=== PATIENT | female | born 1990 | race Caucasian/White ===

== ENCOUNTER → 2016-11-22 | Outpatient (CLI) | payer BC, OTHER ==
[~2016-11-22] MED LIST: ACET325T96 PO; AMPH10CA3 PO; AMPH10TA2 PO; ARTISOL12 OP; CEFD125S PO; CETI10TA10 PO; CETI10TA84 PO; CHOL100010 PO; CHOL1TAB42 PO; CLB/200 PO; CLON0.5T3 PO; CRFL PO; DOXE10CA PO; ESOM40GR PO; FAMO40TA6 PO; FLUT0.15 NAE; GASTROZYME PO; IBUP-1428 PO; LIDO1SOL9 PO; MISCCAP80 PO; NAPR-1168 PO; PREG1CAP70 PO; PREG200C PO; RIBO1TAB PO; RIBO50CA PO; SPIR25TA PO; SYMIN/8045 INH; SYMIN8045 INH; VNTHFA/IN INH; [UNRECOGNIZED DRUG - CODE] PO; celebrex PO
[2016-11-22 17:26] LABS: COMPLETE YES; EOS % 2.1 %; HEMATOCRIT 41.5 % (37-47); LYMPH % 29.6 %; LYMPH ABS # 1.69 K/uL (1.2-3.4); MEAN CELL VOLUME 84.9 fL (80-100); MEAN CORPUSCULAR HEMOGLOBIN 29.9 pg (25-34); MEAN CORPUSCULAR HGB CONC 35.2 g/dl (32-36); MONO % 7.2 %; NEUT % 61.1 %; PLATELET COUNT 286 K/uL (130-400); RED BLOOD COUNT 4.89 M/uL (4.2-5.4)
[2016-11-22 17:55] LABS: ALB/GLOB RATIO 1.4 (0.9-2); ALKALINE PHOSPHATASE 49 U/L (45-117); ALT/SGPT 24 U/L (12-78); BLOOD UREA NITROGEN 18 mg/dl (7-18); BUN/CREATININE RATIO 30.1 (10-20); CALCIUM 8.5 mg/dl (8.5-10.1); CARBON DIOXIDE 24 mmol/L (21-32); CHLORIDE 105 mmol/L (98-107); CREATININE 0.61 mg/dl (0.60-1.20); GLUCOSE 84 mg/dl (70-99); POTASSIUM 3.9 mmol/L (3.5-5.1); SODIUM 139 mmol/L (136-145)
[2016-11-22 18:15] LABS: AST/SGOT 13 U/L (15-37); FERRITIN 13.6 ng/ml (8.0-388.0); TOTAL IRON BINDING CAPACITY 411 mcg/dl (250-450)
[2016-11-27 21:33] LABS: 18KDIGG BAND NONREACTIVE (NONREACTIVE); 23KDIGG BAND NONREACTIVE (NONREACTIVE); 23KDIGM BAND REACTIVE (NONREACTIVE); 28KDIGG BAND NONREACTIVE (NONREACTIVE); 30KDIGG BAND NONREACTIVE (NONREACTIVE); 39KDIGG BAND NONREACTIVE (NONREACTIVE); 39KDIGM BAND NONREACTIVE (NONREACTIVE); 41KDIGG BAND REACTIVE (NONREACTIVE); 41KDIGM BAND REACTIVE (NONREACTIVE); 45KDIGG BAND NONREACTIVE (NONREACTIVE); 58KDIGG BAND NONREACTIVE (NONREACTIVE); 66KDIGG BAND NONREACTIVE (NONREACTIVE); 93KDIGG BAND NONREACTIVE (NONREACTIVE)
[2016-11-30 12:20] LABS: REFERENCE QUEST TEST REPORT
[2016-12-06 09:48] LABS: GLIADIN DEAMIDATED IgA AB 4 UNITS (<20); GLIADIN DEAMIDATED IgG AB 3 UNITS (<20); LEAD BLOOD 1 MCG/DL (0-9)
== END | disposition home or self-care (01) ==
LOC: C.LAB 16:14
PROVIDERS: ATTEND Family Medicine
DX: R53.83 Other fatigue (principal); M25.50 Pain in unspecified joint

== ENCOUNTER → 2016-11-29 | Outpatient (CLI) | payer BC, OTHER ==
--- NOTE | 2016-11-29 17:26 | DIAGNOSTIC IMAGING REPORT ---
THYROID ULTRASOUND HISTORY: Nodule LOCALIZED SWELLING, MASS AND LUMP NECK COMPARISON: 06/07/2016 FINDINGS: Several cervical nodes bilaterally. On the right these measure up to 1.8 x 1.2 cm. On the left these measure 1.6 x 0.9 cm at maximum. This is in general is slightly diminished compared to the prior study. IMPRESSION: Bilateral soft tissue cervical nodes in general similar to and/or slightly diminished as compared to the prior study. Electronically signed by: Catalino Holder M.D. 11/29/2016 5:25 PM Dictated Date/Time: 11/29/2016 5:22 PM
== END | disposition home or self-care (01) ==
LOC: C.ULTR 16:41
PROVIDERS: ATTEND Nurse Practitioner
DX: R22.1 Localized swelling, mass and lump, neck (principal)

== ENCOUNTER 2016-12-02 14:56 | Emergency (ER) | payer BC, OTHER ==
[~2016-12-02] VITALS: Ht 157.5 cm; Wt 91.5 kg
[~2016-12-02 14:56] MED LIST changes: -ACET325T96 PO; -AMPH10CA3 PO; -AMPH10TA2 PO; -ARTISOL12 OP; -CEFD125S PO; -CETI10TA10 PO; -CETI10TA84 PO; -CHOL100010 PO; -CHOL1TAB42 PO; -CLB/200 PO; -CLON0.5T3 PO; -CRFL PO; -DOXE10CA PO; -ESOM40GR PO; -FAMO40TA6 PO; -FLUT0.15 NAE; -GASTROZYME PO; -LIDO1SOL9 PO; -MISCCAP80 PO; -NAPR-1168 PO; -PREG200C PO; -RIBO1TAB PO; -RIBO50CA PO; -SPIR25TA PO; -SYMIN8045 INH; -VNTHFA/IN INH; -[UNRECOGNIZED DRUG - CODE] PO; -celebrex PO
[2016-12-02 15:01] VITALS: BP 142/84; PULSE 89; TEMP 36.8; Ht 157.5 cm; Wt 91.5 kg
[2016-12-02 15:03] VITALS: O2SAT 98
[2016-12-02] MEDS ORDERED: NAPR-1168 PO (21:00)
[2016-12-02] MEDS ORDERED: CLON0.5T3 PO (21:02)
[2016-12-09] MEDS ORDERED: CEFD125S PO (14:02)
[2017-03-28] MEDS ORDERED: ACET325T96 PO (12:38)
[2017-06-06] MEDS ORDERED: SPIR25TA PO (10:54)
[2017-06-06] MEDS ORDERED: celebrex PO (10:54)
[2017-07-15] MEDS ORDERED: CLB/200 PO (11:32)
[2017-07-15] MEDS ORDERED: RIBO1TAB PO (11:32)
[2017-07-15] MEDS ORDERED: AMPH10CA3 PO (11:32)
[2017-07-15] MEDS ORDERED: MISCCAP80 PO (11:32)
[2017-07-15] MEDS ORDERED: GASTROZYME PO (11:32)
[2017-07-15] MEDS ORDERED: CETI10TA84 PO (11:32)
[2017-07-15] MEDS ORDERED: LIDO1SOL9 PO (11:32)
[2017-07-15] MEDS ORDERED: CHOL1TAB42 PO (11:32)
== END 2016-12-02 16:10 | disposition left against medical advice (07) ==
LOC: C.EDB 14:57
DX: R06.02 Shortness of breath (principal)

== ENCOUNTER 2016-12-02 19:05 | Emergency (ER) | payer BC, OTHER ==
[~2016-12-02] VITALS: Ht 158.8 cm; Wt 91.1 kg
[2016-12-02 19:26] VITALS: TEMP 36.5; Ht 158.8 cm; Wt 91.1 kg
--- NOTE | 2016-12-02 20:38 | DIAGNOSTIC IMAGING REPORT ---
CHEST ONE VIEW PORTABLE CLINICAL HISTORY: Atypical chest pain COMPARISON STUDY: 04/13/2015 FINDINGS: The heart is normal in size. There is slight interstitial thickening finding which may be related to technical factors. There is no lobar consolidation. There is no overt failure. There are no pleural effusions.[ IMPRESSION: Equivocal mild interstitial thickening versus technical factors. No evidence of focal pulmonary consolidation. No evidence of failure. Electronically signed by: Nelson Valdivia M.D. 12/02/2016 8:36 PM Dictated Date/Time: 12/02/2016 8:35 PM
[2016-12-02 21:00] VITALS: O2SAT 97
[2016-12-02] MEDS ORDERED: NAPR-1168 PO (21:00)
[2016-12-02] MEDS ORDERED: CLON0.5T3 PO (21:02)
[2016-12-02 22:04] LABS: PREG INTERNAL NEGATIVE QC NEG CLEAR BACKGROUND; PREG INTERNAL POSITIVE QC POS CONTROL LINE
[2016-12-02 23:32] LABS: COMPLETE YES; EOS % 0.2 %; HEMATOCRIT 40.6 % (37-47); IG% 0.1 %; LYMPH % 10.1 %; LYMPH ABS # 0.91 K/uL (1.2-3.4); MEAN CELL VOLUME 85.1 fL (80-100); MEAN CORPUSCULAR HGB CONC 35.2 g/dl (32-36); MEAN PLATELET VOLUME 9.6 fL (7.4-10.4); MONO % 1.4 %; NEUT % 88.2 %; PLATELET COUNT 271 K/uL (130-400); RED BLOOD COUNT 4.77 M/uL (4.2-5.4); WHITE BLOOD COUNT 9.03 K/uL (4.8-10.8)
[2016-12-02 23:54] LABS: BUN/CREATININE RATIO 19.6 (10-20); CALCIUM 8.7 mg/dl (8.5-10.1); CREATININE 0.72 mg/dl (0.60-1.20); POTASSIUM 4.1 mmol/L (3.5-5.1)
[2016-12-03] MEDS ORDERED: OPTIRAY 320 IV PRN (00:15)
[2016-12-03 01:48] VITALS: BP 121/72; PULSE 84; O2SAT 100
--- NOTE | 2016-12-03 03:20 | EMERGENCY ROOM VISIT NOTE ---
History Report prepared by Steffany: Lita Kang Under the Supervision of: Dr. David Carmona M.D. First contact with patient: 20:26 Chief Complaint: CHEST PAIN Stated Complaint: CHEST PAIN, THROAT SORE, INFECTION History of Present Illness The patient is a 26 year old female who presents to the Emergency Room with complaints of intermittent chest pain beginning 8 days ago. The patient complains of her throat closing when she lays down or eats. Earlier this week she notes that she went to a walk in clinic and got an ultrasound that showed swollen lymph nodes. She reports that she came in earlier today but the wait was long so she went to see her PCP. While she was there she reports that he had her take deep breaths which worsened her throat swelling and neck pain. She describes neck tenderness and pressure, chest soreness, muscle soreness, tongue swelling, and difficulty breathing. The patient states that her PCP heard wheezing and recommended antibiotics that she has not picked up yet. She notes that when she got home she started to panic because she had another 1 hour episode where felt like she couldn't breath and she was feeling pain in her chest up through her neck. The patient reports that she got blood work last week that showed lyme disease. She reports that her chest pain is feeling better than it did before. The patient notes that eating and deep breathing worsen her symptoms so she has not eaten much today. Pt denies LOC, headache, fevers, chills, diaphoresis, visual changes, nausea, vomiting, abdominal pain, back pain, melena, hematochezia, urinary symptoms, numbness, weakness, lymphadenopathy, rash, or other complaints. Source of History: patient Onset: 8 days ago Position: chest Timing: intermittent Modifying Factors (Worsening): eating, breathing Review of Systems See HPI for pertinent positives and negatives. A total of ten systems were reviewed and were otherwise negative. 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 (6) Herniated nucleus pulposus, L4-5 (7) Hypertension Nos (8) Irritable Bowel Syndrome (9) Jalmwin-Yvkabcoqy-Tkgjo syndrome (10) Obsessive-Compulsive Dis (11) Otitis Media Nos (12) Pyelonephritis Nos Family History Blood clots Social History Smoking Status: Never Smoker Alcohol Use: occasionally Drug Use: none Housing Status: lives with roommate Occupation Status: employed Current/Historical Medications Scheduled Naproxen Ds (Naprosyn Ds), 550 MG PO BID Pregabalin (Lyrica), 150 MG PO QID Scheduled PRN Budesonide/Formoterol Fumarate (Symbicort 80/4.5 Inhaler), 2 PUFFS INH DAILY PRN for Asthma Symptoms Clonazepam (Klonopin), 0.25 MG PO BID PRN for Anxiety Allergies Coded Allergies: Fluoxetine (Verified Allergy, Mild, HIVES, 09/06/15) Fluvoxamine (Verified Allergy, Mild, HIVES, 09/06/15) Dust (Verified Allergy, Unknown, asthma sx, 09/06/15) Loratadine (Verified Allergy, Unknown, anxiety, 09/06/15) Metoclopramide (Verified Allergy, Unknown, anxiety, 09/06/15) POLLEN (Verified Allergy, Unknown, asthma sx, 09/06/15) Hydrocodone (Verified Adverse Reaction, Intermediate, NAUSEA/VOMITING, 09/10) Sertraline (Verified Adverse Reaction, Mild, COLD SORES, 09/06/15) Uncoded Allergies: JESSICA,COBALT,CHROME,SILVER (Allergy, Unknown, HIVES, 07/29/14) ct dye (Adverse Reaction, Mild, anxiety,panic attack,arm numbness, 09/29/15) Physical Exam Vital Signs Date Time Temp Pulse Resp B/P Pulse Ox O2 Delivery O2 Flow Rate FiO2 12/03/16 01:48 84 18 121/72 100 Room Air 12/03/16 00:02 68 16 131/84 98 Room Air 12/02/16 21:23 77 18 125/72 97 Room Air 12/02/16 21:00 97 Room Air 12/02/16 20:50 81 12/02/16 19:26 36.5 86 20 133/87 97 Room Air Physical Exam GENERAL: Awake, alert, anxious appearing. HENT: Normocephalic, atraumatic. Oropharynx unremarkable. Some mild tender left adenopathy. EYES: Normal conjunctiva. Sclera non-icteric. NECK: Supple. No nuchal rigidity. FROM. No JVD. RESPIRATORY: Clear to auscultation. CARDIAC: Regular rate, normal rhythm. Extremities warm and well perfused. Pulses equal. ABDOMEN: Soft, non-distended. No tenderness to palpation. No rebound or guarding. No masses. RECTAL: Deferred. MUSCULOSKELETAL: Chest examination reveals exquisite bilateral upper chest wall tenderness. The back is symmetrical on inspection without obvious abnormality. There is no CVA tenderness to palpation. No joint edema. LOWER EXTREMITIES: Calves are equal size bilaterally and non-tender. No edema. No discoloration. NEURO: Normal sensorium. No sensory or motor deficits noted. SKIN: No rash or jaundice noted. Medical Decision & Procedures ER Provider Diagnostic Interpretation: X-ray: Per my interpretation, radiologist review. CHEST ONE VIEW PORTABLE FINDINGS: The heart is normal in size. There is slight interstitial thickening finding which may be related to technical factors. There is no lobar consolidation. There is no overt failure. There are no pleural effusions.[ IMPRESSION: Equivocal mild interstitial thickening versus technical factors. No evidence of focal pulmonary consolidation. No evidence of failure. Electronically signed by: Nelson Valdivia M.D. 12/02/2016 8:36 PM Dictated Date/Time: 12/02/2016 8:[address] NECK: No evidence of fluid collection, although evaluation is limited without intravenous contrast. Prominent adenoids. Unremarkable epiglottis. Small right mastoid fluid. Small cervical lymph nodes. Heterogeneous thyroid gland. Patchy nonspecific groundglass lung densities. Probably residual thymic tissue in the anterior mediastinum. Radiologist: Bessy Watson M.D. Laboratory Results 12/02/16 23:20 Red Blood Count 4.77, Mean Corpuscular Volume 85.1, Mean Corpuscular Hemoglobin 30.0, Mean Corpuscular Hemoglobin Concent 35.2, Mean Platelet Volume 9.6, Neutrophils (%) (Auto) 88.2, Lymphocytes (%) (Auto) 10.1, Monocytes (%) (Auto) 1.4, Eosinophils (%) (Auto) 0.2, Basophils (%) (Auto) 0.0, Neutrophils # (Auto) 7.96, Lymphocytes # (Auto) 0.91, Monocytes # (Auto) 0.13, Eosinophils # (Auto) 0.02, Basophils # (Auto) 0.00 12/02/16 23:20 Test 12/02/16 20:58 12/02/16 21:00 12/02/16 23:20 Bedside D-Dimer 265 ng/mlFEU (0-450) Bedside Troponin I 0.000 ng/ml (0-0.045) Erythrocyte Sedimentation Rate 10 mm/hr (0-21) C-Reactive Protein 0.49 mg/dl (0-0.29) Human Chorionic Gonadotropin, Qual NEG (NEG) Monoscreen NEG (NEG) White Blood Count 9.03 K/uL (4.8-10.8) Red Blood Count 4.77 M/uL (4.2-5.4) Hemoglobin 14.3 g/dL (12.0-16.0) Hematocrit 40.6 % (37-47) Mean Corpuscular Volume 85.1 fL (80-100) Mean Corpuscular Hemoglobin 30.0 pg (25-34) Mean Corpuscular Hemoglobin Concent 35.2 g/dl (32-36) Platelet Count 271 K/uL (130-400) Mean Platelet Volume 9.6 fL (7.4-10.4) Neutrophils (%) (Auto) 88.2 % Lymphocytes (%) (Auto) 10.1 % Monocytes (%) (Auto) 1.4 % Eosinophils (%) (Auto) 0.2 % Basophils (%) (Auto) 0.0 % Neutrophils # (Auto) 7.96 K/uL (1.4-6.5) Lymphocytes # (Auto) 0.91 K/uL (1.2-3.4) Monocytes # (Auto) 0.13 K/uL (0.11-0.59) Eosinophils # (Auto) 0.02 K/uL (0-0.5) Basophils # (Auto) 0.00 K/uL (0-0.2) RDW Standard Deviation 40.8 fL (36.4-46.3) RDW Coefficient of Variation 13.1 % (11.5-14.5) Immature Granulocyte % (Auto) 0.1 % Immature Granulocyte # (Auto) 0.01 K/uL (0.00-0.02) Anion Gap 11.0 mmol/L (3-11) Est Creatinine Clear Calc Drug Dose 123.4 ml/min Estimated GFR () 132.1 Estimated GFR (Non- 114.0 BUN/Creatinine Ratio 19.6 (10-20) Calcium Level 8.7 mg/dl (8.5-10.1) Total Bilirubin 0.5 mg/dl (0.2-1) Direct Bilirubin 0.1 mg/dl (0-0.2) Aspartate Amino Transf (AST/SGOT) 15 U/L (15-37) Alanine Aminotransferase (ALT/SGPT) 29 U/L (12-78) Alkaline Phosphatase 54 U/L (45-117) Total Protein 7.2 gm/dl (6.4-8.2) Albumin 3.9 gm/dl (3.4-5.0) Lipase 130 U/L (73-393) Laboratory results reviewed by me ECG Indication: chest pain Rate (beats per minute): 89 Rhythm: normal sinus Findings: no acute ischemic change, no ectopy, other (no pericarditis) ED Course 2025: The patient was evaluated in room A4. A complete history and physical exam was performed. 2244: I reevaluated the patient. She is doing well. 0005: I reevaluated the patient. 0133: I reevaluated and updated the patient. 0143: I reevaluated the patient. Discussed results and discharge instructions: She verbalized understanding and agreement. The patient is ready for discharge. Medical Decision Triage Nursing notes reviewed. The patient's presentation and history were concerning for chest pain and neck pain. Etiologies such as costochondritis, pericarditis, pharyngitis, epiglottitis, retropharyngeal abscess, cardiac ischemia, aortic dissection, pulmonary embolism , pneumonia, pneumothorax, musculoskeletal, infections, gastrointestinal, anxiety as well as others were entertained. The patient was evaluated. She was doing well. She declined analgesia. She had an unremarkable ECG. Chest x-ray was negative. Her CBC was normal. [place] testing was normal. Cardiac markers and d-dimer negative. The patient underwent CT imaging which did not reveal any significant structural abnormalities. Epiglottis was normal. No fluid collections. There was some minimal adenopathy. The patient has a tender chest wall on physical examination. She has intermittent complaints of neck pain and feeling like she is being choked. I suspect that she does have a costochondritis. She has a prescription initiated for Lyme treatment. The patient then questioned if this could be related to anxiety. I suspect that she could have also had a brief panic attack due to her symptoms. I discussed conservative management with the patient and her significant other. She is doing very well at this time without significant treatment. I gave my usual and customary discussion regarding this issue. By the evaluation outlined above other emergent etiologies such as those listed in the differential, as well as others, were deemed relatively unlikely. The patient and significant other were informed about the findings as listed above. All questions were answered and they were pleased with the treatment. Return instructions were outlined and the patient was discharged in stable condition. The patient was referred to her PCP for follow-up MARIBELL for a recheck of the current condition. The chart was completed utilizing [employer] Speech voice recognition software. Grammatical errors, random word insertions, pronoun errors, and incomplete sentences are an occasional consequence of this system due to software limitations, ambient noise, and hardware issues. Any formal questions or concerns about the content, text, or information contained within the body of this dictation should be directly addressed to the physician for clarification. Impression Primary Impression: Mid sternal chest pain Additional Impression: Neck pain Scribe Attestation The scribe's documentation has been prepared under my direction and personally reviewed by me in its entirety. I confirm that the note above accurately reflects all work, treatment, procedures, and medical decision making performed by me. Departure Information Dispostion Home / Self-Care Referrals Amanuel Bang M.D. (PCP) Forms HOME CARE DOCUMENTATION FORM, IMPORTANT VISIT INFORMATION Patient Instructions My [facility] Additional Instructions Fill the prescriptions and take the medicine as prescribed. Warm compresses for 20 minutes at a time four times daily for 2-3 days. Ibuprofen(Motrin, Advil) may be used for fever or pain. Use 600mg every six hours as needed. Take with food. Avoid using more than 2400mg in a 24 hour period. Do not use 2400mg per day for more than three consecutive days without physician direction. Prolonged inappropriate use can lead to stomach upset or ulcers. (AND/OR) Acetaminophen(Tylenol) may be used for fever or pain. Use 1000mg every six hours as needed. Avoid using more than 4000mg in a 24 hour period. Rest and drink plenty of fluids as tolerated. Continue current medications. Avoid strenuous activities and anything that worsens your pain. Resume normal activities once your symptoms resolve. Return to the ER immediately for worsening or persistent chest pain, abdominal pain, vomiting, fevers, chest pains, difficulty breathing, worsening of your condition, or as needed. Follow up with your primary physician tomorrow for a recheck of your current condition. Problem Qualifiers
--- NOTE | 2016-12-03 07:56 | DIAGNOSTIC IMAGING REPORT ---
CT SCAN OF THE NECK WITHOUT IV CONTRAST CLINICAL HISTORY: Sore throat. COMPARISON STUDY: Radiographs of the cervical spine dated 04/13/2015. TECHNIQUE: CT scan of the soft tissues of the neck was performed from the skull base to the upper chest. Images are reviewed in the axial, sagittal, and coronal planes. IV contrast was not administered as per the referring clinician due to a reported history of contrast allergy. Note that the examination is significantly suboptimal without IV contrast. CT DOSE: 718.55 mGy.cm FINDINGS: Pharynx: The unenhanced pharyngeal soft tissues are grossly normal in appearance. The pharyngeal airway is widely patent. There is no evidence of mass lesion. The vocal cords are symmetric. The parapharyngeal fat is well maintained. The prevertebral/retropharyngeal soft tissues are within normal limits. The epiglottis is normal. Mild prominence of the adenoids may be normal for age. There is no evidence of fluid collection on this unenhanced examination. Lymphadenopathy: No cervical lymphadenopathy is seen Thyroid: Slightly atrophic and heterogeneous. Salivary glands: The parotid and submandibular glands are within normal limits. Brain parenchyma: The visualized brain parenchyma at the skull base is normal in appearance. Skeletal structures: Imaged portions of the calvarium at the skull base are within normal limits. The cervical spine appears intact. Orbits: The bony orbits are intact. Orbital contents are normal as visualized. Sinuses and mastoids: The paranasal sinuses are clear. There is a small right mastoid effusion. The left mastoid air cells are well pneumatized. A nasal piercing is noted. Lung apices: Visualized apical lung parenchyma is clear. Minimal residual thymic tissue is present in the anterior mediastinum. The aortic arch demonstrates bovine variant anatomy. IMPRESSION: 1. No acute abnormality is identified on this unenhanced examination. 2. Small right mastoid effusion. Electronically signed by: Louis Downs M.D. 12/03/2016 7:54 AM Dictated Date/Time: 12/03/2016 7:49 AM
[2016-12-09] MEDS ORDERED: CEFD125S PO (14:02)
[2017-03-28] MEDS ORDERED: ACET325T96 PO (12:38)
[2017-06-06] MEDS ORDERED: SPIR25TA PO (10:54)
[2017-06-06] MEDS ORDERED: celebrex PO (10:54)
[2017-07-15] MEDS ORDERED: GASTROZYME PO (11:32)
[2017-07-15] MEDS ORDERED: CHOL1TAB42 PO (11:32)
[2017-07-15] MEDS ORDERED: RIBO1TAB PO (11:32)
[2017-07-15] MEDS ORDERED: MISCCAP80 PO (11:32)
[2017-07-15] MEDS ORDERED: LIDO1SOL9 PO (11:32)
[2017-07-15] MEDS ORDERED: CETI10TA84 PO (11:32)
[2017-07-15] MEDS ORDERED: CLB/200 PO (11:32)
[2017-07-15] MEDS ORDERED: AMPH10CA3 PO (11:32)
== END 2016-12-03 01:56 | disposition home or self-care (01) ==
LOC: C.EDB 19:19 → C.EDA 12-03 01:56
DX: R07.2 Precordial pain (principal); M54.2 Cervicalgia; J45.909 Unspecified asthma, uncomplicated; I10 Essential (primary) hypertension; F41.9 Anxiety disorder, unspecified; Z79.899 Other long term (current) drug therapy; Z82.49 Family history of ischemic heart disease and other diseases of the circulatory system

== ENCOUNTER → 2016-12-04 | Outpatient (CLI) | payer BC, OTHER ==
[~2016-12-04] MED LIST changes: +ACET325T96 PO; +AMPH10CA3 PO; +AMPH10TA2 PO; +ARTISOL12 OP; +CEFD125S PO; +CETI10TA10 PO; +CETI10TA84 PO; +CHOL100010 PO; +CHOL1TAB42 PO; +CLB/200 PO; +CLON0.5T3 PO; +CRFL PO; +DOXE10CA PO; +ESOM40GR PO; +FAMO40TA6 PO; +FLUT0.15 NAE; +GASTROZYME PO; +LIDO1SOL9 PO; +MISCCAP80 PO; +NAPR-1168 PO; +PREG200C PO; +RIBO1TAB PO; +RIBO50CA PO; +SPIR25TA PO; +SYMIN8045 INH; +VNTHFA/IN INH; +[UNRECOGNIZED DRUG - CODE] PO; +celebrex PO
--- NOTE | 2016-12-04 13:13 | DIAGNOSTIC IMAGING REPORT ---
(BARIUM SWALLOW) ESOPHAGUS CLINICAL HISTORY: DYSPHAGIA COMPARISON STUDY: None FLUOROSCOPY TIME: 1.7 minutes. FINDINGS: Normal swallowing function. Esophagus is normal in course and caliber. Gastroesophageal junction is unremarkable. The patient declined ingestion of the barium tablet IMPRESSION: Normal study Electronically signed by: Catalino Holder M.D. 12/04/2016 1:12 PM Dictated Date/Time: 12/04/2016 1:09 PM
== END | disposition home or self-care (01) ==
LOC: C.RAD 12:01
PROVIDERS: ATTEND Family Medicine
DX: R13.10 Dysphagia, unspecified (principal)

== ENCOUNTER → 2016-12-10 | Day surgery (SDC) | payer BC, OTHER ==
[2016-12-09 14:04] VITALS: BMI 35.0
[~2016-12-10] VITALS: Ht 160 cm; Wt 90.9 kg
[~2016-12-10] MED LIST changes: -IBUP-1428 PO; +LIDOCAINE HCL 2% 2 ML VIAL (20MG/ML) ONE; +MIDAZOLAM HCL 1 MG/ML 2ML VIAL ONE; +PROPOFOL IV EMULSION 10 MG/ML 20 ML VIAL IV ONE; +SODIUM CHLORIDE 0.9% 500ML 500 ML IV ONE
[2016-12-10 08:57] VITALS: Ht 160 cm; Wt 90.9 kg
[2016-12-10 09:16] VITALS: TEMP 36.6
--- NOTE | 2016-12-10 09:33 | Endo History and Physical ---
History & Physical Date of Service: Dec 10, 2016. Chief Complaint: DYSPHAGIA Referring Physician: DR. KAIT DUKES History of Present Illness Dysphagia, progressive since 09/2016 Past Surgical History Hx Cardiac Surgery: No Hx Internal Defibrillator: No Hx Pacemaker: No Hx Abdominal Surgery: Yes (CERVICAL BIOPSY) Hx of Implantable Prosthesis: No Hx Post-Op Nausea and Vomiting: Yes Hx Cancer Surgery: No Hx Thoracic Surgery: No Hx Orthopedic: Yes (LEFT KNEE SX X 3) Hx Urinary Tract Surgery: No Family History Polyp, IBD Social History Smoking Status: Never Smoker Hx Substance Use: No Hx Alcohol Use: No Allergies Coded Allergies: Fluoxetine (Verified Allergy, Mild, HIVES, 12/09/16) Fluvoxamine (Verified Allergy, Mild, HIVES, 12/09/16) Bupropion (Verified Allergy, Unknown, HIVES, 12/09/16) Dust (Verified Allergy, Unknown, asthma sx, 12/09/16) Iodinated Diagnostic Agents (Verified Allergy, Unknown, ARM NUMBNESS, 12/09) Loratadine (Verified Allergy, Unknown, anxiety, 12/09/16) Metoclopramide (Verified Allergy, Unknown, anxiety, 12/09/16) POLLEN (Verified Allergy, Unknown, asthma sx, 12/09/16) Hydrocodone (Verified Adverse Reaction, Intermediate, NAUSEA/VOMITING, 09/10) Sertraline (Verified Adverse Reaction, Mild, COLD SORES, 12/09/16) Uncoded Allergies: JESSICA,COBALT,CHROME,SILVER (Allergy, Unknown, HIVES, 07/29/14) Current Medications Reported Home Medications Medications Dose Route/Sig Max Daily Dose Days Date Category Omnicef (Cefdinir) 125 Mg/5 Ml Ashlie 1 Tsp PO BID 10 12/09/16 Reported Klonopin (Clonazepam) 0.5 Mg Tab 0.25 Mg PO BID PRN 12/02/16 Reported Naprosyn Ds (Naproxen) 550 Mg Tab 550 Mg PO BID 12/02/16 Reported Lyrica (Pregabalin) 150 Mg Cap 150 Mg PO QID 04/13/15 Reported Symbicort 80/4.5 Inhaler (Budesonide/Formoterol Fumarate) Aero 2 Puffs INH DAILY PRN 07/29/14 Reported Vital Signs Weight (Kilograms): 90.91 Height (Feet): 5 Height (Inches): 3 Date Time Temp Pulse Resp B/P Pulse Ox O2 Delivery O2 Flow Rate FiO2 12/10/16 09:16 36.6 85 18 114/75 100 Room Air Physical Exam General Appearance: WD/WN, no apparent distress, + pertinent finding (anxious) Respiratory/Chest: Auscultation: breath sounds normal, no wheezing Cardiovascular: Heart Auscultation: RRR, no murmurs Abdomen: Inspection & Palpation: soft, no tenderness, guarding & rebound Assessment and Plan EGD today.
--- NOTE | 2016-12-10 10:05 | GI REPORT ---
Procedure Date: 12/10/2016 9:10 AM Procedure: Upper GI endoscopy Indications: Dysphagia Medicines: Monitored Anesthesia Care Complications: No immediate complications. Estimated blood loss: None. Estimated Blood Loss: Estimated blood loss: none. Procedure: Pre-Anesthesia Assessment: - Prior to the procedure, a History and Physical was performed, and patient medications, allergies and sensitivities were reviewed. The patient's tolerance of previous anesthesia was reviewed. - ASA Grade Assessment: II - A patient with mild systemic disease. After obtaining informed consent, the endoscope was passed under direct vision. Throughout the procedure, the patient's blood pressure, pulse, and oxygen saturations were monitored continuously. The On-site loaner was introduced through the mouth, and advanced to the third part of duodenum. The upper GI endoscopy was accomplished with ease. The patient tolerated the procedure well. Findings: The upper third of the esophagus, middle third of the esophagus and lower third of the esophagus were normal. Biopsies were taken with a cold forceps for histology. The Z-line was regular and was found 35 cm from the incisors. Biopsies were taken with a cold forceps for histology. A small hiatus hernia was present. Diffuse mildly erythematous mucosa without bleeding was found in the gastric antrum. Biopsies were taken with a cold forceps for Helicobacter pylori testing. The examined duodenum was normal. Impression: - Normal upper third of esophagus, middle third of esophagus and lower third of esophagus. Biopsied. - Z-line regular, 35 cm from the incisors. Biopsied. - Small hiatus hernia. - Erythematous mucosa in the antrum. Biopsied. - Normal examined duodenum. Recommendation: - Await pathology results. - Discharge patient to home (with escort). John Polanco M.D. John Polanco MD 12/10/2016 10:04:48 AM This report has been signed electronically. Note Initiated On: 12/10/2016 9:10 AM I attest to the content of the Intraoperative Record and orders documented therein, exceptions below
--- NOTE | 2016-12-10 10:06 | Discharge Instructions ---
Endoscopy Patient Instructions Date / Procedure(s) Performed Dec 10, 2016. EGD Allergy Information Coded Allergies: Fluoxetine (Verified Allergy, Mild, HIVES, 12/09/16) Fluvoxamine (Verified Allergy, Mild, HIVES, 12/09/16) Bupropion (Verified Allergy, Unknown, HIVES, 12/09/16) Dust (Verified Allergy, Unknown, asthma sx, 12/09/16) Iodinated Diagnostic Agents (Verified Allergy, Unknown, ARM NUMBNESS, 12/09) Loratadine (Verified Allergy, Unknown, anxiety, 12/09/16) Metoclopramide (Verified Allergy, Unknown, anxiety, 12/09/16) POLLEN (Verified Allergy, Unknown, asthma sx, 12/09/16) Hydrocodone (Verified Adverse Reaction, Intermediate, NAUSEA/VOMITING, 09/10) Sertraline (Verified Adverse Reaction, Mild, COLD SORES, 12/09/16) Uncoded Allergies: JESSICA,COBALT,CHROME,SILVER (Allergy, Unknown, HIVES, 07/29/14) Discharge Date / Findings Dec 10, 2016. Small hiatal hernia. No stricture appreciated. Biopsies obtained, pending. Medication Instructions Stopped Medication(s): TOLD TO STOP ANTIBIOTIC Restart Stopped Medication(s): Restart medications today Provider Instructions Activity Restrictions - No exercising or heavy lifting for 24 hours. - Do not drink alcohol the day of the procedure. - Do not drive a car or operate machinery until the day after the procedure. - Do not make any important decisions or sign important papers in 24 hours after the procedure. Following Day: - Return to full activity which may include returning to work/school. Diet Start your diet with liquids and light foods (jello, soup, juice, toast). Then eat your usual diet if not nauseated. Treatment For Common After Affects For mild abdominal pain, bloating, or excessive gas: - Rest - Eat lightly - Lie on right side Follow-Up Information Follow-up with DR. KAIT DUKES as scheduled Anesthesia Information What You Should Know You have had a procedure that required some medicine to reduce anxiety and discomfort. This treatment is called moderate sedation. After receiving the treatment, you may be sleepy, but you will be able to breathe on your own. The effects of the treatment may last for several hours. Follow these instructions along with Activity/Diet recommendations noted above: * Do NOT do anything where dizziness or clumsiness would be dangerous. * Rest quietly at home today, then you can be up and about tomorrow. * Have a responsible person stay with you the rest of today. * You may have had an I.V. today. If so, you may take the dressing off later today. Recommendations Call your doctor if: * Trouble breathing * Continuous vomiting for more than 24 hours * Temperature above 101 degrees * Severe abdominal pain or bloating * Pain not relieved by pain medicine ordered * There is increased drainage or redness from any incision * A large amount of rectal bleeding greater than 2-3 tablespoons. (If you had a polyp/s removed or have hemorrhoids, a small amount of blood - from the rectum is to be expected.) * You have any unanswered questions or concerns. IN THE EVENT OF A SERIOUS EMERGENCY, GO TO THE NEAREST EMERGENCY ROOM Your discharge instructions were prepared by provider John Polanco. Patient Instructions Signature Page Deepthi Mon Patient (or Guardian) Signature/Date: I have read and understand the instructions given to me by my caregivers. Caregiver/RN/Doctor Signature/Date: The above-named patient and/or guardian has received patient instructions on this date. + Original Patient Signature Page (only) stays with chart. Please make copy for patient.
--- NOTE | 2016-12-10 10:25 | Anesthesiology Progress Note ---
Anesthesia Post Op Note Date & Time Dec 10, 2016 at 10:26 Vital Signs Pain Intensity: 0 Vital Signs Past 12 Hours Date Time Temp Pulse Resp B/P Pulse Ox O2 Delivery O2 Flow Rate FiO2 12/10/16 10:20 81 18 117/57 94 Room Air 12/10/16 10:05 88 18 112/57 94 Room Air 12/10/16 09:16 36.6 85 18 114/75 100 Room Air Notes Mental Status: alert / awake / arousable, participated in evaluation Pt Amnestic to Procedure: Yes Nausea / Vomiting: adequately controlled Pain: adequately controlled Airway Patency, RR, SpO2: stable & adequate BP & HR: stable & adequate Hydration State: stable & adequate Anesthetic Complications: no major complications apparent
[2016-12-10 10:33] VITALS: BP 106/58; PULSE 68; O2SAT 98
== END | disposition home or self-care (01) ==
LOC: C.GI 08:39
PROVIDERS: ATTEND Internal Medicine Gastroenterology
DX: K29.50 Unspecified chronic gastritis without bleeding (principal); K44.9 Diaphragmatic hernia without obstruction or gangrene; Z83.71 Family history of colonic polyps; Z83.79 Family history of other diseases of the digestive system

== ENCOUNTER → 2016-12-27 | Outpatient (CLI) | payer BC, OTHER ==
[~2016-12-27] MED LIST changes: -LIDOCAINE HCL 2% 2 ML VIAL (20MG/ML) ONE; -MIDAZOLAM HCL 1 MG/ML 2ML VIAL ONE; -PROPOFOL IV EMULSION 10 MG/ML 20 ML VIAL IV ONE; -SODIUM CHLORIDE 0.9% 500ML 500 ML IV ONE
--- NOTE | 2016-12-27 15:16 | DIAGNOSTIC IMAGING REPORT ---
ABDOMEN COMPLETE (US) CLINICAL HISTORY: Abdominal pain COMPARISON STUDY: 03/13/2012 FINDINGS: The pancreas appears sonographically normal. The liver and gallbladder appears sonographically normal. There is no ductal dilatation. The common bile duct measures 4 mm. The spleen measures 11.8 cm in length. No splenic masses are visualized. The right kidney measures 11.9 cm in length. The left kidney measures 11.8 cm in length. No renal masses are visualized. There is no hydronephrosis. There is no evidence of abdominal aortic aneurysm. The IVC appear patent. IMPRESSION: Normal study Electronically signed by: Nelson Valdivia M.D. 12/27/2016 3:15 PM Dictated Date/Time: 12/27/2016 3:14 PM
== END | disposition home or self-care (01) ==
LOC: C.ULTR 14:07
PROVIDERS: ATTEND Family Medicine
DX: R10.9 Unspecified abdominal pain (principal)

== ENCOUNTER → 2016-12-27 | Outpatient (CLI) | payer BC, OTHER ==
[2017-01-01 04:50] LABS: ANTI-CENTROMERE AB <1.0 NEG AI (<1.0 NEG); ANTI-SS-A <1.0 NEG AI (<1.0 NEG); ANTI-SS-B <1.0 NEG AI (<1.0 NEG); BRUCELLA AB IGG 0.08; DNA ds CRITHIDIA NEGATIVE (NEGATIVE); HLA-B27** TC 528X NEGATIVE (NEGATIVE); MICROSOMAL AB <1 IU/ML (<9); R. TYPHI IgG AB Not Detected (Not Detected); R. TYPHI IgM AB Not Detected (Not Detected); RMSF IgM AB Not Detected (Not Detected); Sm Antibody <1.0 NEG AI (<1.0 NEG)
== END | disposition home or self-care (01) ==
LOC: C.LAB1850 11:53
PROVIDERS: ATTEND Internal Medicine Infectious Disease
DX: M13.0 Polyarthritis, unspecified (principal)

== ENCOUNTER → 2017-01-22 | Outpatient (CLI) | payer BC, OTHER ==
[2017-01-28 12:23] LABS: HERPES SIMPLEX CULT SOURCE GENITAL-VULVA; HERPES SIMPLEX VIRUS CULT NOT ISOLATED (NOT ISOLATED)
== END | disposition home or self-care (01) ==
LOC: C.LABSPEC 16:07
PROVIDERS: ATTEND Physician Assistant
DX: N90.89 Other specified noninflammatory disorders of vulva and perineum (principal)

== ENCOUNTER → 2017-01-29 | Outpatient (CLI) | payer BC, OTHER ==
--- NOTE | 2017-01-30 06:24 | PAP/PSG TECHNICIAN REPORT ---
[facility] Carbon Capture Power Plant Operator Polysomnogram Report Study name: None Report date: 01/30/2017 Study date: 01/29/2017 Referring Physician: DR.STEVEN ERNST M.D. Name: ELLIOTTHALI Interpreting Physician: Bill Campbell D.O. Date of : 1990 [employer] Capture Power Plant Operator: Starla Pino [facility]. Sex: Female Age: 26 StudyType: PSG Weight: 178 lbs Height: 26 years, Height 5' 3.5" Neck Circum:14inches BMI: 31.03 Medications: Lyrica 150mg, Nexium 40mg, Carafate 10ml, Famotidine, Albuterol, Symbicort, Clonazepam 0.5mg, Zyrtec, Flonase, Diflucan Patient History Study started on room air with no ETCO2 monitoring in room #8. 26 yr old female here tonight for a diagnostic psg. She had a failed HST. She snores and gasps at night. 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 She did have some ENT surgery. She was recently diagnosed with Laryngopharyngeal reflux. Her ESS=11/24. Neck circ=14inches. Patient took clonazepam right before getting into bed. Parameters Monitored NPSG: E1-M2, E2-M1, Fp1-M2, Fp2-M1, F3-M2, F4-M2, F4-M1, C3-M2, C4-M2, C4-M1, O1-M2, O2-M2, O2-M1, T3-M2, T4-M1, P3-M2, P4-M1, CHIN1, CHIN2, HR, EKG, Legs, PFLOW, SNOR, FLOW, CFLOW, Tidal Volume, THOR, ABDO, SpO2, PLTH, CPRESS, ETCO2 Wave, ETCO2, pH Sleep Architecture Sleep Stages Time at Lights Off 10:23:58 PM STAGES Time (min.) TST (%) Time at Lights On 5:21:58 AM Wake 62.5 -- Total Recording Time (TRT) 418.00 min. N1 5.0 1 Total Sleep Period (TSP) 359.0 min. N2 229.5 65 Total Sleep Time (TST) 355.5min. N3 88.0 25 Awake Time 62.5 min. REM 33.0 9 Wake after Sleep Onset 5.5 min. Sleep Efficiency (SE) 85 % Sleep Onset Latency (ARLETTE) 57.0 min. Number of Stage 1 Shifts None Awakenings 5 Stage Changes 23 Number of REM periods 4 REM 33.0 9 REM Latency 206.5 min. NREM 322.5 91 Body Position Analysis Supine Right Left Side Prone Vertical Total Sleep Time (min.) 418.0 0.0 0.0 0.00 0.0 0.0 Total Sleep Time (%) 100% 0% 0% 0 0% N/A% Total Sleep Time REM (min.) 33.0 0.0 0.0 None 0.0 0.0 Total Sleep Time NREM (min.) 322.5 0.0 0.0 None 0.0 0.0 Intermittent Wake (min.) 62.5 0.0 0.0 None 0.0 0.0 Total Sleep Period (%) 100% None None None None None Arousals Myoclonus (PLM) * Events Count Index Events Count Index Spontaneous 8 1 Events Awake (PLMW) 15 14.4 Respiratory 1 0.2 Events Asleep w/ Arousal (PLMA) 2 0.3 PLM 2 0 Events Asleep w/o Arousal (PLMS) 9 1.5 Snoring 1 0 Total Asleep 11 1.9 Total 12 2 Total 26 4 Respiratory Analysis * CA OA MA CH H RERA Total Count 0 1 0 0 14 0 15 Index 0.0 0.2 0.0 0 2.4 0 2.5 Mean Duration 0.0 12.6 0.0 0.00 14.9 0.0 14.7 Longest Duration 0.0 12.6 0.0 0.00 0.0 0.0 23.3 Respiratory Event Summary Total Supine ~Supine Right Left Prone REM NREM Apneas Count 1 1 N/A N/A N/A N/A 0 1 Index 0.2 0 N/A N/A N/A N/A 0 0 Hypopneas (4% Desat) Count 14 14 N/A N/A N/A N/A 6 8 Index 2.4 2.4 N/A N/A N/A N/A 10.9 1.5 Apneas & All Hypopneas Count 15 15 N/A N/A N/A N/A 6 9 Index 2.5 3 N/A N/A N/A N/A 10.9 1.7 Respiratory Events (Ware Finisher+All Hyp+RERA) Count 15 15 N/A N/A N/A N/A 6 9 Index 2.5 3 N/A N/A N/A N/A 10.9 1.7 Respiratory Related Arousal Count 1 15 N/A N/A N/A N/A 0 1 Index 0.2 0 N/A N/A N/A N/A 0 0 Snoring Analysis Supine Right Left Prone REM NREM Total Snore duration 1.5 min Snores count 34 N/A N/A N/A 5 29 34 Snore mean duration 2.7 Sec Snores index 6 N/A N/A N/A 9.1 5.4 5.7 TST with snoring (%) 0.4% Desaturation Event Summary: Minimum %SpO2 Event Count Mean/Min/Max Duration(sec.) Desaturation Index % Time In Bed > 90 25 17.7 / 5.5 / 58.8 3.7 99.0 86 - 90 4 6.4 / 5.5 / 7.3 57.3 1.0 81 - 85 0 N/A 0.0 0.0 76 - 80 0 N/A 0.0 0.0 71 - 75 0 N/A 0.0 0.0 66 - 70 0 N/A 0.0 0.0 61 - 65 0 N/A 0.0 0.0 56 - 60 0 N/A 0.0 0.0 51 - 55 0 N/A 0.0 0.0 < 50 0 N/A 0.0 0.0 Total REM NREM Awake <50% 0.0 min. 0.0 min. 0.0 min. 0.0 min. 51 - 60% 0.0 min. 0.0 min. 0.0 min. 0.0 min. 61 - 70% 0.0 min. 0.0 min. 0.0 min. 0.0 min. 71 - 80% 0.0 min. 0.0 min. 0.0 min. 0.0 min. 81 - 90% 4.2 min. 2.0 min. 2.0 min. 0.2 min. 91 - 100% 408.7 min. 31.0 min. 320.3 min. 57.4 min. Average 93 93 93 94 Minimum SpO2 85 88 88 85 Desaturation Event Index 3.6 12.7 2.2 5.8 # Desat. Events below 89% 4 1 2 1 Time(%) with Saturation below 89% 0.1 0.0 0.0 0.0 Time(min.) with Saturation below 89% 0.3 0.1 0.1 0.1 Time (mins) REM (mins) NREM (mins) % of TST SpO2 Below 90% 15 5 N10 0.2 SpO2 Below 88% 0 0 0 0 Heart Rate Analysis Min (bpm) Max (bpm) Average (bpm) Awake 54 91 65 NREM 50 92 58 REM 53 76 63 Overall 50 92 59 Supplemental O2 Values Minimum O2 level: None Value Start Time End Time [employer] Operator Comments slept in the supine position. No cardiac arrhythmia or PLM's noted. No bruxism noted. Snoring was noted and scored as a 0 on a scale of 1 through 5. (0=no snoring, 5=snoring loud enough to be heard through a closed door or down the hansen way) She did not use the restroom during the night. She stated that she slept well, actually better than usual. She told me in the morning that she took 1.5mg of clonazepam to make sure that she would sleep. I was unaware of the dose that she took. She assured me that her doctor said it was fine to take that much medication. The final report will be interpreted and signed by a sleep physician. The completed physician report will then be placed in the patient medical record. Therapy (cm H2O) 0 TIB (min.) 418.0 TST (min.) 355.5 Sleep Onset (min.) 57.0 REM Onset From Sleep (min.) 206.5 Sleep Efficiency % 85 Wakefulness (%) 15 Wakefulness (min.) 62.5 NREM 1 (%) 1 NREM 1 (min.) 5.0 NREM 2 (%) 65 NREM 2 (min.) 229.5 NREM 3 (%) 25 NREM 3 (min.) 88.0 REM (%) 9 REM (min.) 33.0 # Arousals 12 Arousal Index 2 # Snore 34 Snore Index 5.7 AHI 2.5 AHI Supine 3 AHI Non-Supine N/A NREM AHI 1.7 REM AHI 10.9 RDI 2.5 # Obstructive Apnea 1 # Central Apnea 0 # Mixed Apnea 0 # Hypopneas 14 RERAs 0 Total Respiratory Events 15 Time Below SpO2 89% (min.) 0.2 Mean NREM SpO2 (%) 93 Mean REM SpO2 (%) 93 Mean Sleep SpO2 (%) 93 Min NREM SpO2 (%) 88 Min REM SpO2 (%) 88 Position Supine (min.) 418.0 Position Non-supine (min.) 0.0 LM Index Sleep 1.9 LM Index NREM 1.9 LM Index REM 1.8 Mean Heart Rate (bpm) 59 Min Heart Rate (bpm) 50
--- NOTE | 2017-02-06 01:17 | POLYSOMNOGRAPH REPORT ---
The patient is referred by Dr. Amanuel Bang. CLINICAL DATA: The patient is a 26-year-old female. She has a BMI of 31.03. Her complaints are those of snoring, observed apneas, nocturnal gasping, and she had a failed home sleep study. There was a prior history of sleep apnea and she reportedly had ENT surgery. This was a diagnostic in-lab sleep study. SLEEP ARCHITECTURE: The total sleep period was 359.0 minutes. Total sleep time was 355.5 minutes. The sleep efficiency was mildly decreased to 85%. The sleep onset latency was prolonged to 57 minutes. The REM latency was prolonged to 206.5 minutes. Wake after sleep onset was only 5.5 minutes. Sleep consisted of stage N1 1%, stage N2 65%, stage N3 25%, and stage REM 9%. AROUSAL DATA: The patient had a total of only 12 arousals including 8 spontaneous arousals, 1 respiratory arousal, 2 PLM arousals, and 1 snoring arousal. The arousal index was 2. PERIODIC LIMB MOVEMENT DATA: The patient had a total of 11 periodic limb movements of sleep for an index of only 1.9. There were 2 limb movements associated with arousals for a PLM arousal index of only 0.3. RESPIRATORY DATA: The patient had a total of 15 respiratory events including 1 obstructive apnea and 14 hypopneas. The 4% rule was utilized for scoring hypopneas. The apnea-hypopnea index was normal at 2.5 events per hour. This would suggest no significant sleep apnea. The apnea was 12.6 seconds in length. OXIMETRY DATA: The average saturation was 93%. The minimum saturation was 85%. There was just a transient desaturation. The total time with saturations less than 89% was 0.3 minutes. EKG DATA: The cardiac rhythm was normal sinus. The cardiac rates ranged from 50-92 beats per minute. The average was 59 beats per minute. CONTROL PANEL OPERATOR CRUDE UNIT COMMENTS AND TREATMENT SUMMARY: The patient slept in the supine position. No cardiac arrhythmia or PLMs were noted. No bruxism noted. Snoring was noted and scored as a 0 on a scale of 1 through 5. She did not use the restroom during the night. She stated she slept well. The patient told the staking technician she took 1.5 mg of clonazepam to make sure that she would sleep. IMPRESSION: A normal overnight sleep study. COMMENTS: The patient did take clonazepam before sleep as noted. She had a normal sleep architecture with a minimally abnormal sleep efficiency. She had difficulty initiating sleep with a sleep latency of 57 minutes. After that, she slept extremely well and her sleep was well consolidated. She had no significant sleep apnea. She had no significant limb movement activity. RECOMMENDATIONS: Followup is deferred to Dr. Amanuel Bang, who referred the patient.
== END | disposition home or self-care (01) ==
LOC: C.NEUR 20:00
PROVIDERS: ATTEND Family Medicine
DX: R06.83 Snoring (principal)

== ENCOUNTER → 2017-01-30 | Outpatient (CLI) | payer BC, OTHER ==
--- NOTE | 2017-02-14 08:20 | CODING QUERY NO DIAGNOSIS ---
TREATMENT RENDERED WITHOUT A DIAGNOSIS Dr. Bang, To promote full compliance with coding requirements relating to patient care, physician participation is requested in all cases of dbas uncertainty. Please assist us with providing a diagnosis/symptom for the test(s) below: A diagnosis/symptom was not documented on your Order. A valid diagnosis/symptom is required to bill all insurances. Please remember that we are unable to code a diagnosis of rule out, probable, possible, questionable, or suspected. Tests that require a diagnosis: * OTHER MNT INITIAL EA 15 MIN (3X) DIAGNOSIS: DATE OF SERVICE: 01/30/17 Provider Signature: Date: Thank you [facility] Information Management Once completed, please kindly fax back to [phone] For questions please call [phone]
== END | disposition home or self-care (01) ==
LOC: C.FOODA 14:05
PROVIDERS: ATTEND Family Medicine
DX: K21.9 Gastro-esophageal reflux disease without esophagitis (principal)

== ENCOUNTER → 2017-02-06 | Outpatient (CLI) | payer BC, OTHER ==
--- NOTE | 2017-02-06 12:23 | DIAGNOSTIC IMAGING REPORT ---
VIDEO SWALLOW HISTORY: Dysphagia. Globus sensation. TECHNIQUE: Video fluoroscopic evaluation of swallowing was performed in the AP and lateral projections by the speech pathology staff. The patient is fed nectar-thick and thin liquid barium, a barium coated wafer, and barium pudding. FLUOROSCOPY TIME: 1.5 minutes. A cine loop submitted. COMPARISON STUDY: CT neck 12/03/2016. FINDINGS: There is normal hyoid excursion and epiglottic deflection. No significant penetration or aspiration identified. Swallowing function is within normal limits. IMPRESSION: 1. No aspiration identified. 2. Please see the speech pathologist report for detailed findings and recommendations. Electronically signed by: Ok Kelly M.D. 02/06/2017 12:21 PM Dictated Date/Time: 02/06/2017 12:19 PM
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
== END | disposition home or self-care (01) ==
LOC: C.RAD 11:25
PROVIDERS: ATTEND Physician Assistant
DX: R13.10 Dysphagia, unspecified (principal)

== ENCOUNTER 2017-02-11 12:14 | Emergency (ER) | payer BC, OTHER ==
[~2017-02-11] VITALS: Ht 160 cm; Wt 76.0 kg
[~2017-02-11 12:14] MED LIST changes: -ACET325T96 PO; -AMPH10CA3 PO; -AMPH10TA2 PO; -ARTISOL12 OP; -CETI10TA10 PO; -CETI10TA84 PO; -CHOL100010 PO; -CHOL1TAB42 PO; -CLB/200 PO; -CRFL PO; -DOXE10CA PO; -ESOM40GR PO; -FAMO40TA6 PO; -FLUT0.15 NAE; -GASTROZYME PO; -LIDO1SOL9 PO; -MISCCAP80 PO; -PREG200C PO; -RIBO1TAB PO; -RIBO50CA PO; -SPIR25TA PO; -SYMIN8045 INH; -VNTHFA/IN INH; -[UNRECOGNIZED DRUG - CODE] PO; -celebrex PO
[2017-02-11 12:25] VITALS: TEMP 36.8; Ht 160 cm; Wt 76.0 kg
[2017-02-11] MEDS ORDERED: ESOM40GR PO (12:45)
[2017-02-11] MEDS ORDERED: PREG200C PO (12:45)
[2017-02-11] MEDS ORDERED: FAMO40TA6 PO (12:57)
[2017-02-11] MEDS ORDERED: FLUT0.15 NAE (12:57)
[2017-02-11] MEDS ORDERED: [UNRECOGNIZED DRUG - CODE] PO (12:57)
[2017-02-11] MEDS ORDERED: AMPH10TA2 PO (12:57)
[2017-02-11] MEDS ORDERED: CETI10TA10 PO (12:57)
[2017-02-11] MEDS ORDERED: PREGABALIN 100 MG CAP PO STA ×2 (12:59→15:38)
[2017-02-11] MEDS ORDERED: SODIUM CHLORIDE 0.9% 1000ML 500 ML IV STA (12:59)
--- NOTE | 2017-02-11 13:15 | EMERGENCY ROOM VISIT NOTE ---
History Report prepared by Steffany: Sridevi Calderón Under the Supervision of: Dr. Louis Butler M.D. First contact with patient: 12:42 Chief Complaint: FEVER Stated Complaint: FEVER, EXTREME NERVE/MUSCLE PAIN, LIGHT SENSITIVE History of Present Illness The patient is a 26 year old female who presents to the Emergency Room with complaints of persistent, worsening photophobia over the past few weeks. She currently rates her discomfort as a 5/10 in severity. The patient states that over the past few weeks she has noticed increased light sensitivity and increased headaches. She states that her vision has been blurry and notes that fluorescent lighting is worse. The patient states that she has a history of fibromyalgia and states that on Friday she changed her dosage from 150 mg of Lyrica 2 times per day to 200 mg of Lyrica 3 times per day. She states that over the past few weeks she has had feeling increasingly off balance and has had difficulty sleeping due to her increased pain. The patient states that over the weekend she noticed increased low lumbar back pain, muscle spasming, hip pain, and bilateral leg pain. She states that over the weekend she felt feverish and notes that today she was found to have a low-grade fever at her PCP 's office. The patient states that she has an anxiety disorder and has clonazepam on hand. She states that Friday she had an anxiety attack and noticed pressured speech. The patient states that the clonazepam helped to calm her down on Friday. She states that her pain continued to worsen throughout the weekend and states that she vomited Friday evening. The patient states that she vomited 3 times on Friday and a few times on Friday. She states that when she went to see her PCP today and after he examined her he became concerned for a possible central nervous system infection. The patient states that her eyes were dilated and was off balance while walking. She states that in October she had a diagnosis of Lyme by her PCP. The patient states that she saw Dr. Arroyo with infectious disease and was told that she didn' t have Lyme Disease--she still took 1 month of Omnicef. The patient does note that she additionally was recently diagnosed with laryngopharyngeal reflux and has lost 40 pounds since November. She additionally notes that in 2013 she went to [facility] and became sick and was hospitalized. The patient states that she was diagnosed with an eye infection, UTI, kidney infection, and an upper respiratory infection. She states that her fibromyalgia symptoms started around that time. Today, the patient denies any cough, sore throat, urinary symptoms, or rash. Source of History: patient Onset: over the past few weeks Position: other (global) Symptom Intensity: 5/10 Quality: other (photophobia) Timing: other (persistent) Associated Symptoms: + fevers, + vomiting Note: Associated Symptoms: off balance with walking, increased fibromyalgia pain, difficulty sleeping, increasingly off balance, muscle spasming, hip pain, bilateral leg pain Review of Systems See HPI for pertinent positives & negatives. A total of 10 systems reviewed and were otherwise negative. 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 (6) Herniated nucleus pulposus, L4-5 (7) Hypertension Nos (8) Irritable Bowel Syndrome (9) Xcsybpm-Eksaqqwil-Frqar syndrome (10) Obsessive-Compulsive Dis (11) Otitis Media Nos (12) Pyelonephritis Nos Family History Blood clots Diabetes mellitus FH: heart disease Hypertension Kidney disease Kidney stones Social History Smoking Status: Never Smoker Alcohol Use: occasionally Drug Use: none Housing Status: lives with roommate Occupation Status: employed Current/Historical Medications Scheduled Amphetamine-Dextroamphetamine 10MG (Adderall 10MG), 10 MG PO BID Cetirizine Hcl (Zyrtec), 10 MG PO DAILY Esomeprazole Magnesium (Nexium), 40 MG PO BID Famotidine (Pepcid), 40 MG PO DAILY Fluticasone Propionate (Nasal) (Flonase Allergy Relief), 2 SPRAY RADHA DAILY Milnacipran Hcl (Savella Titration Pack), 1 DOSE PO UD Pregabalin (Lyrica), 200 MG PO TID Scheduled PRN Clonazepam (Klonopin), 0.5 MG PO BID PRN for Anxiety Allergies Coded Allergies: Adhesives (Unverified Allergy, Severe, hives, 02/11/17) Fluoxetine (Verified Allergy, Mild, HIVES, 02/11/17) Fluvoxamine (Verified Allergy, Mild, HIVES, 02/11/17) Bupropion (Verified Allergy, Unknown, HIVES, 02/11/17) Dust (Verified Allergy, Unknown, asthma sx, 02/11/17) Iodinated Diagnostic Agents (Verified Allergy, Unknown, ARM NUMBNESS, 02/11) Loratadine (Verified Allergy, Unknown, anxiety, 02/11/17) Metoclopramide (Verified Allergy, Unknown, anxiety, 02/11/17) POLLEN (Verified Allergy, Unknown, asthma sx, 02/11/17) Hydrocodone (Verified Adverse Reaction, Intermediate, NAUSEA/VOMITING, ) Sertraline (Verified Adverse Reaction, Mild, COLD SORES, 02/11/17) Uncoded Allergies: JESSICA,COBALT,CHROME,SILVER (Allergy, Unknown, HIVES, 07/29/14) Physical Exam Vital Signs Date Time Temp Pulse Resp B/P Pulse Ox O2 Delivery O2 Flow Rate FiO2 02/11/17 17:50 94 14 115/70 97 Room Air 02/11/17 17:46 86 02/11/17 16:00 92 16 145/76 95 Room Air 02/11/17 15:11 104 116/78 98 Room Air 02/11/17 13:53 85 02/11/17 13:32 97 Room Air 02/11/17 13:24 98 18 124/69 97 Room Air 120/76 126/78 02/11/17 12:25 36.8 97 16 121/81 99 Physical Exam GENERAL: Patient is in no acute distress. HEENT: No acute trauma, normocephalic atraumatic, mucous membranes moist, no nasal congestion, no scleral icterus, pupils are equal round and reactive to light, TMs clear bilaterally. NECK: No stridor, no adenopathy, no meningismus, trachea is midline. Flexes chin to chest without pain or difficulty. LUNGS: Clear to auscultation bilaterally, no wheeze, no rhonchi, breath sounds equal. HEART: Without murmurs gallops or rubs, regular rate and rhythm. ABDOMEN: Soft, nontender, bowel sounds positive, no hernias, no peritonitis. EXTREMITIES: No cyanosis or edema, full range of motion of all the joints without pain or difficulty, no signs for acute trauma. NEUROLOGIC: Oriented x 3, no acute motor or sensory deficits, no focal weakness. No pronator drift or cerebellar dysfunction. SKIN: No rash, no jaundice, no diaphoresis. Medical Decision & Procedures ER Provider Diagnostic Interpretation: Orthostatic vital signs are negative. Laboratory Results 02/11/17 13:45 Red Blood Count 5.25, Mean Corpuscular Volume 85.5, Mean Corpuscular Hemoglobin 29.3, Mean Corpuscular Hemoglobin Concent 34.3, Mean Platelet Volume 11.3, Neutrophils (%) (Auto) 81.8, Lymphocytes (%) (Auto) 12.3, Monocytes (%) (Auto) 5.4, Eosinophils (%) (Auto) 0.3, Basophils (%) (Auto) 0.0, Neutrophils # (Auto) 5.13, Lymphocytes # (Auto) 0.77, Monocytes # (Auto) 0.34, Eosinophils # (Auto) 0.02, Basophils # (Auto) 0.00 02/11/17 13:45 Test 02/11/17 13:45 02/11/17 15:56 White Blood Count 6.27 K/uL (4.8-10.8) Red Blood Count 5.25 M/uL (4.2-5.4) Hemoglobin 15.4 g/dL (12.0-16.0) Hematocrit 44.9 % (37-47) Mean Corpuscular Volume 85.5 fL (80-100) Mean Corpuscular Hemoglobin 29.3 pg (25-34) Mean Corpuscular Hemoglobin Concent 34.3 g/dl (32-36) Platelet Count 209 K/uL (130-400) Mean Platelet Volume 11.3 fL (7.4-10.4) Neutrophils (%) (Auto) 81.8 % Lymphocytes (%) (Auto) 12.3 % Monocytes (%) (Auto) 5.4 % Eosinophils (%) (Auto) 0.3 % Basophils (%) (Auto) 0.0 % Neutrophils # (Auto) 5.13 K/uL (1.4-6.5) Lymphocytes # (Auto) 0.77 K/uL (1.2-3.4) Monocytes # (Auto) 0.34 K/uL (0.11-0.59) Eosinophils # (Auto) 0.02 K/uL (0-0.5) Basophils # (Auto) 0.00 K/uL (0-0.2) RDW Standard Deviation 40.6 fL (36.4-46.3) RDW Coefficient of Variation 13.0 % (11.5-14.5) Immature Granulocyte % (Auto) 0.2 % Immature Granulocyte # (Auto) 0.01 K/uL (0.00-0.02) Anion Gap 11.0 mmol/L (3-11) Est Creatinine Clear Calc Drug Dose 118.5 ml/min Estimated GFR () 137.3 Estimated GFR (Non- 118.5 BUN/Creatinine Ratio 17.7 (10-20) Calcium Level 8.9 mg/dl (8.5-10.1) Magnesium Level 2.2 mg/dl (1.8-2.4) Total Bilirubin 0.9 mg/dl (0.2-1) Aspartate Amino Transf (AST/SGOT) 43 U/L (15-37) Alanine Aminotransferase (ALT/SGPT) 109 U/L (12-78) Alkaline Phosphatase 58 U/L (45-117) Total Creatine Kinase 28 U/L (26-192) Total Protein 8.1 gm/dl (6.4-8.2) Albumin 4.4 gm/dl (3.4-5.0) Globulin 3.7 gm/dl (2.5-4.0) Albumin/Globulin Ratio 1.2 (0.9-2) Thyroid Stimulating Hormone (TSH) 1.360 uIu/ml (0.300-4.500) Human Chorionic Gonadotropin, Qual NEG (NEG) Urine Color YELLOW Urine Appearance CLOUDY (CLEAR) Urine pH 5.5 (4.5-7.5) Urine Specific Diamond 1.023 (1.000-1.030) Urine Protein NEG (NEG) Urine Glucose (UA) NEG (NEG) Urine Ketones 4+ (NEG) Urine Occult Blood 3+ (NEG) Urine Nitrite NEG (NEG) Urine Bilirubin NEG (NEG) Urine Urobilinogen NEG (NEG) Urine Leukocyte Esterase TRACE (NEG) Urine WBC (Auto) 5-10 /hpf (0-5) Urine RBC (Auto) >30 /hpf (0-4) Urine Hyaline Casts (Auto) 1-5 /lpf (0-5) Urine Epithelial Cells (Auto) >30 /lpf (0-5) Urine Bacteria (Auto) 1+ (NEG) Laboratory results reviewed by me. Medications Administered Medications (Trade) Dose Ordered Sig/Jules Route Start Time Stop Time Status Last Admin Dose Admin Sodium Chloride (Nss 1000ml) 500 ml @ 999 mls/hr Q31M STAT IV 02/11/17 12:59 02/11/17 13:29 DC 02/11/17 13:48 999 MLS/HR Pregabalin (Lyrica Cap) 200 mg NOW STAT PO 02/11/17 12:59 02/11/17 13:06 DC 02/11/17 13:33 200 MG Pregabalin (Lyrica Cap) 200 mg NOW STAT PO 02/11/17 15:38 02/11/17 15:40 DC 02/11/17 15:48 200 MG Lorazepam 1 mg 1 mg NOW STAT IV 02/11/17 16:30 02/11/17 16:31 DC 02/11/17 16:36 1 MG Sodium Chloride (Nss 500ml) 500 ml @ 999 mls/hr Q31M STAT IV 02/11/17 16:53 02/11/17 17:23 DC 02/11/17 17:13 999 MLS/HR Lorazepam (Ativan Inj) 1 mg NOW STAT IV 02/11/17 16:56 02/11/17 16:57 DC 02/11/17 17:13 1 MG Ketorolac Tromethamine (Toradol Inj) 30 mg NOW STAT IV 02/11/17 17:59 02/11/17 18:00 DC 02/11/17 18:04 30 MG ED Course 1243: The patient was evaluated in room A11B. A complete history and physical exam was performed. 1259: ordered Lyrica Cap 200 mg PO, Sodium Chloride 500 ml @ 999 mls/hr IV. 1532: I reevaluated the patient. I discussed risks and benefits of doing a spinal tap. She is going to think about the possibility. 1538: Ordered Lyrica Cap 200 mg PO. 1622: I reevaluated the patient and she is going to try some Ativan to see if it will calm her enough for a spinal tap. 1630: Ordered Ativan Inj 1 mg IV. 1653: I reevaluated the patient and she is requesting more Ativan. She is still deciding of whether or not to have the spinal tap. Ordered Sodium Chloride 500 ml @ 999 mls/hr IV. 1656: Ordered Ativan 1 mg IV. 1705: I discussed the patients case with Dr. Downs, Radiology. He states that they will do the procedure if needed. 1759: I reevaluated the patient and she decided against the lumbar puncture. I discussed all the exam findings with her and I discussed the treatment plan. She verbalized complete understanding and agreement. She requested a dose of Toradol before discharge. She is ready to go home. Ordered Toradol Inj 30 mg IV. Medical Decision The patient is a 26 year old female who presents to the ED with complaints of photophobia. Differential diagnoses considered include meningitis, viral illness, UTI, fibromyalgia flair, pharyngitis, electrolyte imbalance, pneumonia , otitis media. There is no leukocytosis or concerning anemia. No significant electrolyte abnormality, kidney failure, hepatitis. The patient appears to be in a euthyroid state. testing is negative. Urinalysis shows contamination , no infection, some dehydration was suggested. Orthostatic vital signs are negative. On exam, there was no meningismus. She was not febrile or toxic in appearance. No acute focal neurologic deficits. No pharyngitis or otitis media. I talked to the patient about having a lumbar puncture. She was very worried about how much pain she would have from the procedure as she has chronic back pain already. She did not want the procedure. She was upset and talked to her father for some time. She was given IV saline, IV Ativan. The Ativan was for relaxation. She received IV Toradol for pain and was given 2 doses of oral Lyrica--she was due for these doses. The patient was here for several hours, she has ultimately decided that she is not going to have the lumbar puncture. I did talk with her and her father at length. I explained to them that the only way to truly rule out a ANATOMIC PATHOLOGY ASSISTANT infection was to get a sample of spinal fluid. They have decided against the procedure. I do believe the chances of a ANATOMIC PATHOLOGY ASSISTANT infection are low. She tells me she was never truly diagnosed with Lyme disease as per infectious disease, but still took a month of Omnicef. She is not febrile. She has no meningismus. Her complaints mostly seem to be related to her body pain and aching-she complains of severe fibromyalgia pain. The patient was encouraged to return to this ER if she felt that she would want to have the lumbar puncture performed. She has agreed to do so. I did give her information to follow with neurology. She was offered the lumbar puncture under fluoroscopy, she still did not want to have the procedure. In short, the patient's workup is benign, nothing emergent or worrisome found. She is being discharged with further outpatient follow-up. Consults Time Called: 1702 Consulting Physician: Dr. Downs, Radiology Returned Call: [phone] I discussed the patients case with Dr. Downs, Radiology. He states that they will do the procedure if needed. Impression Primary Impression: Body aches Additional Impressions: Fibromyalgia Photophobia Scribe Attestation The scribe's documentation has been prepared under my direction and personally reviewed by me in its entirety. I confirm that the note above accurately reflects all work, treatment, procedures, and medical decision making performed by me. Departure Information Dispostion Home / Self-Care Referrals Amanuel Bang M.D. (PCP) David Mendes M.D. (MEDICINE) Forms HOME CARE DOCUMENTATION FORM, IMPORTANT VISIT INFORMATION Patient Instructions My [facility] Additional Instructions rest meds as before talk with patrica gillette for recheck call and set up neurology appt---you should tell them you were in the ER and had testing (Dr. Mendes's office) return if worsening for the spinal tap as we discussed--you have decided against that test today lab testing was all ok today Problem Qualifiers
[2017-02-11 13:32] VITALS: O2SAT 97
[2017-02-11 14:11] LABS: COMPLETE YES; EOS % 0.3 %; HEMATOCRIT 44.9 % (37-47); IG% 0.2 %; LYMPH % 12.3 %; LYMPH ABS # 0.77 K/uL (1.2-3.4); MEAN CELL VOLUME 85.5 fL (80-100); MEAN CORPUSCULAR HEMOGLOBIN 29.3 pg (25-34); MEAN CORPUSCULAR HGB CONC 34.3 g/dl (32-36); MEAN PLATELET VOLUME 11.3 fL (7.4-10.4); MONO % 5.4 %; NEUT % 81.8 %; PLATELET COUNT 209 K/uL (130-400); RED BLOOD COUNT 5.25 M/uL (4.2-5.4); WHITE BLOOD COUNT 6.27 K/uL (4.8-10.8)
[2017-02-11 14:37] LABS: PREG INTERNAL NEGATIVE QC NEG CLEAR BACKGROUND; PREG INTERNAL POSITIVE QC POS CONTROL LINE
[2017-02-11 14:54] LABS: ALB/GLOB RATIO 1.2 (0.9-2); BUN/CREATININE RATIO 17.7 (10-20); CALCIUM 8.9 mg/dl (8.5-10.1); CREATININE 0.69 mg/dl (0.60-1.20); MAGNESIUM 2.2 mg/dl (1.8-2.4); POTASSIUM 3.7 mmol/L (3.5-5.1); THYROID STIMULATING HORMONE 1.36 uIu/ml (0.300-4.500)
[2017-02-11] MEDS ORDERED: LORAZEPAM 2 MG/ML 1 ML VIAL IV STA ×2 (16:30→16:56)
[2017-02-11 16:39] LABS: URINE APPEARANCE CLOUDY (CLEAR); URINE BILIRUBIN NEG (NEG); URINE COLOR YELLOW; URINE EPITHELIAL CELL AUTO >30 /lpf (0-5); URINE NITRITE NEG (NEG); URINE PH 5.5 (4.5-7.5); URINE SPECIFIC GRAVITY 1.023 (1.000-1.030); UROBILINOGEN NEG (NEG); ZZUR CULT IF INDIC CLEAN CATCH YES
[2017-02-11 16:48] LABS: MANUAL MICROSCOPIC REQUIRED? NO; REVIEW REQ? NO
[2017-02-11] MEDS ORDERED: SODIUM CHLORIDE 0.9% 500ML 500 ML IV STA (16:53)
[2017-02-11 17:50] VITALS: BP 115/70; PULSE 94; O2SAT 97
[2017-02-11] MEDS ORDERED: KETOROLAC TROMETHAMINE 30 MG/ML VIAL IV STA (17:59)
[2017-03-28] MEDS ORDERED: ACET325T96 PO (12:38)
[2017-06-06] MEDS ORDERED: celebrex PO (10:54)
[2017-06-06] MEDS ORDERED: SPIR25TA PO (10:54)
[2017-07-15] MEDS ORDERED: CHOL1TAB42 PO (11:32)
[2017-07-15] MEDS ORDERED: GASTROZYME PO (11:32)
[2017-07-15] MEDS ORDERED: LIDO1SOL9 PO (11:32)
[2017-07-15] MEDS ORDERED: CETI10TA84 PO (11:32)
[2017-07-15] MEDS ORDERED: RIBO1TAB PO (11:32)
[2017-07-15] MEDS ORDERED: MISCCAP80 PO (11:32)
[2017-07-15] MEDS ORDERED: AMPH10CA3 PO (11:32)
[2017-07-15] MEDS ORDERED: CLB/200 PO (11:32)
== END 2017-02-11 18:17 | disposition home or self-care (01) ==
LOC: C.EDB 12:15 → C.EDA 18:17
DX: H53.149 Visual discomfort, unspecified (principal); M79.7 Fibromyalgia; F41.9 Anxiety disorder, unspecified; K21.9 Gastro-esophageal reflux disease without esophagitis; J45.909 Unspecified asthma, uncomplicated; G51.0 Bell's palsy; I10 Essential (primary) hypertension; K58.9 Irritable bowel syndrome, unspecified; F42.9 Obsessive-compulsive disorder, unspecified; Z83.3 Family history of diabetes mellitus; Z82.49 Family history of ischemic heart disease and other diseases of the circulatory system; Z79.899 Other long term (current) drug therapy; G89.29 Other chronic pain; M54.5 Low back pain

== ENCOUNTER → 2017-02-26 | Outpatient (CLI) | payer BC, OTHER ==
[~2017-02-26] MED LIST changes: +ACET325T96 PO; +AMPH10CA3 PO; +AMPH10TA2 PO; +ARTISOL12 OP; -CEFD125S PO; +CETI10TA10 PO; +CETI10TA84 PO; +CHOL100010 PO; +CHOL1TAB42 PO; +CLB/200 PO; +CRFL PO; +DOXE10CA PO; +ESOM40GR PO; +FAMO40TA6 PO; +FLUT0.15 NAE; +GASTROZYME PO; +LIDO1SOL9 PO; +MISCCAP80 PO; -NAPR-1168 PO; -PREG1CAP70 PO; +PREG200C PO; +RIBO1TAB PO; +RIBO50CA PO; +SPIR25TA PO; -SYMIN/8045 INH; +SYMIN8045 INH; +VNTHFA/IN INH; +[UNRECOGNIZED DRUG - CODE] PO; +celebrex PO
--- NOTE | 2017-02-26 16:06 | DIAGNOSTIC IMAGING REPORT ---
CT SCAN OF THE PARANASAL SINUSES CLINICAL HISTORY: Headache. Chronic sinusitis. COMPARISON STUDY: CT scan of the neck dated 12/03/2016. TECHNIQUE: High-resolution CT scan of the paranasal sinuses is performed. Images are reviewed in the axial, sagittal, and coronal planes. IV contrast was not administered for this examination. The examination is performed using the fusion protocol. CT DOSE: 727.98 mGycm FINDINGS: Maxillary antra: Trace dependent mucosal thickening is noted bilaterally. Anterior ethmoid sinuses: Clear. Posterior ethmoid sinuses: Clear. Sphenoid sinuses: Clear. Frontal sinuses: Clear. Ostiomeatal complexes: Patent bilaterally. Frontoethmoidal and sphenoethmoidal recesses: Patent bilaterally. Carotid arteries: The carotid arteries are covered and without septal attachments. Ethmoid roofs: The ethmoid roofs are symmetric. Nasal turbinates: Normal in appearance. Nasal septum: There is minimal leftward deviation of the bony nasal septum. Optic nerves: Covered. Orbits: The bony orbits are intact. Orbital contents are normal in appearance. Calvarium: The imaged calvarium is normal in appearance Mastoid air cells: There is a moderate right mastoid effusion. The left mastoid air cells are well pneumatized. Brain parenchyma: Partially visualized brain parenchyma is within normal limits. IMPRESSION: 1. No significant paranasal sinus disease. See above. 2. Right mastoid effusion. Electronically signed by: Louis Downs M.D. 02/26/2017 4:05 PM Dictated Date/Time: 02/26/2017 4:02 PM
== END | disposition home or self-care (01) ==
LOC: C.CTS 15:37
DX: J32.9 Chronic sinusitis, unspecified (principal); R51 Headache; H74.91 Unspecified disorder of right middle ear and mastoid

== ENCOUNTER → 2017-02-28 | Outpatient (CLI) | payer BC, OTHER ==
[2017-02-28 12:14] LABS: COMPLETE YES; EOS % 0.7 %; LYMPH ABS # 0.97 K/uL (1.2-3.4); MEAN CELL VOLUME 86.7 fL (80-100); MEAN CORPUSCULAR HEMOGLOBIN 29.3 pg (25-34); MEAN CORPUSCULAR HGB CONC 33.8 g/dl (32-36); MEAN PLATELET VOLUME 11.3 fL (7.4-10.4); MONO % 5.7 %; NEUT % 70.6 %; PLATELET COUNT 193 K/uL (130-400); RED BLOOD COUNT 5.19 M/uL (4.2-5.4); WHITE BLOOD COUNT 4.21 K/uL (4.8-10.8)
[2017-02-28 12:54] LABS: CALCIUM 9.4 mg/dl (8.5-10.1)
[2017-02-28 12:59] LABS: ALT/SGPT 48 U/L (12-78); BLOOD UREA NITROGEN 12 mg/dl (7-18); BUN/CREATININE RATIO 16.9 (10-20); CARBON DIOXIDE 28 mmol/L (21-32); CHLORIDE 106 mmol/L (98-107); GLUCOSE 71 mg/dl (70-99); MAGNESIUM 2.1 mg/dl (1.8-2.4); POTASSIUM 3.5 mmol/L (3.5-5.1); SODIUM 141 mmol/L (136-145)
[2017-02-28 13:02] LABS: ALB/GLOB RATIO 1.6 (0.9-2); ALKALINE PHOSPHATASE 53 U/L (45-117); AST/SGOT 24 U/L (15-37)
--- NOTE | 2017-03-04 14:36 | CODING QUERY MEDICAL NECESSITY ---
SUPPORTING DIAGNOSIS NEEDED Dr. Bang, A supporting diagnosis is required for the test/procedure performed on this patient in order for us to be reimbursed by the patient's insurance. Please provide a supporting diagnosis for the following test/procedure listed below next to the test name along with your signature. *If there is no additional diagnosis for this patient that would support the following test/procedure please document that below next to the test/procedure. Test(s)/Procedure(s) that require a supporting diagnosis: * ([id number]) VITAMIN D ASSAY DIAGNOSIS: * ([id number]) B12 VITAMIN LEVEL DIAGNOSIS: DATE OF SERVICE: 02/28/17 Provider Signature: Date: Thank you [facility] Information Management Once completed, please kindly fax back to [phone] For questions please call [phone]
== END | disposition home or self-care (01) ==
LOC: C.LAB 11:13
PROVIDERS: ATTEND Family Medicine
DX: G43.909 Migraine, unspecified, not intractable, without status migrainosus (principal); E55.9 Vitamin D deficiency, unspecified; D51.9 Vitamin B12 deficiency anemia, unspecified

== ENCOUNTER → 2017-04-21 | Outpatient (CLI) | payer BC, OTHER ==
[2017-04-21 15:24] LABS: THYROID STIMULATING HORMONE 1.15 uIu/ml (0.300-4.500)
[2017-04-21 15:25] LABS: TESTOSTERONE,TOTAL 26.1 ng/dl
[2017-04-21 15:26] LABS: PROLACTIN 12.34 ng/mL
[2017-04-26 02:20] LABS: PREGNENELONE **TC 31493X 5 ng/dL (22-237); SEX HORMONE BINDING GLOB 54 NMOL/L (17-124); VITAMIN A** TC 921X 37 mcg/dL (38-98)
== END | disposition home or self-care (01) ==
LOC: C.LAB 12:38
PROVIDERS: ATTEND Family Medicine
DX: E28.9 Ovarian dysfunction, unspecified (principal)

== ENCOUNTER 2017-04-28 13:54 | Emergency (ER) | payer BC, OTHER ==
[~2017-04-28] VITALS: Ht 160 cm; Wt 70.4 kg
[~2017-04-28 13:54] MED LIST changes: -AMPH10CA3 PO; -ARTISOL12 OP; +CALAMINE/PRAMOXINE LOTION 177 APPLN/177 ML BTL EXT SCH; -CETI10TA84 PO; -CHOL100010 PO; -CHOL1TAB42 PO; -CLB/200 PO; -CRFL PO; -DOXE10CA PO; -GASTROZYME PO; -LIDO1SOL9 PO; -MISCCAP80 PO; -RIBO1TAB PO; -RIBO50CA PO; -SPIR25TA PO; -SYMIN8045 INH; -VNTHFA/IN INH; -celebrex PO
[2017-04-28 14:13] VITALS: TEMP 36.7; Ht 160 cm; Wt 70.4 kg
[2017-04-28] MEDS ORDERED: ARTISOL12 OP (15:03)
[2017-04-28] MEDS ORDERED: CHOL100010 PO (15:03)
--- NOTE | 2017-04-28 15:22 | EMERGENCY ROOM VISIT NOTE ---
ED Visit Note First contact with patient: 15:00 Attempted to evaluate this patient, she refused my care. She "isn't sure" if I am the doctor that she "had a bad experience with," but she has requested a different physician.
[2017-04-28 16:22] LABS: COMPLETE YES; EOS % 0.3 %; LYMPH % 20.9 %; LYMPH ABS # 1.22 K/uL (1.2-3.4); MEAN CELL VOLUME 86.1 fL (80-100); MEAN CORPUSCULAR HEMOGLOBIN 31.4 pg (25-34); MEAN CORPUSCULAR HGB CONC 36.4 g/dl (32-36); MEAN PLATELET VOLUME 9.9 fL (7.4-10.4); MONO % 6.2 %; NEUT % 72.6 %; PLATELET COUNT 242 K/uL (130-400); RED BLOOD COUNT 4.88 M/uL (4.2-5.4); WHITE BLOOD COUNT 5.83 K/uL (4.8-10.8)
[2017-04-28 16:41] LABS: BUN/CREATININE RATIO 17.8 (10-20); CALCIUM 9.3 mg/dl (8.5-10.1); CREATININE 0.76 mg/dl (0.60-1.20)
[2017-04-28 16:45] LABS: ACETAMINOPHEN < 2 ug/ml (10-30)
[2017-04-28 16:52] LABS: THYROID STIMULATING HORMONE 1.43 uIu/ml (0.300-4.500)
[2017-04-28 17:16] LABS: PREG INTERNAL NEGATIVE QC NEG CLEAR BACKGROUND; PREG INTERNAL POSITIVE QC POS CONTROL LINE
[2017-04-28 17:17] LABS: URINE APPEARANCE CLEAR (CLEAR); URINE COLOR DK YELLOW; URINE EPITHELIAL CELL AUTO >30 /lpf (0-5); URINE NITRITE NEG (NEG); URINE SPECIFIC GRAVITY 1.029 (1.000-1.030); UROBILINOGEN NEG (NEG); ZZUR CULT IF INDIC CLEAN CATCH YES
[2017-04-28 17:24] LABS: MANUAL MICROSCOPIC REQUIRED? NO; REVIEW REQ? YES
[2017-04-28 17:25] LABS: URINE BILIRUBIN NEG (NEG)
[2017-04-28 17:54] LABS: BENZODIAZEPINE, URINE NEG (NEG); COCAINE,URINE NEG (NEG); PHENCYCLIDINE, URINE NEG (NEG)
[2017-04-28] MEDS ORDERED: PREGABALIN 100 MG CAP PO STA ×2 (18:28→23:19)
[2017-04-28] MEDS ORDERED: NURSING VERBAL MED ORDER ONE (18:45)
[2017-04-28] MEDS ORDERED: CALAMINE/PRAMOXINE LOTION 177 APPLN/177 ML BTL EXT ONE (18:45)
--- NOTE | 2017-04-28 19:45 | EMERGENCY ROOM VISIT NOTE ---
History Report prepared by Steffany: Juan Luis Cox Under the Supervision of: Dr. Markell Beckwith M.D. First contact with patient: 15:34 Chief Complaint: MENTAL HEALTH EVALUATION Stated Complaint: SUICIDAL IDEATION History of Present Illness The patient is a 27 year old female who presents to the Emergency Room due to suicidal thoughts that started yesterday. She is here with her psychologist. The patient states that she has been dealing with many physical health issues for months, and has been mainly supported by her boyfriend. However, her boyfriend broke up with her yesterday, and since then, she thinks that she "has to " because of her lack of support. The patient states that her boyfriend almost did everything for her over the last year or so, as she has been dealing with chronic pain and fatigue issues, including fibromyalgia and possible Lyme disease (although her infectious disease doctor ruled out Lyme). The patient adds that she has other issues, including arthritis, degenerative joint disease , and a hiatal hernia. She says that her boyfriend cooked her meals for her, went grocery shopping for her, and did so many other things that she physically has been unable to do. She also notes that she lost 50 pounds in the past 6 months because of dietary intolerances. The patient adds that her job is ending this month as funding did not go through, and she is very stressed because she needs health insurance. She states that she had a plan to hurt herself, but one of her friends told her that jumping off a travon would be a stupid idea because she probably would not . The patient says that she has new plan currently. She did try to hurt herself in 2014 with pills, including Dilaudid. The patent says that she is here to be admitted somewhere for help as she has no support and may "need to ". She has cut herself in the past, but not recently. She does not drink alcohol or use recreational drugs. Source of History: patient Onset: Yesterday Position: other (global - suicidal thoughts) Quality: other (had plan to jump off travon, but has no plan currently) Timing: constant Associated Symptoms: + weakness (generalized) Note: Associated symptoms: Has lost 50 pounds over past 6 months. Deals with chronic pain issues. Review of Systems See HPI for pertinent positives & negatives. A total of 10 systems reviewed and were otherwise negative. 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 (6) Herniated nucleus pulposus, L4-5 (7) Hypertension Nos (8) Irritable Bowel Syndrome (9) Tarxopt-Cvsnjakbj-Dlykl syndrome (10) Obsessive-Compulsive Dis (11) Otitis Media Nos (12) Pyelonephritis Nos Family History Blood clots Diabetes mellitus FH: heart disease Hypertension Kidney disease Kidney stones Social History Smoking Status: Never Smoker Alcohol Use: occasionally Drug Use: none Housing Status: lives with roommate Occupation Status: employed Current/Historical Medications Scheduled Acetaminophen Tab (Tylenol), 650 MG PO BID Amphetamine-Dextroamphetamine 10MG (Adderall 10MG), 10 MG PO BID Artificial Tear Solution (Artificial Tears), 2 DROPS OP 6XDAILY Cetirizine Hcl (Zyrtec), 10 MG PO DAILY Cholecalciferol (Vitamin D), 1 TAB PO BID Esomeprazole Magnesium (Nexium), 40 MG PO DAILY Famotidine (Pepcid), 40 MG PO DAILY Fluticasone Propionate (Nasal) (Flonase Allergy Relief), 2 SPRAY RADHA DAILY Milnacipran Hcl (Savella Titration Pack), 1 DOSE PO UD Pregabalin (Lyrica), 200 MG PO TID Scheduled PRN Clonazepam (Klonopin), 0.5 MG PO BID PRN for Anxiety Allergies Coded Allergies: Adhesives (Unverified Allergy, Severe, hives, 04/10/17) Fluoxetine (Verified Allergy, Mild, HIVES, 04/10/17) Fluvoxamine (Verified Allergy, Mild, HIVES, 04/10/17) Bupropion (Verified Allergy, Unknown, HIVES, 04/10/17) Dust (Verified Allergy, Unknown, asthma sx, 04/10/17) Iodinated Diagnostic Agents (Verified Allergy, Unknown, ARM NUMBNESS, 04/10) Loratadine (Verified Allergy, Unknown, anxiety, 04/10/17) Metoclopramide (Verified Allergy, Unknown, anxiety, 04/10/17) POLLEN (Verified Allergy, Unknown, asthma sx, 04/10/17) Hydrocodone (Verified Adverse Reaction, Intermediate, NAUSEA/VOMITING, ) Alcohol (Verified Adverse Reaction, Mild, GI symptoms, reflux, 04/28/17) "this includes, vanilla because it often has alcohol preservative." Caffeine (Verified Adverse Reaction, Mild, GI symptoms, 04/28/17) "I can't have it.. It lowers the strength of my lower esophageal spinchter." Chocolate (Verified Adverse Reaction, Mild, GI symptoms, 04/28/17) "it has caffeine in it and it messes with my esophageal sphincter." Dairy (Verified Adverse Reaction, Mild, GI symptoms., 04/28/17) "it increases my mucus production and it like makes me cough..." Garlic (Verified Adverse Reaction, Mild, gi symptoms/reflux, 04/28/17) Monosodium Glutamate (Verified Adverse Reaction, Mild, GI symtpoms, 04/28/17 ) "it triggers my migraines." Sertraline (Verified Adverse Reaction, Mild, COLD SORES, 04/10/17) Yeast (Verified Adverse Reaction, Mild, GI symptoms, 04/28/17) "it triggers my migraines." "I can have potatoe bread though." Uncoded Allergies: JESSICA,COBALT,CHROME,SILVER (Allergy, Unknown, HIVES, 07/29/14) cats (Allergy, Unknown, HIVES, 03/28/17) ASCORBIC ACID (Adverse Reaction, Mild, GI symptoms, reflux, 04/28/17) "all preservatives that are acidic or contain ascorbic acid" CICTRIC FRUIT (Adverse Reaction, Mild, reflux, 04/28/17) all berries except blueberries and peaches FATTY FOODS (Adverse Reaction, Mild, GI symptoms, 04/28/17) "it just takes a long time for my stomach to digest.. so it increases my stomach acid.. I need everything steamed, baked or sauted lightly." "eveyrthing must be low fat." MINT (Adverse Reaction, Mild, Reflux, 04/28/17) ONIONS (Adverse Reaction, Mild, reflux, 04/28/17) PEANUTS (Adverse Reaction, Mild, GI symptoms, 04/28/17) "It just doesn't sit well with my stomach... unless they are dehydrated." PEPPER (Adverse Reaction, Mild, GI symptoms/reflux, 04/28/17) TOMATOES (Adverse Reaction, Mild, GI symptoms. reflux, 04/28/17) Physical Exam Vital Signs Date Time Temp Pulse Resp B/P (MAP) Pulse Ox O2 Delivery O2 Flow Rate FiO2 04/28/17 19:18 102 18 126/82 100 Room Air 04/28/17 16:25 90 20 138/107 95 Room Air 04/28/17 14:13 36.7 20 127/86 Room Air Physical Exam Constitutional: Vital signs reviewed. Eyes: Pupils are equal round reactive to light. Conjunctiva are noninjected. ENT: Pharynx is clear without erythema or exudate. Mucous membranes are moist. Neck supple without meningeal signs. Respiratory: Clear to auscultation bilaterally. Breath sounds are equal bilaterally. Cardiovascular: Regular rate and rhythm. No rubs or gallops. GI: Soft, nondistended and nontender. Bowel sounds are present. Musculoskeletal: No peripheral edema. Integumentary: Sunburned. Neurological: The patient is awake and alert. No focal deficits. Psychiatric: Anxious and tearful. Medical Decision & Procedures Laboratory Results 04/28/17 16:10 Red Blood Count 4.88, Mean Corpuscular Volume 86.1, Mean Corpuscular Hemoglobin 31.4, Mean Corpuscular Hemoglobin Concent 36.4, Mean Platelet Volume 9.9, Neutrophils (%) (Auto) 72.6, Lymphocytes (%) (Auto) 20.9, Monocytes (%) (Auto) 6.2, Eosinophils (%) (Auto) 0.3, Basophils (%) (Auto) 0.0, Neutrophils # (Auto) 4.23, Lymphocytes # (Auto) 1.22, Monocytes # (Auto) 0.36, Eosinophils # (Auto) 0.02, Basophils # (Auto) 0.00 04/28/17 16:10 Test 04/28/17 16:10 04/28/17 16:30 White Blood Count 5.83 K/uL (4.8-10.8) Red Blood Count 4.88 M/uL (4.2-5.4) Hemoglobin 15.3 g/dL (12.0-16.0) Hematocrit 42.0 % (37-47) Mean Corpuscular Volume 86.1 fL (80-100) Mean Corpuscular Hemoglobin 31.4 pg (25-34) Mean Corpuscular Hemoglobin Concent 36.4 g/dl (32-36) Platelet Count 242 K/uL (130-400) Mean Platelet Volume 9.9 fL (7.4-10.4) Neutrophils (%) (Auto) 72.6 % Lymphocytes (%) (Auto) 20.9 % Monocytes (%) (Auto) 6.2 % Eosinophils (%) (Auto) 0.3 % Basophils (%) (Auto) 0.0 % Neutrophils # (Auto) 4.23 K/uL (1.4-6.5) Lymphocytes # (Auto) 1.22 K/uL (1.2-3.4) Monocytes # (Auto) 0.36 K/uL (0.11-0.59) Eosinophils # (Auto) 0.02 K/uL (0-0.5) Basophils # (Auto) 0.00 K/uL (0-0.2) RDW Standard Deviation 44.2 fL (36.4-46.3) RDW Coefficient of Variation 14.1 % (11.5-14.5) Immature Granulocyte % (Auto) 0.0 % Immature Granulocyte # (Auto) 0.00 K/uL (0.00-0.02) Anion Gap 10.0 mmol/L (3-11) Est Creatinine Clear Calc Drug Dose 102.7 ml/min Estimated GFR () 122.9 Estimated GFR (Non- 106.0 BUN/Creatinine Ratio 17.8 (10-20) Calcium Level 9.3 mg/dl (8.5-10.1) Total Bilirubin 1.0 mg/dl (0.2-1) Direct Bilirubin 0.2 mg/dl (0-0.2) Aspartate Amino Transf (AST/SGOT) 15 U/L (15-37) Alanine Aminotransferase (ALT/SGPT) 30 U/L (12-78) Alkaline Phosphatase 63 U/L (45-117) Total Protein 7.5 gm/dl (6.4-8.2) Albumin 4.0 gm/dl (3.4-5.0) Thyroid Stimulating Hormone (TSH) 1.430 uIu/ml (0.300-4.500) Salicylates Level < 1.7 mg/dl (2.8-20) Acetaminophen Level < 2 ug/ml (10-30) Ethyl Alcohol mg/dL < 3.0 mg/dl (0-3) Urine Color DK YELLOW Urine Appearance CLEAR (CLEAR) Urine pH 6.0 (4.5-7.5) Urine Specific [place] 1.029 (1.000-1.030) Urine Protein TRACE (NEG) Urine Glucose (UA) NEG (NEG) Urine Ketones 3+ (NEG) Urine Occult Blood NEG (NEG) Urine Nitrite NEG (NEG) Urine Bilirubin NEG (NEG) Urine Urobilinogen NEG (NEG) Urine Leukocyte Esterase TRACE (NEG) Urine WBC (Auto) 1-5 /hpf (0-5) Urine RBC (Auto) 0-4 /hpf (0-4) Urine Hyaline Casts (Auto) 1-5 /lpf (0-5) Urine Epithelial Cells (Auto) >30 /lpf (0-5) Urine Bacteria (Auto) 1+ (NEG) Urine Yeast (Auto) (NONE PRSENT) Urine Test NEG (NEG) Urine Opiates Screen NEG (NEG) Urine Methadone, Qualitative NEG (NEG) Urine Barbiturates NEG (NEG) Urine Phencyclidine (PCP) Level NEG (NEG) Ur Amphetamine/Methamphetamine NEG (NEG) MDMA (Ecstasy) Screen NEG (NEG) Urine Benzodiazepines Screen NEG (NEG) Urine Cocaine Metabolite NEG (NEG) Urine Marijuana (THC) NEG (NEG) Laboratory results as reviewed by me. Medications Administered Medications (Trade) Dose Ordered Sig/Jules Route Start Time Stop Time Status Last Admin Dose Admin Pregabalin (Lyrica Cap) 200 mg NOW STAT PO 04/28/17 18:28 04/28/17 18:30 DC 04/28/17 18:43 200 MG Miscellaneous Information (Nursing Verbal Med Order) 1 ea ONE ONCE N/A 04/28/17 18:45 04/28/17 18:46 DC 04/28/17 18:45 1 EA ED Course 1535: The patient was evaluated in room A7. A complete history and physical exam was performed. 1827: Ordered Lyrica Cap 200 mg PO. 1844: Ordered Caladryl Lotion 1 appln EXT. 1924: I was notified that the patient can no longer go to [address] [place] [address] because they had a belligerent patient upstairs and no longer have a bed available. Bed search will get started. 1999: The nurse informed me that the patient has become increasingly upset and requested some medication. We will give her Ativan. 2000: Ordered Ativan Tab 1 mg SL. 2029: The patient was signed out to [place]. Carmona [place] [facility] [place] at end of shift. Medical Decision This is a 27-year-old female presents for mental health evaluation. I did perform a limited focused review of portions of the patient's old chart on the electronic medical record. The patient has had no recent pertinent visits to this hospital. Blood Pressure Screening: Patient was found to have a slightly elevated blood pressure due to circumstances. I do not believe that the patient requires hypertension monitoring. Medication Reconciliation: I attest that I have personally reviewed the patient' s current medication list. I did evaluate the patient as noted above. The patient is presenting with depression and suicidal ideation after her boyfriend broke up with her. She does have a plan. She does want to be hospitalized for inpatient psychiatric care. I did review the patient's blood work as noted in the electronic medical record. The patient is medically cleared. The mental health registered nurse hh case manager initiated bed search. The patient became increasingly emotional and was given Ativan sublingually. She was also given her dose of Lyrica. She was also given Caladryl lotion for her sunburn. The patient was signed out to Dr. Carmona pending inpatient psychiatric placement. Impression Primary Impression: Mood disorder Additional Impression: Suicidal ideation Scribe Attestation The scribe's documentation has been prepared under my direct and personally reviewed by me in its entirety. I confirm that the note above accurately reflects all work, treatment, procedures, and medical decision making performed by me. Departure Information Dispostion Still a Patient (signed out to Dr. Carmona at end of shift) Referrals No Doctor, Assigned (PCP) Patient Instructions My [facility] Problem Qualifiers
[2017-04-28] MEDS ORDERED: LORAZEPAM 1 MG TAB SL STA (20:01)
[2017-04-28] MEDS ORDERED: CLONAZEPAM 0.5 MG TAB PO STA (20:40)
[2017-04-28] MEDS ORDERED: DOXE10CA PO (22:33)
[2017-04-28] MEDS ORDERED: ARTIFICIAL TEARS OP SOLN OP STA ×2 (23:19)
[2017-04-28] MEDS ORDERED: DOXEPIN HCL 10 MG CAP PO STA (23:19)
[2017-04-28] MEDS ORDERED: AMPHETAMINE ASP/SULF/DEXTRAMPH 20 MG TAB PO STA (23:19)
[2017-04-28 23:55] VITALS: BP 163/103; PULSE 82; O2SAT 98
--- NOTE | 2017-04-29 00:23 | EMERGENCY ROOM VISIT NOTE ---
ED Visit Note First contact with patient: 20:39 The patient was taken in signout from Dr. Beckwith is at the change of shift. Please see that note for details. The patient was pending psychiatric bed placement. The patient was evaluated. She did request her evening medications as well as something to help her calm down. She was ordered a dose of lorazepam but this was changed to Klonopin as she is used to this medication. She was given 1 mg. On reassessment she was feeling better. She was accepted at [facility]. The patient was transferred there via secure transport.
[2017-05-04 19:38] LABS: SYNTHETIC CANNABINOIDS QL URIN NEGATIVE (Negative)
[2017-06-06] MEDS ORDERED: SPIR25TA PO (10:54)
[2017-06-06] MEDS ORDERED: celebrex PO (10:54)
[2017-07-15] MEDS ORDERED: MISCCAP80 PO (11:32)
[2017-07-15] MEDS ORDERED: RIBO1TAB PO (11:32)
[2017-07-15] MEDS ORDERED: CETI10TA84 PO (11:32)
[2017-07-15] MEDS ORDERED: GASTROZYME PO (11:32)
[2017-07-15] MEDS ORDERED: AMPH10CA3 PO (11:32)
[2017-07-15] MEDS ORDERED: CLB/200 PO (11:32)
[2017-07-15] MEDS ORDERED: CHOL1TAB42 PO (11:32)
[2017-07-15] MEDS ORDERED: LIDO1SOL9 PO (11:32)
== END 2017-04-28 23:55 ==
LOC: C.EDB 13:56 → C.EDA 23:55
DX: F39 Unspecified mood [affective] disorder (principal); R45.851 Suicidal ideations; L55.9 Sunburn, unspecified; J45.909 Unspecified asthma, uncomplicated; F41.1 Generalized anxiety disorder; I10 Essential (primary) hypertension; Z91.5 Personal history of self-harm; Z82.49 Family history of ischemic heart disease and other diseases of the circulatory system; Z83.3 Family history of diabetes mellitus; Z84.1 Family history of disorders of kidney and ureter; Z79.899 Other long term (current) drug therapy

== ENCOUNTER → 2017-05-09 | Outpatient (CLI) | payer BC, OTHER ==
[~2017-05-09] MED LIST changes: +AMPH10CA3 PO; +ARTISOL12 OP; -CALAMINE/PRAMOXINE LOTION 177 APPLN/177 ML BTL EXT SCH; +CETI10TA84 PO; +CHOL100010 PO; +CHOL1TAB42 PO; +CLB/200 PO; +CRFL PO; +DOXE10CA PO; +GASTROZYME PO; +LIDO1SOL9 PO; +MISCCAP80 PO; +RIBO1TAB PO; +RIBO50CA PO; +SPIR25TA PO; +SYMIN8045 INH; +VNTHFA/IN INH; +celebrex PO
--- NOTE | 2017-05-09 18:03 | DIAGNOSTIC IMAGING REPORT ---
ABDOMEN LIMITED (US) HISTORY: Pain L LOWER QUAD PAIN. COMPARISON: None. FINDINGS: Normal ultrasound left lower quadrant. No evidence for collection or abnormality by ultrasound criteria IMPRESSION: Negative study The above report was generated using voice recognition software. It may contain grammatical, syntax or spelling errors. Electronically signed by: Catalino Holder M.D. 05/09/2017 6:02 PM Dictated Date/Time: 05/09/2017 6:00 PM
--- NOTE | 2017-05-09 18:05 | DIAGNOSTIC IMAGING REPORT ---
PELVIC COMPLETE NON OB CLINICAL HISTORY: L LOWER QUAD PAIN PAIN COMPARISON STUDY: None FINDINGS: The uterus measured 6.8 cm. The endometrial stripe measured 3 mm. The right ovary measured 2.4 cm. Several small follicular cysts The left ovary measured 3.5 cm. Several small follicular cysts There is no ultrasonographic evidence of ovarian torsion. It should be noted that ovarian torsion can be present with normal Doppler ultrasonographic findings. There was no evidence of pathologic free pelvic fluid. Slight bladder wall thickening IMPRESSION: Slight bladder wall thickening. Otherwise negative pelvic ultrasound The above report was generated using voice recognition software. It may contain grammatical, syntax or spelling errors. Electronically signed by: Catalino Holder M.D. 05/09/2017 6:04 PM Dictated Date/Time: 05/09/2017 6:02 PM
== END | disposition home or self-care (01) ==
LOC: C.ULTR 17:17
PROVIDERS: ATTEND Nurse Practitioner Family
DX: R10.32 Left lower quadrant pain (principal)

== ENCOUNTER → 2017-05-20 | Outpatient (CLI) | payer BC, OTHER ==
--- NOTE | 2017-05-20 11:40 | DIAGNOSTIC IMAGING REPORT ---
ABDOMEN COMPLETE (US) HISTORY: Pain. Nausea. RUQ PAIN. COMPARISON: None. FINDINGS: Pancreas: The pancreas demonstrates a normal echotexture. Liver: Fatty infiltration Gallbladder: Small amount of gravel and/or debris within the gallbladder lumen CBD: 5 mm Kidneys: No hydronephrosis. Spleen: Slightly prominent at 13 cm Aorta: Normal in caliber. IVC: Patent. IMPRESSION: 1. Fatty infiltration of liver. 2. Small amount of debris and/or gravel within the gallbladder lumen. 3. Normal caliber bile ducts. 4. Mild splenic enlargement The above report was generated using voice recognition software. It may contain grammatical, syntax or spelling errors. Electronically signed by: Catalino Holder M.D. 05/20/2017 11:39 AM Dictated Date/Time: 05/20/2017 11:34 AM
== END | disposition home or self-care (01) ==
LOC: C.ULTR 10:38
PROVIDERS: ATTEND Family Medicine
DX: R10.11 Right upper quadrant pain (principal)

== ENCOUNTER 2017-05-24 21:28 | Emergency (ER) | payer BC, OTHER ==
[~2017-05-24] VITALS: Ht 160 cm; Wt 72.6 kg
[~2017-05-24 21:28] MED LIST changes: -AMPH10CA3 PO; -CETI10TA84 PO; -CHOL1TAB42 PO; -CLB/200 PO; -CRFL PO; -GASTROZYME PO; -LIDO1SOL9 PO; -MISCCAP80 PO; -RIBO1TAB PO; -RIBO50CA PO; -SPIR25TA PO; -SYMIN8045 INH; -VNTHFA/IN INH; -celebrex PO
[2017-05-24 21:36] VITALS: TEMP 37.1; Ht 160 cm; Wt 72.6 kg
[2017-05-24] MEDS ORDERED: GI COCKTAIL PO STA (21:48)
[2017-05-24] MEDS ORDERED: ONDANSETRON 4MG OD TAB PO STA (21:48)
[2017-05-24] MEDS ORDERED: CRFL PO (22:01)
[2017-05-24] MEDS ORDERED: SYMIN8045 INH (22:01)
[2017-05-24] MEDS ORDERED: VNTHFA/IN INH (22:01)
[2017-05-24] MEDS ORDERED: RIBO50CA PO (22:01)
[2017-05-24] MEDS: ALUMINUM/MAGNESIUM SUSP 30 ML UDC ONE ×2 (22:11→22:14)
[2017-05-24] MEDS ORDERED: LIDOCAINE HCL 2% VISC SOLN 20 ML UDC ONE (22:11)
[2017-05-24] MEDS ORDERED: ALUMINUM/MAGNESIUM SUSP 30 ML UDC ONE (22:36)
--- NOTE | 2017-05-24 22:38 | EMERGENCY ROOM VISIT NOTE ---
History Report prepared by Steffany: Riccardo Carranza Under the Supervision of: Dr. Alfie Dominguez D.O. First contact with patient: 21:40 Chief Complaint: ABDOMINAL PAIN Stated Complaint: SEVERE STOMACH PAIN;ESOPAGEAL SPASMS History of Present Illness The patient is a 27 year old female who presents to the Emergency Room with complaints of persistent abdominal pain beginning a few hours ago. The patient also complains of vomiting and increased passing gas. She describes her pain as "spasms". She has a history of gastritis and laryngopharyngeal reflux as well as multiple other GI problems. The patient states that her symptoms began after eating sushi. She states that she has a history of similar abdominal pain after eating and states that she cannot eat many different types of foods. She states that she typically can eat sushi at this particular restaurant without difficulty. Source of History: patient Onset: A few hours ago Position: abdomen Quality: other ("spasms") Modifying Factors (Worsening): eating (sushi) Associated Symptoms: + vomiting Review of Systems See HPI for pertinent positives and negatives. A total of ten systems were reviewed and were otherwise negative. 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 (6) Herniated nucleus pulposus, L4-5 (7) Hypertension Nos (8) Irritable Bowel Syndrome (9) Psgsqmd-Poaocxzrq-Dvxet syndrome (10) Obsessive-Compulsive Dis (11) Otitis Media Nos (12) Pyelonephritis Nos Family History Blood clots Diabetes mellitus FH: heart disease Hypertension Kidney disease Kidney stones Social History Smoking Status: Never Smoker Alcohol Use: occasionally Drug Use: none Housing Status: lives with roommate Occupation Status: employed Current/Historical Medications Scheduled Acetaminophen Tab (Tylenol), 650 MG PO BID Esomeprazole Magnesium (Nexium), 40 MG PO DAILY Famotidine (Pepcid), 40 MG PO DAILY Fluticasone Propionate (Nasal) (Flonase Allergy Relief), 2 SPRAY RADHA DAILY Pregabalin (Lyrica), 200 MG PO TID Riboflavin (Riboflavin), 1 CAP PO BID Sucralfate (Carafate), 10 ML PO HS Scheduled PRN Albuterol Hfa (Ventolin Hfa), 2-4 PUFFS INH Q6H PRN for SOB/Wheezing Amphetamine-Dextroamphetamine 10MG (Adderall 10MG), 10 MG PO BID PRN for UNDECIDED Budesonide/Formoterol Fumarate (Symbicort 80-4.5 Mcg/Act), 1 PUFF INH BID PRN for SOB/Wheezing Clonazepam (Klonopin), 0.5 MG PO BID PRN for Anxiety Doxepin (Sinequan), 10 MG PO HS PRN for Insomnia Allergies Coded Allergies: Adhesives (Unverified Allergy, Severe, hives, 04/10/17) Fluoxetine (Verified Allergy, Mild, HIVES, 04/10/17) Fluvoxamine (Verified Allergy, Mild, HIVES, 04/10/17) Bupropion (Verified Allergy, Unknown, HIVES, 04/10/17) Dust (Verified Allergy, Unknown, asthma sx, 04/10/17) Iodinated Diagnostic Agents (Verified Allergy, Unknown, ARM NUMBNESS, 04/10) Loratadine (Verified Allergy, Unknown, anxiety, 04/10/17) Metoclopramide (Verified Allergy, Unknown, anxiety, 04/10/17) POLLEN (Verified Allergy, Unknown, asthma sx, 04/10/17) Hydrocodone (Verified Adverse Reaction, Intermediate, NAUSEA/VOMITING, ) Alcohol (Verified Adverse Reaction, Mild, GI symptoms, reflux, 04/28/17) "this includes, vanilla because it often has alcohol preservative." Caffeine (Verified Adverse Reaction, Mild, GI symptoms, 04/28/17) "I can't have it.. It lowers the strength of my lower esophageal spinchter." Chocolate (Verified Adverse Reaction, Mild, GI symptoms, 04/28/17) "it has caffeine in it and it messes with my esophageal sphincter." Dairy (Verified Adverse Reaction, Mild, GI symptoms., 04/28/17) "it increases my mucus production and it like makes me cough..." Garlic (Verified Adverse Reaction, Mild, gi symptoms/reflux, 04/28/17) Monosodium Glutamate (Verified Adverse Reaction, Mild, GI symtpoms, 04/28/17 ) "it triggers my migraines." Sertraline (Verified Adverse Reaction, Mild, COLD SORES, 04/10/17) Yeast (Verified Adverse Reaction, Mild, GI symptoms, 04/28/17) "it triggers my migraines." "I can have potatoe bread though." Uncoded Allergies: JESSICA,COBALT,CHROME,SILVER (Allergy, Unknown, HIVES, 07/29/14) cats (Allergy, Unknown, HIVES, 03/28/17) ASCORBIC ACID (Adverse Reaction, Mild, GI symptoms, reflux, 04/28/17) "all preservatives that are acidic or contain ascorbic acid" CICTRIC FRUIT (Adverse Reaction, Mild, reflux, 04/28/17) all berries except blueberries and peaches FATTY FOODS (Adverse Reaction, Mild, GI symptoms, 04/28/17) "it just takes a long time for my stomach to digest.. so it increases my stomach acid.. I need everything steamed, baked or sauted lightly." "eveyrthing must be low fat." MINT (Adverse Reaction, Mild, Reflux, 04/28/17) ONIONS (Adverse Reaction, Mild, reflux, 04/28/17) PEANUTS (Adverse Reaction, Mild, GI symptoms, 04/28/17) "It just doesn't sit well with my stomach... unless they are dehydrated." PEPPER (Adverse Reaction, Mild, GI symptoms/reflux, 04/28/17) TOMATOES (Adverse Reaction, Mild, GI symptoms. reflux, 04/28/17) Physical Exam Vital Signs Date Time Temp Pulse Resp B/P (MAP) Pulse Ox O2 Delivery O2 Flow Rate FiO2 05/24/17 21:36 37.1 84 18 123/81 98 Room Air Physical Exam GENERAL: Awake, alert, well-appearing, in no distress HENT: Normocephalic, atraumatic. Oropharynx unremarkable. EYES: Normal conjunctiva. Sclera non-icteric. NECK: Supple. No nuchal rigidity. FROM. No JVD. RESPIRATORY: Clear to auscultation. CARDIAC: Regular rate, normal rhythm. Extremities warm and well perfused. Pulses equal. ABDOMEN: Soft, non-distended. Mild tenderness in the epigastric area. No rebound or guarding. No masses. RECTAL: Deferred. MUSCULOSKELETAL: Chest examination reveals no tenderness. The back is symmetrical on inspection without obvious abnormality. There is no CVA tenderness to palpation. No joint edema. LOWER EXTREMITIES: Calves are equal size bilaterally and non-tender. No edema. No discoloration. NEURO: Normal sensorium. No sensory or motor deficits noted. SKIN: No rash or jaundice noted. PSYCH: Extremely anxious. Does not make eye contact. Medical Decision & Procedures Medications Administered Medications (Trade) Dose Ordered Sig/Jules Route Start Time Stop Time Status Last Admin Dose Admin Ondansetron HCl (Zofran Odt) 4 mg NOW STAT PO 05/24/17 21:48 05/24/17 21:51 DC 05/24/17 22:14 4 MG Lidocaine HCl (Viscous Lidocaine 2% Soln) 20 ml STK-MED ONCE .ROUTE 05/24/17 22:11 05/24/17 22:12 DC 05/24/17 22:14 20 ML Al Hydroxide/Mg Hydroxide (Maalox Susp) 30 ml STK-MED ONCE .ROUTE 05/24/17 22:36 05/24/17 22:37 DC 05/24/17 22:36 30 ML ED Course 2140: The patient was evaluated in room C8. A complete history and physical exam was performed. 2147: Ordered Zofran Odt 4 mg PO, GI Cocktail 24 mL PO. 2224: I reevaluated the patient. Discussed results and discharge instructions: she verbalized understanding and agreement. The patient is ready for discharge. Medical Decision Differential diagnoses include but are not limited to; gastritis, esophageal spasm, and anxiety. Patient resting in no distress has a history of GI issues has taken over minutes prior to arrival also has a history of anxiety and psychiatric problems. Impression Primary Impression: Gastritis Additional Impression: Anxiety Scribe Attestation The scribe's documentation has been prepared under my direction and personally reviewed by me in its entirety. I confirm that the note above accurately reflects all work, treatment, procedures, and medical decision making performed by me. Departure Information Dispostion Home / Self-Care Referrals Amanuel Bang M.D. (PCP) Patient Instructions ED Gastritis, My [facility] Problem Qualifiers
[2017-05-24 23:28] VITALS: BP 125/74; PULSE 75; O2SAT 97
[2017-06-06] MEDS ORDERED: celebrex PO (10:54)
[2017-06-06] MEDS ORDERED: SPIR25TA PO (10:54)
[2017-07-15] MEDS ORDERED: AMPH10CA3 PO (11:32)
[2017-07-15] MEDS ORDERED: CLB/200 PO (11:32)
[2017-07-15] MEDS ORDERED: LIDO1SOL9 PO (11:32)
[2017-07-15] MEDS ORDERED: RIBO1TAB PO (11:32)
[2017-07-15] MEDS ORDERED: MISCCAP80 PO (11:32)
[2017-07-15] MEDS ORDERED: CETI10TA84 PO (11:32)
[2017-07-15] MEDS ORDERED: GASTROZYME PO (11:32)
[2017-07-15] MEDS ORDERED: CHOL1TAB42 PO (11:32)
== END 2017-05-24 23:45 | disposition home or self-care (01) ==
LOC: C.EDB 21:29 → C.EDC 23:45
DX: K29.70 Gastritis, unspecified, without bleeding (principal); F41.9 Anxiety disorder, unspecified; I10 Essential (primary) hypertension; J45.909 Unspecified asthma, uncomplicated; K58.9 Irritable bowel syndrome, unspecified; Z87.440 Personal history of urinary (tract) infections; Z79.899 Other long term (current) drug therapy; Z88.5 Allergy status to narcotic agent; Z88.8 Allergy status to other drugs, medicaments and biological substances; Z91.041 Radiographic dye allergy status; Z91.09 Other allergy status, other than to drugs and biological substances; Z83.3 Family history of diabetes mellitus; Z82.49 Family history of ischemic heart disease and other diseases of the circulatory system; Z84.1 Family history of disorders of kidney and ureter; Z86.2 Personal history of diseases of the blood and blood-forming organs and certain disorders involving the immune mechanism

== ENCOUNTER → 2017-07-08 | Outpatient (CLI) | payer BC, OTHER ==
[~2017-07-08] MED LIST changes: +AMPH10CA3 PO; -ARTISOL12 OP; -CETI10TA10 PO; +CETI10TA84 PO; -CHOL100010 PO; +CHOL1TAB42 PO; +CLB/200 PO; +CRFL PO; +GASTROZYME PO; +LIDO1SOL9 PO; +MISCCAP80 PO; +RIBO1TAB PO; +RIBO50CA PO; +SPIR25TA PO; +SYMIN8045 INH; +VNTHFA/IN INH; -[UNRECOGNIZED DRUG - CODE] PO; +celebrex PO
--- NOTE | 2017-07-09 09:06 | PULMONARY FUNCTION TEST ---
CLINICAL DATA: 27-year-old female with a height of 63 inches and a weight of 165 pounds, currently on Symbicort inhaler referred by Dr. Amanuel Bang for evaluation of shortness of breath and asthma. Spirometry pre- and post-bronchodilator, lung volumes, and DLCO were performed. FINDINGS: Pre-bronchodilator spirometry is normal. FVC was 105% of predicted. FEV1 was 105% of predicted. [id number] was 110% of predicted. There was minimal change after inhaled bronchodilator. FVC improved 3% to 108% of predicted. FEV1 improved 6% to 111% of predicted. [id number] improved 5% to 116% of predicted. Lung volumes showed a significant reduction in residual volume of unclear etiology, question technical in nature. DLCO was normal at 90% of predicted. IMPRESSION: Normal baseline spirometry with no significant improvement after inhaled bronchodilator. Normal DLCO. MTDD
== END | disposition home or self-care (01) ==
LOC: C.RC 13:13
PROVIDERS: ATTEND Family Medicine
DX: R06.00 Dyspnea, unspecified (principal)

== ENCOUNTER → 2017-07-23 | Day surgery (SDC) | payer BC, OTHER ==
[2017-07-15 11:37] VITALS: Ht 160 cm; Wt 75.9 kg
[~2017-07-23] VITALS: Ht 160 cm; Wt 75.9 kg
[~2017-07-23] MED LIST changes: -ACET325T96 PO; -AMPH10TA2 PO; +LIDOCAINE HCL 2% 2 ML VIAL (20MG/ML) ONE; +MIDAZOLAM HCL 1 MG/ML 2ML VIAL ONE; +PROPOFOL IV EMULSION 10 MG/ML 20 ML VIAL IV ONE; -RIBO50CA PO; +SODIUM CHLORIDE 0.9% 500ML 500 ML IV ONE; -celebrex PO
--- NOTE | 2017-07-23 13:37 | Endo History and Physical ---
History & Physical Date of Service: Jul 23, 2017. Chief Complaint: Rectal bleeding, esophgeal dilitation Referring Physician: Beti History of Present Illness rectal bleeding, globus Past Surgical History Hx Cardiac Surgery: No Hx Internal Defibrillator: No Hx Pacemaker: No Hx Abdominal Surgery: No Hx of Implantable Prosthesis: No Hx Post-Op Nausea and Vomiting: Yes Hx Cancer Surgery: No Hx Thoracic Surgery: No Hx Orthopedic: Yes (LT KNEE SURGERY X3) Hx Urinary Tract Surgery: No Family History Polyp, IBD Social History Smoking Status: Never Smoker Hx Substance Use: No Hx Alcohol Use: No Allergies Coded Allergies: Adhesives (Unverified Allergy, Severe, hives, 07/18/17) Cat Dander (Verified Allergy, Intermediate, Hives, 07/18/17) Fluoxetine (Verified Allergy, Mild, HIVES, 07/18/17) Fluvoxamine (Verified Allergy, Mild, HIVES, 07/23/17) Bupropion (Verified Allergy, Unknown, HIVES, 07/23/17) Dust (Verified Allergy, Unknown, asthma sx, 07/18/17) Iodinated Diagnostic Agents (Verified Allergy, Unknown, ARM NUMBNESS, 07/23) Loratadine (Verified Allergy, Unknown, anxiety, 07/23/17) Metoclopramide (Verified Allergy, Unknown, anxiety, 07/23/17) POLLEN (Verified Allergy, Unknown, asthma sx, 07/18/17) Hydrocodone (Verified Adverse Reaction, Intermediate, NAUSEA/VOMITING, ) Alcohol (Verified Adverse Reaction, Mild, GI symptoms, reflux, 07/18/17) "this includes, vanilla because it often has alcohol preservative." Ascorbic Acid & Derivatives (Verified Adverse Reaction, Mild, GI symptoms & reflux, 07/23/17) Caffeine (Verified Adverse Reaction, Mild, GI symptoms, 07/18/17) "I can't have it.. It lowers the strength of my lower esophageal spinchter." Chocolate (Verified Adverse Reaction, Mild, GI symptoms, 07/18/17) "it has caffeine in it and it messes with my esophageal sphincter." Dairy (Verified Adverse Reaction, Mild, GI symptoms., 07/18/17) "it increases my mucus production and it like makes me cough..." Garlic (Verified Adverse Reaction, Mild, gi symptoms/reflux, 07/18/17) Monosodium Glutamate (Verified Adverse Reaction, Mild, GI symtpoms, ) "it triggers my migraines." Onion (Verified Adverse Reaction, Mild, reflux, 07/18/17) Sertraline (Verified Adverse Reaction, Mild, COLD SORES, 07/23/17) Yeast (Verified Adverse Reaction, Mild, GI symptoms, 07/18/17) "it triggers my migraines." "I can have potatoe bread though." Uncoded Allergies: JESSICA,COBALT,CHROME,SILVER (Allergy, Unknown, HIVES, 07/29/14) CICTRIC FRUIT (Adverse Reaction, Mild, reflux, 04/28/17) all berries except blueberries and peaches FATTY FOODS (Adverse Reaction, Mild, GI symptoms, 04/28/17) "it just takes a long time for my stomach to digest.. so it increases my stomach acid.. I need everything steamed, baked or sauted lightly." "eveyrthing must be low fat." MINT (Adverse Reaction, Mild, Reflux, 04/28/17) PEANUTS (Adverse Reaction, Mild, GI symptoms, 04/28/17) "It just doesn't sit well with my stomach... unless they are dehydrated." PEPPER (Adverse Reaction, Mild, GI symptoms/reflux, 04/28/17) TOMATOES (Adverse Reaction, Mild, GI symptoms. reflux, 04/28/17) Current Medications Reported Home Medications Medications Dose Route/Sig Max Daily Dose Days Date Category Dose Instructions Lidocaine HCl Viscous (Lidocaine HCl (Mouth-Throat)) 2 % Lisseth 1 Dose PO UD PRN 07/15/17 Reported Adderall Xr 10MG (Amphetamine-Dextroamphetamine 10MG) 1 Cap Cap 10 Mg PO BID PRN 07/15/17 Reported Probiotic (Probiotic Product) 1 Cap Cap 1 Cap PO HS 07/15/17 Reported [Gastrozyme] 1 Tab PO BID 07/15/17 Reported Vitamin D (Cholecalciferol) 5,000 Unit Tab 1 Tab PO QAM 07/15/17 Reported B-2 (Riboflavin) 100 Mg Tab 2 Tabs PO BID 07/15/17 Reported Zyrtec (Cetirizine HCl) 10 Mg Tab 10 Mg PO HS 07/15/17 Reported CeleBREX (Celecoxib) 200 Mg Cap 200 Mg PO QAM 07/15/17 Reported Aldactone (Spironolactone) 25 Mg Tab 25 Mg PO QAM 06/06/17 Reported Ventolin Hfa (Albuterol) 200 Puffs/43313 Mcg Aers 2-4 Puffs INH Q6H PRN 05/24/17 Reported Symbicort 80-4.5 Mcg/Act (Budesonide/Formoterol Fumarate) 60 Puffs/Inhaler Aero 1 Puff INH DAILY 05/24/17 Reported Carafate (Sucralfate) 1 Gm/10 Ml Ashlie 10 Ml PO HS PRN 05/24/17 Reported Sinequan (Doxepin HCl) 10 Mg Cap 10 Mg PO HS 04/28/17 Reported Pepcid (Famotidine) 40 Mg Tab 40 Mg PO HS 02/11/17 Reported Flonase Allergy Relief (Fluticasone Propionate (Nasal)) 50 Mcg/Act Spr 2 Douglas RADHA HS 02/11/17 Reported Nexium (Esomeprazole Magnesium) 40 Mg Gra 40 Mg PO 2-3XWK 02/11/17 Reported OPEN CAPSULE, PATIENT SAYS SHE TAKES POWDER Lyrica (Pregabalin) 200 Mg Cap 200 Mg PO TID 02/11/17 Reported Klonopin (Clonazepam) 0.5 Mg Tab 0.5-1 Mg PO BID PRN 12/02/16 Reported Vital Signs Weight (Kilograms): 75.91 Height (Feet): 5 Height (Inches): 3 Physical Exam General Appearance: WD/WN Respiratory/Chest: Auscultation: breath sounds normal Cardiovascular: Heart Auscultation: RRR Abdomen: Inspection & Palpation: soft Assessment and Plan EGD/ cscopy
[2017-07-23 13:39] VITALS: TEMP 36.3
--- NOTE | 2017-07-23 14:49 | GI REPORT ---
Procedure Date: 07/23/2017 2:04 PM Procedure: Upper GI endoscopy Indications: Globus sensation Medicines: See the Anesthesia note for documentation of the administered medications Complications: No immediate complications. Estimated Blood Loss: Estimated blood loss: none. Procedure: Pre-Anesthesia Assessment: - ASA Grade Assessment: II - A patient with mild systemic disease. After obtaining informed consent, the endoscope was passed under direct vision. Throughout the procedure, the patient's blood pressure, pulse, and oxygen saturations were monitored continuously. The scope was introduced through the mouth, and advanced to the second part of duodenum. The upper GI endoscopy was accomplished without difficulty. The patient tolerated the procedure well. Findings: The Z-line was found 35 cm from the incisors. A small hiatus hernia was present. The exam of the esophagus was otherwise normal. The entire examined stomach was normal. Biopsies were taken with a cold forceps for histology. The examined duodenum was normal. Biopsies were taken with a cold forceps for histology. A guidewire was placed and the scope was withdrawn. Dilation was performed at the cricopharyngeus with a Savary dilator with no resistance at 18 mm. Impression: - Z-line, 35 cm from the incisors. - Small hiatus hernia. - Normal stomach. Biopsied. - Normal examined duodenum. Biopsied. - Dilation attempted at the cricopharyngeus. Successful. Recommendation: - Discharge patient to home. F/u with referring. Edgar Rivera MD 07/23/2017 2:49:11 PM This report has been signed electronically. Note Initiated On: 07/23/2017 2:04 PM I attest to the content of the Intraoperative Record and orders documented therein, exceptions below
--- NOTE | 2017-07-23 14:52 | GI REPORT ---
Procedure Date: 07/23/2017 2:29 PM Procedure: Colonoscopy Indications: Rectal bleeding Medicines: See the Anesthesia note for documentation of the administered medications Complications: No immediate complications. Estimated Blood Loss: Estimated blood loss: none. Procedure: Pre-Anesthesia Assessment: - ASA Grade Assessment: II - A patient with mild systemic disease. After I obtained informed consent, the scope was passed under direct vision. Throughout the procedure, the patient's blood pressure, pulse, and oxygen saturations were monitored continuously. The scope was introduced through the anus and advanced to the terminal ileum. The colonoscopy was performed without difficulty. The patient tolerated the procedure well. The quality of the bowel preparation was good. Findings: The perianal and digital rectal examinations were normal. Small hemorrhoids seen on withdrawal of scope through anal canal. Colon is otherwise normal. Random biopsies done throughout the colon. The ileum was deepy intubated and was normal. Recommendation: - Discharge patient to home. Edgar Rivera MD 07/23/2017 2:52:06 PM This report has been signed electronically. Note Initiated On: 07/23/2017 2:29 PM I attest to the content of the Intraoperative Record and orders documented therein, exceptions below
[2017-07-23 15:27] VITALS: BP 94/73; PULSE 62; O2SAT 100
--- NOTE | 2017-07-23 15:35 | Discharge Instructions ---
Endoscopy Patient Instructions Date / Procedure(s) Performed Jul 23, 2017. Colonoscopy, EGD Allergy Information Coded Allergies: Adhesives (Unverified Allergy, Severe, hives, 07/18/17) Cat Dander (Verified Allergy, Intermediate, Hives, 07/18/17) Fluoxetine (Verified Allergy, Mild, HIVES, 07/18/17) Fluvoxamine (Verified Allergy, Mild, HIVES, 07/23/17) Bupropion (Verified Allergy, Unknown, HIVES, 07/23/17) Dust (Verified Allergy, Unknown, asthma sx, 07/18/17) Iodinated Diagnostic Agents (Verified Allergy, Unknown, ARM NUMBNESS, 07/23) Loratadine (Verified Allergy, Unknown, anxiety, 07/23/17) Metoclopramide (Verified Allergy, Unknown, anxiety, 07/23/17) POLLEN (Verified Allergy, Unknown, asthma sx, 07/18/17) Hydrocodone (Verified Adverse Reaction, Intermediate, NAUSEA/VOMITING, ) Alcohol (Verified Adverse Reaction, Mild, GI symptoms, reflux, 07/18/17) "this includes, vanilla because it often has alcohol preservative." Ascorbic Acid & Derivatives (Verified Adverse Reaction, Mild, GI symptoms & reflux, 07/23/17) Caffeine (Verified Adverse Reaction, Mild, GI symptoms, 07/18/17) "I can't have it.. It lowers the strength of my lower esophageal spinchter." Chocolate (Verified Adverse Reaction, Mild, GI symptoms, 07/18/17) "it has caffeine in it and it messes with my esophageal sphincter." Dairy (Verified Adverse Reaction, Mild, GI symptoms., 07/18/17) "it increases my mucus production and it like makes me cough..." Garlic (Verified Adverse Reaction, Mild, gi symptoms/reflux, 07/18/17) Monosodium Glutamate (Verified Adverse Reaction, Mild, GI symtpoms, ) "it triggers my migraines." Onion (Verified Adverse Reaction, Mild, reflux, 07/18/17) Sertraline (Verified Adverse Reaction, Mild, COLD SORES, 07/23/17) Yeast (Verified Adverse Reaction, Mild, GI symptoms, 07/18/17) "it triggers my migraines." "I can have potatoe bread though." Uncoded Allergies: JESSICA,COBALT,CHROME,SILVER (Allergy, Unknown, HIVES, 07/29/14) CICTRIC FRUIT (Adverse Reaction, Mild, reflux, 04/28/17) all berries except blueberries and peaches FATTY FOODS (Adverse Reaction, Mild, GI symptoms, 04/28/17) "it just takes a long time for my stomach to digest.. so it increases my stomach acid.. I need everything steamed, baked or sauted lightly." "eveyrthing must be low fat." MINT (Adverse Reaction, Mild, Reflux, 04/28/17) PEANUTS (Adverse Reaction, Mild, GI symptoms, 04/28/17) "It just doesn't sit well with my stomach... unless they are dehydrated." PEPPER (Adverse Reaction, Mild, GI symptoms/reflux, 04/28/17) TOMATOES (Adverse Reaction, Mild, GI symptoms. reflux, 04/28/17) Discharge Date / Findings Jul 23, 2017. Small hiatal hernia. Small hemorrhoids. Esophageal dilation performed. Provider Instructions Activity Restrictions - No exercising or heavy lifting for 24 hours. - Do not drink alcohol the day of the procedure. - Do not drive a car or operate machinery until the day after the procedure. - Do not make any important decisions or sign important papers in 24 hours after the procedure. Following Day: - Return to full activity which may include returning to work/school. Diet Start your diet with liquids and light foods (jello, soup, juice, toast). Then eat your usual diet if not nauseated. Treatment For Common After Affects For mild abdominal pain, bloating, or excessive gas: - Rest - Eat lightly - Lie on right side Follow-Up Information Follow-up with Beti as scheduled Anesthesia Information What You Should Know You have had a procedure that required some medicine to reduce anxiety and discomfort. This treatment is called moderate sedation. After receiving the treatment, you may be sleepy, but you will be able to breathe on your own. The effects of the treatment may last for several hours. Follow these instructions along with Activity/Diet recommendations noted above: * Do NOT do anything where dizziness or clumsiness would be dangerous. * Rest quietly at home today, then you can be up and about tomorrow. * Have a responsible person stay with you the rest of today. * You may have had an I.V. today. If so, you may take the dressing off later today. Recommendations Call your doctor if: * Trouble breathing * Continuous vomiting for more than 24 hours * Temperature above 101 degrees * Severe abdominal pain or bloating * Pain not relieved by pain medicine ordered * There is increased drainage or redness from any incision * A large amount of rectal bleeding greater than 2-3 tablespoons. (If you had a polyp/s removed or have hemorrhoids, a small amount of blood - from the rectum is to be expected.) * You have any unanswered questions or concerns. IN THE EVENT OF A SERIOUS EMERGENCY, GO TO THE NEAREST EMERGENCY ROOM Your discharge instructions were prepared by provider Norma Estes. Patient Instructions Signature Page Deepthi Mon Patient (or Guardian) Signature/Date: I have read and understand the instructions given to me by my caregivers. Caregiver/RN/Doctor Signature/Date: The above-named patient and/or guardian has received patient instructions on this date. + Original Patient Signature Page (only) stays with chart. Please make copy for patient.
--- NOTE | 2017-07-23 16:04 | Anesthesiology Progress Note ---
Anesthesia Post Op Note Date & Time Jul 23, 2017 at 16:03 Vital Signs Pain Intensity: 0 Vital Signs Past 12 Hours Date Time Temp Pulse Resp B/P (MAP) Pulse Ox O2 Delivery O2 Flow Rate FiO2 07/23/17 15:27 62 18 94/73 (80) 100 Room Air 07/23/17 15:20 61 18 100/61 (74) 61 Room Air 07/23/17 15:00 61 18 99/56 (70) 96 Room Air 07/23/17 14:52 74 18 102/65 (77) 99 Room Air 07/23/17 13:39 36.3 74 18 111/64 (80) 95 Room Air Notes Mental Status: alert / awake / arousable, participated in evaluation Pt Amnestic to Procedure: Yes Nausea / Vomiting: adequately controlled Pain: adequately controlled Airway Patency, RR, SpO2: stable & adequate BP & HR: stable & adequate Hydration State: stable & adequate Anesthetic Complications: no major complications apparent
== END | disposition home or self-care (01) ==
LOC: C.GI 12:45
PROVIDERS: ATTEND Internal Medicine Gastroenterology
DX: K62.5 Hemorrhage of anus and rectum (principal); K64.8 Other hemorrhoids; K29.50 Unspecified chronic gastritis without bleeding; K44.9 Diaphragmatic hernia without obstruction or gangrene; Z83.71 Family history of colonic polyps; Z83.79 Family history of other diseases of the digestive system; Z79.899 Other long term (current) drug therapy

== ENCOUNTER → 2017-07-24 | Outpatient (CLI) | payer BC, OTHER ==
[~2017-07-24] MED LIST changes: -LIDOCAINE HCL 2% 2 ML VIAL (20MG/ML) ONE; -MIDAZOLAM HCL 1 MG/ML 2ML VIAL ONE; -PROPOFOL IV EMULSION 10 MG/ML 20 ML VIAL IV ONE; -SODIUM CHLORIDE 0.9% 500ML 500 ML IV ONE
--- NOTE | 2017-07-24 12:14 | DIAGNOSTIC IMAGING REPORT ---
L VENOUS DOPPLER UPR EXT UNIL CLINICAL HISTORY: 27 years-old Female presenting with LEFT ARM, PAIN/LUMP R/O DVT. TECHNIQUE: Real-time grayscale and color and spectral Doppler ultrasound imaging of the veins of the left upper extremity was performed. Compression and augmentation were also utilized. COMPARISON: None. FINDINGS: Left: Internal jugular vein: Patent. Subclavian vein: Patent. Axillary vein: Patent. Basilic vein: Patent. Brachial vein: Patent. Cephalic vein: Patent. Radial vein: Patent. Ulnar vein: Patent. Other: At the site of clinical interest, normal subcutaneous fat is noted. No focal mass or fluid collection. IMPRESSION: No evidence of deep venous thrombosis. Electronically signed by: Pardeep Aquino M.D. 07/24/2017 12:13 PM Dictated Date/Time: 07/24/2017 12:12 PM
== END | disposition home or self-care (01) ==
LOC: C.ULTR 11:13
PROVIDERS: ATTEND Family Medicine
DX: I82.602 Acute embolism and thrombosis of unspecified veins of left upper extremity (principal)

== ENCOUNTER → 2017-08-19 | Outpatient (CLI) | payer BC, OTHER | END | disposition home or self-care (01) | LOC: C.LABSPEC 14:22 | PROVIDERS: ATTEND Family Medicine | DX: N39.0 Urinary tract infection, site not specified (principal) ==

== ENCOUNTER → 2017-11-27 | Outpatient (CLI) | payer OTHER ==
--- NOTE | 2017-11-27 21:18 | DIAGNOSTIC IMAGING REPORT ---
MRI OF THE BRAIN WITHOUT CONTRAST CLINICAL HISTORY: Persistent frontal headaches. COMPARISON STUDY: MRI of the brain January 18, 2016. TECHNIQUE: Utilizing a 1.5 Katie magnet and dedicated coil, multiplanar, multiecho imaging of the brain was performed without IV contrast. FINDINGS: There are no foci of restricted diffusion. No acute intracranial hemorrhage, midline shift or mass effect is present. Brain volume is normal. Ventricular system is normal. Basilar cisterns are patent. There are no extra-axial collections. Flow-voids for the major intracranial vessels are present. No intracranial masses are identified on this unenhanced exam. No foci of signal abnormality are present. A small amount of fluid within the inferior right mastoid air cells is similar to MRI of January 18, 2016. Calvarial signal is maintained. Orbits and sinuses are unremarkable. IMPRESSION: 1. Normal unenhanced MRI of the brain. 2. Small amount of fluid within the right mastoid air cells similar to MRI of January 18, 2016. Electronically signed by: Christ Box M.D. 11/27/2017 9:16 PM Dictated Date/Time: 11/27/2017 9:13 PM
== END | disposition home or self-care (01) ==
LOC: C.MRI 19:52
PROVIDERS: ATTEND Family Medicine
DX: R51 Headache (principal); H74.8X1 Other specified disorders of right middle ear and mastoid

== ENCOUNTER 2017-12-16 02:54 | Emergency (ER) | payer OTHER ==
[~2017-12-16] VITALS: Ht 160 cm; Wt 79.2 kg
[2017-12-16 02:57] VITALS: TEMP 36.7; Ht 160 cm; Wt 79.2 kg
[2017-12-16] MEDS ORDERED: CHOL400C7 PO (03:23)
[2017-12-16] MEDS ORDERED: B-CO1TAB29 PO (03:26)
[2017-12-16] MEDS ORDERED: PRLSR20 PO (03:26)
[2017-12-16] MEDS ORDERED: ONDA4TAB46 PO (03:26)
[2017-12-16] MEDS ORDERED: MAGNTAB17 PO (03:26)
[2017-12-16] MEDS ORDERED: ZNT/150 PO (03:26)
[2017-12-16] MEDS ORDERED: ARTISOL12 OPB (03:27)
[2017-12-16 03:55] LABS: EOS % 1.2 %; EOS ABS # 0.08 K/uL (0-0.5); HEMATOCRIT 43.5 % (37-47); HEMOGLOBIN 15.4 g/dL (12.0-16.0); IG# 0.02 K/uL (0.00-0.02); LYMPH % 24.5 %; LYMPH ABS # 1.68 K/uL (1.2-3.4); MEAN CELL VOLUME 86.1 fL (80-100); MEAN CORPUSCULAR HEMOGLOBIN 30.5 pg (25-34); MEAN CORPUSCULAR HGB CONC 35.4 g/dl (32-36); MEAN PLATELET VOLUME 9.8 fL (7.4-10.4); MONO % 6.7 %; MONO ABS # 0.46 K/uL (0.11-0.59); NEUT % 67.3 %; NEUT ABS # 4.63 K/uL (1.4-6.5); PLATELET COUNT 279 K/uL (130-400); RED CELL DISTRIBUTION WIDTH CV 12.5 % (11.5-14.5); RED CELL DISTRIBUTION WIDTH SD 39.1 fL (36.4-46.3); WHITE BLOOD COUNT 6.87 K/uL (4.8-10.8)
[2017-12-16 04:13] LABS: CALCIUM 8.8 mg/dl (8.5-10.1); CREATININE 0.83 mg/dl (0.60-1.20); POTASSIUM 3.7 mmol/L (3.5-5.1)
[2017-12-16 04:23] LABS: TOTAL PROTEIN 7.6 gm/dl (6.4-8.2)
[2017-12-16] MEDS ORDERED: KETOROLAC TROMETHAMINE 30 MG/ML VIAL IV STA (05:00)
[2017-12-16 05:33] VITALS: BP 117/68; PULSE 72; O2SAT 100
--- NOTE | 2017-12-16 06:45 | DIAGNOSTIC IMAGING REPORT ---
CHEST ONE VIEW PORTABLE CLINICAL HISTORY: Chest pains. COMPARISON STUDY: Chest radiograph December 02, 2016. FINDINGS: Lung volumes are normal. No pneumothorax or pleural effusion is noted. There is no consolidation or evidence of pulmonary edema. Cardiomediastinal silhouette is normal. Pulmonary vascularity is normal. IMPRESSION: No acute cardiopulmonary findings. Electronically signed by: Christ Box M.D. 12/16/2017 6:43 AM Dictated Date/Time: 12/16/2017 6:43 AM
--- NOTE | 2017-12-17 00:52 | EMERGENCY ROOM VISIT NOTE ---
History First contact with patient: 03:00 Chief Complaint: ANXIETY Stated Complaint: CHEST PAIN,DOTS IN EYES,ANXIETY History of Present Illness The patient is a 27 year old female who presents to the Emergency Room with complaints of chest pain and anxiety symptoms that started just prior to arrival. The patient has a long-standing history of anxiety, and states that she started with a panic attack tonight. She then began having chest pain and "just wants her heart checked out". The patient denies suicidal or homicidal ideation. She does have a mild headache from crying, but does not report other symptoms and she rates her discomfort a 04/05 Review of Systems More than 10 systems were reviewed and otherwise negative with the exception of history of present illness. 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 (6) Herniated nucleus pulposus, L4-5 (7) Hypertension Nos (8) Irritable Bowel Syndrome (9) Ewfnxvt-Vylkaewww-Gzykz syndrome (10) Obsessive-Compulsive Dis (11) Otitis Media Nos (12) Pyelonephritis Nos Family History Blood clots Diabetes mellitus FH: heart disease Hypertension Kidney disease Kidney stones Social History Smoking Status: Never Smoker Alcohol Use: occasionally Drug Use: none Housing Status: lives with roommate Occupation Status: employed Current/Historical Medications Scheduled B-Complex Vitamins (Vitamin B-Complex), 1 TAB PO DAILY Cholecalciferol (Vitamin D 400 Iu), 400 INTER.UNIT PO DAILY Clonazepam (Klonopin), 0.5 MG PO HS Doxepin (Sinequan), 10 MG PO HS Magnesium Chloride-Calcium Car (Slow-Mag), 71.5 MG PO DAILY Omeprazole (Prilosec), 20 MG PO BID Pregabalin (Lyrica), 200 MG PO TID Ranitidine Hcl (Zantac), 150 MG PO BID Riboflavin (B-2), 2 TABS PO BID Spironolactone (Aldactone), 25 MG PO QAM Scheduled PRN Albuterol Hfa (Ventolin Hfa), 2-4 PUFFS INH Q6H PRN for SOB/Wheezing Artificial Tear Solution (Artificial Tears), 2 DROPS OPB QID PRN for DRYNESS Ondansetron Hcl (Zofran), 4 MG PO Q6 PRN for Nausea Physical Exam Vital Signs Date Time Temp Pulse Resp B/P (MAP) Pulse Ox O2 Delivery O2 Flow Rate FiO2 12/16/17 05:33 72 20 117/68 100 12/16/17 04:42 72 18 117/68 100 Room Air 12/16/17 02:57 36.7 73 18 136/88 94 Room Air Physical Exam VITALS: Vitals are noted on the nurse's note and reviewed by myself. Vital signs stable. GENERAL: Well-developed, well-nourished, anxious white female who is moderately cooperative. She is evasive about answering questions around her anxiety attack. EARS: External ear normal. External auditory canals clear, tympanic membranes pearly ponce without erythema or effusion bilaterally. EYES: Pupils equal round and reactive to light and accommodation. Conjunctivae without injection, sclerae without icterus. Extraocular movements intact. NOSE: Patent, turbinates without inflammation or discharge. MOUTH: Mucous membranes moist. Tonsils are not enlarged. Pharynx without erythema, blood, or exudate. Uvula midline. Airway patent. NECK: Supple without nuchal rigidity. No lymphadenopathy. No thyromegaly. Cervical spine is nontender. HEART: Regular rate and rhythm without murmurs gallops or rubs. LUNGS: Clear to auscultation bilaterally without wheezes, rales or rhonchi. No retractions or accessory muscle use. ABDOMEN: Positive normal bowel sounds x 4. Soft, nontender, without masses or organomegaly. No guarding or rebound tenderness. MUSCULOSKELETAL: No muscle atrophy, erythema, or edema noted. Full range of motion without joint tenderness in all extremities. NEURO: Patient was alert and oriented to person place and time. CN II through XII grossly intact. Medical Decision & Procedures ER Provider Diagnostic Interpretation: CHEST ONE VIEW PORTABLE CLINICAL HISTORY: Chest pains. COMPARISON STUDY: Chest radiograph December 02, 2016. FINDINGS: Lung volumes are normal. No pneumothorax or pleural effusion is noted. There is no consolidation or evidence of pulmonary edema. Cardiomediastinal silhouette is normal. Pulmonary vascularity is normal. IMPRESSION: No acute cardiopulmonary findings. Laboratory Results 12/16/17 03:41 Red Blood Count 5.05, Mean Corpuscular Volume 86.1, Mean Corpuscular Hemoglobin 30.5, Mean Corpuscular Hemoglobin Concent 35.4, Mean Platelet Volume 9.8, Neutrophils (%) (Auto) 67.3, Lymphocytes (%) (Auto) 24.5, Monocytes (%) (Auto) 6.7, Eosinophils (%) (Auto) 1.2, Basophils (%) (Auto) 0.0, Neutrophils # (Auto) 4.63, Lymphocytes # (Auto) 1.68, Monocytes # (Auto) 0.46, Eosinophils # (Auto) 0.08, Basophils # (Auto) 0.00 12/16/17 03:41 Test 12/16/17 03:41 12/16/17 03:46 12/16/17 04:43 White Blood Count 6.87 K/uL (4.8-10.8) Red Blood Count 5.05 M/uL (4.2-5.4) Hemoglobin 15.4 g/dL (12.0-16.0) Hematocrit 43.5 % (37-47) Mean Corpuscular Volume 86.1 fL (80-100) Mean Corpuscular Hemoglobin 30.5 pg (25-34) Mean Corpuscular Hemoglobin Concent 35.4 g/dl (32-36) Platelet Count 279 K/uL (130-400) Mean Platelet Volume 9.8 fL (7.4-10.4) Neutrophils (%) (Auto) 67.3 % Lymphocytes (%) (Auto) 24.5 % Monocytes (%) (Auto) 6.7 % Eosinophils (%) (Auto) 1.2 % Basophils (%) (Auto) 0.0 % Neutrophils # (Auto) 4.63 K/uL (1.4-6.5) Lymphocytes # (Auto) 1.68 K/uL (1.2-3.4) Monocytes # (Auto) 0.46 K/uL (0.11-0.59) Eosinophils # (Auto) 0.08 K/uL (0-0.5) Basophils # (Auto) 0.00 K/uL (0-0.2) RDW Standard Deviation 39.1 fL (36.4-46.3) RDW Coefficient of Variation 12.5 % (11.5-14.5) Immature Granulocyte % (Auto) 0.3 % Immature Granulocyte # (Auto) 0.02 K/uL (0.00-0.02) Anion Gap 7.0 mmol/L (3-11) Est Creatinine Clear Calc Drug Dose 99.6 ml/min Estimated GFR () 110.4 Estimated GFR (Non- 95.3 BUN/Creatinine Ratio 18.5 (10-20) Calcium Level 8.8 mg/dl (8.5-10.1) Total Bilirubin 0.7 mg/dl (0.2-1) Aspartate Amino Transf (AST/SGOT) 11 U/L (15-37) Alanine Aminotransferase (ALT/SGPT) 19 U/L (12-78) Alkaline Phosphatase 52 U/L (45-117) Total Protein 7.6 gm/dl (6.4-8.2) Albumin 4.0 gm/dl (3.4-5.0) Globulin 3.6 gm/dl (2.5-4.0) Albumin/Globulin Ratio 1.1 (0.9-2) Lipase 149 U/L (73-393) Thyroid Stimulating Hormone (TSH) 3.740 uIu/ml (0.300-4.500) Ethyl Alcohol mg/dL < 3.0 mg/dl (0-3) Bedside D-Dimer 447 ng/mlFEU (0-450) Bedside Troponin I < 0.030 ng/ml (0-0.045) Urine Color DK YELLOW Urine Appearance CLOUDY (CLEAR) Urine pH 5.0 (4.5-7.5) Urine Specific Ranier 1.018 (1.000-1.030) Urine Protein NEG (NEG) Urine Glucose (UA) NEG (NEG) Urine Ketones NEG (NEG) Urine Occult Blood NEG (NEG) Urine Nitrite NEG (NEG) Urine Bilirubin NEG (NEG) Urine Urobilinogen NEG (NEG) Urine Leukocyte Esterase TRACE (NEG) Urine WBC (Auto) 1-5 /hpf (0-5) Urine RBC (Auto) 0-4 /hpf (0-4) Urine Hyaline Casts (Auto) 0 /lpf (0-5) Urine Epithelial Cells (Auto) >30 /lpf (0-5) Urine Bacteria (Auto) NEG (NEG) Urine Pathogenic Casts /lpf (0) Urine Mucus PRESENT (NONE PRSENT) Urine Yeast (Auto) (NONE PRSENT) Urine Test NEG (NEG) Urine Opiates Screen NEG (NEG) Urine Methadone, Qualitative NEG (NEG) Urine Barbiturates NEG (NEG) Urine Phencyclidine (PCP) Level NEG (NEG) Ur Amphetamine/Methamphetamine NEG (NEG) MDMA (Ecstasy) Screen NEG (NEG) Urine Benzodiazepines Screen NEG (NEG) Urine Cocaine Metabolite NEG (NEG) Urine Marijuana (THC) NEG (NEG) Medications Administered Medications (Trade) Dose Ordered Sig/Jules Route Start Time Stop Time Status Last Admin Dose Admin Ketorolac Tromethamine (Toradol Inj) 30 mg NOW STAT IV 12/16/17 05:00 12/16/17 05:01 DC 12/16/17 05:07 30 MG ECG Per My Interpretation Change: Normal sinus rhythm with sinus arrhythmia @68 bpm Low voltage QRS When compared with ECG of 02-DEC-2016 19:22, No significant change was found ED Course Physical exam and history were performed. Nursing notes, EMR, and Medication List were personally reviewed. Patient appears to have chest pain symptoms in the setting of an anxiety attack today. She is tearful and quite anxious on examination. The patient has an extensive history of anxiety and has been seen multiple times at this facility for this complaint. IV access was established and labs were obtained. EKG was as above without ischemia or ectopy. She was given IV Toradol for her headache. Chest x-ray was performed. The patient's blood work is as above and was reviewed. She does not have a significantly elevated white blood cell count or gross anemia, bandemia, or significant electrolyte imbalance. Troponin and d-dimer 1 are both negative. 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 Overall the patient's medical evaluation and is without significant findings. She was felt to be medically cleared. I discussed options of further care with patient, and she does not wish for formal psychiatric evaluation. She was willing to take a list of services, and this was provided by case management. The patient will be discharged home. She is to follow-up with her primary care physician in the next 2 days for recheck. After discharge the patient requested that I return to the room, and began asking for several medications including refills of her controlled substances like Ativan. I explained that I would not be willing to provide this service to her, and it must be provided by her PCP. The patient was otherwise invited back to ER with any new, worsening, or concerning symptoms. The chart was completed utilizing [employer] Voice Recognition Software. Grammatical errors, random word insertions, pronoun errors, and incomplete sentences are an occasional consequence of this system due to software limitations, ambient noise, and hardware issues. Any formal questions or concerns about the content, text, or information contained within the body of this dictation should be directly addressed to the provider for clarification. . Medical Decision Differential diagnosis includes, but is not limited to: Anxiety, panic attack, myocardial infarction, dysrhythmia, pericarditis, pneumothorax, aortic aneurysm/ dissection, DVT/PE, anxiety, GERD, PUD, electrolyte imbalance, thyroid disorder , pneumonia, bronchitis, pancreatitis, and others Impression Primary Impression: Non-cardiac chest pain Additional Impression: Acute anxiety Departure Information Dispostion Home / Self-Care Condition GOOD Forms HOME CARE DOCUMENTATION FORM, IMPORTANT VISIT INFORMATION Patient Instructions My [facility] Additional Instructions You were seen and evaluated today on an emergency basis only. This is not a substitute for, or an effort to provide, complete comprehensive medical care. It is not possible to recognize and treat all injuries or illnesses in a single emergency department visit. For this reason it is recommended that you followup with your primary care physician for ongoing care and evaluation. Please use the resources provided by case management You are welcome to return to the emergency department anytime with new, worsening, or concerning symptoms. Problem Qualifiers
== END 2017-12-16 05:36 | disposition home or self-care (01) ==
LOC: C.EDB 02:55
DX: R07.89 Other chest pain (principal); F41.9 Anxiety disorder, unspecified; J45.909 Unspecified asthma, uncomplicated; G51.0 Bell's palsy; I10 Essential (primary) hypertension; K58.9 Irritable bowel syndrome, unspecified; Z83.3 Family history of diabetes mellitus; Z82.49 Family history of ischemic heart disease and other diseases of the circulatory system

== ENCOUNTER 2017-12-17 22:45 | Emergency (ER) | payer OTHER ==
[~2017-12-17] VITALS: Ht 165.1 cm; Wt 84.4 kg
[~2017-12-17 22:45] MED LIST changes: -AMPH10CA3 PO; +ARTISOL12 OPB; +B-CO1TAB29 PO; -CETI10TA84 PO; -CHOL1TAB42 PO; +CHOL400C7 PO; -CLB/200 PO; -CRFL PO; -ESOM40GR PO; -FAMO40TA6 PO; -FLUT0.15 NAE; -GASTROZYME PO; -LIDO1SOL9 PO; +MAGNTAB17 PO; -MISCCAP80 PO; +ONDA4TAB46 PO; +PRLSR20 PO; -SYMIN8045 INH; +ZNT/150 PO
[2017-12-17 23:06] VITALS: Ht 165.1 cm; Wt 84.4 kg
--- NOTE | 2017-12-17 23:17 | EMERGENCY ROOM VISIT NOTE ---
History Report prepared by Steffany: Milly Hogan Under the Supervision of: Dr. Mike Villafana M.D. First contact with patient: 22:49 Chief Complaint: OVERDOSE (INTENTIONAL) Stated Complaint: MHID, OVERDOSE History of Present Illness The patient is a 27 year old female who presents to the Emergency Room per the ambulance for an intentional overdose that occurred about one hour ago. The patient states she took 15 mg of benzodiazepine. She notes she has been having relationship issues and her therapist recently dropped her. She states she did not take them to try and kill herself. The patient has cuts on her wrist and she notes some are new and some are old. The patient is resisting to answer the physician's questions. The patient denies abdominal pain. This HPI is limited secondary to the patient being obstructive to conversation. Source of History: patient History Limited By: poor cooperation Onset: one hour ago Position: other (global) Associated Symptoms: No abdominal pain Review of Systems ROS is limited secondary to the patient being obstructive to conversation. 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 (6) Herniated nucleus pulposus, L4-5 (7) Hypertension Nos (8) Irritable Bowel Syndrome (9) Fxdzrkz-Zrlamhjvl-Xiaem syndrome (10) Obsessive-Compulsive Dis (11) Otitis Media Nos (12) Pyelonephritis Nos Family History Blood clots Diabetes mellitus FH: heart disease Hypertension Kidney disease Kidney stones Social History Smoking Status: Never Smoker Alcohol Use: occasionally Drug Use: none Housing Status: lives with roommate Occupation Status: employed Current/Historical Medications Scheduled B-Complex Vitamins (Vitamin B-Complex), 1 TAB PO DAILY Cholecalciferol (Vitamin D 400 Iu), 400 INTER.UNIT PO DAILY Clonazepam (Klonopin), 0.5 MG PO HS Doxepin (Sinequan), 10 MG PO HS Magnesium Chloride-Calcium Car (Slow-Mag), 71.5 MG PO DAILY Omeprazole (Prilosec), 20 MG PO BID Pregabalin (Lyrica), 200 MG PO TID Ranitidine Hcl (Zantac), 150 MG PO BID Riboflavin (B-2), 200 MG PO BID Spironolactone (Aldactone), 25 MG PO QAM Scheduled PRN Albuterol Hfa (Ventolin Hfa), 2-4 PUFFS INH Q6H PRN for SOB/Wheezing Artificial Tear Solution (Artificial Tears), 2 DROPS OPB QID PRN for DRYNESS Ondansetron Hcl (Zofran), 4 MG PO Q6 PRN for Nausea Allergies Coded Allergies: Adhesives (Unverified Allergy, Severe, hives, 12/16/17) Cat Dander (Verified Allergy, Intermediate, Hives, 12/16/17) Fluoxetine (Verified Allergy, Mild, HIVES, 12/16/17) Fluvoxamine (Verified Allergy, Mild, HIVES, 12/16/17) Bupropion (Verified Allergy, Unknown, HIVES, 12/16/17) Dust (Verified Allergy, Unknown, asthma sx, 12/16/17) Iodinated Diagnostic Agents (Verified Allergy, Unknown, ARM NUMBNESS, 12/16) Loratadine (Verified Allergy, Unknown, anxiety, 12/16/17) Metoclopramide (Verified Allergy, Unknown, anxiety, 12/16/17) POLLEN (Verified Allergy, Unknown, asthma sx, 12/16/17) Hydrocodone (Verified Adverse Reaction, Intermediate, NAUSEA/VOMITING, ) Alcohol (Verified Adverse Reaction, Mild, GI symptoms, reflux, 12/16/17) "this includes, vanilla because it often has alcohol preservative." Ascorbic Acid & Derivatives (Verified Adverse Reaction, Mild, GI symptoms & reflux, 12/16/17) Caffeine (Verified Adverse Reaction, Mild, GI symptoms, 12/16/17) "I can't have it.. It lowers the strength of my lower esophageal spinchter." Chocolate (Verified Adverse Reaction, Mild, GI symptoms, 12/16/17) "it has caffeine in it and it messes with my esophageal sphincter." Dairy (Verified Adverse Reaction, Mild, GI symptoms., 12/16/17) "it increases my mucus production and it like makes me cough..." Garlic (Verified Adverse Reaction, Mild, gi symptoms/reflux, 12/16/17) Monosodium Glutamate (Verified Adverse Reaction, Mild, GI symtpoms, ) "it triggers my migraines." Onion (Verified Adverse Reaction, Mild, reflux, 12/16/17) Sertraline (Verified Adverse Reaction, Mild, COLD SORES, 12/16/17) Yeast (Verified Adverse Reaction, Mild, GI symptoms, 12/16/17) "it triggers my migraines." "I can have potatoe bread though." Uncoded Allergies: JESSICA,COBALT,CHROME,SILVER (Allergy, Unknown, HIVES, 07/29/14) CICTRIC FRUIT (Adverse Reaction, Mild, reflux, 04/28/17) all berries except blueberries and peaches FATTY FOODS (Adverse Reaction, Mild, GI symptoms, 04/28/17) "it just takes a long time for my stomach to digest.. so it increases my stomach acid.. I need everything steamed, baked or sauted lightly." "eveyrthing must be low fat." MINT (Adverse Reaction, Mild, Reflux, 04/28/17) PEANUTS (Adverse Reaction, Mild, GI symptoms, 04/28/17) "It just doesn't sit well with my stomach... unless they are dehydrated." PEPPER (Adverse Reaction, Mild, GI symptoms/reflux, 04/28/17) TOMATOES (Adverse Reaction, Mild, GI symptoms. reflux, 04/28/17) Physical Exam Vital Signs Date Time Temp Pulse Resp B/P (MAP) Pulse Ox O2 Delivery O2 Flow Rate FiO2 12/18/17 05:33 68 110/57 98 Room Air 12/18/17 02:19 80 131/68 98 Room Air 12/17/17 23:06 36.6 92 20 141/76 99 Room Air Physical Exam GENERAL: Patient is upset appearing, whining during exam. HEENT: No acute trauma, normocephalic atraumatic, mucous membranes moist, no nasal congestion, no scleral icterus. NECK: No stridor, no adenopathy, no meningismus, trachea is midline. LUNGS: No dyspnea. Clear to auscultation and equal bilaterally. No wheeze, no rhonchi. HEART: Regular rate and rhythm. No murmurs, rubs, gallops appreciated. ABDOMEN: Soft, nontender, bowel sounds positive, no masses appreciated, no peritonitis. BACK: No midline tenderness, no CVA tenderness EXTREMITIES: Multiple abrasions in bilateral wrists of varying ages, left wrist with several newer abrasions. NEUROLOGIC: Alert and oriented, no acute motor or sensory deficits, no focal weakness, cranial nerves grossly intact. SKIN: No rash, no jaundice, no diaphoresis. PSYCH: Denies suicidal ideation but admits overdose, admits anxiety, and admits depression. Medical Decision & Procedures Laboratory Results 12/17/17 23:08 Red Blood Count 4.73, Mean Corpuscular Volume 85.4, Mean Corpuscular Hemoglobin 30.2, Mean Corpuscular Hemoglobin Concent 35.4, Mean Platelet Volume 9.6, Neutrophils (%) (Auto) 77.6, Lymphocytes (%) (Auto) 16.8, Monocytes (%) (Auto) 5.1, Eosinophils (%) (Auto) 0.5, Basophils (%) (Auto) 0.0, Neutrophils # (Auto) 4.53, Lymphocytes # (Auto) 0.98, Monocytes # (Auto) 0.30, Eosinophils # (Auto) 0.03, Basophils # (Auto) 0.00 12/17/17 23:08 Test 12/17/17 23:08 White Blood Count 5.84 K/uL (4.8-10.8) Red Blood Count 4.73 M/uL (4.2-5.4) Hemoglobin 14.3 g/dL (12.0-16.0) Hematocrit 40.4 % (37-47) Mean Corpuscular Volume 85.4 fL (80-100) Mean Corpuscular Hemoglobin 30.2 pg (25-34) Mean Corpuscular Hemoglobin Concent 35.4 g/dl (32-36) Platelet Count 274 K/uL (130-400) Mean Platelet Volume 9.6 fL (7.4-10.4) Neutrophils (%) (Auto) 77.6 % Lymphocytes (%) (Auto) 16.8 % Monocytes (%) (Auto) 5.1 % Eosinophils (%) (Auto) 0.5 % Basophils (%) (Auto) 0.0 % Neutrophils # (Auto) 4.53 K/uL (1.4-6.5) Lymphocytes # (Auto) 0.98 K/uL (1.2-3.4) Monocytes # (Auto) 0.30 K/uL (0.11-0.59) Eosinophils # (Auto) 0.03 K/uL (0-0.5) Basophils # (Auto) 0.00 K/uL (0-0.2) RDW Standard Deviation 38.0 fL (36.4-46.3) RDW Coefficient of Variation 12.3 % (11.5-14.5) Immature Granulocyte % (Auto) 0.0 % Immature Granulocyte # (Auto) 0.00 K/uL (0.00-0.02) Anion Gap 5.0 mmol/L (3-11) Est Creatinine Clear Calc Drug Dose 102.4 ml/min Estimated GFR () 104.3 Estimated GFR (Non- 90.0 BUN/Creatinine Ratio 15.3 (10-20) Calcium Level 8.6 mg/dl (8.5-10.1) Total Bilirubin 0.7 mg/dl (0.2-1) Aspartate Amino Transf (AST/SGOT) 12 U/L (15-37) Alanine Aminotransferase (ALT/SGPT) 23 U/L (12-78) Alkaline Phosphatase 54 U/L (45-117) Total Protein 7.4 gm/dl (6.4-8.2) Albumin 3.9 gm/dl (3.4-5.0) Globulin 3.5 gm/dl (2.5-4.0) Albumin/Globulin Ratio 1.1 (0.9-2) Thyroid Stimulating Hormone (TSH) 1.360 uIu/ml (0.300-4.500) Salicylates Level < 1.7 mg/dl (2.8-20) Acetaminophen Level < 2 ug/ml (10-30) Ethyl Alcohol mg/dL < 3.0 mg/dl (0-3) Laboratory results as reviewed by me. Medications Administered Medications (Trade) Dose Ordered Sig/Jules Route Start Time Stop Time Status Last Admin Dose Admin Pregabalin (Lyrica Cap) 200 mg NOW PO 12/18/17 00:00 01/17/18 00:00 12/18/17 00:52 200 MG Lorazepam (Ativan Tab) 2 mg NOW STAT SL 12/18/17 01:41 12/18/17 01:42 DC 12/18/17 02:02 2 MG ED Course 2249: The patient was evaluated in room A3. A complete history and physical exam was performed. 8545: The patient requests 600 mg of Lyrica, she states it is her normal dose. I told her I was willing to give her a normal dose of 200 mg. She is also asking for pain medication and constipation medication. She states that I have not been listening to anything she has been saying. 0045: Patient is requesting liquid Benadryl and I denied. 0109: The patient is requesting an IV and IV fluids because she is refusing to urinate. She asked for me to give her an entire daily dose of Lyrica all at once and I again reiterated to her that I will not give her an overdose of her medication. 0135: I went to talk with patient but she is on the phone with a friend. She is telling her friend that she does not feel safe here and she wants her friend to come and pick her up. 0258: I went to check on the patient and she was walking the halls. She requested that I talk to her friend, Katja. Her friend is a doctor and would like to speak with me. I suggested she gives the friend's phone number. Medical Decision Differential: Mood Disorder, Overdose, Infectious, Electrolyte Abnormality, Cardiac, Hepatic, Endocrine, Toxicologic, Neurologic, amongst other pathologies entertained. Clearly manic 27 yr old female who admits she is depressed and overdosing on her medications. She argues semantics of definition of overdose but admits to taking 30 tablets of Klonopin and actively asking for overdose of her other medications. She is in acute manic episode and a bit on the agitated side. After monitoring for quite some time and no evidence of sedation I have a bit of trouble believing she truly took that many benzos. Given continued agitation went ahead and given 2 mg PO ativan with minor improvement in her symptoms. She denies drug/etoh use and while stimulant abuse could have similar symptoms, I feel that this is likely psychiatric in nature given her history. Friends have filled 302 petition (which patient is unaware of) but patient very much wishing to sign herself in on 201 to get help. She over the next many hours refused on many times to urinate for us further delaying being able to medically clear her. I had long conversation with her friend Katja Lynnata after pt texted her hospital number to talk to me. I made very clear from patient that I was going to discuss her case with Katja and she stated I could talk to her about anything about her case. We discussed patient's concern 302, pts manic behavior , pts inability to grasp the actions she did/claimed were dangerous, pts refusal to give UA amongst other things. Patient eventually willing to lay in bed after pacing for some time through halls. Signed out to Dr Case awaiting mental health evaluation and placement. Head Trauma GCS Score: 15 Medication Reconcilliation Current Medication List: was personally reviewed by me Blood Pressure Screening Patient's blood pressure: Normal blood pressure Impression Primary Impression: Manic episode Additional Impressions: Deliberate medication overdose Depression (emotion) Scribe Attestation The scribe's documentation has been prepared under my direction and personally reviewed by me in its entirety. I confirm that the note above accurately reflects all work, treatment, procedures, and medical decision making performed by me. Departure Information Referrals Amanuel Bang M.D. (PCP) Patient Instructions My [facility] Problem Qualifiers
[2017-12-17 23:39] LABS: EOS % 0.5 %; EOS ABS # 0.03 K/uL (0-0.5); HEMATOCRIT 40.4 % (37-47); HEMOGLOBIN 14.3 g/dL (12.0-16.0); LYMPH % 16.8 %; LYMPH ABS # 0.98 K/uL (1.2-3.4); MEAN CELL VOLUME 85.4 fL (80-100); MEAN CORPUSCULAR HEMOGLOBIN 30.2 pg (25-34); MEAN CORPUSCULAR HGB CONC 35.4 g/dl (32-36); MEAN PLATELET VOLUME 9.6 fL (7.4-10.4); MONO % 5.1 %; NEUT % 77.6 %; NEUT ABS # 4.53 K/uL (1.4-6.5); PLATELET COUNT 274 K/uL (130-400); RED CELL DISTRIBUTION WIDTH CV 12.3 % (11.5-14.5); WHITE BLOOD COUNT 5.84 K/uL (4.8-10.8)
[2017-12-17 23:56] LABS: ALBUMIN 3.9 gm/dl (3.4-5.0); CALCIUM 8.6 mg/dl (8.5-10.1); CREATININE 0.87 mg/dl (0.60-1.20); POTASSIUM 3.7 mmol/L (3.5-5.1)
[2017-12-18] MEDS ORDERED: PREGABALIN 100 MG CAP PO SCH
[2017-12-18 00:07] LABS: TOTAL PROTEIN 7.4 gm/dl (6.4-8.2)
[2017-12-18] MEDS ORDERED: LORAZEPAM 1 MG TAB SL STA (01:41)
[2017-12-18] MEDS ORDERED: ONDANSETRON 4MG OD TAB PO PRN (05:30)
[2017-12-18] MEDS ORDERED: ARTIFICIAL TEARS OP SOLN OP PRN (05:30)
[2017-12-18] MEDS ORDERED: ALBUTEROL HFA 8 GM INHALER INH PRN (05:30)
[2017-12-18] MEDS ORDERED: VITAMIN B COMPLEX TAB PO SCH (09:00)
[2017-12-18] MEDS ORDERED: SPIRONOLACTONE 25 MG TAB PO SCH (09:00)
[2017-12-18] MEDS ORDERED: MAGNESIUM CHLORIDE 64MG DELAYED REL TAB PO SCH (09:00)
--- NOTE | 2017-12-18 14:51 | EMERGENCY ROOM VISIT NOTE ---
ED Visit Note First contact with patient: 14:49 I received this patient a change of shift signout from Dr. Villafana. Please see his note for initial history and physical exam. The patient was medically cleared in the emergency department and was awaiting a mental health evaluation. The patient took a very long time to give us a urinalysis however I do not feel that it is mandatory to have a urinalysis or urine drug screen at this time. The patient has no urinary symptoms. The patient was reevaluated multiple times. On my evaluation she was awake and alert. She admitted to sending text messages that were worrisome to her friends. This is the reason she was sent to the emergency department with a 302 petition. At this time the patient is awake and alert and she is not clinically intoxicated. She is willing to speak with the mental health pillowcase cutter about voluntary admission. She was evaluated by the mental health pillowcase cutter. The patient was agreeable to voluntary admission at this time.
[2017-12-18] MEDS: PREGABALIN 100 MG CAP PO SCH ×2 (15:30→23:13)
[2017-12-18] MEDS: RANITIDINE HCL 150 MG TAB PO SCH ×2 (15:30→21:31)
[2017-12-18] MEDS ORDERED: PREGABALIN 100 MG CAP PO STA (18:46)
[2017-12-18] MEDS ORDERED: KETOROLAC TROMETHAMINE 60 MG/2 ML VIAL IM STA (18:55)
--- NOTE | 2017-12-18 19:11 | EMERGENCY ROOM VISIT NOTE ---
ED Visit Note First contact with patient: 19:25 Patient signed out to me at change shift. History and physical verified by me. Patient is demanding an NSAID patch as well as a extra dose of her Lyrica. I believe this is reasonable however call to the pharmacy reveals that we do not have an NSAID patch. For this reason the patient accepted a shot of Toradol. Pt is here under a 302 but is willing to sign herself in. Pt transferred to [place] without incident.
[2017-12-18] MEDS ORDERED: DOXEPIN HCL 10 MG CAP PO SCH (21:00)
[2017-12-19 00:54] VITALS: BP 124/74; PULSE 78; TEMP 36.6; O2SAT 97
== END 2017-12-19 00:54 | disposition short-term general hospital (02) ==
LOC: EDBD 22:45 → C.EDA 22:47
DX: F30.9 Manic episode, unspecified (principal); T42.4X2A Poisoning by benzodiazepines, intentional self-harm, initial encounter; F32.9 Major depressive disorder, single episode, unspecified; F41.9 Anxiety disorder, unspecified; J45.909 Unspecified asthma, uncomplicated; I10 Essential (primary) hypertension; Z83.3 Family history of diabetes mellitus; Z82.49 Family history of ischemic heart disease and other diseases of the circulatory system; Z88.8 Allergy status to other drugs, medicaments and biological substances; Z91.041 Radiographic dye allergy status; Z88.5 Allergy status to narcotic agent; Z91.011 Allergy to milk products; Z91.018 Allergy to other foods

== ENCOUNTER 2018-01-21 23:50 | Emergency (ER) | payer OTHER ==
[~2018-01-21] VITALS: Ht 160 cm; Wt 79.5 kg
[~2018-01-21 23:50] MED LIST changes: +LITH150C6 PO
[2018-01-22 00:15] VITALS: TEMP 36.8; Ht 160 cm; Wt 79.5 kg
[2018-01-22] MEDS ORDERED: ALBUT/IPRATROP 3MG/0.5MG NEB 3 ML VIAL INH STA ×2 (00:26→01:25)
[2018-01-22] MEDS ORDERED: ALBUTEROL HFA 8 GM INHALER INH ONE (01:30)
[2018-01-22] MEDS ORDERED: PRED20TA PO (01:42)
[2018-01-22 01:51] VITALS: BP 121/79; PULSE 92; O2SAT 98
--- NOTE | 2018-01-22 02:56 | EMERGENCY ROOM VISIT NOTE ---
History Report prepared by Steffany: Liane Kirk Under the Supervision of: Dr. David Carmona M.D. First contact with patient: 00:19 Chief Complaint: RESPIRATORY PROBLEMS Stated Complaint: ASTHMA-TIGHT CHEST, COUGH Nursing Triage Summary: removing stuff from apartment building and it is very onur,"I don't have a rescue inhaler" History of Present Illness The patient is a 27 year old female who presents to the Emergency Room with complaints of persistent difficulty breathing starting 3 hours ago. The patient has a history of asthma. She currently does not have a rescue inhaler. She has had chest tightness and coughing which are typical symptoms of her asthma. Her symptoms worsen with cold air and exertion. She has a sore throat. She notes that she was recently exposed to dust and asbestos due to renovations. She notes intermittent stabbing RLQ pain which is unrelated to her symptoms today. She notes a lot of chronic abdominal issues. She does not have any current abdominal pain. Her abdominal discomfort does not feel out of the ordinary for her. She has been on prednisone for her asthma in the past. Pt denies LOC, headache, fevers, chills, diaphoresis, visual changes, neck pain, chest pain, nausea, vomiting, back pain, melena, hematochezia, urinary symptoms, numbness, weakness, lymphadenopathy, rash, or other complaints. Source of History: patient Onset: 3 hours ago Position: other (breathing) Quality: other (difficulty breathing) Timing: other (persistent) Modifying Factors (Worsening): exertion, other (cold air) Associated Symptoms: + sorethroat, + cough, + abdominal pain Note: Pt reports chest tightness. Review of Systems See HPI for pertinent positives and negatives. A total of ten systems were reviewed and were otherwise negative. 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 (6) Herniated nucleus pulposus, L4-5 (7) Hypertension Nos (8) Irritable Bowel Syndrome (9) Frmoole-Sczxtdpux-Hpgbb syndrome (10) Obsessive-Compulsive Dis (11) Otitis Media Nos (12) Pyelonephritis Nos Family History Blood clots Diabetes mellitus FH: heart disease Hypertension Kidney disease Kidney stones Social History Smoking Status: Never Smoker Alcohol Use: occasionally Drug Use: none Housing Status: lives with roommate Occupation Status: employed Current/Historical Medications Scheduled B-Complex Vitamins (Vitamin B-Complex), 1 TAB PO DAILY Cholecalciferol (Vitamin D 400 Iu), 400 INTER.UNIT PO DAILY Clonazepam (Klonopin), 0.5 MG PO HS Doxepin (Sinequan), 10 MG PO HS [place] Carbonate ([place] Carbonate), 150 MG PO BID Magnesium Chloride-Calcium Car (Slow-Mag), 71.5 MG PO DAILY Omeprazole (Prilosec), 20 MG PO BID Prednisone (Prednisone), 20 MG PO DAILY Pregabalin (Lyrica), 200 MG PO TID Riboflavin (B-2), 200 MG PO BID Spironolactone (Aldactone), 25 MG PO QAM Scheduled PRN Albuterol Hfa (Ventolin Hfa), 2-4 PUFFS INH Q6H PRN for SOB/Wheezing Artificial Tear Solution (Artificial Tears), 2 DROPS OPB QID PRN for DRYNESS Ondansetron Hcl (Zofran), 4 MG PO Q6 PRN for Nausea Ranitidine Hcl (Zantac), 150 MG PO BID PRN for Dyspepsia Allergies Coded Allergies: Adhesives (Unverified Allergy, Severe, hives, 01/22/18) Cat Dander (Verified Allergy, Intermediate, Hives, 01/22/18) Fluoxetine (Verified Allergy, Mild, HIVES, 01/22/18) Fluvoxamine (Verified Allergy, Mild, HIVES, 01/22/18) Bupropion (Verified Allergy, Unknown, HIVES, 01/22/18) Dust (Verified Allergy, Unknown, asthma sx, 01/22/18) Iodinated Diagnostic Agents (Verified Allergy, Unknown, ARM NUMBNESS, 01/22) Loratadine (Verified Allergy, Unknown, anxiety, 01/22/18) Metoclopramide (Verified Allergy, Unknown, anxiety, 01/22/18) POLLEN (Verified Allergy, Unknown, asthma sx, 01/22/18) Hydrocodone (Verified Adverse Reaction, Intermediate, NAUSEA/VOMITING, ) Alcohol (Verified Adverse Reaction, Mild, GI symptoms, reflux, 01/22/18) "this includes, vanilla because it often has alcohol preservative." Ascorbic Acid & Derivatives (Verified Adverse Reaction, Mild, GI symptoms & reflux, 01/22/18) Black Pepper (Verified Adverse Reaction, Mild, Reflux/GI symptoms, 01/22/18 ) Caffeine (Verified Adverse Reaction, Mild, GI symptoms, 01/22/18) "I can't have it.. It lowers the strength of my lower esophageal spinchter." Chocolate (Verified Adverse Reaction, Mild, GI symptoms, 01/22/18) "it has caffeine in it and it messes with my esophageal sphincter." Slope (Verified Adverse Reaction, Mild, Reflux - citrus fruits, 01/22/18) Dairy (Verified Adverse Reaction, Mild, GI symptoms., 01/22/18) "it increases my mucus production and it like makes me cough..." Garlic (Verified Adverse Reaction, Mild, gi symptoms/reflux, 01/22/18) Monosodium Glutamate (Verified Adverse Reaction, Mild, GI symtpoms, ) "it triggers my migraines." Onion (Verified Adverse Reaction, Mild, reflux, 01/22/18) Peanut (Verified Adverse Reaction, Mild, GI symptoms, 01/22/18) "It just doesn't sit well with my stomach... unless they are dehydrated." Peppermint Flavor (Verified Adverse Reaction, Mild, Mint - reflux, 01/22/18 ) Sertraline (Verified Adverse Reaction, Mild, COLD SORES, 01/22/18) Tomato (Verified Adverse Reaction, Mild, Reflux/GI Symptoms, 01/22/18) Yeast (Verified Adverse Reaction, Mild, GI symptoms, 01/22/18) "it triggers my migraines." "I can have potatoe bread though." Uncoded Allergies: JESSICA,COBALT,CHROME,SILVER (Allergy, Unknown, HIVES, 07/29/14) FATTY FOODS (Adverse Reaction, Mild, GI symptoms, 04/28/17) "it just takes a long time for my stomach to digest.. so it increases my stomach acid.. I need everything steamed, baked or sauted lightly." "eveyrthing must be low fat." Physical Exam Vital Signs Date Time Temp Pulse Resp B/P (MAP) Pulse Ox O2 Delivery O2 Flow Rate FiO2 01/22/18 01:51 92 18 121/79 98 01/22/18 00:15 36.8 93 22 120/74 99 Room Air Physical Exam GENERAL: Awake, alert, well-appearing, in no distress HENT: Normocephalic, atraumatic. Oropharynx unremarkable. EYES: Normal conjunctiva. Sclera non-icteric. NECK: Supple. No nuchal rigidity. FROM. No masses. RESPIRATORY: Clear to auscultation. Expiratory wheezes on the left side. No rales. Normal respiratory effort. Moderate cough present. CARDIAC: Normal rate. Normal rhythm. No murmurs. No rubs. Extremities warm and well perfused. Pulses equal. No JVD. GI: Soft, non-distended. No tenderness to palpation. No rebound or guarding. No masses. RECTAL: Deferred. MUSCULOSKELETAL: Atraumatic. Chest examination reveals no tenderness. The back is symmetrical on inspection without obvious abnormality. There is no CVA tenderness to palpation. No joint edema. LOWER EXTREMITIES: Calves are equal size bilaterally and non-tender. No edema. No discoloration. NEURO: Normal sensorium. No sensory or motor deficits noted. SKIN: No rash or jaundice noted. Medical Decision & Procedures Medications Administered Medications (Trade) Dose Ordered Sig/Jules Route Start Time Stop Time Status Last Admin Dose Admin Albuterol/ Ipratropium (Duoneb) 3 ml NOW STAT INH 01/22/18 00:26 01/22/18 00:27 DC 01/22/18 00:41 3 ML Albuterol (Ventolin Hfa Inhaler) 2 puffs NOW ONCE INH 01/22/18 01:30 01/22/18 01:31 DC 01/22/18 01:24 2 PUFFS Albuterol/ Ipratropium (Duoneb) 3 ml NOW STAT INH 01/22/18 01:25 01/22/18 01:26 DC 01/22/18 01:25 3 ML ED Course 0023: The patient was evaluated in room B10. A complete history and physical exam was performed. 0026: Duoneb 3 ml INH. 0120: I reevaluated the patient. She feels much improved, but not quite back to normal. 0125: Duoneb 3 ml INH. 0130: Albuterol 2 puffs INH. 0144: I reevaluated the patient. Discussed results and discharge instructions: She verbalized understanding and agreement. The patient is ready for discharge. Medical Decision Prior records/ancillary studies reviewed. Triage Nursing notes reviewed and agree them. The patient's history was concerning for shortness of breath. Differential diagnosis: Etiologies such as reactive airway disease, pneumonia, COPD,CHF, cardiac sources pulmonary embolism, pneumothorax, musculoskeletal, infections, gastrointestinal, as well as others were entertained. Physical examination: As above. Clinically the patient looks well. She had a very scant wheeze noted. Breath sounds were equal. No stigmata of DVT. No risk factors for DVT or PE. ER treatment provided: DuoNeb 2 On reassessment the patient felt significantly better. Albuterol MDI Diagnostic interpretation by me: Imaging studies: Deferred The patient has history of reactive airways. She notes a lot of dust exposure. She was treated bronchodilators and feels much better. The patient notes adverse reactions with prednisone in the past. She is doing very well with bronchodilators at this point time. I did offer her a low dose prednisone prescription in case her symptoms persist or she starts to feel worse. She felt reasonably comfortable with a low dose prednisone. She notes it has been several years since she has had any issues and she is mainly concerned about the effects on her immune system. I gave my usual and customary discussion regarding this issue. By the evaluation outlined above emergent etiologies such as CHF, cardiac ischemia, pulmonary embolism, pneumonia, pneumothorax, musculoskeletal, infections, as well as others were deemed relatively unlikely. The patient was informed about the findings as listed above. All questions were answered and she was pleased with the treatment. Return instructions were outlined and the patient was discharged in stable condition. Outpatient prescription management: Albuterol MDI Prednisone prescription Referral: The patient was referred back to her primary care physician for follow-up in 2 to 3 days for a recheck of the current condition. Medication Reconcilliation Current Medication List: was personally reviewed by me Blood Pressure Screening Patient's blood pressure: Normal blood pressure Blood pressure disposition: Did not require urgent referral Impression Primary Impression: Reactive airway disease Additional Impression: Cough Scribe Attestation The scribe's documentation has been prepared under my direction and personally reviewed by me in its entirety. I confirm that the note above accurately reflects all work, treatment, procedures, and medical decision making performed by me. Departure Information Dispostion Home / Self-Care Prescriptions Prednisone (Prednisone) 20 Mg Tab 20 MG PO DAILY for 3 Days, #3 TAB Prov: David Carmona MD 01/22/18 Referrals Amanuel Bang M.D. (PCP) Forms HOME CARE DOCUMENTATION FORM, IMPORTANT VISIT INFORMATION, WORK / SCHOOL INSTRUCTIONS Patient Instructions My [facility] Additional Instructions Albuterol Inhaler: Take 2 puffs four times daily for five days, then as needed. If your breathing issues are persisting you may try initiating prednisone as we discussed: Prednisone 20mg: Once daily until the prescription is finished. It is best to take this earlier in the day as some patients note occasional difficulty falling asleep when taken in the late evening. Acetaminophen(Tylenol) may be used for fever or pain. Use 1000mg every six hours as needed. Avoid using more than 4000mg in a 24 hour period. (AND/OR) Ibuprofen(Motrin, Advil) may be used for fever or pain. Use 600mg every six hours as needed. Take with food. Avoid using more than 2400mg in a 24 hour period. Do not use 2400mg per day for more than three consecutive days without physician direction. Prolonged inappropriate use can lead to stomach upset or ulcers. Rest and drink plenty of fluids. Avoid smoke/smoking, fumes, dust, or any triggers in the past that may have affected your breathing. Continue current medications. Return to the ER for chest pain, difficulty breathing, fevers, vomiting, worsening of your condition, or as needed. Follow up with your primary physician this week for a recheck of your current condition. Problem Qualifiers
== END 2018-01-22 01:52 | disposition home or self-care (01) ==
LOC: C.EDB 23:51
DX: J45.909 Unspecified asthma, uncomplicated (principal); Z77.090 Contact with and (suspected) exposure to asbestos; I10 Essential (primary) hypertension; F41.9 Anxiety disorder, unspecified; F42.9 Obsessive-compulsive disorder, unspecified; Z91.048 Other nonmedicinal substance allergy status; Z88.8 Allergy status to other drugs, medicaments and biological substances; Z91.041 Radiographic dye allergy status; Z91.018 Allergy to other foods; Z91.010 Allergy to peanuts; Z83.3 Family history of diabetes mellitus; Z82.49 Family history of ischemic heart disease and other diseases of the circulatory system; Z84.1 Family history of disorders of kidney and ureter

== ENCOUNTER 2018-02-01 00:55 | Emergency (ER) | payer OTHER ==
[~2018-02-01] VITALS: Ht 160 cm; Wt 83.8 kg
[2018-02-01 01:00] VITALS: TEMP 36.7; Ht 160 cm; Wt 83.8 kg
[2018-02-01] MEDS ORDERED: IBUPROFEN 600 MG TAB PO STA (01:25)
--- NOTE | 2018-02-01 01:43 | EMERGENCY ROOM VISIT NOTE ---
History First contact with patient: 01:15 Chief Complaint: ARM PAIN Stated Complaint: ARM PAIN History of Present Illness The patient is a 27 year old female who presents to the Emergency Room with complaints of left arm pain. The patient reports that she tripped and fell forward, striking her left arm on a car seat. She states that she felt something snap when this occurred. She reports pain in her left bicep region. 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 She reports the pain is a 10/10 and is worse with movement of the arm. It is a sharp pain radiates throughout her upper arm and into her forearm. She denies any numbness or weakness. Review of Systems A complete 10 point review of systems was reviewed with the patient with pertinent positives and negatives as per history of present illness. All else were negative. 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 (6) Herniated nucleus pulposus, L4-5 (7) Hypertension Nos (8) Irritable Bowel Syndrome (9) Qnbcszl-Egraobxsg-Gfwns syndrome (10) Obsessive-Compulsive Dis (11) Otitis Media Nos (12) Pyelonephritis Nos Family History Blood clots Diabetes mellitus FH: heart disease Hypertension Kidney disease Kidney stones Social History Smoking Status: Never Smoker Alcohol Use: occasionally Drug Use: none Housing Status: lives with roommate Occupation Status: employed Current/Historical Medications Scheduled B-Complex Vitamins (Vitamin B-Complex), 1 TAB PO DAILY Cholecalciferol (Vitamin D 400 Iu), 400 INTER.UNIT PO DAILY Clonazepam (Klonopin), 0.5 MG PO HS Doxepin (Sinequan), 10 MG PO HS [place] Carbonate ([place] Carbonate), 150 MG PO BID Magnesium Chloride-Calcium Car (Slow-Mag), 71.5 MG PO DAILY Omeprazole (Prilosec), 20 MG PO BID Pregabalin (Lyrica), 200 MG PO TID Riboflavin (B-2), 200 MG PO BID Spironolactone (Aldactone), 25 MG PO QAM Scheduled PRN Albuterol Hfa (Ventolin Hfa), 2-4 PUFFS INH Q6H PRN for SOB/Wheezing Artificial Tear Solution (Artificial Tears), 2 DROPS OPB QID PRN for DRYNESS Ondansetron Hcl (Zofran), 4 MG PO Q6 PRN for Nausea Ranitidine Hcl (Zantac), 150 MG PO BID PRN for Dyspepsia Physical Exam Vital Signs Date Time Temp Pulse Resp B/P (MAP) Pulse Ox O2 Delivery O2 Flow Rate FiO2 02/01/18 03:56 84 22 137/89 100 02/01/18 02:35 88 20 144/81 100 Room Air 02/01/18 01:00 36.7 85 18 157/91 97 Room Air Physical Exam VITALS: Vitals are noted on the nurse's note and reviewed by myself. Vital signs stable. GENERAL: This is a 27-year-old female, in no acute distress, nondiaphoretic, well-developed well-nourished. SKIN: Port wine stain noted to the left upper extremity. MUSCULOSKELETAL: There is tenderness to palpation of the biceps muscle at its proximal and distal insertions. There is full range of motion of the elbow and shoulder. No tenderness over the olecranon process or the radial head. NEURO: Patient was alert and oriented to person place and time. Normal sensation of the distal left upper extremity. Medical Decision & Procedures ER Provider Diagnostic Interpretation: US VENOUS LEFT UPPER EXTREMITY: Limited secondary to pain and patient positioning. No definite evidence of upper extremity superficial or deep vein thrombus. Radiologist: Yony Yeh MD LEFT ELBOW X-RAY: Chronic appearing deformity of the radial head. No acute fractures. Medications Administered Medications (Trade) Dose Ordered Sig/Jules Route Start Time Stop Time Status Last Admin Dose Admin Ibuprofen (Motrin Tab) 600 mg NOW STAT PO 02/01/18 01:25 02/01/18 01:26 DC 02/01/18 01:33 600 MG Pregabalin (Lyrica Cap) 200 mg NOW STAT PO 02/01/18 03:11 02/01/18 03:12 DC 02/01/18 03:23 200 MG Ranitidine HCl (zANTac TAB) 150 mg NOW ONCE PO 02/01/18 03:30 02/01/18 03:31 DC 02/01/18 03:23 150 MG Medical Decision Differential diagnosis includes fracture, contusion, dislocation, biceps tendon rupture, among others. The patient is a 27-year-old female who presents today complaining of left elbow pain after striking the elbow off of a car seat. X-ray was reviewed by myself and shows no bony abnormalities. Findings were discussed with the patient. At this time, she expressed concern due to venous malformation in the arm. She specifically reports concern for a blood clot in the arm. I explained to the patient that this is not typically something that occurs immediately after an injury, but she was persistently concerned. An ultrasound was then performed which showed no evidence of DVT. The patient was assured. She was very anxious and upset regarding her symptoms. She was placed in an arm sling and encouraged to follow-up with orthopedics this week for further evaluation. Based on the patient's presentation and work up, I feel the patient is stable for outpatient treatment. The patient was educated to return to the emergency department for any worsening of their current condition or new/concerning symptoms. She will follow up with orthopedics. Medication Reconcilliation Current Medication List: was personally reviewed by me Blood Pressure Screening Patient's blood pressure: Elevated blood pressure Blood pressure disposition: Elevated BP felt to be situational Impression Primary Impression: Arm pain, right Departure Information Dispostion Home / Self-Care Condition GOOD Referrals Amanuel Bang M.D. (PCP) Matheus Casiano D.O. Patient Instructions My [facility] Additional Instructions You have been treated in the Emergency Department for Elbow Pain. For pain control, you can use the following rvob-pnt-ldxjeve medicines (if >12 yo): - Regular strength (325mg/tab) Tylenol (acetaminophen) 2 tabs every 4-6 hours as needed. Do not exceed 12 tablets in a 24 hour period. Avoid taking more than 4 grams (4000 mg) of Tylenol per day. This includes any other sources of acetaminophen you may take on a regular basis. If this is a recent injury (<24 hrs), ice can be applied to the area of pain for the first 3 days to help decrease pain and inflammation. Contact orthopedics on Friday for a follow-up appointment this week. Wear the arm sling and rest the arm as much as possible. Return to the Emergency Department if your current symptoms worsen despite treatment course outlined above, or if you develop any of the following symptoms : intractable pain despite aforementioned treatment course or new onset of numbness or tingling of the arm.
[2018-02-01] MEDS ORDERED: PREGABALIN 100 MG CAP PO STA (03:11)
[2018-02-01] MEDS ORDERED: FAMOTIDINE 20 MG TAB PO ONE (03:15)
[2018-02-01] MEDS ORDERED: RANITIDINE HCL 150 MG TAB PO ONE (03:30)
[2018-02-01 03:56] VITALS: BP 137/89; PULSE 84; O2SAT 100
--- NOTE | 2018-02-01 07:51 | DIAGNOSTIC IMAGING REPORT ---
L ELBOW MIN 3 VIEWS ROUTINE CLINICAL HISTORY: Left elbow pain status post trauma. COMPARISON: None. DISCUSSION: The lateral views limited from a technical standpoint. There is an old radial head deformity and deformity of the capitellum. No acute fractures or dislocations are visualized. There is minimal posterior soft tissue swelling. IMPRESSION: 1. No acute fractures 2. Old radial head and capitellar deformity. Electronically signed by: Nelson Valdivia M.D. 02/01/2018 7:50 AM Dictated Date/Time: 02/01/2018 7:49 AM
--- NOTE | 2018-02-01 08:32 | DIAGNOSTIC IMAGING REPORT ---
ULTRASOUND L VENOUS DOPPLER UPR EXT UNILATERAL CLINICAL HISTORY: left arm pain, injury, hx venous malformation COMPARISON STUDY: 07/24/2017 FINDINGS: No intraluminal thrombus was visualized. The internal jugular, subclavian, axillary, cephalic, brachial, basilic, and ulnar veins were patent. The cephalic vein was not visualized. The ulnar vein was nonvisualized. IMPRESSION: 1. No evidence of left upper extremity DVT 2. Nonvisualization of the cephalic and ulnar veins 3. The study was limited from a technical standpoint secondary to patient positioning, and the inability of patient to tolerate optimal compression Electronically signed by: Nelson Valdivia M.D. 02/01/2018 8:31 AM Dictated Date/Time: 02/01/2018 8:29 AM
--- NOTE | 2018-02-02 13:51 | EDITING REQUIRED CODING QUERY ---
TREATMENT RENDERED WITHOUT A DIAGNOSIS To promote full compliance with coding requirements relating to patient care, physician participation is requested in all cases of drop hammer setter up uncertainty. Please assist us with the question(s) below: Coding Question: FOR YOUR FINAL DX, YOU HAVE ARM PAIN, RIGHT BUT THE X-RAY & ULTRASOUND ARE BOTH OF THE LEFT ARM & THE HPI STATES IT'S THE LEFT ARM THAT'S INJURED Provider Response: Please change final diagnosis to Left Arm Pain. Please note this is Bernie Woodard PA-C's chart. Thank you. Francoise Masterson MD Thank you Caro Greene
== END 2018-02-01 03:58 | disposition home or self-care (01) ==
LOC: C.EDB 00:56
DX: M79.602 Pain in left arm (principal); W22.8XXA Striking against or struck by other objects, initial encounter; Y92.89 Other specified places as the place of occurrence of the external cause; F41.9 Anxiety disorder, unspecified; J45.909 Unspecified asthma, uncomplicated; J32.0 Chronic maxillary sinusitis; I10 Essential (primary) hypertension; K58.9 Irritable bowel syndrome, unspecified; F42.9 Obsessive-compulsive disorder, unspecified; Z83.3 Family history of diabetes mellitus; Z82.49 Family history of ischemic heart disease and other diseases of the circulatory system; Z84.1 Family history of disorders of kidney and ureter; Z79.899 Other long term (current) drug therapy

== ENCOUNTER 2018-02-10 18:55 | Emergency (ER) | payer OTHER ==
[~2018-02-10] VITALS: Ht 160 cm; Wt 82.5 kg
[2018-02-10 19:13] VITALS: TEMP 36.7; Ht 160 cm; Wt 82.5 kg
--- NOTE | 2018-02-10 21:08 | EMERGENCY ROOM VISIT NOTE ---
History Report prepared by Steffany: Liane Kirk Under the Supervision of: Dr. John Case D.O. First contact with patient: 19:26 Chief Complaint: MENTAL HEALTH EVALUATION Stated Complaint: DEPRESSION History of Present Illness The patient is a 27 year old female who presents to the Emergency Room with an episode of suicidal statements [employer]. The patient presents to the ED with police and a 302. She adamantly states that she came here voluntarily. She admits to sending text messages to her friend where she threatened to hurt herself. She currently denies any suicidal ideation. She reports that she sent these text messages after she got into an argument with her male friend. She states that she has a complicated relationship with this friend and they sleep together sometimes. She was upset with him because they had planned to meet last night. He did not show up and when she confronted him, they got into a heated argument and he went to campus police. She reports that she texted him because she was upset and wanted him to feel bad. She denies any drug or alcohol use today. She states that she has a history of depression and has been feeling more depressed lately. Source of History: patient, nursing staff Onset: [employer] Position: other (mental health) Quality: other (suicidal statements) Timing: other (episodic) Note: Pt reports feeling more depressed recently. Review of Systems See HPI for pertinent positives & negatives. A total of 10 systems reviewed and were otherwise negative. 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 (6) Herniated nucleus pulposus, L4-5 (7) Hypertension Nos (8) Irritable Bowel Syndrome (9) Qsyzign-Obntkdlix-Ghmsf syndrome (10) Obsessive-Compulsive Dis (11) Otitis Media Nos (12) Pyelonephritis Nos Family History Blood clots Diabetes mellitus FH: heart disease Hypertension Kidney disease Kidney stones Social History Smoking Status: Never Smoker Alcohol Use: occasionally Drug Use: none Housing Status: lives with roommate Occupation Status: employed Current/Historical Medications Scheduled B-Complex Vitamins (Vitamin B-Complex), 1 TAB PO DAILY Cholecalciferol (Vitamin D 400 Iu), 400 INTER.UNIT PO DAILY Clonazepam (Klonopin), 0.5 MG PO HS Doxepin (Sinequan), 10 MG PO HS Elmwood Carbonate (Elmwood Carbonate), 150 MG PO BID Magnesium Chloride-Calcium Car (Slow-Mag), 71.5 MG PO DAILY Omeprazole (Prilosec), 20 MG PO BID Pregabalin (Lyrica), 200 MG PO TID Riboflavin (B-2), 200 MG PO BID Spironolactone (Aldactone), 25 MG PO QAM Scheduled PRN Albuterol Hfa (Ventolin Hfa), 2-4 PUFFS INH Q6H PRN for SOB/Wheezing Artificial Tear Solution (Artificial Tears), 2 DROPS OPB QID PRN for DRYNESS Ondansetron Hcl (Zofran), 4 MG PO Q6 PRN for Nausea Ranitidine Hcl (Zantac), 150 MG PO BID PRN for Dyspepsia Allergies Coded Allergies: Adhesives (Unverified Allergy, Severe, hives, 02/10/18) Cat Dander (Verified Allergy, Intermediate, Hives, 02/10/18) Fluoxetine (Verified Allergy, Mild, HIVES, 02/10/18) Fluvoxamine (Verified Allergy, Mild, HIVES, 02/10/18) Bupropion (Verified Allergy, Unknown, HIVES, 02/10/18) Dust (Verified Allergy, Unknown, asthma sx, 02/10/18) Iodinated Diagnostic Agents (Verified Allergy, Unknown, ARM NUMBNESS, 02/10) Loratadine (Verified Allergy, Unknown, anxiety, 02/10/18) Metoclopramide (Verified Allergy, Unknown, anxiety, 02/10/18) POLLEN (Verified Allergy, Unknown, asthma sx, 02/10/18) Hydrocodone (Verified Adverse Reaction, Intermediate, NAUSEA/VOMITING, ) Alcohol (Verified Adverse Reaction, Mild, GI symptoms, reflux, 02/10/18) "this includes, vanilla because it often has alcohol preservative." Ascorbic Acid & Derivatives (Verified Adverse Reaction, Mild, GI symptoms & reflux, 02/10/18) Black Pepper (Verified Adverse Reaction, Mild, Reflux/GI symptoms, 02/10/18 ) Caffeine (Verified Adverse Reaction, Mild, GI symptoms, 02/10/18) "I can't have it.. It lowers the strength of my lower esophageal spinchter." Chocolate (Verified Adverse Reaction, Mild, GI symptoms, 02/10/18) "it has caffeine in it and it messes with my esophageal sphincter." Shasta (Verified Adverse Reaction, Mild, Reflux - citrus fruits, 02/10/18) Dairy (Verified Adverse Reaction, Mild, GI symptoms., 02/10/18) "it increases my mucus production and it like makes me cough..." Garlic (Verified Adverse Reaction, Mild, gi symptoms/reflux, 02/10/18) Monosodium Glutamate (Verified Adverse Reaction, Mild, GI symtpoms, ) "it triggers my migraines." Onion (Verified Adverse Reaction, Mild, reflux, 02/10/18) Peanut (Verified Adverse Reaction, Mild, GI symptoms, 02/10/18) "It just doesn't sit well with my stomach... unless they are dehydrated." Peppermint Flavor (Verified Adverse Reaction, Mild, Mint - reflux, 02/10/18 ) Sertraline (Verified Adverse Reaction, Mild, COLD SORES, 02/10/18) Tomato (Verified Adverse Reaction, Mild, Reflux/GI Symptoms, 02/10/18) Yeast (Verified Adverse Reaction, Mild, GI symptoms, 02/10/18) "it triggers my migraines." "I can have potatoe bread though." Uncoded Allergies: JESSICA,COBALT,CHROME,SILVER (Allergy, Unknown, HIVES, 07/29/14) FATTY FOODS (Adverse Reaction, Mild, GI symptoms, 04/28/17) "it just takes a long time for my stomach to digest.. so it increases my stomach acid.. I need everything steamed, baked or sauted lightly." "eveyrthing must be low fat." Physical Exam Vital Signs Date Time Temp Pulse Resp B/P (MAP) Pulse Ox O2 Delivery O2 Flow Rate FiO2 02/10/18 21:51 81 16 129/96 100 Room Air 02/10/18 19:13 36.7 83 18 123/82 98 Room Air Physical Exam GENERAL: Patient is awake, alert, very anxious appearing, and guarded. EYES: The conjunctivae are clear. The pupils are round and reactive. EARS, NOSE, MOUTH AND THROAT: The nose is without any evidence of any deformity. Mucous membranes are moist tongue is midline NECK: The neck is nontender and supple. RESPIRATORY: Normal respiratory effort is noted there is no evidence of wheezing rhonchi or rales CARDIOVASCULAR: Regular rate and rhythm noted there no murmurs rubs or gallops normal S1 normal S2 GASTROINTESTINAL: The abdomen is soft. Bowel sounds are present in all quadrants. Abdomen is nontender MUSCULOSKELETAL/EXTREMITIES: There is no evidence of gross deformity full range of motion is noted in the hips and shoulders SKIN: There is no obvious evidence of any rash. There are no petechiae, pallor or cyanosis noted. NEUROLOGIC: Patient is awake alert and oriented x3 strength is symmetric patellar reflexes are 2+ bilaterally PSYCH: Patient was anxious and guarded. Makes poor eye contact. Currently denies any suicidal or homicidal ideation, but admits to sending text messages. Medical Decision & Procedures Laboratory Results 02/10/18 20:30 Red Blood Count 4.85, Mean Corpuscular Volume 85.2, Mean Corpuscular Hemoglobin 29.9, Mean Corpuscular Hemoglobin Concent 35.1, Mean Platelet Volume 9.9, Neutrophils (%) (Auto) 80.0, Lymphocytes (%) (Auto) 15.3, Monocytes (%) (Auto) 4.2, Eosinophils (%) (Auto) 0.3, Basophils (%) (Auto) 0.0, Neutrophils # (Auto) 5.01, Lymphocytes # (Auto) 0.96, Monocytes # (Auto) 0.26, Eosinophils # (Auto) 0.02, Basophils # (Auto) 0.00 02/10/18 20:30 Test 02/10/18 19:32 02/10/18 20:30 Urine Color DK YELLOW Urine Appearance CLEAR (CLEAR) Urine pH 7.5 (4.5-7.5) Urine Specific Thorpe 1.022 (1.000-1.030) Urine Protein NEG (NEG) Urine Glucose (UA) NEG (NEG) Urine Ketones NEG (NEG) Urine Occult Blood TRACE (NEG) Urine Nitrite NEG (NEG) Urine Bilirubin NEG (NEG) Urine Urobilinogen NEG (NEG) Urine Leukocyte Esterase NEG (NEG) Urine WBC (Auto) 1-5 /hpf (0-5) Urine RBC (Auto) 0-4 /hpf (0-4) Urine Hyaline Casts (Auto) 1-5 /lpf (0-5) Urine Epithelial Cells (Auto) >30 /lpf (0-5) Urine Bacteria (Auto) NEG (NEG) Urine Test NEG (NEG) Urine Opiates Screen NEG (NEG) Urine Methadone, Qualitative NEG (NEG) Urine Barbiturates NEG (NEG) Urine Phencyclidine (PCP) Level NEG (NEG) Ur Amphetamine/Methamphetamine NEG (NEG) MDMA (Ecstasy) Screen NEG (NEG) Urine Benzodiazepines Screen NEG (NEG) Urine Cocaine Metabolite NEG (NEG) Urine Marijuana (THC) NEG (NEG) White Blood Count 6.26 K/uL (4.8-10.8) Red Blood Count 4.85 M/uL (4.2-5.4) Hemoglobin 14.5 g/dL (12.0-16.0) Hematocrit 41.3 % (37-47) Mean Corpuscular Volume 85.2 fL (80-100) Mean Corpuscular Hemoglobin 29.9 pg (25-34) Mean Corpuscular Hemoglobin Concent 35.1 g/dl (32-36) Platelet Count 303 K/uL (130-400) Mean Platelet Volume 9.9 fL (7.4-10.4) Neutrophils (%) (Auto) 80.0 % Lymphocytes (%) (Auto) 15.3 % Monocytes (%) (Auto) 4.2 % Eosinophils (%) (Auto) 0.3 % Basophils (%) (Auto) 0.0 % Neutrophils # (Auto) 5.01 K/uL (1.4-6.5) Lymphocytes # (Auto) 0.96 K/uL (1.2-3.4) Monocytes # (Auto) 0.26 K/uL (0.11-0.59) Eosinophils # (Auto) 0.02 K/uL (0-0.5) Basophils # (Auto) 0.00 K/uL (0-0.2) RDW Standard Deviation 38.6 fL (36.4-46.3) RDW Coefficient of Variation 12.5 % (11.5-14.5) Immature Granulocyte % (Auto) 0.2 % Immature Granulocyte # (Auto) 0.01 K/uL (0.00-0.02) Anion Gap 7.0 mmol/L (3-11) Est Creatinine Clear Calc Drug Dose 111.1 ml/min Estimated GFR () 122.9 Estimated GFR (Non- 106.0 BUN/Creatinine Ratio 16.4 (10-20) Calcium Level 9.2 mg/dl (8.5-10.1) Total Bilirubin 0.5 mg/dl (0.2-1) Direct Bilirubin < 0.1 mg/dl (0-0.2) Aspartate Amino Transf (AST/SGOT) 16 U/L (15-37) Alanine Aminotransferase (ALT/SGPT) 23 U/L (12-78) Alkaline Phosphatase 52 U/L (45-117) Total Protein 7.6 gm/dl (6.4-8.2) Albumin 4.1 gm/dl (3.4-5.0) Thyroid Stimulating Hormone (TSH) 1.470 uIu/ml (0.300-4.500) Salicylates Level < 1.7 mg/dl (2.8-20) Acetaminophen Level < 2 ug/ml (10-30) Elmwood Level < 0.2 mMOL/L (0.6-1.2) Ethyl Alcohol mg/dL < 3.0 mg/dl (0-3) Laboratory results per my review. Medications Administered Medications (Trade) Dose Ordered Sig/Jules Route Start Time Stop Time Status Last Admin Dose Admin Pregabalin (Lyrica Cap) 200 mg NOW ONCE PO 02/10/18 22:15 02/10/18 22:16 DC 02/10/18 22:12 200 MG ED Course 1936: The patient was evaluated in room A8. A complete history and physical examination were performed. 2212: I reevaluated the patient. 2215: Lyrica Cap 200 mg PO. 0000: The patient was signed out to Dr. Mccarthy pending bed search. Medical Decision Prior records/ancillary studies reviewed. Triage Nursing notes reviewed. Additional history obtained from caseworker intake. The patient's history was concerning for possible psychiatric disturbance. Differential diagnosis: Etiologies such as mood disorder, infection, hypoglycemia, electrolyte abnormalities, cardiac sources, intracerebral event, toxicologic, neurologic, as well as others were entertained. The patient is a 27-year-old female who presented to emergency department for mental health evaluation. The patient presented initially with a 302 petition. I reviewed the statement. The patient was making suicidal ideation known to a friend via text message. The patient arrived to the emergency department and was agreeable to voluntary evaluation. She was medically cleared. I discussed patient's laboratory results with her. She was treated with her outpatient medications. The patient was evaluated by the mental health caseworker intake in the emergency department. She was felt to be a good candidate for voluntary admission. A bed search is currently underway. The patient was signed out to Dr. Mccarthy at change of shift. Please see her note for continuation of care and final disposition. Medication Reconcilliation Current Medication List: was personally reviewed by me Blood Pressure Screening Patient's blood pressure: Normal blood pressure Blood pressure disposition: Did not require urgent referral Impression Primary Impression: Bipolar disorder Additional Impression: Suicidal ideation Scribe Attestation The scribe's documentation has been prepared under my direction and personally reviewed by me in its entirety. I confirm that the note above accurately reflects all work, treatment, procedures, and medical decision making performed by me. Departure Information Dispostion Still a Patient Referrals Amanuel Bang M.D. (PCP) Patient Instructions [facility] Problem Qualifiers Primary Impression: Bipolar disorder Active/Remission status: remission status unspecified Qualified Codes: F31.9 - Bipolar disorder, unspecified
[2018-02-10 21:27] LABS: EOS % 0.3 %; EOS ABS # 0.02 K/uL (0-0.5); HEMATOCRIT 41.3 % (37-47); HEMOGLOBIN 14.5 g/dL (12.0-16.0); IG# 0.01 K/uL (0.00-0.02); LYMPH % 15.3 %; LYMPH ABS # 0.96 K/uL (1.2-3.4); MEAN CELL VOLUME 85.2 fL (80-100); MEAN CORPUSCULAR HEMOGLOBIN 29.9 pg (25-34); MEAN CORPUSCULAR HGB CONC 35.1 g/dl (32-36); MEAN PLATELET VOLUME 9.9 fL (7.4-10.4); MONO % 4.2 %; MONO ABS # 0.26 K/uL (0.11-0.59); NEUT ABS # 5.01 K/uL (1.4-6.5); PLATELET COUNT 303 K/uL (130-400); RED CELL DISTRIBUTION WIDTH CV 12.5 % (11.5-14.5); RED CELL DISTRIBUTION WIDTH SD 38.6 fL (36.4-46.3); WHITE BLOOD COUNT 6.26 K/uL (4.8-10.8)
[2018-02-10] MEDS ORDERED: PREGABALIN 150 MG CAP PO STA (21:37)
[2018-02-10 21:44] LABS: ALBUMIN 4.1 gm/dl (3.4-5.0); BLOOD UREA NITROGEN 13 mg/dl (7-18); CALCIUM 9.2 mg/dl (8.5-10.1); CARBON DIOXIDE 24 mmol/L (21-32); CREATININE 0.76 mg/dl (0.60-1.20); GLUCOSE 94 mg/dl (70-99); SODIUM 138 mmol/L (136-145)
[2018-02-10 21:55] LABS: ALKALINE PHOSPHATASE 52 U/L (45-117); ALT/SGPT 23 U/L (12-78); AST/SGOT 16 U/L (15-37); TOTAL PROTEIN 7.6 gm/dl (6.4-8.2)
[2018-02-10] MEDS ORDERED: PREGABALIN 100 MG CAP PO ONE (22:15)
[2018-02-11] MEDS ORDERED: IBUPROFEN 600 MG TAB PO STA (01:06)
[2018-02-11] MEDS ORDERED: CLONAZEPAM 1 MG TAB PO SCH (01:15)
[2018-02-11] MEDS ORDERED: CLONAZEPAM 0.5 MG TAB ONE (01:18)
[2018-02-11 02:01] VITALS: BP 96/70; PULSE 76; O2SAT 98
--- NOTE | 2018-02-11 02:22 | EMERGENCY ROOM VISIT NOTE ---
ED Visit Note First contact with patient: 01:40 The case was signed out to me at change of shift awaiting bed placement. The patient has been accepted at [facility]. She will be transported there by [place] shortly.
[2018-02-11] MEDS ORDERED: PREGABALIN 150 MG CAP PO SCH (09:00)
[2018-02-11] MEDS ORDERED: DOXEPIN HCL 10 MG CAP PO SCH (21:00)
== END 2018-02-11 03:05 ==
LOC: C.EDB 18:56 → C.EDA 02-11 03:05
DX: R45.851 Suicidal ideations (principal); F31.9 Bipolar disorder, unspecified; F41.9 Anxiety disorder, unspecified; J45.909 Unspecified asthma, uncomplicated; J32.0 Chronic maxillary sinusitis; M51.26 Other intervertebral disc displacement, lumbar region; I10 Essential (primary) hypertension; K58.9 Irritable bowel syndrome, unspecified; Q87.2 Congenital malformation syndromes predominantly involving limbs; Z91.048 Other nonmedicinal substance allergy status; Z88.8 Allergy status to other drugs, medicaments and biological substances; Z91.041 Radiographic dye allergy status; Z88.6 Allergy status to analgesic agent; Z91.011 Allergy to milk products; Z91.010 Allergy to peanuts

== ENCOUNTER → 2018-05-15 | Outpatient (CLI) | payer OTHER ==
[~2018-05-15] MED LIST changes: -CLON0.5T3 PO; +CLON0.5T9 PO
[2018-05-15 17:38] LABS: EOS % 0.6 %; EOS ABS # 0.04 K/uL (0-0.5); HEMATOCRIT 38.2 % (37-47); HEMOGLOBIN 13.1 g/dL (12.0-16.0); IG# 0.01 K/uL (0.00-0.02); LYMPH % 23.2 %; LYMPH ABS # 1.59 K/uL (1.2-3.4); MEAN CELL VOLUME 84.5 fL (80-100); MEAN CORPUSCULAR HGB CONC 34.3 g/dl (32-36); MEAN PLATELET VOLUME 9.7 fL (7.4-10.4); MONO % 4.5 %; MONO ABS # 0.31 K/uL (0.11-0.59); NEUT % 71.6 %; PLATELET COUNT 258 K/uL (130-400); RED CELL DISTRIBUTION WIDTH CV 13.8 % (11.5-14.5); RED CELL DISTRIBUTION WIDTH SD 42.5 fL (36.4-46.3); WHITE BLOOD COUNT 6.85 K/uL (4.8-10.8)
[2018-05-15 18:07] LABS: ALBUMIN 3.5 gm/dl (3.4-5.0); ALKALINE PHOSPHATASE 37 U/L (45-117); ALT/SGPT 24 U/L (12-78); AST/SGOT 16 U/L (15-37); BLOOD UREA NITROGEN 10 mg/dl (7-18); CALCIUM 8.5 mg/dl (8.5-10.1); CARBON DIOXIDE 25 mmol/L (21-32); GLUCOSE 85 mg/dl (70-99); POTASSIUM 3.9 mmol/L (3.5-5.1); SODIUM 140 mmol/L (136-145); TOTAL PROTEIN 6.6 gm/dl (6.4-8.2)
== END | disposition home or self-care (01) ==
LOC: C.LAB 17:17
PROVIDERS: ATTEND Family Medicine
DX: R53.1 Weakness (principal); R19.7 Diarrhea, unspecified

== ENCOUNTER → 2018-05-15 | Outpatient (CLI) | payer OTHER | END | disposition home or self-care (01) | LOC: C.LABSPEC 14:36 | PROVIDERS: ATTEND Family Medicine | DX: R19.7 Diarrhea, unspecified (principal) ==

== ENCOUNTER 2020-04-21 19:12 | Inpatient (IN) ==
[2020-04-21] MEDS ORDERED: LORazepam 2 MG/ML VIAL (IM USE) IM STA (19:15)
[2020-04-21] MEDS ORDERED: HALOPERIDOL LACTATE 5 MG/ML 1 ML VIAL IM STA (19:15)
[2020-04-21] MEDS ORDERED: BENZTROPINE MESYLATE 1 MG/ML 2 ML AMP IM STA (19:15)
[2020-04-21 20:03] LABS: Appearance Urine Clear (Clear); Bilirubin Urine Negative (Negative); Blood Urine Negative (Negative); Color Urine Dark Yellow; Glucose Urine UA Negative (Negative); Ketones Urine Negative (Negative); Leukocyte Esterase Urine Negative (Negative); Nitrite Urine Negative (Negative); Protein Urine Negative (Negative); Specific Gravity Urine 1.022 (1.000-1.030); Urobilinogen Urine Negative (Negative)
[2020-04-21 20:09] LABS: Eosinophils # (auto) 0.06 K/uL (0-0.5); Hematocrit (blood only) 43.4 % (37-47); Hemoglobin 15.2 g/dL (12.0-16.0); Lymphocytes # (auto) 1.05 K/uL (1.2-3.4); Lymphocytes % (auto) 17.8 %; Mean Corpuscular Hemoglobin 31.2 pg (25-34); Mean Corpuscular Volume 89.1 fL (80-100); Mean Platelet Volume 10.4 fL (7.4-10.4); Monocytes # (auto) 0.33 K/uL (0.11-0.59); Monocytes % (auto) 5.6 %; Neutrophils # (auto) 4.46 K/uL (1.4-6.5); Neutrophils % (auto) 75.6 %; Platelet Count 238 K/uL (130-400); RDW Coefficient of Variation 12.5 % (11.5-14.5); RDW Standard Deviation 40.3 fL (36.4-46.3); Red Blood Count 4.87 M/uL (4.2-5.4)
[2020-04-21 20:22] LABS: Amphetamines+Metham, Urine Neg (Neg); Barbiturates, Urine Neg (Neg); Benzodiazepine, Urine Pos (Neg); Cocaine, Urine Neg (Neg); MDMA (Ecstacy), Urine Neg (Neg); Methadone, Urine Neg (Neg); Opiate, Urine Neg (Neg); Phencyclidine, Urine Neg (Neg)
[2020-04-21 20:31] LABS: Acetaminophen < 2 ug/ml (10-30); Salicylate < 1.7 mg/dl (2.8-20)
[2020-04-21 20:32] LABS: BUN Creatinine Ratio 12.4 (10-20); Calcium 9.1 mg/dl (8.5-10.1); Est GFR (African American) 113.1; Est GFR (Non-African American) 97.6; Potassium 3.7 mmol/L (3.5-5.1)
[2020-04-21 20:42] LABS: Albumin Globulin Ratio 1.2 (0.9-2); Bilirubin,Total 0.7 mg/dl (0.2-1); Globulin 3.2 gm/dl (2.5-4.0); Thyroid Stimulating Hormone 1.64 uIu/ml (0.300-4.500); Total Protein 7.2 gm/dl (6.4-8.2)
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
--- NOTE | 2020-04-22 01:41 | Emergency Department Note ---
ED Visit Note
--- NOTE | 2020-04-22 01:43 | Emergency Department Note ---
ED Visit Note ED Physician Sign Out Note: 30 yr old female arrives for evaluation of psychiatric issues with suicidal ideation. Here on 302 warrant. Initially evaluated and medically cleared by Dr Khan. Signed out to me pending placement. Evaluated at bedside, she initially was sleeping, clearly woke up but quickly closed eyes again. Exam unremarkable without evidence of trauma. Clear lungs, neuro intact. There is already 302 Warrant signed and she was accepted to [address] [place] [address] for further management. Mike Villafana MD
[2020-04-22 06:00] LABS: Pregnancy Test, Urine Negative (Negative)
[2020-04-22] MEDS ORDERED: ALUMINUM/MAGNESIUM SUSP 30 ML UDC PO PRN (07:09)
[2020-04-22] MEDS ORDERED: ACETAMINOPHEN 325 MG TAB PO PRN (07:09)
[2020-04-22] MEDS ORDERED: MAGNESIUM HYDROXIDE SUSP 30 ML UDC PO PRN (07:09)
[2020-04-22] MEDS ORDERED: BISMUTH SUBSALICYLATE PER ML OMNICELL CHARGE PO PRN (07:09)
[2020-04-22] MEDS ORDERED: SODIUM CHLORIDE 0.65% NA SOLN 45 ML (OCEAN) PRN (07:09)
[2020-04-22] MEDS ORDERED: haloperidoL 5 MG TAB PO PRN (07:12)
[2020-04-22] MEDS ORDERED: BENZTROPINE MESYLATE 1 MG TAB PO PRN (07:19)
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
[2020-04-22] MEDS ORDERED: CYCLOBENZAPRINE HCL 5 MG TAB PO PRN (12:53)
[2020-04-22] MEDS ORDERED: SIMETHICONE 80 MG CHEW PO PRN (12:58)
[2020-04-22] MEDS ORDERED: CeleBREX 200 MG CAP PO PRN (13:25)
[2020-04-22] MEDS ORDERED: FAMOTIDINE 20 MG TAB PO PRN (13:25)
[2020-04-22] MEDS: PREGABALIN 100 MG CAP PO SCH ×2 (14:12→21:36)
[2020-04-22] MEDS: DICYCLOMINE HCL 10 MG CAP PO SCH (18:58)
[2020-04-22] MEDS: LORazepam 1 MG TAB PO PRN (19:30)
[2020-04-22] MEDS: PANTOprazole 40 MG TAB PO SCH (21:36)
[2020-04-23] MEDS: clonazePAM 0.5 MG TAB PO PRN ×2 (00:05→23:15)
[2020-04-23] MEDS: ALBUTEROL HFA 8 GM INHALER INH PRN (00:28)
[2020-04-23] MEDS: LORazepam 1 MG TAB PO PRN (02:38)
[2020-04-23] MEDS ORDERED: LINACLOTIDE 72 MCG CAPSULE PO SCH (08:00)
[2020-04-23] MEDS: PREGABALIN 100 MG CAP PO SCH ×3 (09:48→21:05)
[2020-04-23] MEDS: PANTOprazole 40 MG TAB PO SCH ×2 (09:49→21:05)
[2020-04-23] MEDS: DICYCLOMINE HCL 10 MG CAP PO SCH ×3 (10:00→17:45)
[2020-04-23] MEDS: FLUTICASONE FUROATE 200MCG 14 PUFFS/INHALER INH SCH (10:01)
[2020-04-23] MEDS ORDERED: LINACLOTIDE 145 MCG CAPSULE PO SCH (12:00)
--- NOTE | 2020-04-23 17:14 | Psychiatric Progress Note ---
Date of Service April 23, 2020 Impression / Recommendations Impression This is a 30-year-old single female with reported history of borderline personality disorder, anxiety/OCD, admitted on 301 following histrionic agitated behavior leading up to her admission. At this time it appears likely that she did take more than prescribed of her clonazepam however unclear if this was truly a self-harm attempt. She has maintained that her exiting a moving vehicle was not an attempt to self injure as well. Regardless of her intent, her behaviors are impulsive, potentially dangerous, and her affect is labile to a degree that she would not be expected to be functional in the community in the state. I do hope that she engages in her treatment as she may significantly benefit from an affect stabilizing medication such as an anticonvulsant or atypical antipsychotic. For now we will monitor her on her home regimen while we expand database and provide for her safety on the locked unit. (1) Borderline personality disorder: 04/22 -Patient appears to demonstrate symptoms of underlying borderline personality disorder with rather severe affective instability with copious expressions of anger, externalization of responsibility, splitting. -She is admitted on an involuntary commitment status to the behavioral health unit for observation and treatment of affect and behavioral instability which was felt to be sufficiently dangerous to warrant psychiatric hospitalization associated with clonazepam overdose of approximately 20 tablets and exiting a moving vehicle. At time of admission she is denying that these impulsive acts were suicidal in intent however she requires a period of monitoring to assess stability and safety and is certainly at high risk for continued impulsive and dangerous behaviors should she be discharged prematurely -Due to her lack of adequate participation in psychiatric interview today, psychotropic treatment history remains unclear. It certainly appears that she would benefit from either an anticonvulsant for atypical antipsychotic for her affect lability and anger associated with borderline personality disorder and will continue to consider pharmacological treatment options as we learn more about her -She will be encouraged to participate in unit programming as appropriate -She may require a specialized behavioral plan if she continues to demonstrate histrionic behaviors disruptive on the unit -As needed Haldol, Ativan, Cogentin ordered today should she demonstrate dangerous or acute behavioral disturbance -Patient denies active outpatient psychiatric follow-up. We will attempt to facilitate psychiatric and psychological follow-up for post discharge as appropriate -Patient has a complex medical history. As she was not participatory in medication reconciliation today, active medication report pursued and obtained from her local [facility] on [facility] and she will be maintained on her home regimen according to available documentation. 04/23 -Hector conversation regarding expectation for her to demonstrate reasonable ability to modulate her affect and remain in self-control on the unit. Her ability to demonstrate this effectively in combination with continued absence of suicidal ideation will accelerate time to discharge. Patient was made aware that even in the absence of self-injurious intent, the degree of her affect of instability and associated behaviors posed a potential threat of harm to herself resulting in her involuntary commitment. -Again discussed risks and benefits of mood stabilizing treatment interventions. She does not believe that she has ever been treated with Depakote and may certainly benefit for impulse dyscontrol and affect lability associated with underlying borderline personality disorder. Common risks and benefits including weight gain, tremor, hair loss, withdrawal seizures reviewed and accepted. We will start Depakote 259 mg p.o. nightly tonight as a very conservative trial dose given her lengthy history of medication hypersensitivities which can be titrated pending tolerability -Can consider repeating genetic testing such as gene site testing as outpatient for targeted pharmacotherapy given history of sensitivities/allergies -Family meeting scheduled for tomorrow (2) Anxiety: 04/22 -Patient acknowledges anxiety and prior OCD diagnosis but provides little additional information today. She is presently not on any anxiolytic treatment apart from the clonazepam 0.5 mg twice daily as needed and the Lyrica. For the short-term I will maintain access to the clonazepam at home dose of 0.5 mg p.o. twice daily until we can more effectively consider alternative treatment options. -We will hold as needed Ambien for now as noted as ineffective per recent sleep medicine follow-up note 04/23 -No evidence of oversedation so far with high-dose Ativan as needed and will continue unchanged due to degree of distress however we would not expect her to be discharged on the Ativan as needed -She may get some benefit from the Depakote off label for anxiety -Encouraged to work on cognitive interventions for OCD triggered anxiety associated with viral pandemic while hospitalized as this trigger will persist post discharge Protective Factors Assessment Employed: No Interval History Chief Complaint "I shouldn't be here". Review of Systems Notes Reports diffuse aches and pains Sleep Information Total Hours of Sleep: 3 Meal Information Percent Meal Consumed - Breakfast: 100 Percent Meal Consumed - Lunch: 90 Percent Meal Consumed - Dinner: 75 Nutrition Comment: pt. allowed to sleep Subjective Subjective Patient was seen & assessed and interval progress reviewed with treatment team. Per staff patient has demonstrated continued labile affect and disruptive behavior on the unit. She has received Ativan 2 mg x 2 as as needed. She refused the Haldol as needed. She has not been aggressive, just demonstrative. Yells loudly at her father with repeated telephone calls. On interview she reports that she was never suicidal and becomes animated and emotional in this discussion but was able to calm herself with prompting to do so. She initially presented as defeated and making comments such as "I do not think I can work towards any of my goals." She identifies her OCD and as her most acute concerns immunodeficiency regarding presence in the hospital during time of COVID-19 pandemic. She reports OCD was diagnosed in the third grade and she does have a historical preoccupation with contamination which had improved with age until being re-exacerbated in setting of viral pandemic. She reports she washes her hands as much as 40 times per day in recent weeks. Further review treatment history. Reports depression was diagnosed in her 20s and she believes she has never been without it apart from traveling since initial onset. Borderline personality disorder diagnosed in her 20s. She is a little more forthcoming about prior treatment today. Reports multiple psychiatric hospitalizations in the past with 2 admissions to [facility], 3 admissions to the [facility], one admission to [place], and has been previously involuntarily committed. She believes her first psychiatric hospitalization occurred in 2014. She participated in group dialectical behavioral therapy in [place] in 2014. Her most recent therapist was Cierra Baires whom she reportedly was fired by for reasons that she feels were unethical. She reports attempting to seek outpatient treatment from Dr. Henry but believes she was rejected due to her borderline personality disorder diagnosis. She again evidences externalization of responsibility stating that she has tried but no one will give her what she needs. She believes she has been treated with every psychotropic under the sun and believes that she was allergic or intolerant to the majority of them. Interestingly she perceives Lyrica as a "miracle" which has provided both pain and anxiolytic benefit. She has been on Risperdal multiple times in the past without perceived benefit. Topamax reportedly caused nausea and hives. Lamictal caused a rash. She denies perceived benefit on antidepressants historically and reports rashes with multiple agents. She believes she has undergone genetic testing in the past for targeted psychotropic prescribing but this was perhaps 12 years ago and she is uncertain of the results. Physical Exam Psychiatric Orientation: + guarded Apperance: + disheveled Eye Contact: + fair eye contact Motor Behavior: steady gait and station Speech: no pressured speech (More consistent in her volume today) Affect: + labile affect (However less so today) Thought Process: + circumstantial thought process (However overall she is much more consistently goal-directed) Thought Content: + preoccupation (Appears preoccupied by worry regarding COVID- 19 and feelings of victimization) and + cognitive distortions Suicidal Thoughts: denies suicidal thoughts Homicidal Thoughts: denies homicidal thoughts Hallucinations: no auditory hallucinations and no visual hallucinations Cognition: language grossly intact; + attention not intact Insight: + poor insight Judgement: + poor judgement Vital Signs (Past 24 Hours) Last Vital Signs Temp 36.6 C 04/23/20 11:13 Pulse 67 04/23/20 11:13 Resp 16 04/23/20 11:13 BP 112/73 04/23/20 11:13 Pulse Ox 97 04/23/20 00:28 Results & Data ([facility]) Current Inpatient Medications Current Inpatient Medications: Current Inpatient Medications Acetaminophen (Tylenol) 650 mg PO Q4H PRN PRN Reason: Headache or Minor Fever Stop: 05/22/20 07:08 Last Admin: 04/23/20 01:46 Dose: 650 mg Documented by: Al Hydrox/Mg Hydrox/Simethicone (Maalox) 30 ml PO Q4H PRN PRN Reason: GI Upset Stop: 05/22/20 07:08 Albuterol (Ventolin Hfa) 2 puffs INH Q4 PRN PRN Reason: Shortness Of Breath Stop: 05/22/20 12:52 Last Admin: 04/23/20 00:28 Dose: 2 puffs Documented by: Benztropine Mesylate (Cogentin) 1 mg PO Q6 PRN PRN Reason: EPS Stop: 05/22/20 07:18 Bismuth Subsalicylate (Kaopectate) 15 ml PO PRN PRN PRN Reason: Loose Stool Stop: 05/22/20 07:08 Celecoxib (Celebrex) 200 mg PO DAILY PRN PRN Reason: Pain Stop: 05/22/20 13:24 Clonazepam (Klonopin) 0.5 mg PO BID PRN PRN Reason: Anxiety Stop: 05/22/20 12:52 Last Admin: 04/23/20 00:05 Dose: 0.5 mg Documented by: Cyclobenzaprine HCl (Flexeril) 5 mg PO HS PRN PRN Reason: MUSCLE SPASMS Stop: 05/22/20 12:52 Dicyclomine HCl (Bentyl) 10 mg PO TIDM [facility] Stop: 05/22/20 17:44 Last Admin: 04/23/20 13:10 Dose: Not Given Documented by: Docusate Sodium (Colace) 100 mg PO BIDM [facility] Stop: 05/23/20 17:44 Famotidine (Pepcid) 20 mg PO DAILY PRN PRN Reason: Acid Reflux Stop: 05/22/20 13:24 Fluticasone Furoate (Arnuity Ellipta 200mcg) 1 puffs INH DAILY [facility] Stop: 05/23/20 08:59 Last Admin: 04/23/20 10:01 Dose: Not Given Documented by: Haloperidol (Haldol) 5 mg PO Q6 PRN PRN Reason: Agitation Stop: 05/22/20 07:11 Linaclotide (Linzess) 1 ea PO DAILYBB [facility]; Protocol Stop: 05/23/20 11:59 Last Admin: 04/23/20 12:54 Dose: 1 ea Documented by: Lorazepam (Ativan) 2 mg PO Q6 PRN PRN Reason: Agitation Stop: 05/22/20 07:17 Last Admin: 04/23/20 02:38 Dose: 2 mg Documented by: Magnesium Hydroxide (Milk Of Magnesia) 30 ml PO DAILY PRN PRN Reason: Constipation Stop: 05/22/20 07:08 Pantoprazole Sodium (Protonix) 40 mg PO BID [facility] Stop: 05/22/20 20:59 Last Admin: 04/23/20 09:49 Dose: 40 mg Documented by: Pregabalin (Lyrica) 200 mg PO TID [facility] Stop: 05/22/20 13:59 Last Admin: 04/23/20 14:07 Dose: 200 mg Documented by: Simethicone (Mylicon) 80 mg PO HS PRN PRN Reason: Indigestion Stop: 05/22/20 12:57 Sodium Chloride (Pratt Nasal) 1 - 2 sprays NA PRN PRN PRN Reason: Nasal Dryness/Congestion Stop: 05/22/20 07:08 Spironolactone (Aldactone) 25 mg PO BIDM [facility] Stop: 05/23/20 17:44 Mental Health & Subst Abuse Tx Therapist Name of Therapist: None currently Cement Truck Driver Name of Cement Truck Driver: None currently
[2020-04-23] MEDS: SPIRONOLACTONE 25 MG TAB PO SCH (17:45)
[2020-04-23] MEDS: DOCUSATE SODIUM 100 MG CAP PO SCH (17:45)
[2020-04-23 18:45] LABS: 7-Aminoclonaz, Confirm >2000 ng/mL (<25); Hydro-Alp Ur, GC/MS NEGATIVE ng/mL (<25); Hydroxyethylflurazepam, Conf NEGATIVE ng/mL (<50); Hydroxymidazolam Ur, GC/MS NEGATIVE ng/mL (<50); Hydroxytriazolam NEGATIVE ng/mL (<50); Lorazepam, Ur GC/MS NEGATIVE ng/mL (<50); Nordiazepam, Confirm NEGATIVE ng/mL (<50); Oxazepam Ur, GC/MS NEGATIVE ng/mL (<50); Temazepam, Confirm NEGATIVE ng/mL (<50)
[2020-04-23] MEDS ORDERED: DIVALPROEX EXTENDED RELEASE 250 MG TABCR PO SCH (22:00)
[2020-04-24] MEDS: LORazepam 1 MG TAB PO PRN (00:24)
[2020-04-24] MEDS: ALBUTEROL HFA 8 GM INHALER INH PRN (00:28)
[2020-04-24] MEDS: clonazePAM 0.5 MG TAB PO PRN (03:31)
[2020-04-24] MEDS: PREGABALIN 100 MG CAP PO SCH ×2 (08:33→14:01)
[2020-04-24] MEDS: PANTOprazole 40 MG TAB PO SCH (08:33)
[2020-04-24] MEDS ORDERED: LINACLOTIDE 145 MG PO PRN (08:48)
[2020-04-24] MEDS ORDERED: LINACLOTIDE 72 MCG CAPSULE PO PRN (09:17)
[2020-04-24] MEDS: SPIRONOLACTONE 25 MG TAB PO SCH (10:02)
[2020-04-24] MEDS: DOCUSATE SODIUM 100 MG CAP PO SCH (10:02)
[2020-04-24] MEDS: DICYCLOMINE HCL 10 MG CAP PO SCH ×2 (10:14→12:05)
[2020-04-24] MEDS: FLUTICASONE FUROATE 200MCG 14 PUFFS/INHALER INH SCH (10:15)
--- NOTE | 2020-04-24 12:59 | Discharge Summary ---
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 facility: 04/24/20 15:00 Coding Level of Care Code 86362 D/C day mgmt > 30 min Diagnoses Borderline personality disorder F60.3 Anxiety F41.9
== END 2020-04-24 15:00 | disposition home or self-care (01) | DRG 883 ==
LOC: ED 19:12 → 3S 04-22 06:07

== ENCOUNTER 2024-12-15 08:33 | Inpatient (IN) ==
[2024-12-15] MEDS: ONDANSETRON INJ 2 MG/ML 2 ML VIAL IV STA (09:10)
[2024-12-15] MEDS: KETOROLAC TROMETHAMINE 15 MG/ML VIAL IV STA (09:10)
[2024-12-15] MEDS: LORazepam 2 MG/1 ML VIAL IV STA ×2 (09:10→20:53)
[2024-12-15] MEDS: SODIUM CHLORIDE 0.9% 1,000 ML IV ONE (09:11)
--- OUTSIDE RECORDS SUMMARY | 2024-12-15 09:18 | External Medical Summary | Continuity of Care Document ---
Author Name Unknown Organization [facility] [id number] [place] [id number] Care Team Providers Care Assistant Foreman Name Role Phone Starla Brooks Primary Care Physician [phone] [facility]counter [facility] [id number] Date(s): 12/10/24 - 12/10/[address] [phone] Encounter Diagnosis Social problem(Discharge Diagnosis) - 12/13/24 Chest pain(Discharge Diagnosis) - 12/13/24 Discharge Disposition: Home or Self Care Attending Physician: DO Escamilla Gretchen Elizabeth Encounter Type: Telehealth Allergies, Adverse Reactions, Alerts Substance Criticality Severity Reaction Reaction Severity Status Luvox hives/rash Active Zoloft hives/rash Active Haldol 1 Unknown reaction Act fady Vicodin Active Depakote Anaphylaxis Active Reglan increased anxiety Ac tive Adhesive bandage Rash Act fady Nickel 2 Active Wellbutrin XL hives/rash Activ e Allergy Not found in Search 3 hives/rash Active contrast media (iodine-based) rash Active PROzac hives/rash Active ZyPREXA Respiratory distress Active 1severe dystonic reaction 2COLBALT SILVER CHROME 3Silver, chrome, and cobalt. Immunizations Given and Recorded Vaccine Date Status Refusal Reason SARS-CoV-2 (COVID-19) mRNA-vacc - [id number] 06/30/24 Recorded SARS-CoV-2 (COVID-19) mRNA-vacc - [id number] 07/17/23 Recorded SARS-CoV-2 mRNA-1273 (6y+ bivalent) 08/02/22 Recor ded SARS-CoV-2 (COVID-19) mRNA-1273 vaccine 04/19/22 R ecorded SARS-CoV-2 (COVID-19) mRNA-1273 vaccine 12/20/20 R ecorded SARS-CoV-2 (COVID-19) mRNA BNT-162b2 vax 09/22/21 Recorded SARS-CoV-2 (COVID-19) mRNA BNT-162b2 vax 11/29/20 Recorded pneumococcal 23-valent vaccine 02/28/17 Recorded tetanus/diphtheria/pertuss, acel (Tdap) 07/02/13 R ecorded yellow fever vaccine 11/27/09 Recorded Hepatitis A Vaccine Unspecified 10/31/09 Recorded Hepatitis A Vaccine Unspecified 01/08/06 Recorded hepatitis B pediatric vaccine 11/07/05 Recorded hepatitis B pediatric vaccine 06/04/05 Recorded Meningococcal Vaccine Unspecified 04/03/05 Recorde d Hepatitis B Vaccine Unspecified 04/01/05 Recorded tetanus toxoids-diphtheria, Td (Adult) 06/02/03 Re corded measles/mumps/rubella virus vaccine 09/25/99 Recor ded measles/mumps/rubella virus vaccine 05/19/89 Recor ded poliovirus vaccine, inactivated 06/18/93 Recorded (DTAP) Vaccine Unspecified 06/18/93 Recorded (DTAP) Vaccine Unspecified 09/08/89 Recorded haemophilus b Vaccine Unspecified 10/08/89 Recorde d poliovirus vaccine, live, trivalent 09/08/89 Recor ded poliovirus vaccine, live, trivalent 88 Recor ded poliovirus vaccine, live, trivalent 88 Recor ded poliovirus vaccine, live, trivalent 88 Recor ded poliovirus vaccine, live, trivalent 88 Recor ded diphtheria/tetanus/pertuss, acel (DTaP) 88 R ecorded diphtheria/tetanus/pertuss, acel (DTaP) 88 R ecorded diphtheria/pertussis, whole cell/tetanus 88 Recorded diphtheria/pertussis, whole cell/tetanus 88 Recorded Medications albuterol CFC free 90 mcg/inh MDI Start: 02/05/17 9:59:00 AM EDT, 2 puff, inhaled, PRN: shortness of breath Start Date: 02/05/17 Status: Ordered Repeat number: 1 Augmentin 875 mg-125 mg oral tablet Start: 11/09/24 4:39:00 PM EST, amoxicillin 1 tab, PO, q12h, Disp# 20, [id number] Start Date: 11/09/24 Stop Date: 11/19/24 Status: Ordered Quantity: 20.0 Unit: tab Repeat number: 1 baclofen 10 mg oral tablet Start: 02/01/22 4:21:00 PM EDT, 1 tab, PO, qhs, Disp# 12 tab, PRN: pain, Pharmacy: [facility] Start Date: 02/01/22 Status: Ordered Quantity: 12.0 Unit: tab Repeat number: 1 Indication: Pain in right shoulder Boostrix (Tdap vaccine) intramuscular suspension Start: 09/06/24 3:48:00 PM EST, 0.5 mL, IM, ONCE, Disp# 0.5 mL, [id number] Start Date: 09/06/24 Status: Ordered Quantity: 0.5 Unit: mL Repeat number: 1 clonazePAM 1 mg oral tablet Start: 09/27/21 5:00:00 PM EST, 1 tab, PO, ONCE, Disp# 1 tab, Please take 1 tablet prior to MRI, Pharmacy: [facility] Start Date: 09/27/21 Status: Ordered Quantity: 1.0 Unit: tab Repeat number: 1 Colace 100 mg oral capsule Start: 04/16/21 1:54:00 PM EDT, 1 cap, PO, qid, PRN: as needed for constipation Start Date: 04/16/21 Status: Ordered Repeat number: 1 dexamethasone 4 mg/mL injectable solution Start: 10/17/21 11:40:00 AM EST, See Instructions, Disp# 120 mL, Refills: 1, Use 2 mL during iontophoresis for achilles and patella tendons, Pharmacy: [email or web address] [address] [place] [address] Start Date: 10/17/21 Status: Ordered Quantity: 120.0 Unit: mL Repeat number: 2 Indication: Pain in right knee diphenhydrAMINE 25 mg oral tablet Start: 11/09/24 4:41:00 PM EST, 1 tab, PO, tid, Disp# 30 tab, PRN: as needed for allergy symptoms, Pharmacy: [facility]/pharmacy #[id number] Start Date: 11/09/24 Status: Ordered Quantity: 30.0 Unit: tab Repeat number: 1 Dulera Start: 09/06/24 2:39:00 PM EST, 50 mg =, bid Start Date: 09/06/24 Status: Ordered Repeat number: 1 famotidine Start: 08/01/19 1:49:00 PM EDT, 20 mg =, PO, Daily, PRN: heartburn Start Date: 08/01/19 Status: Ordered Repeat number: 1 Fleet Enema 7 g-19 g rectal enema Start: 05/24/21 3:30:00 PM EDT, 1 each, GA, As indicated Start Date: 05/24/21 Status: Ordered Repeat number: 1 Flonase Start: 02/05/17 10:00:00 AM EDT, 2 spray, intranasal, PRN: allergy symptoms Start Date: 02/05/17 Status: Ordered Repeat number: 1 glycerin adult rectal suppository Start: 05/24/21 3:30:00 PM EDT, 1 supp, GA, ONCE, PRN: as needed for constipation Start Date: 05/24/21 Status: Ordered Repeat number: 1 KlonoPIN 1 mg oral tablet Start: 03/12/21 8:47:00 AM EDT, See Instructions, Disp# 2 tab, Refills: 0, 1 tab PO 1 hour prior to procedure/MRI; 1 tab 5 min prior to exam as needed., Pharmacy: [facility] Start Date: 03/12/21 Status: Ordered Quantity: 2.0 Unit: tab Repeat number: 1 Indication: Pain in right ankle and joints of right foot lidocaine 5% patch Start: 07/03/21 11:20:00 AM EDT, See Instructions, as needed Start Date: 07/03/21 Status: Ordered Repeat number: 1 Linzess Start: 09/26/17 2:44:00 PM EST, 145 mcg =, PO, Daily Start Date: 09/26/17 Status: Ordered Repeat number: 1 Linzess 72 mcg oral capsule Start: 05/24/21 3:27:00 PM EDT, 1 cap, PO, As indicated Start Date: 05/24/21 Status: Ordered Repeat number: 1 Lyrica 200 mg oral capsule Start: 02/05/17 10:16:00 AM EDT, 1 cap, PO, tid, Disp# 90 cap, Refills: 2 Start Date: 02/05/17 Stop Date: 05/06/17 Status: Ordered Quantity: 90.0 Unit: cap Repeat number: 3 MiraLax oral powder for reconstitution Start: 05/24/21 3:29:00 PM EDT, 17 g =, PO, Daily Start Date: 05/24/21 Status: Ordered Repeat number: 1 naproxen 375 mg oral delayed release tablet Start: 11/30/24 12:21:00 PM EST, 1 tab, PO, bid, Disp# 14 tab, Refills: 0, Note to Pharmacy: Patient lost last refill bottle, please allow refill., PRN: as needed for inflammation, Pharmacy: [facility]/pharmacy #[id number] Start Date: 11/30/24 Stop Date: 12/07/24 Status: Ordered Quantity: 14.0 Unit: tab Repeat number: 1 Indication: Pain, unspecified omeprazole 20 mg oral delayed release capsule Start: 03/20/18 2:11:00 PM EDT, 1 cap, PO, bid Start Date: 03/20/18 Status: Ordered Repeat number: 1 Pulmicort Flexhaler Start: 07/12/21 3:09:00 PM EDT Start Date: 07/12/21 Status: Ordered Repeat number: 1 simethicone 125 mg oral tablet, chewable Start: 05/24/21 3:30:00 PM EDT, 1 tab, PO, pc and hs Start Date: 05/24/21 Status: Ordered Repeat number: 1 spironolactone 100 mg oral tablet Start: 04/16/21 1:54:00 PM EDT, 1 tab, PO, Daily Start Date: 04/16/21 Status: Ordered Repeat number: 1 Vitamin B Complex Start: 11/09/24 2:37:00 PM EST Start Date: 11/09/24 Status: Ordered Repeat number: 1 Vitamin D3 Start: 09/26/17 2:44:00 PM EST, PO Start Date: 09/26/17 Status: Ordered Repeat number: 1 Voltaren 1% topical gel Start: 06/15/19 4:00:00 PM EDT, 1 appl, topical, qid, Disp# 100 g, Refills: 2, Pharmacy: [facility] [place] [address] Start Date: 06/15/19 Status: Ordered Quantity: 100.0 Unit: g Repeat number: 3 Zofran 8 mg oral tablet Start: 04/16/21 1:58:00 PM EDT, 1 tab, PO, tid, PRN: as needed for nausea/vomiting Start Date: 04/16/21 Status: Ordered Repeat number: 1 Problem List Condition Confirmation Course Effective Dates Status H ealth Status Informant Acute low back pain Confirmed Active Allergic contact dermatitis due to metals Confirmed Active Bilateral ankle pain Confirmed Active Anxiety Confirmed Active Weakness Confirmed Active Asthma Confirmed Active Back pain Confirmed Active CRPS (complex regional pain syndrome type I) 1 Confirmed Active Depression Confirmed Active Gastritis Confirmed Active Heart burn Confirmed Active Hiatal hernia Confirmed Active Kidney stones Confirmed Active Klippel-trenaunay syndrome Confirmed Active Pain in right knee Confirmed Active Tarsal tunnel syndrome, left lower limb Confirmed Active Lumbar radiculopathy Confirmed Active Nontraumatic tear of right tibialis posterior tendon Confirmed Active Numbness Confirmed Active OCD (obsessive compulsive disorder) Confirmed Active Coccygodynia Confirmed Active Bilateral knee pain Confirmed Active Fibromyalgia Confirmed Active Right shoulder pain Confirmed Active Sleep apnea Confirmed Active Tibial fracture 2 Confirmed Active Weight disorder Confirmed Active 1lower extremity 2Left Diagnosis Diagnosis Type Effective Dates Health Status Cl inical Service Informant Chest pain Discharge Diagnosis 12/13/24 Non-Specified Social problem Discharge Diagnosis 12/13/24 Non-Specified Procedures Procedure Date Related Diagnosis Body Site Status CT angiography of neck vesse ls with contrast 1 07/25/24 Completed MR angiography of brain and neck without contrast 07/25/[address] angiography of head with contrast 2 07/20/24 Completed Upper GI (gastrointestinal) endoscopy 3 08/05/19 Completed Colonoscopy 4 12/23/18 Completed Ultrasound scan abdomen limited 5 05/09/17 Completed US EXAM PELVIC COMPLETE 6 05/09/17 Completed Biopsy,egd biopsy cytology 12/16/16 Completed Ultrasound-neck 7 06/07/16 Complet ed Arthroscopy 8 03/05/12 Completed Tibia 9 03/27/09 Completed Left knee 01/28/08 Completed [place] tooth 2006 Completed Myringotomy 2000 Completed Oral surgery 1999 Completed Adenoidectomy 1998 Completed Electrocardiogram 10 Comp leted EMG - Electromyography Co mpleted Tonsillectomy Completed 1Negative 2No acute intracranial abnormality 3"normal bx" 4"normal bx" 5Normal Ultrasound left lower quadrant. No evidence for collection or abnormallity by ultrasound criteria 6Impression: Slight bladder wall thickening. Otherwise negative pelvic ultrasound. 7[facility] Radiology Dept. Impression: 1 2.2x2.0x1.3 cm cystic lesion within the right neck with associated mural nodularity. This is concerning fo ra cystic mass on a necrotic lymph node. This is due to infectious or neoplastic process. Ultrasound-guided fine needle aspiration of this lesion is recommended. In addition dedicated thuroid ultrasound should be performed to exclude a suspicious thyroid nldule. 8Left knee 9Left 10Sinus tachycardia, Low voltage QRS, Borderline ECG, When compared w/ ECG of 08/01/20, vent. rate hasincreased by 37bpm. Social History Social History Type Response Smoking Status Never smoked cigaret judit Sex Female Sex Representation Female (finding) Patient Care team information Care Team Personnel Name: DO Brooks Stephanie Marie Position: Physician - Family Med Member Role: Primary Care Provider Address: [address] [place] [address] Telecom: [phone] Name: Cathryn Rollins Keri Position: Pharmacist Member Role: Pharmacy - Lifetime Care Team Related Persons Name: SONYA GALLAGHER Name: SONYA GALLAGHER Insurance Providers Guarantor name: HALI GALLAGHER Health Plan Information #: 1 Payer: [employer] [facility] Member Number: [id number] Policy Number: NA Group Number: NA Health Plan Information #: 2 Payer: [employer] [facility] Member Number: [id number] Policy Number: NA Group Number: NA
--- OUTSIDE RECORDS SUMMARY | 2024-12-15 09:19 | External Medical Summary | Continuity of Care Document ---
Author Name Unknown Organization [facility] [address] [place] [phone] Care Team Providers Care Director Of Sustainable Design Name Role Phone Starla Brooks Primary Care Physician [phone] [id number] Date[facility] 12/02/24 - 12/02/24 [facility] 0 [facility] 207 [facility] [address] [address] [place] [phone] Encounter Diagnosis PCOS (polycystic ovarian syndrome)(Discharge Diagnosis) - 12/03/24 Discharge Disposition: Home or Self Care Attending Physician: MD Potter Christopher Allergies, Adverse Reactions, Alerts Substance Criticality Severity [...] 2COLBALT SILVER CHROME 3Silver, chrome, and cobalt. Assessment and Plan Extracted from: Title:Telephone: Metformin side effects, SSDI Au thor:DO Powell Amanda Date:12/02/24 1.PCOS (polycystic ovarian syndrome) Chronic condition not at goal/exacerbated/progressive/side effects of treatment Goal: _ Data:_ Plan: Hx of noted by pt. Pt previously prescribed metformin by previous provider but has not tried it until after last visit. Did not tolerate. Advised okay to hold off on this for now at least until labwork to see where she is at on labs and until she has more stable housing. She has significant social barriers and concerns. Regarding the SSDI lump sum vs monthly payments, I advised I generally do not send letters regarding this and if she has paperwork for us she can submit it to me to review and we can go from there. Immunizations Given and Recorded Vaccine Date Status Refusal Reason SARS-CoV-2 (COVID-19) mRNA-vacc - [id number] 06/30/24 Recorded SARS-CoV-2 (COVID-19) mRNA-vacc - [id number] 07/17/23 Recorded SARS-CoV-2 mRNA-1273 (6y+ bivalent) 08/02/22 [...] of breath Start Date: 02/05/17 Status: Ordered Augmentin 875 mg-125 mg oral tablet Start: 11/09/24 4:39:00 PM EST, amoxicillin 1 tab, PO, q12h, Disp# 20, Pharmacy: [facility]/pharmacy #[id number] Start Date: 11/09/24 Stop Date: 11/19/24 Status: Ordered baclofen 10 mg oral tablet Start: 02/01/22 4:21:00 PM EDT, 1 tab, PO, qhs, Disp# 12 tab, PRN: pain, Pharmacy: [email or web address] [place] [address] Start Date: 02/01/22 Status: Ordered Boostrix (Tdap vaccine) intramuscular suspension Start: 09/06/24 3:48:00 PM EST, 0.5 mL, IM, ONCE, Disp# 0.5 mL, Pharmacy: [facility]/pharmacy #[id number] Start Date: 09/06/24 Status: Ordered clonazePAM 1 mg oral tablet Start: 09/27/21 5:00:00 PM EST, 1 tab, PO, ONCE, Disp# 1 tab, Please take 1 tablet prior to MRI, Pharmacy: [email or web address] [place] [address] Start Date: 09/27/21 Status: Ordered Colace 100 mg oral capsule Start: 04/16/21 1:54:00 PM EDT, 1 cap, PO, qid, PRN: as needed for constipation Start Date: 04/16/21 Status: Ordered dexamethasone 4 mg/mL injectable solution Start: 10/17/21 11:40:00 AM EST, See Instructions, Disp# 120 mL, Refills: 1, Use 2 mL during iontophoresis for achilles and patella tendons, Pharmacy: [email or web address] Start Date: 10/17/21 Status: Ordered diphenhydrAMINE 25 mg oral tablet Start: 11/09/24 4:41:00 PM EST, 1 tab, PO, tid, Disp# 30 tab, PRN: as needed for allergy symptoms, Pharmacy: [facility]/pharmacy #[id number] Start Date: 11/09/24 Status: Ordered Dulera Start: 09/06/24 2:39:00 PM EST, 50 mg =, bid Start Date: 09/06/24 Status: Ordered famotidine Start: 08/01/19 1:49:00 PM EDT, 20 mg =, PO, Daily, PRN: heartburn Start Date: 08/01/19 Status: Ordered Fleet Enema 7 g-19 g rectal enema Start: 05/24/21 3:30:00 PM EDT, 1 each, UT, As indicated Start Date: 05/24/21 Status: Ordered Flonase Start: 02/05/17 10:00:00 AM EDT, 2 spray, intranasal, PRN: allergy symptoms Start Date: 02/05/17 Status: Ordered glycerin adult rectal suppository Start: 05/24/21 3:30:00 PM EDT, 1 supp, UT, ONCE, PRN: as needed for constipation Start Date: 05/24/21 Status: Ordered KlonoPIN 1 mg oral tablet Start: 03/12/21 8:47:00 AM EDT, See Instructions, Disp# 2 tab, Refills: 0, 1 tab PO 1 hour prior to procedure/MRI; 1 tab 5 min prior to exam as needed., Pharmacy: [email or web address] Start Date: 03/12/21 Status: Ordered lidocaine 5% patch Start: 07/03/21 11:20:00 AM EDT, See Instructions, as needed Start Date: 07/03/21 Status: Ordered Linzess Start: 09/26/17 2:44:00 PM EST, 145 mcg =, PO, Daily Start Date: 09/26/17 Status: Ordered Linzess 72 mcg oral capsule Start: 05/24/21 3:27:00 PM EDT, 1 cap, PO, As indicated Start Date: 05/24/21 Status: Ordered Lyrica 200 mg oral capsule Start: 02/05/17 10:16:00 AM EDT, 1 cap, PO, tid, Disp# 90 cap, Refills: 2 Start Date: 02/05/17 Stop Date: 05/06/17 Status: Ordered MiraLax oral powder for reconstitution Start: 05/24/21 3:29:00 PM EDT, 17 g =, PO, Daily Start Date: 05/24/21 Status: Ordered naproxen 375 mg oral delayed release tablet Start: 11/30/24 12:21:00 PM EST, 1 tab, PO, bid, Disp# 14 tab, Refills: 0, Note to Pharmacy: Patient lost last refill bottle, please allow refill., PRN: as needed for inflammation, Pharmacy: [facility]/pharmacy #[id number] Start Date: 11/30/24 Stop Date: 12/07/24 Status: Ordered omeprazole 20 mg oral delayed release capsule Start: 03/20/18 2:11:00 PM EDT, 1 cap, PO, bid Start Date: 03/20/18 Status: Ordered Pulmicort Flexhaler Start: 07/12/21 3:09:00 PM EDT Start Date: 07/12/21 Status: Ordered simethicone 125 mg oral tablet, chewable Start: 05/24/21 3:30:00 PM EDT, 1 tab, PO, pc and hs Start Date: 05/24/21 Status: Ordered spironolactone 100 mg oral tablet Start: 04/16/21 1:54:00 PM EDT, 1 tab, PO, Daily Start Date: 04/16/21 Status: Ordered Vitamin B Complex Start: 11/09/24 2:37:00 PM EST Start Date: 11/09/24 Status: Ordered Vitamin D3 Start: 09/26/17 2:44:00 PM EST, PO Start Date: 09/26/17 Status: Ordered Voltaren 1% topical gel Start: 06/15/19 4:00:00 PM EDT, 1 appl, topical, qid, Disp# 100 g, Refills: 2, Pharmacy: [facility] [address] Start Date: 06/15/19 Status: Ordered Zofran 8 mg oral tablet Start: 04/16/21 1:58:00 PM EDT, 1 tab, PO, tid, PRN: as needed for nausea/vomiting Start Date: 04/16/21 Status: Ordered Problem List Condition Confirmation Course Effective Dates [...] Dates Health Status Cl inical Service Informant PCOS (polycystic ovarian syndrome) Discharge Diagnosis 12/03/24 Non-Specified Procedures Procedure Date Related Diagnosis Body [...] 9 03/27/09 Completed Left knee 01/28/08 Completed [place] tooth 2007 Completed Myringotomy 2000 Completed Oral surgery 1999 Completed Adenoidectomy 1998 Completed Electrocardiogram 10 Comp leted EMG - Electromyography Co mpleted Tonsillectomy Completed 1Negative 2No acute intracranial abnormality 3"normal bx" 4"normal bx" 5Normal Ultrasound left lower quadrant. No evidence for collection or abnormallity by ultrasound criteria 6Impression: Slight bladder wall thickening. Otherwise negative pelvic ultrasound. 7[facility] Radiology Dept. Impression: 1 2.2x2.0x1.3 cm [...] judit Sex Female Sex Representation Female (finding) FCM Outpt Note * DO Powell Amanda: PERFORM DO León Jona M: MODIFY Event Display: FCM Outpt Note Authored Date: TeleHealth Visit Note I have confirmed the patients name and date of . The patient has consented to this service,and I have advised the patient that this is a billable visit for which they may be subject to a copay. The patient initiated this visit after they were informed of the availability of TeleHealth for this medically necessary visit. I am located at my office. This visit was conducted via telephone, and was not related to a visit or procedure that occurred within the past 7 days, due to no internet connection availability. TOTAL TIME SPENT COMMUNICATING WITH THE PATIENT, IN MINUTES: 28minutes (withresident) History of Present Illness Pt is a 34 yo female who presents via telephone today given weather restricting office visit and poor internet connection limiting availability for telehealth. #PCOS - pt previously prescribed metformin 500 mg dosing to try which we discussed initiating at last office visit - she states she did start this but that it caused constipation for her instead of diarrhea - she states she typically have Linzess 72.5 mcg and 145 mcg dosing and rarely needs to use the 145mcg dosing but did need to increase as she was very constipated - also notes she usually takes miralax1/2 of the 17 g cap daily and went up to 1 1/2 capfuls withno relief - she states she stopped the metformin 2 days ago and has been feeling better since - does admit her living situation has been complicated and she has not been hydrating as well lately which may be contributing so she may re-trial this medication in the future - did mention ozempic butnotes she heard these typically slow down the GI tract and fears that may make things worse for her and she has significant PTSD around injections #Social security disability - she states she gets SSDI currently as monthly payments - she states she has a meeting tomorrow 12/03 for discussion of changing that to lump sum payments - she notes that she often has trouble spending the money she gets but knows if she does not use itshe will be penalized for not using all of it - she states that they may request something from us on the matter for clearance for her to get thepayments as lump sum Review of Systems Per HPI. Physical Exam General: Pleasant over the phone today, no apparent distress noted Assessment/Plan 1.PCOS (polycystic ovarian syndrome) Chronic condition not at goal/exacerbated/progressive/side effects of treatment Goal: _ Data:_ Plan: Hx of noted by pt. Pt previously prescribed metformin by previous provider but has not tried it until after last visit. Did not tolerate. Advised okay to hold off on this for now at least untillabwork to see where she is at on labs and until she has more stable housing. She has significant social barriers and concerns. Regarding the SSDI lump sum vs monthly payments, I advised I generally do not send letters regarding this and if she has paperwork for us she can submit it to me to review and we can go from there. Attestation Pt case and ruiz portions of patient symptoms and counseling reviewed in detail with regardingdirectand indirectsupervision oftelehealth encounter. Recommendations provided inconcert with resident physician includingspoke to patient and reviewed plan myself. Encouraged close follow up and obtaining labs when able. Problem List/Past Medical History Ongoing Acute low back pain Allergic contact dermatitis due to metals Anxiety Asthma Back pain Bilateral ankle pain Bilateral knee pain Coccygodynia CRPS (complex regional pain syndrome type I) Depression Fibromyalgia Gastritis Heart burn Hiatal hernia Kidney stones Klippel-trenaunay syndrome Lumbar radiculopathy Nontraumatic tear of right tibialis posterior tendon Numbness OCD (obsessive compulsive disorder) Pain in right knee Right shoulder pain Sleep apnea Tarsal tunnel syndrome, left lower limb Tibial fracture Weakness Weight disorder Procedure/Surgical History MR angiography of brain and neck without contrast| Service Date: 07/25/2024 angiography of neck vessels with contrast| Service Date: 07/25/2024T angiography of head with contrast| ServiceDate: 07/20/2024Upper GI (gastrointestinal) endoscopy| Service Date: 08/05/2019Colonoscopy| Service Date: 12/23/2018US EXAM PELVIC COMPLETE| Service Date: 05/09/2017Ultrasound scan abdomen limited| Service Date: 05/09/2017Biopsy,egd biopsy cytology| Service Date: 12/16/2016Ultrasound- neck| Service Date: 06/07/2016Arthroscopy| Service Date: 03/05/2012Tibia| Service Date: 03/27/2009Left knee| Service Date: 01/28/2008[place] tooth| Service Date: 2006Myringotomy| Service Date: 2000Oral surgery| Service Date: 1999Adenoidectomy| Service Date: 1998TonsillectomyEMG - ElectromyographyElectrocardiogram Medications albuterol(albuterol CFC free 90 mcg/inh MDI), 2 puff, inhaled, PRN amoxicillin-clavulanate(Augmentin 875 mg-125 mg oral tablet), 1 tab, PO, q12h baclofen(baclofen 10 mg oral tablet), 10 mg= 1 tab, PO, qhs, PRN budesonide(Pulmicort Flexhaler) cholecalciferol(Vitamin D3), PO clonazePAM(clonazePAM 1 mg oral tablet), 1 mg= 1 tab, PO, ONCE clonazePAM(KlonoPIN 1 mg oral tablet), See Instructions dexamethasone(dexamethasone 4 mg/mL injectable solution), See Instructions, 1 refills diclofenac topical(Voltaren 1% topical gel), 1 appl, topical, qid, 2 refills diphenhydrAMINE(diphenhydrAMINE 25 mg oral tablet), 25 mg= 1 tab, PO, tid, PRN docusate(Colace 100 mg oral capsule), 100 mg= 1 cap, PO, qid, PRN famotidine, 20 mg, PO, Daily, PRN fluticasone nasal(Flonase), 2 spray, intranasal, PRN formoterol-mometasone(Dulera), 50 mg, bid glycerin(glycerin adult rectal suppository), 1 supp, UT, ONCE, PRN lidocaine topical(lidocaine 5% patch), See Instructions linaclotide(Linzess 72 mcg oral capsule), 72 mcg= 1 cap, PO, As indicated linaclotide(Linzess), 145 mcg, PO, Daily multivitamin(Vitamin B Complex) naproxen(naproxen 375 mg oral delayed release tablet), 375 mg= 1 tab, PO, bid, PRN omeprazole(omeprazole 20 mg oral delayed release capsule), 20 mg= 1 cap, PO, bid ondansetron(Zofran 8 mg oral tablet), 8 mg= 1 tab, PO, tid, PRN polyethylene glycol 3350(MiraLax oral powder for reconstitution), 17 g, PO, Daily pregabalin(Lyrica 200 mg oral capsule), 200 mg= 1 cap, PO, tid, 2 refills simethicone(simethicone 125 mg oral tablet, chewable), 125 mg= 1 tab, PO, pc and hs sodium biphosphate-sodium phosphate(Fleet Enema 7 g-19 g rectal enema), 1 each, UT, As indicated spironolactone(spironolactone 100 mg oral tablet), 100 mg= 1 tab, PO, Daily tetanus/diphth/pertuss (Tdap) adult/adol(Boostrix (Tdap vaccine) intramuscular suspension), 0.5 mL,IM, ONCE Allergies Adhesive bandageRash Allergy Not found in Searchhives/rash DepakoteAnaphylaxis HaldolUnknown reaction Luvoxhives/rash Nickel PROzachives/rash Reglanincreased anxiety Vicodin Wellbutrin XLhives/rash Zolofthives/rash ZyPREXARespiratory distress contrast media (iodine-based)rash Social History Smoking Status Never smoked cigarettes Alcohol - Denies Alcohol Use Exercise - Occasional exercise Tobacco - Denies Tobacco Use Use:Never smoker Family History Family history is unknown Immunizations Vaccine Date Status SARS-CoV-2 (COVID-19) mRNA-vacc - [id number] 06/30/2024 Recorded SARS-CoV-2 (COVID-19) mRNA-vacc - [id number] 07/17/2023 Recorded SARS-CoV-2 mRNA-1273 (6y+ bivalent) 08/02/2022 Recorded SARS-CoV-2 (COVID-19) mRNA-1273 vaccine 04/19/2022 Recorded SARS-CoV-2 (COVID-19) mRNA BNT-162b2 vax 09/22/2021 Recorded SARS-CoV-2 (COVID-19) mRNA-1273 vaccine 12/20/2020 Recorded SARS-CoV-2 (COVID-19) mRNA BNT-162b2 vax 11/29/2020 Recorded pneumococcal 23-valent vaccine 02/28/2017 Recorded tetanus/diphtheria/pertuss, acel (Tdap) 07/02/2013 Recorded yellow fever vaccine 11/27/2009 Recorded Hepatitis A Vaccine Unspecified 10/31/2009 Recorded Hepatitis A Vaccine Unspecified 01/08/2006 Recorded hepatitis B pediatric vaccine 11/07/2005 Recorded hepatitis B pediatric vaccine 06/04/2005 Recorded Meningococcal Vaccine Unspecified 04/03/2005 Recorded Hepatitis B Vaccine Unspecified 04/01/2005 Recorded tetanus toxoids-diphtheria, Td (Adult) 06/02/2003 Recorded measles/mumps/rubella virus vaccine 09/25/1999 Recorded poliovirus vaccine, inactivated 06/18/1993 Recorded (DTAP) Vaccine Unspecified 06/18/1993 Recorded haemophilus b Vaccine Unspecified 10/08/1989 Recorded (DTAP) Vaccine Unspecified 09/08/1989 Recorded poliovirus vaccine, live, trivalent 09/08/1989 Recorded measles/mumps/rubella virus vaccine 05/19/1989 Recorded poliovirus vaccine, live, trivalent 1988 Recorded diphtheria/tetanus/pertuss, acel (DTaP) 1988 Recorded poliovirus vaccine, live, trivalent 1988 Recorded diphtheria/pertussis, whole cell/tetanus 1988 Recorded poliovirus vaccine, live, trivalent 1988 Recorded diphtheria/tetanus/pertuss, acel (DTaP) 1988 Recorded poliovirus vaccine, live, trivalent 1988 Recorded diphtheria/pertussis, whole cell/tetanus 1988 Recorded Recommendations Health Maintenance Pending(in the next year) OverDue Adult Influenza Vaccine due04/26/24and every 1year Due Adult Folic Acid Supplementation due12/03/24and every 3year Adult Social Determinants of Health Screening due12/03/24Unknown Frequency Adult Tdap/Td Vaccine due12/03/24Unknown Frequency Cervical Cancer Screening due12/03/24Unknown Frequency Hepatitis C Screening due12/03/24One-time only Lipid Screening due12/03/24Unknown Frequency Pneumococcal Vaccine Adults and Adolescents with Chronic Illness due12/03/24One-time only Due In Future Body Mass Index not due until09/07/25and every 366day Satisfied(in the past 1 year) Satisfied Adult COVID-19 Vaccination on06/30/24.Satisfied by DO Brooks Stephanie Marie Body Mass Index on09/06/24.Satisfied by MAURICE Emery Kathryn Depression Follow Up Plan on09/22/24.Satisfied by MAURICE Emery Kathryn Electronic Signature on File Electronically Reviewed/Signed by: Irina Powell DO Author Signature Dt/Tm:12/03/2024 04:28 PM Resident Department of Family Medicine Electronically Reviewed/Signed by: Edy León DO Cosigner Signature Dt/Tm: 12/04/2024 06:24 PM Department of Family Medicine AB Patient Care team information Care Team Personnel Name: DO Brooks Stephanie Marie Position: Physician - Family Med Member Role: Primary Care Provider Address: [address] [place] [phone] [place] Name: Cathryn Rollins Keri Position: Pharmacist Member Role: Pharmacy - Lifetime Care Team Related Persons Name: SONYA GALLAGHER Name: SONYA GALLAGHER
--- OUTSIDE RECORDS SUMMARY | 2024-12-15 09:19 | External Medical Summary | Summary of Care ---
Author Name Unknown Organization [facility] Address [address] [facility] [address] Phone [phone] Support Name Relationship Address Phone Katja King Unrelated friend [address] [place] [address] Elvis Mon Father [address] [facility] [facility] [address] Francoise O'Mea Unrelated friend [address] [place] [address] Destiny Barger Unrelated friend [address] [place] [address] Care Team Providers Care Chronometer Tester Name Role Phone Unavailable Primary Care Provider Unavailabl e Reason for Visit * Reason Onset Date Comments Appointment 12/03/2024 Encounter Details Date Type Department Care Team (Late st Contact Info) Description 12/03/2024 Telephone Gastroenterology, [facility] [address] [place] [address] Monet Kelly CRNP [address] [place] [address] Appointment Allergies Active Allergy Reactions Criticality Noted Date Comments Aluminum 05/13/2013 Lubiprostone Nausea/vomiting 06/03/2024 Chrome Alum 05/13/2013 [place] 05/13/2013 Valproic Acid Anaphylaxis High 05/16/2020 Gold-Containing Drug Products 05/27/2022 Haloperidol 08/03/2020 Tardive dyskinesia Hydrocodone 09/06/2023 vomiting Iodinated Contrast Media 05/21/2016 "Tongue felt swollen, arm went numb"" Fluvoxamine 08/08/2005 cold sores Nickel 05/13/2013 Other Allergy (See Comments) Anaphylaxis High 06/10/2017 MRI contrast Fluoxetine Hcl 08/08/2005 hives Metoclopramide Hcl 04/13/2018 Anxiety Silver 05/13/2013 Adhesive Tape Other (Please comment) 01/28/2017 Localized contact dermatitis Bupropion Hcl Hives 05/21/2016 Sertraline Hcl Hives 05/21/2016 Olanzapine High 11/03/2023 documented as of this encounter (statuses as of 12/03/2024) Medications Simethicone 125 MG CAPSIndications:LPR D (laryngopharyngeal reflux disease),Gastroesop hageal reflux disease, esophagitis presence not specified Take 125 mg by mouth three times a day before meals. 90 Cap 1 04/13/20 18 Active Nebulizers (COMPRESSOR/NEBULIZ ER) [facility] Please dispense with cannister, mouthpiece and tubing. Dx: J45.20, indefinite use 1 Each 04/05/20 20 Active Docusate Sodium 100 MG Oral Capsule Take 1 Capsule by mouth in the morning and 1 Capsule before bedtime. Takes 2 pills twice daily. Active Polyethylene Glycol 3350 17 GM Oral Packet (MiraLax) Take 1 Packet by mouth daily. 100 Each 2 03/19/20 21 Active Albuterol Sulfate HFA 108 (90 Base) MCG/ACT Inhalation Aerosol SolutionIndications :Mild intermittent asthma with exacerbation Inhale 2 Puffs by mouth every 4 hours as needed for Wheezing. 54 g 1 02/14/20 23 Active Compressor NebulizerIndication s:Intermittent asthma with reliever use up to twice per week Inhale via nebulizer. Use as directed.Dispen se with tubing, cannister and mouthpiece for indefinite use Dx J45.20 1 Each 1 02/18/20 23 Active Lidocaine 5 % External Patch (Lidoderm)Indicatio ns:Knee pain, unspecified chronicity, unspecified laterality Place 1 Patch topically on the skin daily. Remove after 12 hours and wait 12 hours before applying next patch. As needed for knee pain. 14 Patch 5 02/04/20 24 Active Ondansetron 4 MG Oral Tablet Disintegrating (Zofran)Indications :Nausea dissolve 1 tablet ON TONGUE DAILY 20 Tablet 1 02/04/20 24 Active diphenhydrAMINE HCl 25 MG Oral Capsule (Benadryl Allergy)Indications :Allergic rhinitis due to animal hair and dander Take 1 Capsule by mouth every 6 hours as needed for Other (Tardive dyskinesia). 120 Capsule 03/30/20 24 Active Additional Information Patient taking differently:25 mg OralBID (.AM/PM), Reported on 08/26/2024 clonazePAM 1 MG Oral Tablet (KlonoPIN) Take 1 Tablet by mouth 2 times a day as needed for Anxiety. 60 Tablet 04/27/20 24 Active Additional Information Patient not taking.Reported on 08/26/2024 Potassium 99 MG Oral Tablet Take 1 Tablet by mouth in the morning. Active Albuterol Sulfate HFA 108 (90 Base) MCG/ACT Inhalation Aerosol Solution Inhale 2 Puffs by mouth every 4 hours as needed for Wheezing, Cough or Shortness of Breath. 3 to 5 minutes apart. 18 g 3 07/06/20 24 Active Fluticasone Propionate 50 MCG/ACT Nasal Suspension (Flonase)Indication s:Allergic rhinitis due to animal hair and dander Administer 2 Sprays into each nostril in the morning. 48 g 5 07/06/20 24 Active Additional Information Patient taking differently:2 [place] Each Nostril Daily(AM),As needed, Reported on 08/26/2024 Levocetirizine Dihydrochloride 5 MG Oral Tablet (Xyzal Allergy 24HR) Take 1 Tablet by mouth every evening. 90 Tablet 3 07/06/20 24 Active Additional Information Patient not taking.Reported on 08/26/2024 Albuterol Sulfate (2.5 MG/3ML) 0.083% Inhalation Nebulization Solution (Proventil)Indicati ons:Moderate persistent asthma with exacerbation Inhale 1 Vial via nebulizer every 4 hours as needed for Wheezing. 300 mL 5 07/06/20 24 Active Dulera 100-5 MCG/ACT Inhalation Aerosol (Mometasone-Formote rol)Indications:Mod erate persistent asthma with exacerbation Inhale 2 Puffs by mouth in the morning and 2 Puffs before bedtime. 13 g 6 07/06/20 24 Active Additional Information Patient taking differently:2 Puff Inhalation BID (.AM/PM),As needed, Reported on 08/26/2024 Linzess 72 MCG Oral Capsule (linaCLOtide)Indica tions:Irritable bowel syndrome with constipation Take 1 capsule by mouth every morning before breakfast 90 Capsule 3 07/09/20 24 Active Linzess 145 MCG Oral Capsule (linaCLOtide)Indica tions:Irritable bowel syndrome with constipation Take 1 Capsule by mouth daily before breakfast. 90 Capsule 3 07/09/20 24 Active Famotidine 20 MG Oral Tablet (Pepcid)Indications :Gastroesophageal reflux disease, unspecified whether esophagitis present Take 1 Tablet by mouth at bedtime. 90 Tablet 3 07/09/20 24 Active Omeprazole 20 MG Oral Capsule Delayed Release (PriLOSEC)Indicatio ns:Gastroesophageal reflux disease with esophagitis Take 1 Capsule by mouth in the morning and 1 Capsule before bedtime. 60 Capsule 5 07/09/20 24 Active clonazePAM 0.5 MG Oral Tablet (KlonoPIN) Take 1 Tablet by mouth in the morning and 1 Tablet at noon and 1 Tablet in the evening and 1 Tablet before bedtime. 07/23/20 24 Active Spironolactone 50 MG Oral Tablet (Aldactone)Indicati ons:Dermatitis take 2 tablets by mouth daily 60 Tablet 09/17/20 24 Active Lyrica 200 MG Oral CapsuleIndications: Fibromyalgia Take 1 Capsule by mouth in the morning and 1 Capsule at noon and 1 Capsule before bedtime. 90 Capsule 5 11/11/19 25 Active documented as of this encounter (statuses as of 12/03/2024) Active Problems Problem Noted Date Diagnosed Date Rectal pain, chronic 08/20/2023 Iron deficiency anemia 08/18/2023 Vitamin D deficiency 07/14/2023 Low folic acid 07/14/2023 Low zinc level 07/14/2023 Vitamin A deficiency 07/14/2023 Low serum IgG for age 1210/07/2022 Ambulatory dysfunction 03/29/2022 Wheelchair dependent 03/29/2022 Food insecurity 06/04/2021 Overview: Per [facility] Protocol Posterior tibial tendon dysf unction (PTTD) of both lower extremities 03/14/2021 Overview (03/14/2021): High-grade split tear on R. Dr. Mckeon at [place] offered surgery, would need do allergy testing for hardware. Tardive dyskinesia 08/03/2020 Sacroiliac pain 11/08/2019 Greater trochanteric bursitis of right hip 11/01 Somatic symptom disorder 09/30/2019 Panic attacks 09/07/2019 Well adult exam 08/31/2019 Overview (01/09/2021): Hx multiple psych hospitalizations. 04/15 [facility] clonazepam overdose. 2017 [place] x2. 08/14 [facility]. 2015 hospital. 01/14 normal small bowel follow through [facility] 2016 outpatient [facility] psych clinic intermittent attendance, 04/2019 started but did not complete intake. Discharged from [place]. Dr Villafana declined. Consider CenClear 2018 CAPS in fall, intermittent. Therapy in past [facility], Dr Gonzalez, Dr Villafana? Urge incontinence of urine 07/30/2019 Irritable bowel syndrome with constipation 01/28 Moderate episode of recurrent major depressive d isorder 01/28/2019 Borderline personality disorder 01/28/2019 Migraine without aura and wi thout status migrainosus, not intractable 01/26/2019 GERD (gastroesophageal reflux disease) 8 KETAN (generalized anxiety disorder) 04/17/2017 Intermittent asthma with reliever use up to twic e per week 01/28/2017 Eczema 01/28/2017 Non-seasonal allergic rhinit is due to animal hair and dander 01/28/2017 Fibromyalgia 08/21/2016 Xwoaboi-Zpyjhdwym-Qcxzo syndrome Lumbar disc disease OCD (obsessive compulsive disorder) documented as of this encounter (statuses as of 12/03/2024) Resolved Problems Problem Noted Date Diagnosed Date Resolved Date Major depressive disorder, r ecurrent severe without psychotic features 08/06/2023 09/07/2023 Iron deficiency 07/14/2023 09/07/2023 Weight gain 04/07/2023 09/07/2023 Fever 02/13/2023 09/07/2023 Iron deficiency anemia 02/24/201908/20 Depression with anxiety 04/17/2017 04/0 01/2019 Selective deficiency of IgG 01/28/2017 10/07/2022 Recurrent infections 01/28/2017 019 Allergic rhinitis due to dust mite 01/28/2017 09/07/2023 Keratitis sicca, bilateral 05/21/2016 0 12/06/2022 ADVANCE DIRECTIVE INFORMATION 08/08/2005 01/28/2019 Overview (08/08/2005): Not applicable (under age of 18) Asthma 04/20/2019 LPRD (laryngopharyngeal reflux disease) 09/07/2023 Never smoked any substance 1 documented as of this encounter (statuses as of 12/03/2024) Immunizations Name Administration Dates Next Due COVID-19 mRNA, LNP-s, No Pre serve, 2-Dose Series (Moderna) 12/20/2020,11/29/2020 COVID-19, LNP-s, No Preserve , Ángel-sucrose, Ages 12+ (Zannel) 09/22/2021 COVID-19, MRNA-LNP, PF, 50 M CG/0.5 mL, 12 YRS AND ABOVE, IM (MODERNA-Spikevax) 07/17/2023 COVID-19, mRNA, LNP-s, PF, B ooster, 100mcg/0.5mg (Moderna) 04/19/2022 Covid-19, Mrna, Lnp-s, Pf, B ivalent, 50 Mcg, IM, 12 yrs and above (Moderna) 08/02/2022 DTaP Dipth/Tet/Acell Pertussis (Infanrix), Peds 06/18/1993,09/08/1989,1988,07/19,1988 HIB PRP-OMP, 3 dose (Pedvax) 10/08/1989 Hepatitis A Vaccine 10/31/2009 Hepatitis A, Ped/Adol., 18 y ear and below, 2-Dose 10/31/2009,01/08/2006 Hepatitis B, 0-19 yrs 11/07/2005,06/04/2005,03/2005 MMR - Measles/Mumps/Rubella Vaccine 09/25/1999,0 05/19/1989 Meningococcal Conjugate Vacc ine (Menactra/Menveo) 04/03/2005 OPV - Polio Virus Vaccine (Oral) 993,09/08/1989,1988,07/19,1988 PPD 07/05/2011 Pneumococcal Polysaccharide PPV23 (Pneumovax) 02/28/2017 TD - Tetanus/Diptheria (ADULT) 06/02/2003 TDAP, Age 7 and older, IM (Adacel) 07/02/2013, Typhoid Vaccine Oral (Vivotif) 08/24/2014 Yellow Fever Vaccine, Live (YF-Vax) 11/27/2009 documented as of this encounter Social History Tobacco Use Types Packs/Day Years Used Date Smoking Tobacco: Never Smokeless Tobacco: Never Comments:no passive smoke Alcohol Use Standard Drinks/Week Comments Not Currently 0 (1 standard drink = 0.6 oz pur e alcohol) occasionally PHQ-2 Answer Date Recorded PHQ Adult Total Score 5 03/12/2021 Hunger Vital Sign Answer Date Recorded Within the past 12 months, y ou worried that your food would run out before you got the money to buy more. Sometimes true Within the past 12 months, t he food you bought just didn't last and you didn't have money to get more. Sometimes true Utilities Answer Date Recorded Do you have trouble paying y our heating, water, or electric bill? (Adult - for ages 18 years and over) Not on file 04/13/2024 Is your family able to pay t he heat, water, or electric bill? (Household - for ages 0-17 years) Not on file 04/13/2024 Does your family have access to good internet? (Household - for ages 0-17 years) Not on file 04/13/2024 Social Connections Answer Date Recorded How often do you feel lonely or isolated from those around you? (Adult - for ages 18 years and over) Not on file 04/13/2024 Comments No Sex and Gender Information Value Date Recorded Sex Assigned at Female 05/18/2019 1:19 PM EDT Legal Sex Female 6:12 AM EST Gender Identity Female 05/18/2019 1:19 PM EDT Sexual Orientation Straight 05/18/2019 1: 19 PM EDT Occupation Industry Job Start Date Job End Date unemployed Not on file Not on file Not on file [employer] grad Not on file Not on file Not on file documented as of this encounter Miscellaneous Notes * Telephone Encounter - Monet Kelly CRNP - 12/03/2024 3:48 PM EST I think it's best that she's seen by a physician given her history of dismissal and refusal to see Lorella who is an AP. EDWARDO Agee * Telephone Encounter - Monet Varela OSA - 12/03/2024 3:32 PM EST Call center calling into the dept after pt received call from the recall list for pt [facility] Lorella. Pt is refusing to see Lorella to the appt would you be willing to review and see the pt. Pt has been dismissed from several depts and she not suppose to see G. So I told the call center I would discuss with you and then I would call the pt. Would you be willing to see the pt and if so when do you want to see her? documented in this encounter Plan of Treatment Upcoming Encounters Date Type Department Care Team (Late st Contact Info) Description 03/01/2025 3:00 PM EDT Office Visit Cardiology, [facility] [address] [place] [address] Yuliet Egan PA-C [address] [place] [address] 07/13/2025 1:00 PM EDT Office Visit Rheumatology [facility] [address] [place] [phone] Jamil Oneal MD [address] [facility] [place] [address] Health Maintenance Due Date Last Done Comments HPV/Co-Test 02/28/2018 Pneumococcal Vaccine: Pediatrics (0 to 5 Years) and At-Risk Patients (6 to 18 Years and 19+ Years) (2 of 2 - PCV) 02/28/2018 02/28/2017 Depression Monitoring 03/12/2022 03/12/2021 DTap/Tdap Vaccines (8 - Td or Tdap) 07/02/2023 07/02/2013, 06/02/2003, 06/02/2003, Additional history exists Cervical Cancer Screening 05/10/2024 Pap Smear 05/10/2024 05/10/2021, 08/29/2017 COVID-19 Vaccine ( season) 2024 07/17/2023, 08/02/2022, 04/19/2022, Additional history exists Influenza Vaccine (FLU shot) (#1) 2024 Diabetes Screening 06/04/2027 06/04/2024, 1 11/03/2022, 07/03/2023, Additional history exists MENINGOCOCCAL (MENACTRA/MENVEO) Completed 04/03/2005 Hepatitis B Vaccine Completed 11/07/2005, 06/04/2005, 04/01/2005 HPV (Gardasil) Vaccine Aged Out No lo nger eligible based on patient's age to complete this topic documented as of this encounter Medical Devices Not on filedocumented as of this encounter
--- OUTSIDE RECORDS SUMMARY | 2024-12-15 09:19 | External Medical Summary | Summary of Care ---
Author Name Unknown Organization [facility] Address [address] [facility] [address] Phone [phone] Support Name Relationship Address Phone Katja King Unrelated friend [address] [place] [address] Elvis Mon Father [address] [address] Francoise O'Mea Unrelated friend [address] [place] [address] Destiny Barger Unrelated friend [address] [place] [address] Care Team Providers Care Documentation Designer Name Role Phone Unavailable Primary Care Provider Unavailabl e Reason for Visit * Reason Onset Date Comments Appointment 12/03/2024 Encounter Details Date Type Department Care Team (Late st Contact Info) Description 12/03/2024 Telephone Gastroenterology, [facility] [address] [place] [address] Monet Kelly CRNP [address] [place] [address] Appointment Allergies Active Allergy Reactions Criticality Noted Date Comments Aluminum 05/13/2013 Lubiprostone Nausea/vomiting 06/03/2024 Chrome Alum 05/13/2013 [place] 05/13/2013 Valproic Acid Anaphylaxis High 05/16/2020 Gold-Containing [...] as of this encounter (statuses as of 12/08/2024) Medications Simethicone 125 MG CAPSIndications:LPR D (laryngopharyngeal reflux disease),Gastroesop hageal reflux disease, esophagitis presence not specified Take 125 mg by mouth three times a day before meals. 90 Cap 1 04/13/20 18 Active Nebulizers (COMPRESSOR/NEBULIZ ER) [facility] Please dispense with cannister, mouthpiece [...] 24 Active Additional Information Patient taking differently:2 [place] Each Nostril Daily(AM),As needed, Reported on 08/26/2024 [...] as of this encounter (statuses as of 12/08/2024) Active Problems Problem Noted Date Diagnosed Date [...] split tear on R. Dr. Mckeon at [place] offered surgery, would need do allergy testing for hardware. Tardive dyskinesia 08/03/2020 Sacroiliac pain 11/08/2019 Greater trochanteric bursitis of right hip 11/01 Somatic symptom disorder 09/30/2019 Panic attacks 09/07/2019 Well adult exam 08/31/2019 Overview (01/09/2021): Hx multiple psych hospitalizations. 04/15 [facility] clonazepam overdose. 2017 [place] x2. 08/14 [facility]. 2015 hospital. 01/14 normal small bowel follow through [facility] 2016 outpatient [facility] psych clinic intermittent attendance, 04/2019 started but did not complete intake. Discharged from [place]. Dr Villafana declined. Consider CenClear 2018 CAPS [...] animal hair and dander 01/28/2017 Fibromyalgia 08/21/2016 Nnrmrll-Udujtivrh-Rilim syndrome Lumbar disc disease OCD (obsessive compulsive disorder) documented as of this encounter (statuses as of 12/08/2024) Resolved Problems Problem Noted Date Diagnosed Date [...] as of this encounter (statuses as of 12/08/2024) Immunizations Name Administration Dates Next Due COVID-19 mRNA, LNP-s, No Pre serve, 2-Dose Series (Moderna) 12/20/2020,11/29/2020 COVID-19, LNP-s, No Preserve , Ángel-sucrose, Ages 12+ (MyForce) 09/22/2021 COVID-19, MRNA-LNP, PF, 50 M CG/0.5 [...] file Not on file Not on file [employer] grad Not on file Not on file Not on file documented as of this encounter Miscellaneous Notes * Telephone Encounter - Monet Varela, SIMEON - 12/08/2024 10:56 AM EST Jc from [facility] called to reschedule the pt with one of the docs. She is suppose to call pt this afternoon * Telephone Encounter - Monet Kelly CRNP - 12/03/2024 3:48 PM EST I think it's best that she's seen by a physician given her history of dismissal and refusal to see Lorella who is an AP. Monet Naik EDWARDO Kelly * Telephone Encounter - Monet Varela OSA - 12/03/2024 3:32 PM EST Call center calling into the dept after pt received call from the recall list for pt to scheule with [facility]. Pt is refusing to see Lorella to [...] Care Team (Late st Contact Info) Description 12/27/2024 2:00 PM EST Telemedicine Gastroenterology, [facility] [address] [place] [address] Yocasta Henriquez CRNP [address] [place] [address] 03/01/2025 3:00 PM EDT Office Visit Cardiology, [facility] [address] [place] [address] Yuliet Egan PA-C [address] [place], [place] [address] [address] 07/13/2025 1:00 PM EDT Office Visit Rheumatology [facility] [address] [place] [phone] Jamil Oneal MD [address] [facility] [place], [place] [address] Health Maintenance Due Date Last Done Comments [...]
--- OUTSIDE RECORDS SUMMARY | 2024-12-15 09:19 | External Medical Summary | Summary of Care ---
Author Name Unknown Organization [facility] Address [address] [facility] [address] Phone [phone] Support Name Relationship Address Phone Katja King Unrelated friend [address] [place] [address] Elvis Mon Father [address] [facility] [address] Francoise O'Mea Unrelated friend [address] [place] [address] Destiny Barger Unrelated friend [address] [place] [address] Care Team Providers Care Management Lecturer Name Role Phone Unavailable Primary Care Provider Unavailabl e Reason for Visit * Reason Onset Date Comments Appointment 12/03/2024 Encounter Details Date Type Department Care Team (Late st Contact Info) Description 12/03/2024 Telephone Gastroenterology, [facility] [address] [place] [address] Monet Kelly CRNP [address] [place] [address] Appointment Allergies Active Allergy Reactions Criticality Noted Date Comments Aluminum 05/13/2013 Lubiprostone Nausea/vomiting 06/03/2024 Chrome Alum 05/13/2013 [place] 05/13/2013 Valproic Acid Anaphylaxis High 05/16/2020 Gold-Containing [...] 1 04/13/20 18 Active Nebulizers (COMPRESSOR/NEBULIZ ER) [facility] Please dispense with cannister, mouthpiece and tubing. [...] 24 Active Additional Information Patient taking differently:2 [place] Each Nostril Daily(AM),As needed, Reported on 08/26/2024 [...] split tear on R. Dr. Mckeon at [place] offered surgery, would need do allergy testing for hardware. Tardive dyskinesia 08/03/2020 Sacroiliac pain 11/08/2019 Greater trochanteric bursitis of right hip 11/01 Somatic symptom disorder 09/30/2019 Panic attacks 09/07/2019 Well adult exam 08/31/2019 Overview (01/09/2021): Hx multiple psych hospitalizations. 04/15 [facility] clonazepam overdose. 2017 [place] x2. 08/14 [facility]. 2015 hospital. 01/14 normal small bowel follow through [facility] 2016 outpatient [facility] psych clinic intermittent attendance, 04/2019 started but did not complete intake. Discharged from [place]. Dr Villafana declined. Consider CenClear 2018 CAPS [...] animal hair and dander 01/28/2017 Fibromyalgia 08/21/2016 Bnmfmlx-Iwyczycbw-Wsoii syndrome Lumbar disc disease OCD (obsessive compulsive [...] LNP-s, No Preserve , Ángel-sucrose, Ages 12+ ([employer] (MCG)) 09/22/2021 COVID-19, MRNA-LNP, PF, 50 M CG/0.5 [...] file Not on file Not on file [employer] grad Not on file Not on [...] [facility]. Pt is refusing to see [...] 03/01/2025 3:00 PM EDT Office Visit Cardiology, [facility] [address] [place] [address] Yuliet Egan PA-C [address] [place] [address] 07/13/2025 1:00 PM EDT Office Visit Rheumatology [facility] [address] [place] [phone] Jamil Oneal MD [address] [facility] [place] [address] Health Maintenance Due Date Last Done Comments [...]
[2024-12-15] MEDS: diphenhydrAMINE 50 MG/ML VIAL IV STA (09:29)
--- NOTE | 2024-12-15 10:09 | CT Scan Report ---
ABDOMEN AND PELVIS CT WITHOUT CONTRAST CT DOSE: 1437.03 mGy.cm HISTORY: abdominal pain TECHNIQUE: Multiaxial CT images of the abdomen and pelvis were performed without contrast. Sagittal and coronal reconstructions were done. A dose lowering technique was utilized adhering to the princip les of MARY ANNE. COMPARISON STUDY: None FINDINGS: The gallbladder is moderately distended and contains numerous stones including gas-filled s tones. There is a suggestion of a tiny gas collection within the common bile duct which could represe nt a small stone passing. There is no bile duct distention. The solid organs demonstrate no focal lesions on this noncontrast study. The spleen is mildly enlarge d. There is a small hiatal hernia. There is no obstructive uropathy. There is no aortic aneurysm or periaortic adenopathy. There is no free air or bowel obstruction. In the pelvis, there is a distention of the terminal ileum possibly indicating an incompetent ileocec al valve. The appendix is normal. There is no fluid in the cul-de-sac. There are bilateral ovarian cy sts. The uterus is not enlarged. The unopacified urinary bladder is unremarkable. IMPRESSION: Cholelithiasis with a moderately distended gallbladder containing numerous gas-filled sto raza. A tiny gas collection is noted which could be in the common bile duct. Recommend correlation wit h right upper quadrant ultrasound. Mild splenomegaly. Focal distention of the distal small bowel may indicate incompetent ileocecal valve with reflux into the terminal ileum. Meckel's diverticulum less likely. Bilateral ovarian cysts. ACT 112: Negative or not required by law. The above report was generated using voice recognition software. It may contain grammatical, syntax o r spelling errors. Electronically signed by: Berta Ruiz M.D. 12/15/2024 10:07 AM
[2024-12-15 10:14] LABS: Basophils # (auto) 0.02 K/uL (0.00-0.20); Basophils % (auto) 0.2 %; Eosinophils # (auto) 0.02 K/uL (0.00-0.50); Eosinophils % (auto) 0.2 %; Hemoglobin 14.1 g/dl (12.0-16.0); Immature Granulocytes # (auto) 0.03 K/uL (0.01-0.20); Immature Granulocytes % (auto) 0.3 %; Lymphocytes # (auto) 0.92 K/uL (1.20-3.40); Lymphocytes % (auto) 9.3 %; Mean Corpuscular Hemoglobin 28.5 pg (25.0-34.0); Mean Corpuscular Hgb Conc 33.6 g/dL (32.0-36.0); Mean Platelet Volume 11.3 fL (9.4-12.4); Monocytes # (auto) 0.31 K/uL (0.11-0.59); Monocytes % (auto) 3.1 %; Neutrophils # (auto) 8.62 K/uL (1.40-6.50); Neutrophils % (auto) 86.9 %; Platelet Count 299 K/uL (130-400); RDW Coefficient of Variation 12.8 % (11.5-14.5); RDW Standard Deviation 39.1 fL (36.4-46.3); Red Blood Count 4.94 M/uL (4.20-5.40); White Blood Count 9.92 K/ul (4.8-10.8)
[2024-12-15 10:23] LABS: Alanine Aminotransferase 20 U/L (7-52); Albumin Globulin Ratio 1.6 (0.9-2); Albumin Level 4.5 gm/dl (3.4-5.0); Alkaline Phosphatase 50 U/L (34-104); Anion Gap 8 (3-11); Aspartate Aminotransferase 19 U/L (13-39); BUN Creatinine Ratio 14.7 (10-20); Bilirubin,Total 0.5 mg/dl (0.2-1.0); Blood Urea Nitrogen 11 mg/dl (6-23); Calcium 9.6 mg/dl (8.6-10.3); Carbon Dioxide 26 mmol/L (21-32); Chloride 105 mmol/L (98-107); Globulin 2.8 gm/dl (2.5-4.0); Glucose 126 mg/dl (70-99(Fasting)); Lipase 17 U/L (11-82); Potassium 3.9 mmol/L (3.5-5.1); Sodium 139 mmol/L (136-145); Total Protein 7.3 gm/dl (6.0-8.3)
[2024-12-15 10:28] LABS: Troponin I High Sensitivity < 2.3 pg/ml (0-14)
--- NOTE | 2024-12-15 10:44 | Emergency Department Note ---
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 13:26 WBC 9.92 (4.8-10.8) K/ul RBC 4.94 (4.20-5.40) M/uL Hgb 14.1 (12.0-16.0) g/dl Hct 42.0 (37.0-47.0) % MCV 85.0 (80.0-100.0) fL MCH 28.5 (25.0-34.0) pg MCHC 33.6 (32.0-36.0) g/dL RDW Std Deviation 39.1 (36.4-46.3) fL RDW Coeff of Ciarra 12.8 (11.5-14.5) % Plt Count 299 (130-400) K/uL MPV 11.3 (9.4-12.4) fL Immature Gran % (Auto) 0.3 % Neut % (Auto) 86.9 % Lymph % (Auto) 9.3 % Blair % (Auto) 3.1 % Eos % (Auto) 0.2 % Baso % (Auto) 0.2 % Neut # (Auto) 8.62 H (1.40-6.50) K/uL Lymph # (Auto) 0.92 L (1.20-3.40) K/uL Blair # (Auto) 0.31 (0.11-0.59) K/uL Eos # (Auto) 0.02 (0.00-0.50) K/uL Baso # (Auto) 0.02 (0.00-0.20) K/uL Immature Gran # (Auto) 0.03 (0.01-0.20) K/uL Sodium 139 (136-145) mmol/L Potassium 3.9 (3.5-5.1) mmol/L Chloride 105 (98-107) mmol/L Carbon Dioxide 26 (21-32) mmol/L Anion Gap 8 (3-11) BUN 11 (6-23) mg/dl Creatinine 0.75 (0.6-1.2) mg/dl Est Cr Clr Drug Dosing Not Reportable eGFR 105.75 BUN/Creatinine Ratio 14.7 (10-20) Glucose 126 H (70-99(Fasting)) mg/dl Calcium 9.6 (8.6-10.3) mg/dl Total Bilirubin 0.5 (0.2-1.0) mg/dl AST 19 (13-39) U/L ALT 20 (7-52) U/L Alkaline Phosphatase 50 (34-104) U/L Troponin I High Sens < 2.3 (0-14) pg/ml Total Protein 7.3 (6.0-8.3) gm/dl Albumin 4.5 (3.4-5.0) gm/dl Globulin 2.8 (2.5-4.0) gm/dl Albumin/Globulin Ratio 1.6 (0.9-2) Lipase 17 (11-82) U/L Urine Color Yellow Urine Appearance Clear (Clear) Urine pH 7.5 (4.5-7.5) Ur Specific Warren 1.008 (1.000-1.030) Urine Protein Negative (Negative) Urine Glucose (UA) Negative (Negative) Urine Ketones Negative (Negative) Urine Blood Trace H (Negative) Urine Nitrite Negative (Negative) Urine Bilirubin Negative (Negative) Urine Urobilinogen Negative (Negative) Ur Leukocyte Esterase Negative (Negative) Urine WBC (Auto) 0-5 (0-5) /hpf Urine RBC (Auto) 0-2 (0-2) /hpf U Hyaline Cast (Auto) 0-2 (0-2) /lpf U Epithel Cells (Auto) 0-2 (0-2) /hpf Urine Bacteria (Auto) None Seen (None Seen) Imaging Data Radiologist's Impression: Abdomen/Pelvis CT 12/15/24 08:[address] WITHOUT CONTRAST CT DOSE: 1437.03 mGy.cm HISTORY: abdominal pain TECHNIQUE: Multiaxial CT images of the abdomen and pelvis were performed without contrast. Sagittal and coronal reconstructions were done. A dose lowering technique was utilized adhering to the principles of ALARA. COMPARISON STUDY: None FINDINGS: The gallbladder is moderately distended and contains numerous stones including gas-filled stones. There is a suggestion of a tiny gas collection within the common bile duct which could represent a small stone passing. There is no bile duct distention. The solid organs demonstrate no focal lesions on this noncontrast study. The spleen is mildly enlarged. There is a small hiatal hernia. There is no obstructive uropathy. There is no aortic aneurysm or periaortic adenopathy. There is no free air or bowel obstruction. In the pelvis, there is a distention of the terminal ileum possibly indicating an incompetent ileocecal valve. The appendix is normal. There is no fluid in the cul-de-sac. There are bilateral ovarian cysts. The uterus is not enlarged. The unopacified urinary bladder is unremarkable. IMPRESSION: Cholelithiasis with a moderately distended gallbladder containing numerous gas-filled stones. A tiny gas collection is noted which could be in the common bile duct. Recommend correlation with right upper quadrant ultrasound. Mild splenomegaly. Focal distention of the distal small bowel may indicate incompetent ileocecal valve with reflux into the terminal ileum. Meckel's diverticulum less likely. Bilateral ovarian cysts. ACT 112: Negative or not required by law. The above report was generated using voice recognition software. It may contain grammatical, syntax or spelling errors. Electronically signed by: Berta Ruiz M.D. 12/15/2024 10:07 AM Gallbladder Ultrasound 12/15/24 10:19 US gallbladder CLINICAL HISTORY: cholelithiasis on CT, common bile duct dilation COMPARISON STUDY: CT of the abdomen and pelvis performed earlier today. FINDINGS: There are no hepatic lesions. There is no biliary ductal dilatation. The common bile duct measures 3 mm in caliber. The gallbladder is distended. There is mild gallbladder wall thickening. Numerous gallstones within the gallbladder are present. Sonographic Snyder sign was elicited. No pancreatic abnormalities identified by sonography. There is no right hydronephrosis. IMPRESSION: 1. Findings consistent with acute cholecystitis. 2. No biliary ductal dilatation. ACT 112: Negative or not required by law. Electronically signed by: Christ Box M.D. 12/15/2024 12:09 PM MDM Narrative Patient is a 34-year-old female who presents to the emergency department with complaints of abdominal pain since approximately 8 PM last night and patient also notes vomiting that started about 2:00 this morning. Patient states that she has had pain that felt like this in the past and it was a partial bowel obstruction. Patient states that she is not having any diarrhea or any lower abdominal pain. Patient's abdominal pain is primarily in her upper abdomen. Patient presents to the emergency room with severe anxiety and is initially difficult to get a history from because of being worked up. Patient was evaluated by myself and findings were noted in the physical exam above. Patient was ordered IV placement, labwork, urinalysis, EKG and a CT of the abdomen and pelvis. Patient was also ordered a dose of Zofran and Toradol for her symptoms. Patient was also ordered a dose of Ativan for her severe anxiety. Patient reported to nursing staff that she would also need a dose of Benadryl before she goes to CT scan and has all of this testing done. Patient reports that the benadryl helps with her anxiety. Patient's labwork resulted with a normal WBC of 9.92. Patient had no evidence of anemia or electrolyte imbalance. Patient's troponin level was negative. Patient's EKG was completed and interpreted by myself to show the patient in a sinus tachycardia rhythm. Patient's urinalysis resulted with no evidence of infection. Patient had a CT of the abdomen and pelvis which was completed and interpreted by radiology to show cholelithiasis with a moderately distended gallbladder containing numerous gas-filled stones. There is a tiny gas collection that is noted which could be in the common bile duct. I discussed these findings with the patient and informed her that we would do an ultrasound to further evaluate her gallbladder the patient verbalized understanding and was agreeable to this plan. Patient noted that she was feeling better after the medications and her anxiety was a little bit lower. Patient was ordered an ultrasound of her gallbladder at this time. Patient went for ultrasound and that was completed, however when she returned from ultrasound she was continuing to yell and shout throughout the department disrupting patient's around her. Patient was given a subsequent dose of Ativan to help with her anxiety. I discussed with the patient that she could not be shouting and disrupting all of the patients in the department. I tried to talk to the patient about what was scaring her and bothering her. Patient stated that if she has to have an organ removed that she can do it alone. I encouraged the patient to contact a friend and ask if there is anyone I could contact for her. Patient states that there is no one that she needs us to contact for her. Patient's ultrasound was interpreted by radiology to show findings consistent with acute cholecystitis. I reached out to Dr. Andrew Burrell and Julia Rao who is on-call for general surgery today. I discussed the patient's case with Julia and gave her a full report on the patient's chief complaint, current status and the results of her imaging and lab work. Julia verbalized understanding and agreed to come down and assessed the patient. Upon Julia's presentation to the patient's room she was still feeling pretty anxious and was shouting and Julia stating that she could not go through this alone. I told Julia that I would contact her when the patient has calm down more. Julia and Dr. Andrew Burrell both returned for a second attempt to speak with the patient. The patient was a little bit more calm at this time. Dr. Andrew Burrell and Julia Rao PA-C were at the patient's bedside for a significant amount of time discussing the procedure, possible complications, and what to expect after the procedure with the patient to try to ease her anxiety regarding the procedure. The surgical team was in the room for approximately an hour or more discussing the situation with the patient and ultimately the patient decided to be admitted to the hospital and have surgery tomorrow. I spoke with Dr. Rust with [facility] about admitting the patient under medicine until she can have surgery tomorrow. Dr. Rust was initially hesitant to admit the patient and felt that it should be a surgical admission. After Dr. Rust spoke to myself and Dr. Andrew Burrell regarding the patient's psych history and social complications of this case he was agreeable to admit the patient under his service. [facility] for further evaluation and management of this patient. Impression Cholecystitis Discharge Plan Visit Data Chief Complaint: Vomiting Stated Complaint: ABD PAIN, VOMITING ED Provider: Raquel Bang ED Midlevel Provider: Nicole Castaneda Discharge Problem: Cholecystitis Patient Disposition: Admitted As Inpatient Discharge Instructions Interventions: ED Discharge Assessment Last Done: 12/15/24 17:27
[2024-12-15] MEDS: ACETAMINOPHEN 1,000 MG/100 ML VIAL IV STA (10:53)
[2024-12-15] MEDS: PROMETHAZINE 25 MG/51 ML BAG IV STA (10:53)
--- NOTE | 2024-12-15 11:57 | Electrocardiogram Report ---
Test Reason : Blood Pressure : */* mmHG Vent. Rate : 60 BPM Atrial Rate : 60 BPM P-R Int : 154 ms QRS Dur : 74 ms QT Int : 416 ms P-R-T Axes : 14 34 34 degrees QTcB Int : 416 ms Normal sinus rhythm Low voltage QRS Borderline ECG When compared with ECG of 25-Jul-2024 01:58, Vent. rate has decreased by 50 bpm Confirmed by Jackson Massey ([id number]) on 12/15/2024 11:57:21 AM Referred By: REFERRED SELF Confirmed By: Jackson Massey
--- NOTE | 2024-12-15 12:10 | Ultrasound Report ---
US gallbladder CLINICAL HISTORY: cholelithiasis on CT, common bile duct dilation COMPARISON STUDY: CT of the abdomen and pelvis performed earlier today. FINDINGS: There are no hepatic lesions. There is no biliary ductal dilatation. The common bile duct m easures 3 mm in caliber. The gallbladder is distended. There is mild gallbladder wall thickening. Num erous gallstones within the gallbladder are present. Sonographic Snyder sign was elicited. No pancrea tic abnormalities identified by sonography. There is no right hydronephrosis. IMPRESSION: 1. Findings consistent with acute cholecystitis. 2. No biliary ductal dilatation. ACT 112: Negative or not required by law. Electronically signed by: Christ Box M.D. 12/15/2024 12:09 PM
[2024-12-15] MEDS: LORazepam 1 MG/1 ML SYR ED Inj Use IV STA (12:45)
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
[2024-12-15] MEDS ORDERED: GLYCOPYRROLATE 0.2 MG/ML VIAL ONE (13:29)
[2024-12-15] MEDS ORDERED: ONDANSETRON INJ 2 MG/ML 2 ML VIAL ONE (13:29)
[2024-12-15] MEDS ORDERED: PROPOFOL IV EMULSION 10 MG/ML 20 ML VIAL IV ONE ×2 (13:29)
[2024-12-15] MEDS ORDERED: LIDOCAINE 2% 2 ML VIAL/AMP(20MG/ML) INFIL ONE (13:29)
[2024-12-15] MEDS ORDERED: ROCURONIUM BROMIDE 10 MG/ML 5 ML VIAL IV ONE (13:29)
[2024-12-15 13:53] LABS: Appearance Urine Clear (Clear); Bacteria Urine Automated None Seen (None Seen); Bilirubin Urine Negative (Negative); Blood Urine Trace (Negative); Cast Urine Automated 0-2 /lpf (0-2); Color Urine Yellow; Epithelial Cell Urine Auto 0-2 /hpf (0-2); Glucose Urine UA Negative (Negative); Ketones Urine Negative (Negative); Leukocyte Esterase Urine Negative (Negative); Nitrite Urine Negative (Negative); Protein Urine Negative (Negative); RBC Urine Automated 0-2 /hpf (0-2); Specific Gravity Urine 1.008 (1.000-1.030); Urobilinogen Urine Negative (Negative); WBC Urine Automated 0-5 /hpf (0-5); pH Urine 7.5 (4.5-7.5)
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
[2024-12-15] MEDS: DROPERIDOL 5 MG/2 ML VIAL IV STA (15:31)
[2024-12-15] MEDS: diphenhydrAMINE 50 MG/ML VIAL ONE (15:32)
[2024-12-15] MEDS: metroNIDAZOLE 500 MG/100 ML BAG IV STA (15:37)
[2024-12-15] MEDS: cefTRIAXone SODIUM 2,000 MG/50 ML BAG IV STA (15:37)
--- NOTE | 2024-12-15 15:50 | Emergency Department Note ---
ED Visit Note I was consulted by the Advanced Practice Provider, EDWARDO Vasquez. I performed a substantive portion of the visit. This includes aspects of: History: Patient is a 34-year-old female presenting with abdominal pain and nausea and vomiting. Patient started having upper abdominal pain at around 2 AM. MDM: - Laboratory workup interpreted by myself showed normal WBC; stable electrolyte;s normal troponin; normal AST/ALT; normal lipase - UA negative for infection - CT abdomen/pelvis wo contrast showed cholelithiasis with a distended gallbladder continues to numerous gas-filled stones and right upper quadrant ultrasound was recommended. - US gallbladder showed findings consistent with acute cholecystitis. - Patient received flagyl + rocephin for antibiotic coverage. - Surgery consulted and plans to take the patient for a cholecystectomy. Requested hospitalist admission. - Patient to admitted to the [facility] hospitalist service for further evaluation and management postoperatively. .
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
[2024-12-15] MEDS ORDERED: FLUTICASONE PROPIONATE NA SPR 16 GM BTL NAE PRN (18:18)
[2024-12-15] MEDS ORDERED: ALBUTEROL 0.083% NEBU SOLN 3 ML VIAL INH PRN (18:18)
[2024-12-15] MEDS ORDERED: HYDROmorphone INJ 0.5 MG/0.5 ML SYR IV PRN (18:18)
[2024-12-15] MEDS ORDERED: ARTIFICIAL TEARS OP PRN (18:34)
[2024-12-15] MEDS: FAMOTIDINE 20 MG TAB PO SCH (20:52)
[2024-12-15] MEDS: clonazePAM 0.5 MG TAB PO PRN (20:52)
[2024-12-15] MEDS: 4.5GM X1 IV STA (20:53)
[2024-12-15] MEDS: PANTOprazole 40 MG TAB PO SCH (20:53)
[2024-12-15] MEDS ORDERED: PREGABALIN 100 MG CAP PO SCH (21:00)
[2024-12-15] MEDS: diphenhydrAMINE Capsule 25 MG CAP PO PRN (21:01)
[2024-12-15] MEDS: PREGABALIN 100 MG CAP PO SCH (22:30)
[2024-12-15] MEDS ORDERED: Nursing to Pharmacy Communication SCH (22:45)
[2024-12-16] MEDS: PIPERACILLIN/TAZOBACTAM 4.5 GM/100 ML BAG IV SCH (02:00)
[2024-12-16] MEDS: SODIUM CHLORIDE 0.9% 1,000 ML IV SCH (02:13)
[2024-12-16] MEDS: ACETAMINOPHEN 500 MG TAB PO PRN (03:12)
[2024-12-16] MEDS: linaCLOtide 72 MCG CAPSULE PO SCH (06:36)
[2024-12-16] MEDS ORDERED: DexMEDEtomidine HCL IV 100 MCG/ML VIAL IV ONE (08:00)
[2024-12-16] MEDS ORDERED: fentaNYL citrate PF 100 MCG/2 ML VIAL ONE (08:00)
[2024-12-16] MEDS ORDERED: MIDAZOLAM HCL 1 MG/ML 2ML VIAL ONE (08:00)
[2024-12-16] MEDS: DOCUSATE SODIUM 100 MG CAP PO SCH (08:32)
[2024-12-16] MEDS: SPIRONOLACTONE 100 MG TAB PO SCH (08:33)
[2024-12-16] MEDS: PREGABALIN 100 MG CAP PO SCH (09:14)
[2024-12-16] MEDS: LYRICA 200 MG PO SCH (09:31)
[2024-12-16] MEDS: PATIENT'S OWN CONTROLLED MED 1 PO SCH (09:31)
[2024-12-16] MEDS: KETOROLAC TROMETHAMINE 15 MG/ML VIAL IV PRN (10:00)
--- NOTE | 2024-12-16 10:42 | Surgery Progress Note ---
Date of Service December 16, 2024 Assessment & Plan (1) Cholecystitis: Plan: Concerns of acute cholecystis pt was scheduled to go to the OR today with call or contact centre manager surgeon Dr Tatum however after seeing the patient this morning she is requesting that she be started on a diet this AM to see if she can tolerate it, and is requesting that she have surgery on FridayDecember 20 as an outpatient. This is a reasonable option given her concerns with post operative care and concerns of not having someone available to assist her at home. If the patient tolerates her diet without increase in abdominal pain , n/v she may be discharged on oral antibiotics and will be scheduled for a robotic laparoscopic cholecystectomy FridayDecember [address]atum. She will need to call on Friday12/17/23 between 2 pm and 7 pm for her arrival time [phone], and stay NPO after midnight Friday. Pt seen and examined with Dr Tatum Admission and Anticipated Discharge Date Admission Date: December 15, 2024 Supervising Physician Co-Signing Physician Notes I have seen this patient this am and I agreed with this plan. Ultimately the patient decided she would like to stay one more night to see if she is able to continue to tolerate her diet and have resolution of her abdominal pain to consider possible discharge tomorrow am. Subjective pt sitting up in chair reports she tolerated some crackers last night and her pain is improved. She states that she would like to try real food and see if she tolerates it and asked if she could have surgery this coming Friday. Review of Systems Gastrointestinal: + abdominal pain; no nausea and no vomit ing Physical Exam Constitutional: cooperative, comfortable and + overweight Respiratory: normal respiratory effort and able to speak in complete sentences; no respiratory distress Cardiovascular: Rate/Rhythm: regular rate Gastrointestinal (Abdomen): Inspection/Auscultation: abdomen not distended Psychiatric: Orientation: alert and oriented x 3 Affect: + tearful affect Results & Data Vital Signs (Past 12 Hours) Vital Signs Temp Pulse Resp BP Pulse Ox O2 Del Method 12/16/24 07:41 97.9 F 69 16 94/63 L 96 Room Air 12/15/24 22:50 98.1 F 77 18 101/71 98 Room Air PG Care Time/CCT Total # of Minutes Spent Total Time Spent with Patient: Total time spent is greater than 50% in coordination of care (as documented) at patient's floor/unit and/or counseling patient: Coding Level of Care Code 35974 SUB INP/OBS CARE 11/20MIN Diagnoses Cholecystitis K81.9
[2024-12-16 12:37] LABS: Hematocrit (blood only) 37.7 % (37.0-47.0); Hemoglobin 12.3 g/dl (12.0-16.0); Mean Corpuscular Hemoglobin 28.3 pg (25.0-34.0); Mean Corpuscular Hgb Conc 32.6 g/dL (32.0-36.0); Mean Corpuscular Volume 86.7 fL (80.0-100.0); Mean Platelet Volume 10.2 fL (9.4-12.4); Platelet Count 219 K/uL (130-400); RDW Coefficient of Variation 13.2 % (11.5-14.5); RDW Standard Deviation 41.4 fL (36.4-46.3); Red Blood Count 4.35 M/uL (4.20-5.40)
[2024-12-16 12:54] LABS: Alanine Aminotransferase 14 U/L (7-52); Albumin Globulin Ratio 1.8 (0.9-2); Albumin Level 3.7 gm/dl (3.4-5.0); Alkaline Phosphatase 41 U/L (34-104); Anion Gap 5 (3-11); Aspartate Aminotransferase 14 U/L (13-39); BUN Creatinine Ratio 10.5 (10-20); Bilirubin,Total 0.6 mg/dl (0.2-1.0); Blood Urea Nitrogen 8 mg/dl (6-23); Calcium 8.2 mg/dl (8.6-10.3); Carbon Dioxide 26 mmol/L (21-32); Chloride 111 mmol/L (98-107); Globulin 2.1 gm/dl (2.5-4.0); Glucose 125 mg/dl (70-99(Fasting)); Potassium 3.2 mmol/L (3.5-5.1); Sodium 142 mmol/L (136-145); Total Protein 5.8 gm/dl (6.0-8.3)
[2024-12-16] MEDS: POTASSIUM CHLORIDE CRTAB 20 MEQ TABCR PO STA (13:08)
--- NOTE | 2024-12-16 15:29 | Hospitalist Progress Note ---
Date of Service December 16, 2024 Assessment & Plan (1) Cholecystitis: (2) Hypertension: Plan This is a 34 year old female with past medical history of asthma, gastritis, OCD, HTN, depression, anxiety who presented to the ED on 12/15 for abdominal pain, nausea, and vomiting. Patient w/ social issues on outpatient basis regarding have support from family/friends along with homelessness. She has housing arranged in an air bnb until the end of the month but is unsure what is to come next regarding her living situation. #Acute cholecystitis CTAP w/ moderately distended GB and cholelithiasis RUQ US w/ findings concerning for acute cholecystitis CBC w/o leukocytosis. CMP w/o transaminitis. K low at 3.2, s/p 40meq PO 12/16. Continue Zosyn General surgery consulted- patient okay to be discharged home on abx and follow up on 12/20 outpatient for surgery if she can follow diet. Patient anxious about leaving, plan for her to stay overnight. Make NPO incase she decides to get her surgery tomorrow, otherwise she can be discharged tomorrow morning. Regular diet at patient request, NPO after midnight. Pain control w/ Tylenol and Dilaudid prn AM CBC, CMP Chronic conditions: Mental health: Clonazepam prn GERD: Pepcid, PPI Constipation: Linzess, Miralax prn Fibromyalgia: Lyrica HTN: Spironolactone Jmdeeai-Txcauivxu-Xusjk Syndrome DVT prophylaxis: hold pending possible surgery. encourage ambulation Code status: full Case discussed in detail w/ general surgery MOISES 12/16 Greater than 70 minutes was spent on patient including chart review, consultation w/ speciality services, discussion w/ nursing staff, and examination of patient. Admission and Anticipated Discharge Date Admission Date: December 15, 2024 Subjective Patient seen and examined this morning. Lengthy discussion took place regarding her symptoms. patient has not had any nausea or vomiting overnight. She was eating breakfast at time of encounter. Patient did report her RUQ pain has subsided but she felt pain in her right upper back. Patient also has hx of back pain. Patient upset on what to do regarding her current situation. She does not feel she has social support and wishes she had a patient advocate in the hospital to help her make this decision. She felt that if she would have packed a bag to stay at the hospital, she would feel better. She would feel better returning home and packing a bag for her surgery that is going to be arranged for this coming Friday. However the patient also vocalizes her concern of going home and that she had a traumatic process through the ER and does not want to go through that again alone if the pain were to come back. She states she did not expect to be admitted to the hospital and was surprised when she found out she has acute cholecystitis. Patient is also concerned about the clips used in a lap choley because she is allergic to most metals. She states she is not allergic to titanium but feels this is a brittle metal and she did not respond well when she had it placed in an ankle surgery in the past. She has questions regarding the plastic clips used. This was deferred to her surgeon. Patient was told by surgery that should could go home today if she tolerates her diet and follow up outpatient for the surgery. Patient then became concerned that she would vomit after she returned home tonight because she has gastroparesis and food takes longer to digest. She states that she would feel more comfortable if she spent the night and see how she felt in the morning. She also expressed her frustrations that we do note have Brand Lyrica on formulary in the hospital because the generic pregabalin does not work for her. She states she has about ~5 pills left and this would get her through till tomorrow afternoon. She reports that she cannot stay in the hospital longer because she has to have the brand Lyrica and she is unsure if anyone can give this to her. Reassurance provided and questions answered. Physical Exam Constitutional: WD/WN, vitals as above Eyes: PERRL, conjunctivae normal, anicteric sclerae Respiratory: breathing unlabored Cardiovascular: well perfused Psychiatric: Thought Process: + tangential thought process Results & Data Results & Data Vital Signs (Past 12 Hours) Vital Signs Temp Pulse Resp BP Pulse Ox O2 Del Method 12/16/24 07:41 36.6 C 69 16 94/63 L 96 Room Air PG Care Time/CCT Total # of Minutes Spent Total Time Spent with Patient: Total time spent is greater than 50% in coordination of care (as documented) at patient's floor/unit and/or counseling patient: Coding Level of Care Code 21360 SUB INP/OBS CARE 3/50MIN Diagnoses Cholecystitis K81.9 Hypertension I10
[2024-12-16] MEDS: POLYETHYLENE (MIRALAX) 17 GM PACK PO PRN (19:44)
[2024-12-16] MEDS: LORazepam 2 MG/1 ML VIAL IV STA (21:13)
[2024-12-16 21:22] VITALS: TEMP 97.9
[2024-12-16] MEDS: ONDANSETRON INJ 2 MG/ML 2 ML VIAL IV PRN (23:38)
[2024-12-17 07:16] VITALS: BP 112/66; PULSE 67; RESP 16; O2SAT 96
[2024-12-17 08:41] LABS: Hematocrit (blood only) 33.2 % (37.0-47.0); Mean Corpuscular Hemoglobin 28.9 pg (25.0-34.0); Mean Corpuscular Hgb Conc 33.1 g/dL (32.0-36.0); Mean Corpuscular Volume 87.1 fL (80.0-100.0); Mean Platelet Volume 10.5 fL (9.4-12.4); Platelet Count 203 K/uL (130-400); RDW Coefficient of Variation 13.3 % (11.5-14.5); RDW Standard Deviation 42.2 fL (36.4-46.3); Red Blood Count 3.81 M/uL (4.20-5.40); White Blood Count 5.66 K/ul (4.8-10.8)
[2024-12-17 08:56] LABS: Albumin Globulin Ratio 1.5 (0.9-2); Albumin Level 3.2 gm/dl (3.4-5.0); BUN Creatinine Ratio 12.9 (10-20); Bilirubin,Total 0.6 mg/dl (0.2-1.0); Creatinine Clr Calc Pharmacy 119.1 ml/min; Globulin 2.1 gm/dl (2.5-4.0); Potassium 3.6 mmol/L (3.5-5.1); Total Protein 5.3 gm/dl (6.0-8.3)
[2024-12-17] MEDS: AMOXICILLIN/CLAVULANATE 875 MG TAB PO ONE (10:53)
--- NOTE | 2024-12-17 10:59 | Discharge Summary ---
Discharge Summary Date of Service December 17, 2024 Principal Dx & Hospital Course #1 = Principal Diagnosis (1) Cholecystitis: (2) Hypertension: Plan This is a 34 year old female with past medical history of asthma, gastritis, OCD , HTN, depression, anxiety who presented to the ED on 12/15 for abdominal pain, nausea, and vomiting. Patient w/ social issues on outpatient basis regarding have support from family/friends along with homelessness. She has housing arranged in an air bnb until the end of the month but is unsure what is to come next regarding her living situation. On day of discharge, patient was seen by myself, Dr. Tatum, and Dr. Holland. General surgery reports patient is safe to return home on pain medication, antibiotic, antiemetics and follow up on Friday for her operation. Patient verbalized understanding to General surgery team as I was present for the encounter. Then I discussed w/ patient her discharge plan. Patient reported she had taken Percocet in the past after a lower extremity operation and did fine with it. Her nurse was also in there to hear this conversation. Patient was agreeable to return home on Augmentin, Percocet, and Zofran. These prescriptions were then sent to her pharmacy. Patient did request to have a dose of Percocet prior to leaving and this was entered in to the MAR system. Patient was given dose and she refused to take it, reported she needed to eat something first. Patient was then brought lunch which she also refused. Patient then refused to take the Percocet again. Patient's discharge planning was complete and she was to leave the hospital as her last dose of IV Zosyn was complete. Patient then started to scream at staff including myself, nursing staff, nursing suspect artist supervisor. guard sergeant present, who then called for further guards to come to her room. Patient was given 1mg IV Ativan to help with her anxiety. She then reported she had never taken Percocet in the past and wanted to wait 2-3 hours after taking it here to see if it would help her. Discussed w/ patient that it would be acceptable given her concerns to wait ~30 minutes to see if she has a reaction to Percocet. Patient was refusing that option. After discussion w/ Dr. Holland, patient has not had any narcotics for pain since being in the emergency department. Her pain has been controlled on Toradol alone. Patient seems to have increased levels of pain when her anxiety was also at an increased rate. She was given her prn Klonipin inpatient as well. Discussed trying PO Ketolorac at home with patient but she refused this option as she feels it will upset her stomach since she has gastritis. After reviewing chart, past medical history of allergies, and listening to patient concerns it was then recommended to have the Percocet discontinued. [facility] was called and alerted this prescription was to be cancelled. Patient then recommended to take 1000mg Tylenol every 8 hours as needed for pain. If the patient feels her pain is severe enough to warrant narcotic medication, then she would return to the emergency room for further care. Spoke w/ patient's friend who picked her up. Discussion discharge recommendations and he verbalized his understanding. Friend also verbalized that she has not seen a psychiatrist in quite some time, but he has only known her for 1.5 months as they met at [facility] one day. Friend did report he will help care for her at home as she needs and will bring her back to the ER in the event her pain is uncontrolled. After this discussion, reached out to Psych liaison who notes that patient does follow with a psychiatrist in [place]. Advise foll ow up outpatient at that facility as she is already established. #Acute cholecystitis CTAP w/ moderately distended GB and cholelithiasis RUQ US w/ findings concerning for acute cholecystitis CBC w/o leukocytosis. CMP w/o transaminitis, electrolytes Zosyn transitioned to Augmentin on discharge. General surgery consulted- patient okay to be discharged home on abx and follow up on 12/20 outpatient for surgery given she can tolerate diet. Pain control w/ Tylenol at home. Recommend report to ER if pain warrants narcotics Chronic conditions: Mental health: Clonazepam prn GERD: Pepcid, PPI Constipation: Linzess, Miralax prn Fibromyalgia: Lyrica HTN: Spironolactone Piwobck-Niwsdcekn-Mqhln Syndrome Case discussed in detail w/ general surgery MOISES 12/17 Patient does have a [facility] PCP and should be admitted under the [facility] hospitalist team service if she would require a hospital stay in the future. Admission HPI Per Admitting Provider This is a 34 year old female with past medical history of asthma, gastritis, OCD, HTN, depression, anxiety who presented to the ED on 12/15 for abdominal pain, nausea, and vomiting. The patient was seen and examined at bedside. Patient first stated she would like me to come back later because she "needed some sleep". Discussed w/ patient that I will be admitting her to the hospital today. She verbalized consent to be seen. Patient reports yesterday she started to have nausea and vomiting with associated RUQ abdominal pain. She reports that this has never happened in the past before. She discussed w/ surgery MOISES earlier today and she is considering surgery tomorrow, 12/16. Patient denies CP, SOB, diarrhea. She reports chronic LE edema. She also reports she has been unable to take any of her medications due to her vomiting and was demanding her lyrica be given to her now. While in the ED patient underwent a CTAP that revealed a distended GB and cholelithiasis. She had a RUQ US concerning for acute cholecystitis. She was w/o leukocytosis or transaminitis. She was given Rocephin and Flagyl along with pain medication. Discharge Exam Constitutional tearful, anxious, yelling at staff Respiratory breathing unlabored Cardiovascular well perfused Discharge Plan Discharge Items Patient Disposition: Home - Self-Care Reason For Visit: ABDOMINAL PAIN, N/V Discharge Diagnosis: acute cholecystitis Activity: Resume your previous activity Non-emergency contact: Primary Care Provider and Surgeon Call non-emergency contact if: you have any medication questions, your symptoms worsen, your pain is not controlled, your pain is worsening and you have a fever Follow-up/Referrals: Shelly Tatum DO [Physician] - (you will be scheduled for surgery as an outpatient on wednesday 12/20) PCP,NO [Primary Care Provider] - Diet: Low Fat Addtl Attending Provider Instructions: Please see below Addtl Inside Contractor [employer] Provider Instructions: Ms. Mon, You were recently hospitalized for abdominal pain. You were found to have an inflamed gallbladder and were evaluated by the surgical team. Please see recommendations below regarding your discharge. 1. Please take Augmentin twice daily for the next 7 days. You first dose at home will be this evening, 12/17. Consider taking with food to avoid an upset stomach. 2. Please follow a low fat diet. 3. Please use Percocet every 4 hours for pain. 4. Please resume the remainder of your outpatient medications. 5. Your robotic laparoscopic cholecystectomy is scheduled on FridayDecember 20 w/ Dr. Tatum. You will need to call [phone] today between 2 and 7 pm for arrival time. Please stay NPO after midnight on Friday, 12/19. If you develop any severe pain unable to be controlled by your medications, nausea, vomiting, fever, chills please report back to the ER for further care. Good luck with your surgery! Pending Studies at Discharge: No Stand-Alone Forms: [facility], Smoking Cessation Medications and DC Order Prescriptions: New oxycodone-acetaminophen [Percocet] 5-325 mg tablet 1 tab PO Q4H PRN (Reason: pain (scale score 7-10)) Qty: 5 0RF amoxicillin-pot clavulanate 875-125 mg tablet 1 tab PO Q12H Qty: 9 0RF ondansetron 4 mg tablet,disintegrating 4 mg PO Q4H PRN (Reason: nausea and vomiting) Qty: 7 0RF Continued diphenhydramine HCl [Benadryl] 25 mg capsule 25 mg PO Q6H PRN (Reason: TARDIVE DYSKINESIA) fluticasone propionate 50 mcg/actuation spray,suspension 2 sprays INTNAS DAILY PRN (Reason: Congestion) polyethylene glycol 3350 [Miralax] 17 gram/dose powder 17 g PO DIRECTED Rx Instructions: PER PT "USE 1 TO 1/2 DOSE IF NEEDED DAILY". famotidine 20 mg Tablet 20 mg PO HS omeprazole 20 mg capsule,delayed release(DR/EC) 20 mg PO BID albuterol sulfate 90 mcg/actuation HFA aerosol inhaler 2 puff Inhalation Q4 PRN (Reason: Shortness Of Breath) albuterol sulfate 2.5 mg /3 mL (0.083 %) Solution For Nebulization 2.5 mg INHALATION Q4H PRN (Reason: Shortness Of Breath Or Wheezing) Linzess 145 mcg capsule 145 mcg PO DAILYBB PRN (Reason: NEEDED PER PT) Rx Instructions: PER PT "WILL USE IF NEED MORE THAN 72 MG TABS". pregabalin [Lyrica] 200 mg capsule 200 mg PO TID Rx Instructions: Must be brand name, GI upset with generic. triamcinolone acetonide 0.5 % Cream 1 applic TOPICAL BID PRN (Reason: contact dermatitis) docusate sodium [Stool Softener] 100 mg Capsule 200 mg PO DAILY simethicone 125 mg Capsule 125 mg PO TID PRN (Reason: GAS RELIEF) carboxymethylcellulose sodium 0.5 % Drops 1 drp OPHTHALMIC (EYE) QID PRN (Reason: Dry Eyes) spironolactone 50 mg tablet 50 mg PO QAM Linzess 72 mcg capsule 72 mcg PO QAM Rx Instructions: PER PT "WILL TAKE A SECOND DOSE IF NEEDED" lidocaine 5 % adhesive patch,medicated 1 patch topical DAILY PRN (Reason: Pain) Rx Instructions: leave on most painful area for up to 12 hrs. Per pt this does cause contact dermatitis, but when the pain is rough she still uses it. clonazepam 0.5 mg tablet 0.5 mg PO QID PRN (Reason: Anxiety) ibuprofen 200 mg Tablet 200 mg PO Q6H PRN (Reason: Pain) acetaminophen 500 mg Tablet 500 mg PO Q6H PRN (Reason: Pain) Discharge Orders: Discharge Order (Routine); Ordered 12/17/24 Ordered By: Corinne So Admission Data Admit Date/Time: 12/15/24 15:58 Attending Provider: Louis Holland Admit Provider: Louis Holland Primary Care Provider: PCP,NO Other Providers: George Rust; Yanira Johnson; Patricio Paulino; Peyman Mari; Juan Luis Mcghee; Alfie Moulton; Julia Rao; Al Viveros; Hermes Cuevas; Shelly Tatum; Kendy Bronson; Jesus Peterson Other Interventions: Discharge Summary Assessment (RN) Last Done: 12/17/24 11:26 Hospital Stay Data Consultations 12/15/24 15:45 ED Decision to Admit Stat 12/15/24 15:59 Consult General Surgery Routine 12/15/24 19:46 Consult Behavioral Health Liaison Routine Procedures Performed Operation Date: 12/16/24 09:25 <No data on this case meets the specified criteria> Diagnostic Imagining Performed 12/15/24 08:52 CT abd pelvis wo con Stat 12/15/24 10:19 US gallbladder Stat Pending Results Patient Have Any Pending Studies at Discharge: No Discharge Instructions Given to Patient (Per Discharging Provider) Please see below Total Time Total Time Spent Total Time Spent (In Minutes): 100 Total Time Includes: Examination of the Patient, Discharge Planning, Medication Reconciliation and Communication With Other Providers Coding Level of Care Code 34593 INP/OBS DISCH >30 MIN Diagnoses Cholecystitis K81.9 Hypertension I10
--- NOTE | 2024-12-17 11:02 | Surgery Progress Note ---
<Statement entered by Shelly Tatum, DO - 12/17/24 11:51> I have seen and examined this patient this am. She would prefer surgery on Friday. I have advised she will likely have pain throughout the weekend and would have to come back in if it became worse. She expressed understanding and prefers discharge at this time. Offered that she would come in over the weekend if things worsened. Date of Service December 17, 2024 Assessment & Plan (1) Cholecystitis: Plan: pt here with cholecystitis. she has lots of social issues she is sorting through which made decisions and plans more complicated in her case after much discussion with patient throughout her hospitalization we have come up with a plan to perform surgery this upcoming wednesday 12/[address] tata bowers we will have patient be sent home on course of abx, pain meds, and anti-emetics to manage through the return precautions given should she have fevers, pain that is not controlled by meds, vomiting, etc that she should come be evaluated for otherwise pt is to call on friday to be given a time to come in for surgery this upcoming friday. she requests a 23hr observation stay appreciate medicines assistance with patient throughout this stay okay for diet (low fat/low protein) and dispo from our standpoint Admission and Anticipated Discharge Date Admission Date: December 15, 2024 Subjective patient reporting ongoing pain after eating. only had oatmeal and some cinnamon. otherwise no episodes of vomiting. she is leaning towards trying to go home through wknd to manage symptoms which are tolerable and f/u with us on friday for surgery. Physical Exam Physical Exam: awake, alert, no distress, affect is calm this AM Gastrointestinal (Abdomen): Percussion/Palpation: + abdomen tender (ttp RUQ) and abdomen soft Results & Data Vital Signs (Past 12 Hours) Vital Signs Temp Pulse Resp BP Pulse Ox O2 Del Method 12/17/24 07:14 97.9 F 67 16 112/66 96 Room Air PG Care Time/CCT Total # of Minutes Spent Total Time Spent with Patient: Total time spent is greater than 50% in coordination of care (as documented) at patient's floor/unit and/or counseling patient: Coding Level of Care Code 87372 SUB INP/OBS CARE 11/20MIN Diagnoses Cholecystitis K81.9
[2024-12-17] MEDS: oxyCODONE/ACETAMINOPHEN 5mg/325mg TAB PO PRN (11:16)
[2024-12-17] MEDS: LORazepam 2 MG/1 ML VIAL ONE (13:20)
== END 2024-12-17 14:03 | disposition home or self-care (01) | DRG 445 ==
LOC: ED 08:33 → 3E 15:58

== ENCOUNTER 2024-12-24 10:44 | Observation (INO) ==
--- NOTE | 2024-12-17 14:45 | Anesthesiology Consultation ---
Date of Service December 17, 2024 Assessment & Plan (1) Encounter for pre-operative examination: - Check test DOS - Recent [facility] admission: discharged 12/16/24. Per discharge summary, "Acute cholecystitis.. Zosyn transitioned to Augmentin on discharge. General surgery consulted- patient okay to be discharged home on abx and follow up on 12/20 outpatient for surgery given she can tolerate diet. Pain control w/ Tylenol at home. Recommend report to ER if pain warrants narcotics " > Aneshtesia consult completed by Dr. Huggins during admission and deemed acceptable risk for surgery from his perspective. Patient ended up being discharged and surgery now scheduled to be done from outpatient after discharge. - PAT RN phone call was attempted with patient 12/17/24 but RN indicated that patient provided limited PMHX/PSHX information. Most information obtained from available records. Patient acceptable risk for given surgery pending evaluation DOS. Chart Review Chart Review: Patient NOT seen in Pre Admission Testing History Surgery Operation Date: 12/20/24 10:45 Proposed Procedures p Robotic Assisted Laparoscopic Cholecystectomy - Shelly Tatum DO Allergies Allergy/AdvReac Type Severity Reaction Status Date / Time adhesive Allergy Severe contact Verified 12/17/24 14:29 dermatitis divalproex sodium Allergy Severe Anaphylaxis Verified 12/17/24 14:29 [From Depakote] Gadolinium-Containing Allergy Severe Anaphylaxis Verified 12/17/24 14:29 Contrast Medi (MRI contrast) bupropion Allergy Intermediate HIVES Verified 12/17/24 14:29 cat dander Allergy Intermediate allergy Verified 12/17/24 14:29 tested positivie cobalt Allergy Intermediate contact Verified 12/17/24 14:29 dermatitis Iodinated Contrast Media Allergy Intermediate ARM Verified 12/17/24 14:29 NUMBNESS & vomiting nickel Allergy Intermediate contact Verified 12/17/24 14:29 dermatitis pollen extracts Allergy Intermediate asthma sx Verified 12/17/24 14:29 sertraline Allergy Intermediate Hives Verified 12/17/24 14:29 silver Allergy Intermediate contact Verified 12/17/24 14:29 dermatitis fluoxetine Allergy Mild HIVES Verified 12/17/24 14:29 buprenorphine AdvReac Intermediate nausea/vomi Verified 12/17/24 14:29 ting fluvoxamine AdvReac Intermediate COLD SORES Verified 12/17/24 14:29 haloperidol [From Haldol] AdvReac Intermediate TARDIVE Verified 12/17/24 14:29 DYSKINESIA PER [facility].dystonic & "severe muscle spasms" hydrocodone AdvReac Intermediate NAUSEA/VOMI Verified 12/17/24 14:29 TING alcohol AdvReac Mild GI Verified 12/17/24 14:29 symptoms, reflux ascorbic acid AdvReac Mild GI Verified 12/17/24 14:29 symptoms & reflux black pepper AdvReac Mild Reflux/GI Verified 12/17/24 14:29 symptoms caffeine AdvReac Mild GI symptoms Verified 12/17/24 14:29 chocolate flavor AdvReac Mild GI symptoms Verified 12/17/24 14:29 Crosswicks And Derivatives AdvReac Mild Reflux - Verified 12/17/24 14:29 citrus fruits garlic AdvReac Mild gi Verified 12/17/24 14:29 symptoms/reflux milk AdvReac Mild GI Verified 12/17/24 14:29 symptoms. monosodium glutamate AdvReac Mild GI symtpoms Verified 12/17/24 14:29 onion AdvReac Mild reflux Verified 12/17/24 14:29 peanut AdvReac Mild GI symptoms Verified 12/17/24 14:29 peppermint AdvReac Mild Mint - Verified 12/17/24 14:29 reflux tomato AdvReac Mild Reflux/GI Verified 12/17/24 14:29 Symptoms Yeast AdvReac Mild GI symptoms Verified 12/17/24 14:29 loratadine AdvReac Unknown anxiety Verified 12/17/24 14:29 metoclopramide AdvReac Unknown anxiety Verified 12/17/24 14:29 banana AdvReac Verified 12/17/24 14:29 Medications Home Medications Medication Instructions Recorded Confirmed Last Taken albuterol sulfate 90 mcg/actuation 2 puff inhalation Q4 PRN Shortness 08/10/18 12/17/24 07/06/19 aerosol inhaler Of Breath omeprazole 20 mg capsule,delayed 20 mg PO BID 08/10/18 12/17/24 12/14/24 release famotidine 20 mg tablet 20 mg PO HS Acid Reflux 08/03/19 12/17/24 12/14/24 albuterol sulfate 2.5 mg/3 mL 2.5 mg inhalation Q4H PRN 04/22/20 12/17/24 Unknown (0.083 %) solution for nebulization Shortness Of Breath Or Wheezing linaclotide 145 mcg capsule 145 mcg PO DAILYBB PRN NEEDED 04/22/20 12/17/24 2 Weeks Ago (Linzess) PER PT ~12/01/24 diphenhydramine HCl 25 mg capsule 25 mg PO Q6H PRN TARDIVE DYSKINESIA 05/02/20 12/17/24 12/14/24 (Benadryl) fluticasone propionate 50 2 sprays intranasal DAILY PRN 05/02/20 12/17/24 10/06/23 mcg/actuation nasal Congestion spray,suspension pregabalin 200 mg capsule (Lyrica) 200 mg PO TID 06/10/20 12/17/24 12/14/24 polyethylene glycol 3350 17 17 g PO DIRECTED Constipation 05/10/21 12/17/24 12/14/24 gram/dose oral powder (Miralax) lidocaine 5 % topical patch 1 patch topical DAILY PRN Pain 05/18/21 12/17/24 Unknown linaclotide 72 mcg capsule 72 mcg PO QAM severe constipation 05/18/21 12/17/24 12/14/24 (Linzess) spironolactone 50 mg tablet 50 mg PO QAM 05/18/21 12/17/24 12/14/24 docusate sodium 100 mg capsule 200 mg PO DAILY 06/11/21 12/17/24 12/14/24 (Stool Softener) triamcinolone acetonide 0.5 % 1 applic topical BID PRN contact 06/11/21 12/17/24 Unknown topical cream dermatitis carboxymethylcellulose sodium 0.5 1 drp ophthalmic (eye) QID PRN Dry 09/03/23 12/17/24 12/14/24 % eye drops Eyes simethicone 125 mg capsule 125 mg PO TID PRN GAS RELIEF 09/03/23 12/17/24 Unknown acetaminophen 500 mg tablet 500 mg PO Q6H PRN Pain 12/15/24 12/17/24 Unknown clonazepam 0.5 mg tablet 0.5 mg PO QID PRN Anxiety 12/15/24 12/17/24 12/14/24 ibuprofen 200 mg tablet 200 mg PO Q6H PRN Pain 12/15/24 12/17/24 Unknown amoxicillin 875 mg-potassium 1 tab PO Q12H #9 tabs 12/17/24 12/17/24 Unknown clavulanate 125 mg tablet hydromorphone 2 mg tablet 2 mg PO Q6H PRN pain #5 tabs 12/17/24 Unknown (Dilaudid) ondansetron 4 mg disintegrating 4 mg PO Q4H PRN nausea and 12/17/24 Unknown tablet vomiting #7 tabs Past Medical History Medical History Anxiety Asthma Cervical strain Cholecystitis Chronic maxillary sinusitis Chronic shoulder pain Depression Fatty liver Fibromyalgia GERD (gastroesophageal reflux disease) Hiatal hernia History of anemia History of facial nerve disorder hx facial nerve palsy History of IBS Hordeolum of left eye 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 Hx of gastritis Hx of migraines Hx of renal calculi Hypertension hx Insomnia Ptqgphl-Vnjtbprhr-Mkzvv syndrome Low grade squamous intraepithelial lesion (LGSIL) on cervical Pap smear Lumbar back pain with radiculopathy affecting lower extremity Lumbar disc disease Lyme disease OCD (obsessive compulsive disorder) Scoliosis Ulnar neuropathy of both upper extremities Vulvar fissure Entered 2019 Past Family History Family History Grandfather (Maternal) Family history of diabetes mellitus Deep vein thrombosis Stroke Grandmother (Paternal) Hypertension Other Kidney stone No family history of adverse response to anesthesia Denies family history of Ovarian cancer Coronary heart disease Breast cancer Colorectal cancer Asthma Past Surgical History Surgical History H/O myringotomy Right ear tube H/O wisdom tooth extraction History of adenoidectomy History of colonoscopy x2 History of esophageal dilatation History of esophagogastroduodenoscopy (EGD) x2 History of lymph node biopsy benign History of open reduction and internal fixation (ORIF) procedure left tibia History of tonsillectomy Hx of cervical biopsy per pt she had HPV (with local anesthesia) Hx of oral surgery S/P hardware removal left tibia S/P left knee arthroscopy S/P skin biopsy local anesthesia Social History Smoking Status: Unknown if ever smoked Do You Dip or Chew Tobacco: No Hx Alcohol Use: No Alcohol type: hard liquor alcohol intake frequency: holidays/special occasions only Hx Substance Use: No substance use type: marijuana Last Used Substance Other:: unk Lab Results Anesthesia Preop Results Results Anesthesia Widget: WBC 5.66 K/ul (4.8-10.8) 12/17/24 Hgb 11.0 g/dl (12.0-16.0) L 12/17/24 Hct 33.2 % (37.0-47.0) L 12/17/24 Plt 203 K/uL (130-400) 12/17/24 Na 140 mmol/L (136-145) 12/17/24 K 3.6 mmol/L (3.5-5.1) 12/17/24 Cl 109 mmol/L (98-107) H 12/17/24 CO2 27 mmol/L (21-32) 12/17/24 BUN 9 mg/dl (6-23) 12/17/24 Creat 0.70 mg/dl (0.6-1.2) 12/17/24 Glucose Level 94 mg/dl (70-99(Fasting)) 12/17/24 Urine Color Yellow 12/15/24 Urine Appearance Clear (Clear) 12/15/24 Urine pH 7.5 (4.5-7.5) 12/15/24 Urine Specific Cummings 1.008 (1.000-1.030) 12/15/24 Urine Protein Negative (Negative) 12/15/24 Urine Glucose (UA) Negative (Negative) 12/15/24 Urine Ketones Negative (Negative) 12/15/24 Urine Blood Trace (Negative) H 12/15/24 Urine Nitrite Negative (Negative) 12/15/24 Urine Bilirubin Negative (Negative) 12/15/24 Urine Urobilinogen Negative (Negative) 12/15/24 Urine Leukocyte Esterase Negative (Negative) 12/15/24 Urine WBC (Auto) 0-5 /hpf (0-5) 12/15/24 Urine RBC (Auto) 0-2 /hpf (0-2) 12/15/24 Urine Hyaline Casts (Auto) 0-2 /lpf (0-2) 12/15/24 Urine Epithelial Cells (Auto) 0-2 /hpf (0-2) 12/15/24 Urine Bacteria (Auto) None Seen (None Seen) 12/15/24 Testing Electrocardiogram Date: 12/15/24 NSR at 60bpm. Low voltage QRS. Other Testing Abdomen/Pelvis CT Date: 12/15/24 IMPRESSION: Cholelithiasis with a moderately distended gallbladder containing numerous gas-filled stones. A tiny gas collection is noted which could be in the common bile duct. Recommend correlation with right upper quadrant ultrasound. Mild splenomegaly. Focal distention of the distal small bowel may indicate incompetent ileocecal valve with reflux into the terminal ileum. Meckel's diverticulum less likely. Bilateral ovarian cysts. Gallbladder ultrasound Date: 12/15/24 IMPRESSION: 1. Findings consistent with acute cholecystitis. 2. No biliary ductal dilatation.
[~2024-12-24 10:44] MED LIST changes: +ACETAMINOPHEN 1000 MG/100 ML IV IV ONE; -ARTISOL12 OPB; -B-CO1TAB29 PO; -CHOL400C7 PO; -CLON0.5T9 PO; -DOXE10CA PO; -LITH150C6 PO; -MAGNTAB17 PO; -ONDA4TAB46 PO; -PREG200C PO; -PRLSR20 PO; -RIBO1TAB PO; -SPIR25TA PO; -VNTHFA/IN INH; -ZNT/150 PO
[2024-12-24] MEDS ORDERED: MIDAZOLAM HCL 1 MG/ML 2ML VIAL ONE (11:24)
[2024-12-24] MEDS ORDERED: ROCURONIUM BROMIDE 10 MG/ML 5 ML VIAL IV ONE ×2 (11:24→12:59)
[2024-12-24] MEDS ORDERED: PROPOFOL IV EMULSION 10 MG/ML 20 ML VIAL IV ONE (11:24)
[2024-12-24] MEDS ORDERED: fentaNYL citrate PF 100 MCG/2 ML VIAL ONE (11:24)
[2024-12-24] MEDS: LR 15ML/HR IV SCH ×3 (11:30)
--- NOTE | 2024-12-24 12:14 | History & Physical Report ---
Date of Service December 24, 2024 Assessment & Plan (1) Biliary colic: Plan: Plan for robotic cholecystectomy, possible open. The details of the procedure have been explained to her for consent purposes. History of Present Illness Primary Care Provider: NO PCP This is a 34y F with a PMH of migraines, HTN, fibromyalgia, IBS, GERD, anxiety, homelessness, who presents to the [facility] ED on 12/15/24 with complaints of abdominal pain associated with nausea/vomiting. The patient states her pain started around 8pm yesterday after eating food for dinner. She states this caused pain in her upper abdomen and off the right side, into the back, and some radiating down her abdomen. She started vomiting around 2 am. Because of her symptoms she presented to the ER for evaluation. She underwent a CT a/p showed cholelithiasis with a moderately distended gallbladder containing numerous gas-filled stones. A tiny gas collection is noted which could be in the common bile duct. Follow up with a RUQ US showed findings concerning for acute cholecystitis. No biliary ductal dilatation. The patient denies any fevers/chills. She has never had surgery on her abdomen before. Patient states she has a history of abdominal complaints and has undergone EGD/colonoscopies in the past. She has IBS and uses linzess. She required 2 doses of Ativan when seen in the ED to complete her evaluation, attempts to have case management help with her have failed and she has failed to be treated multiple times causing her to be discharged from the hospital without her gallbladder being removed. She required ongoing abx and pain medication at home since then and did not show up to an outpatient procedure date earlier in the week. She showed up late today for her surgery and states today so far she finally has not had pain but admits she is unable to eat. She presents for robotic cholecystectomy. Allergies Allergy/AdvReac Type Severity Reaction Status Date / Time adhesive Allergy Severe contact Verified 12/24/24 11:25 dermatitis divalproex sodium Allergy Severe Anaphylaxis Verified 12/24/24 11:25 [From Depakote] Gadolinium-Containing Allergy Severe Anaphylaxis Verified 12/24/24 11:25 Contrast Medi (MRI contrast) bupropion Allergy Intermediate HIVES Verified 12/24/24 11:25 cat dander Allergy Intermediate allergy Verified 12/24/24 11:25 tested positivie cobalt Allergy Intermediate contact Verified 12/24/24 11:25 dermatitis Iodinated Contrast Media Allergy Intermediate ARM Verified 12/24/24 11:25 NUMBNESS & vomiting nickel Allergy Intermediate contact Verified 12/24/24 11:25 dermatitis pollen extracts Allergy Intermediate asthma sx Verified 12/24/24 11:25 sertraline Allergy Intermediate Hives Verified 12/24/24 11:25 silver Allergy Intermediate contact Verified 12/24/24 11:25 dermatitis fluoxetine Allergy Mild HIVES Verified 12/24/24 11:25 buprenorphine AdvReac Intermediate nausea/vomi Verified 12/24/24 11:25 ting fluvoxamine AdvReac Intermediate COLD SORES Verified 12/24/24 11:25 haloperidol [From Haldol] AdvReac Intermediate TARDIVE Verified 12/24/24 11:25 DYSKINESIA PER [facility].dystonic & "severe muscle spasms" hydrocodone AdvReac Intermediate NAUSEA/VOMI Verified 12/24/24 11:25 TING alcohol AdvReac Mild GI Verified 12/24/24 11:25 symptoms, reflux ascorbic acid AdvReac Mild GI Verified 12/24/24 11:25 symptoms & reflux black pepper AdvReac Mild Reflux/GI Verified 12/24/24 11:25 symptoms caffeine AdvReac Mild GI symptoms Verified 12/24/24 11:25 chocolate flavor AdvReac Mild GI symptoms Verified 12/24/24 11:25 [place] And Derivatives AdvReac Mild Reflux - Verified 12/24/24 11:25 citrus fruits garlic AdvReac Mild gi Verified 12/24/24 11:25 symptoms/reflux milk AdvReac Mild GI Verified 12/24/24 11:25 symptoms. monosodium glutamate AdvReac Mild GI symtpoms Verified 12/24/24 11:25 onion AdvReac Mild reflux Verified 12/24/24 11:25 peanut AdvReac Mild GI symptoms Verified 12/24/24 11:25 peppermint AdvReac Mild Mint - Verified 12/24/24 11:25 reflux tomato AdvReac Mild Reflux/GI Verified 12/24/24 11:25 Symptoms Yeast AdvReac Mild GI symptoms Verified 12/24/24 11:25 loratadine AdvReac Unknown anxiety Verified 12/24/24 11:25 metoclopramide AdvReac Unknown anxiety Verified 12/24/24 11:25 banana AdvReac Verified 12/24/24 11:25 Home Medications Medication Instructions Recorded Confirmed Type albuterol sulfate 90 mcg/actuation 2 puff inhalation Q4 PRN Shortness 08/10/18 12/24/24 History aerosol inhaler Of Breath omeprazole 20 mg capsule,delayed 20 mg PO BID 08/10/18 12/24/24 History release famotidine 20 mg tablet 20 mg PO HS Acid Reflux 08/03/19 12/24/24 History albuterol sulfate 2.5 mg/3 mL 2.5 mg inhalation Q4H PRN 04/22/20 12/24/24 History (0.083 %) solution for nebulization Shortness Of Breath Or Wheezing linaclotide 145 mcg capsule 145 mcg PO DAILYBB PRN NEEDED 04/22/20 12/24/24 History (Linzess) PER PT diphenhydramine HCl 25 mg capsule 25 mg PO Q6H PRN TARDIVE DYSKINESIA 05/02/20 12/24/24 History (Benadryl) fluticasone propionate 50 2 sprays intranasal DAILY PRN 05/02/20 12/24/24 History mcg/actuation nasal Congestion spray,suspension pregabalin 200 mg capsule (Lyrica) 200 mg PO TID 06/10/20 12/24/24 History polyethylene glycol 3350 17 17 g PO DIRECTED Constipation 05/10/21 12/24/24 History gram/dose oral powder (Miralax) lidocaine 5 % topical patch 1 patch topical DAILY PRN Pain 05/18/21 12/24/24 History linaclotide 72 mcg capsule 72 mcg PO QAM severe constipation 05/18/21 12/24/24 History (Linzess) spironolactone 50 mg tablet 50 mg PO QAM 05/18/21 12/24/24 History docusate sodium 100 mg capsule 200 mg PO DAILY 06/11/21 12/24/24 History (Stool Softener) triamcinolone acetonide 0.5 % 1 applic topical BID PRN contact 06/11/21 12/24/24 History topical cream dermatitis carboxymethylcellulose sodium 0.5 1 drp ophthalmic (eye) QID PRN Dry 09/03/23 12/24/24 History % eye drops Eyes simethicone 125 mg capsule 125 mg PO TID PRN GAS RELIEF 09/03/23 12/24/24 History acetaminophen 500 mg tablet 500 mg PO Q6H PRN Pain 12/15/24 12/24/24 History clonazepam 0.5 mg tablet 0.5 mg PO QID PRN Anxiety 12/15/24 12/24/24 History ibuprofen 200 mg tablet 200 mg PO Q6H PRN Pain 12/15/24 12/24/24 History amoxicillin 875 mg-potassium 1 tab PO Q12H #9 tabs 12/17/24 12/24/24 Rx clavulanate 125 mg tablet hydromorphone 2 mg tablet 2 mg PO Q12H PRN pain #4 tabs 12/17/24 12/24/24 Rx (Dilaudid) ondansetron 4 mg disintegrating 4 mg PO Q4H PRN nausea and 12/17/24 12/24/24 Rx tablet vomiting #7 tabs amoxicillin 875 mg-potassium 1 tab PO BID 7 days #14 tabs 12/21/24 12/24/24 Rx clavulanate 125 mg tablet ondansetron HCl 4 mg tablet 4 mg PO Q8H PRN nausea and 12/21/24 12/24/24 Rx vomiting 5 days #15 tabs Past Med/Surg History Problem List (Updated 12/24/24 @ 12:12 by Shelly Tatum, ) Biliary colic Acute cholecystitis Tinnitus of right ear Facial palsy Lumbar back pain with radiculopathy affecting lower extremity Chronic shoulder pain Encounter for pre-operative examination Vaginismus Fatty liver Scoliosis Nephrolithiasis Circadian rhythm sleep disorder, delayed sleep phase type Lumbar disc disease Gastro-esophageal reflux disease without esophagitis Hiatal hernia Hypertension Insomnia Osteoarthritis Anemia Osteopenia OCD (obsessive compulsive disorder) Gastritis Fibromyalgia Migraines Anxiety (Acute) Asthma Depression Ftcepxg-Wrypuaavo-Kvjhn syndrome Herniated nucleus pulposus, L4-5 Medical History Anxiety Asthma Cervical strain Cholecystitis Chronic maxillary sinusitis Chronic shoulder pain Depression Fatty liver Fibromyalgia GERD (gastroesophageal reflux disease) Hiatal hernia History of anemia History of facial nerve disorder hx facial nerve palsy History of IBS Hordeolum of left eye 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 Hx of gastritis Hx of migraines Hx of renal calculi Hypertension hx Insomnia Bslxfub-Mssqsurbo-Vtsqv syndrome Low grade squamous intraepithelial lesion (LGSIL) on cervical Pap smear Lumbar back pain with radiculopathy affecting lower extremity Lumbar disc disease Lyme disease OCD (obsessive compulsive disorder) Scoliosis Ulnar neuropathy of both upper extremities Vulvar fissure Entered 2019 Surgical History H/O myringotomy Right ear tube H/O wisdom tooth extraction History of adenoidectomy History of colonoscopy x2 History of esophageal dilatation History of esophagogastroduodenoscopy (EGD) x2 History of lymph node biopsy benign History of open reduction and internal fixation (ORIF) procedure left tibia History of tonsillectomy Hx of cervical biopsy per pt she had HPV (with local anesthesia) Hx of oral surgery S/P hardware removal left tibia S/P left knee arthroscopy S/P skin biopsy local anesthesia Family History Grandfather (Maternal) Family history of diabetes mellitus Deep vein thrombosis Stroke Grandmother (Paternal) Hypertension Other Kidney stone No family history of adverse response to anesthesia Denies family history of Ovarian cancer Coronary heart disease Breast cancer Colorectal cancer Asthma Social History Smoking Status: Unknown if ever smoked Cigarettes Per Day: unable to finish assessment per pt's state of di stress/pain; Do You Dip or Chew Tobacco: No; Hx Alcohol Use: No Hx Substance Use: No Preferred Language: Barb[place] Communication Ability: Effective Visual Impairment: No Limitations Hearing Ability: Normal 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: No Beliefs That Will Affect Care: None Current Living Situation: Alone Current Living Situation Comment: roommates--2 Feels Safe at Home: Yes Gender Identity: Female Assistive Devices: None Assistive Devices Comment: unable to finish assessment per pt's state of distress/pain Review of Systems Review of Systems: All systems reviewed & are unremarkable except as noted in HPI & below Physical Exam Constitutional: + in distress (her baseline, anxious); n ot ill appearing and not diaphoretic Respiratory: normal respiratory effort; no respiratory distress, no labored breathing and does not use accessory muscles Cardiovascular: Rate/Rhythm: regular rate; not tachycardic Psychiatric: Orientation: alert and oriented x 3 Mood: + anxious mood PG Care Time/CCT Total # of Minutes Spent Total Time Spent with Patient: Total time spent is greater than 50% in coordination of care (as documented) at patient's floor/unit and/or counseling patient: Coding Level of Care Code 29586 INT INP/OBS CARE MIN Diagnoses Biliary colic K80.50
[2024-12-24] MEDS ORDERED: ATROPINE SULFATE 0.1 MG/ML 10ML SYR IV PRN (12:22)
[2024-12-24] MEDS ORDERED: HYDROmorphone INJ 2 MG/ML SYR/VIAL IV PRN ×2 (12:22→15:32)
[2024-12-24] MEDS ORDERED: ePHEDrine sulfate 50 MG/ML AMP IV PRN (12:22)
[2024-12-24] MEDS ORDERED: KETAMINE HCL 10MG/ML SYR ONE (12:38)
[2024-12-24] MEDS: ceFAZolin 2000MG 2,000 MG/15 ML SYR IV SCH (12:40)
[2024-12-24] MEDS ORDERED: HYDROmorphone INJ 2 MG/ML SYR/VIAL ONE (12:56)
[2024-12-24] MEDS ORDERED: SUGAMMADEX SODIUM 200 MG/2 ML VIAL IV ONE (13:00)
[2024-12-24] MEDS ORDERED: PHENYLEPHRINE 100MCG/ML 5ML SYR ONE (13:04)
[2024-12-24] MEDS ORDERED: ePHEDrine sulfate 50 MG/5 ML SYR ONE (13:04)
[2024-12-24] MEDS ORDERED: ONDANSETRON INJ 2 MG/ML 2 ML VIAL ONE (13:08)
[2024-12-24] MEDS ORDERED: KETOROLAC 30 MG/ML VIAL ONE (13:08)
[2024-12-24] MEDS ORDERED: DEXAMETHASONE SOD INJ 4 MG/ML VIAL ONE (13:08)
[2024-12-24] MEDS: BUPIVACAINE 0.5 % 5 MG/1 ML MPF 30ML VIAL ONE (14:30)
[2024-12-24] MEDS: fentaNYL citrate PF 100 MCG/2 ML VIAL IV PRN (14:56)
--- NOTE | 2024-12-24 14:58 | Operative Report ---
PG Post Operative Report Pre & Post Diagnosis Operation Date: 12/24/24 09:35 Pre-Op Diagnosis: Biliary colic Post-Op Diagnosis: Biliary colic I identified the patient and participated in the time-out.: Yes Procedure Operation Date: 12/24/24 09:35 Actual Procedures p Robotic Assisted Laparoscopic Cholecystectomy - Shelly Tatum DO Surgeon Shelly Tatum DO Test Eng Yanira Johnson NP Estimated Blood Loss 15 Findings See Below enlarged gallbladder containing dark bile and stones Specimens Gallbladder Drains None Anesthesia Type General Complications None Indications ongoing biliary colic symptoms requiring antibiotics and pain medications with an inability to eat Description of Procedure The patient was brought back to the operating room and placed on the OR table in supine position. She was connected to cardiac and oxygen monitoring, supplemental O2 was provided and SCDs were applied to bilateral lower extremities. The patient was administered general anesthesia and a secure airway was established. The abdomen was prepped and draped in typical sterile fashion and a timeout was conducted. Local anesthetic was used anesthetize the skin and subcutaneous tissues prior to making all incisions and all incisions were made with a 15 blade. A Veress needle was used to access the intra- abdominal space I had an incision at the superior umbilical fold. This access was confirmed using the saline drop test. CO2 insufflation was initiated and pneumoperitoneum was established to a goal pressure 15 mmHg. Once this pressure was reached, an 8 mm robotic trocar was inserted using direct visualization with a 5 mm laparoscope and Optiview port. 2 additional 8 mm robotic trocars were inserted at the right and left upper quadrants. A 5 mm laparoscopic virtual office assistant port was inserted the far right upper quadrant. The OR table was positioned in reverse Trendelenburg and left side down. The robot was deployed, docked, targeted and instruments were loaded. The gallbladder was identified the right upper quadrant and grasped at the fundus by the virtual office assistant. At the robotic console, soft omental adhesions were dissected from the body and infundibulum of the gallbladder to expose the cystic duct anteriorly. The triangle of Calot was dissected to expose the cystic artery and cystic duct. There was excess serosal and fatty tissue in the region and surrounding the lymph node which caused bleeding. This was controlled using cautery. Hemoclips were used to ligate the cystic artery and cystic duct. 2 clips were placed proximally and 1 distally on each structure in addition small vessels to Calot's ligated using a single Hem-o-garrett clip. The cystic duct and artery were transected using cutting energy. The gallbladder was cauterized away from the liver bed and placed in an Endo Catch bag. The clip pulled away from the opening to the cystic duct on the gallbladder and a small amount of andie k green bile was released. This was suctioned away. As the gallbladder was cauterized away from the liver bed, bleeding along the way was controlled using cautery. The liver bed and right upper quadrant more irrigated and suctioned. Irrigant ran clear. There was no bleeding at the liver bed surface on inspection. Hemostasis was achieved. The gallbladder was removed from the right upper quadrant robotic incision site and this incision site had to be enlarged to allow for removal of the gallbladder which I scrubbed back in the patient's bedside to aid in removal. Robotic instruments were removed, the robot was docked and cleared from the patient. CO2 insufflation was discontinued and excess pneumoperitoneum was evacuated. The OR table was returned to the neutral position and the fascia at this incision was closed using 0 Vicryl suture. Additional local anesthetic was injected into the fascia. The skin and all incision sites was closed using 4-0 Monocryl suture. The abdomen was wiped clean with a saline soaked lap pad and dried. The incisions were further sealed with Dermabond. The patient tolerated the procedure well. She was awakened from anesthesia, the ET tube was removed and the nasal airway was inserted per anesthesia. The patient was transferred to recovery in stable condition. I attest to the content of the Intraoperative Record and any orders documented therein. Any exceptions are noted below.
[2024-12-24] MEDS: ONDANSETRON INJ 2 MG/ML 2 ML VIAL IV PRN ×2 (15:08→17:56)
[2024-12-24] MEDS: LORazepam 2 MG/1 ML VIAL IV PRN (15:15)
[2024-12-24] MEDS: diphenhydrAMINE 50 MG/ML VIAL ONE (15:28)
[2024-12-24] MEDS: HYDROmorphone INJ 1 MG/ML SYRINGE ONE (15:30)
--- NOTE | 2024-12-24 16:10 | Anesthesiology Progress Note ---
Date of Service December 24, 2024 Anesthesia Post Procedure Vital Signs Vital Signs: Temp Pulse Pulse Resp BP Pulse Ox O2 Del Method 12/24/24 16:00 87 21 155/57 H 98 Room Air 12/24/24 15:50 90 22 141/96 H 100 Room Air 12/24/24 15:40 95 H 20 145/90 H 100 Room Air 12/24/24 15:30 89 21 139/97 100 Room Air 12/24/24 15:20 90 26 H 139/97 100 Room Air 12/24/24 15:10 98 H 26 H 168/95 H 100 Room Air 12/24/24 15:00 108 H 24 150/99 H 99 Room Air 12/24/24 14:50 36.0 C L 107 H 13 131/86 95 Oxymask 12/24/24 11:52 36.4 C L 87 20 137/77 99 Room Air O2 Flow Rate 12/24/24 16:00 12/24/24 15:50 12/24/24 15:40 12/24/24 15:30 12/24/24 15:20 12/24/24 15:10 12/24/24 15:00 12/24/24 14:50 4 12/24/24 11:52 Pain Intensity Generalized: Pain Intensity: 4 Transfer of Care Handoff Completed per policy Notes Mental Status: alert / awake / arousable Patient Amnestic to Procedure: Yes Nausea / Vomiting: adequately controlled Pain: adequately controlled Airway Patency, RR, SpO2: stable & adequate BP & HR: stable & adequate Hydration State: stable & adequate Anesthetic Complications: no major complications apparent
[2024-12-24] MEDS ORDERED: clonazePAM 0.5 MG TAB PO PRN (17:08)
[2024-12-24] MEDS ORDERED: ACETAMINOPHEN 1,000 MG/100 ML VIAL IV PRN (17:08)
[2024-12-24] MEDS ORDERED: NON-FORMULARY MEDICATION (Carboxymethylcellulose Sodium 0.5 % Drops) OP PRN (17:08)
[2024-12-24] MEDS ORDERED: TRIAMCINOLONE ACET 0.5% CR 15 GM TUBE TOP PRN (17:08)
[2024-12-24] MEDS ORDERED: oxyCODONE/ACETAMINOPHEN 5mg/325mg TAB PO PRN (17:08)
[2024-12-24] MEDS ORDERED: ALBUTEROL HFA 8 GM INHALER INH PRN (17:08)
[2024-12-24] MEDS: HYDROmorphone INJ 0.5 MG/0.5 ML SYR IV STA (17:16)
[2024-12-24] MEDS: LORazepam 2 MG/1 ML VIAL ONE (17:16)
[2024-12-24] MEDS: diphenhydrAMINE 50 MG/ML VIAL IV STA (17:18)
[2024-12-24] MEDS: HYDROmorphone INJ 0.5 MG/0.5 ML SYR IV PRN ×2 (17:42→22:09)
--- NOTE | 2024-12-24 18:30 | History & Physical Report ---
Date of Service December 24, 2024 Assessment & Plan (1) Acute cholecystitis: Plan: Deepthi is a 34-year-old female with a complicated and complex medical history including OCD, KTW syndrome, anemia, hypertension, IgG deficiency, tardive dyskinesia, borderline personality disorder, somatic symptom disorder, GERD, anxiety, panic attacks, back pain, L4-5 herniated nucleus pulposus, migraines, fibromyalgia who presents for scheduled robot-assisted lap cholecystectomy. We are consulted for assistance with postoperative medication management. Cholecystitis S/p robot-assisted lap cholecystectomy At bedside lap sites are clean dry and without dehiscence. Abdomen is appropriately tender without rebound/guarding. Dermabond is intact overlying lap sites No leukocytosis preop. Afebrile. Normotensive. Slightly tachycardic but anxious at bedside. She is not toxic She completed a course of Augmentin and has received perioperative cefazolin Social needs Complicated social history. Has previous followed with [facility] and [facility] practices. Most recently had been following with [facility] however per patient was recently dismissed as a patient there and now does not have a PCP for follow-up. Given she was last seen by [facility] while hospitalized and was most recently at [facility] patient will follow on our services, and case management has also been consulted to help facilitate a new PCP for her. [facility] records pending Chronic Stable: - Mental health: Clonazepam prn. May take up to 2 mg total daily dose, and may take 0.5-1 mg per dose throughout the day. - GERD: Pepcid, PPI - Constipation: Linzess, Miralax HS - Fibromyalgia: Lyrica. Requires brand which she brought from home for verification - HTN: Spironolactone held. has not been taking this recently and is normotensive on assessment. - Pjrsvuv-Wlbkukvyu-Siljb Syndrome: noted DVT prophylaxis: Per Primary Team Code status: Full Code Surrogate Decision Maker: She reports her emergency contact is her friend Katja Díaz. She has living family/parents but who she reports she is legally estranged from and is not to make medications for her under any circumstances. [phone] (2) Lumbar back pain with radiculopathy affecting lower extremity: (3) OCD (obsessive compulsive disorder): (4) Fibromyalgia: Admission and Anticipated Discharge Date Admission Date: December 24, 2024 History of Present Illness Primary Care Provider: NO PCP Deepthi is seen at the bedside postop. She is tearful on discussion of PCP. Reports she had been dismissed from [facility] int he past, and was recently dismissed from her PCP at [facility] office. She used to follow with [facility] but has not recently and was last seeing Dr. Amos until being dismissed this past week by that practice. Below missing at the bedside postoperatively. Reviewed her medical history over approximately 40 minutes in room. Patient expresses significant distress as was recently followed with [facility] but after filing a complaint reports that she had been fired from the clinic this past week and no longer has a PCP. In the past had followed with [facility] in [facility] and has not been able to follow with them recently. She reports that she has been treated for about gallbladder and does have some spasms and feeling of gurgling after her surgery. No fever/chills/sweats. She is not short of breath at time of assessment and has good oxygenation, does endorse feeling anxious and gets panic attacks. Medications reviewed with her at bedside and she endorses current medications as below: omeprazole 20mg PO BID Famotidine Linzess 72mcg with 145mcg daily Lyrica 200mg PO TID brand necessary. Brought in from home for verification to use. Spironolactone 50mg PO qAM for bp and leg swelling per pt. has not taken in 2 weeks. Multiple Vitamins. Vit D, Vit B comp, Potassium supplement. Outpatient gets iron transfusion for anemia. Mg supplementation outpt. CLonazepam 0.5mg PO QID may adjust dosing per her psychiatrist as needed, but only up to 2mg max total daily dose. Last dose 8:40am this morning. Miralax HS Not currently taking metformin, pending review of this as an outpatient in the future. Denies DM. Irina POSADAS She is tearful regarding her medical course and complex social needs. Expresses significant anxiety over not knowing who she will follow-up as an outpatient. Reassured her that we will be admitted and followed within the hospital by our services and will consult case management to facilitate an outpatient PCP appointment. Patient was very anxious to know whether she could follow-up female with a new man and a provider given her past history. Given that she was most recently a [facility] patient discussed that we will follow her in consultation on our hospitalist service, and reassured her that will have a trimming caser meet with her tomorrow to help figure out potential options for long- term follow-up. Patient reports that she is slightly anxious and prefers provide he is wearing a mask due to her history of immune deficiency. Happy to do so, and placed a communication to place on droplet precautions to ensure masking. Discussed with patient that she does not require droplet isolation however can place this on the door to help make masking more consistent. She was not neutropenic on last CBC Medical History: Reviewed Medications: Reviewed Surgical History: Reviewed Family history: Reviewed Allergies: Reviewed Social History: Reviewed. Currently living in [place] [facility]. Not sure where she will be moving after this. Code Status:Full Allergies Allergy/AdvReac Type Severity Reaction Status Date / Time adhesive Allergy Severe contact Verified 12/24/24 11:25 dermatitis divalproex sodium Allergy Severe Anaphylaxis Verified 12/24/24 11:25 [From Depakote] Gadolinium-Containing Allergy Severe Anaphylaxis Verified 12/24/24 11:25 Contrast Medi (MRI contrast) bupropion Allergy Intermediate HIVES Verified 12/24/24 11:25 cat dander Allergy Intermediate allergy Verified 12/24/24 11:25 tested positivie cobalt Allergy Intermediate contact Verified 12/24/24 11:25 dermatitis Iodinated Contrast Media Allergy Intermediate ARM Verified 12/24/24 11:25 NUMBNESS & vomiting nickel Allergy Intermediate contact Verified 12/24/24 11:25 dermatitis pollen extracts Allergy Intermediate asthma sx Verified 12/24/24 11:25 sertraline Allergy Intermediate Hives Verified 12/24/24 11:25 silver Allergy Intermediate contact Verified 12/24/24 11:25 dermatitis fluoxetine Allergy Mild HIVES Verified 12/24/24 11:25 buprenorphine AdvReac Intermediate nausea/vomi Verified 12/24/24 11:25 ting fluvoxamine AdvReac Intermediate COLD SORES Verified 12/24/24 11:25 haloperidol [From Haldol] AdvReac Intermediate TARDIVE Verified 12/24/24 11:25 DYSKINESIA PER [facility].dystonic & "severe muscle spasms" hydrocodone AdvReac Intermediate NAUSEA/VOMI Verified 12/24/24 11:25 TING alcohol AdvReac Mild GI Verified 12/24/24 11:25 symptoms, reflux ascorbic acid AdvReac Mild GI Verified 12/24/24 11:25 symptoms & reflux black pepper AdvReac Mild Reflux/GI Verified 12/24/24 11:25 symptoms caffeine AdvReac Mild GI symptoms Verified 12/24/24 11:25 chocolate flavor AdvReac Mild GI symptoms Verified 12/24/24 11:25 [place] And Derivatives AdvReac Mild Reflux - Verified 12/24/24 11:25 citrus fruits garlic AdvReac Mild gi Verified 12/24/24 11:25 symptoms/reflux milk AdvReac Mild GI Verified 12/24/24 11:25 symptoms. monosodium glutamate AdvReac Mild GI symtpoms Verified 12/24/24 11:25 onion AdvReac Mild reflux Verified 12/24/24 11:25 peanut AdvReac Mild GI symptoms Verified 12/24/24 11:25 peppermint AdvReac Mild Mint - Verified 12/24/24 11:25 reflux tomato AdvReac Mild Reflux/GI Verified 12/24/24 11:25 Symptoms Yeast AdvReac Mild GI symptoms Verified 12/24/24 11:25 loratadine AdvReac Unknown anxiety Verified 12/24/24 11:25 metoclopramide AdvReac Unknown anxiety Verified 12/24/24 11:25 banana AdvReac Verified 12/24/24 11:25 Home Medications Medication Instructions Recorded Confirmed Type albuterol sulfate 90 mcg/actuation 2 puff inhalation Q4 PRN Shortness 08/10/18 12/24/24 History aerosol inhaler Of Breath omeprazole 20 mg capsule,delayed 20 mg PO BID 08/10/18 12/24/24 History release famotidine 20 mg tablet 20 mg PO HS Acid Reflux 08/03/19 12/24/24 History albuterol sulfate 2.5 mg/3 mL 2.5 mg inhalation Q4H PRN 04/22/20 12/24/24 History (0.083 %) solution for nebulization Shortness Of Breath Or Wheezing linaclotide 145 mcg capsule 145 mcg PO DAILYBB PRN NEEDED 04/22/20 12/24/24 History (Linzess) PER PT diphenhydramine HCl 25 mg capsule 25 mg PO Q6H PRN TARDIVE DYSKINESIA 05/02/20 12/24/24 History (Benadryl) fluticasone propionate 50 2 sprays intranasal DAILY PRN 05/02/20 12/24/24 History mcg/actuation nasal Congestion spray,suspension pregabalin 200 mg capsule (Lyrica) 200 mg PO TID 06/10/20 12/24/24 History polyethylene glycol 3350 17 17 g PO DIRECTED Constipation 05/10/21 12/24/24 History gram/dose oral powder (Miralax) lidocaine 5 % topical patch 1 patch topical DAILY PRN Pain 05/18/21 12/24/24 History linaclotide 72 mcg capsule 72 mcg PO QAM severe constipation 05/18/21 12/24/24 History (Linzess) spironolactone 50 mg tablet 50 mg PO QAM 05/18/21 12/24/24 History docusate sodium 100 mg capsule 200 mg PO DAILY 06/11/21 12/24/24 History (Stool Softener) triamcinolone acetonide 0.5 % 1 applic topical BID PRN contact 06/11/21 12/24/24 History topical cream dermatitis carboxymethylcellulose sodium 0.5 1 drp ophthalmic (eye) QID PRN Dry 09/03/23 12/24/24 History % eye drops Eyes simethicone 125 mg capsule 125 mg PO TID PRN GAS RELIEF 09/03/23 12/24/24 History acetaminophen 500 mg tablet 500 mg PO Q6H PRN Pain 12/15/24 12/24/24 History clonazepam 0.5 mg tablet 0.5 mg PO QID PRN Anxiety 12/15/24 12/24/24 History ibuprofen 200 mg tablet 200 mg PO Q6H PRN Pain 12/15/24 12/24/24 History amoxicillin 875 mg-potassium 1 tab PO Q12H #9 tabs 12/17/24 12/24/24 Rx clavulanate 125 mg tablet hydromorphone 2 mg tablet 2 mg PO Q12H PRN pain #4 tabs 12/17/24 12/24/24 Rx (Dilaudid) ondansetron 4 mg disintegrating 4 mg PO Q4H PRN nausea and 12/17/24 12/24/24 Rx tablet vomiting #7 tabs amoxicillin 875 mg-potassium 1 tab PO BID 7 days #14 tabs 12/21/24 12/24/24 Rx clavulanate 125 mg tablet ondansetron HCl 4 mg tablet 4 mg PO Q8H PRN nausea and 12/21/24 12/24/24 Rx vomiting 5 days #15 tabs Past Med/Surg History Problem List (Updated 12/24/24 @ 12:12 by Shelly Tatum DO) Biliary colic Acute cholecystitis Tinnitus of right ear Facial palsy Lumbar back pain with radiculopathy affecting lower extremity Chronic shoulder pain Encounter for pre-operative examination Vaginismus Fatty liver Scoliosis Nephrolithiasis Circadian rhythm sleep disorder, delayed sleep phase type Lumbar disc disease Gastro-esophageal reflux disease without esophagitis Hiatal hernia Hypertension Insomnia Osteoarthritis Anemia Osteopenia OCD (obsessive compulsive disorder) Gastritis Fibromyalgia Migraines Anxiety (Acute) Asthma Depression Piyfhni-Lndjancrv-Aobyl syndrome Herniated nucleus pulposus, L4-5 Medical History Anxiety Asthma Cervical strain Cholecystitis Chronic maxillary sinusitis Chronic shoulder pain Depression Fatty liver Fibromyalgia GERD (gastroesophageal reflux disease) Hiatal hernia History of anemia History of facial nerve disorder hx facial nerve palsy History of IBS Hordeolum of left eye 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 Hx of gastritis Hx of migraines Hx of renal calculi Hypertension hx Insomnia Xfbjnav-Nmivlsxxg-Cwhzq syndrome Low grade squamous intraepithelial lesion (LGSIL) on cervical Pap smear Lumbar back pain with radiculopathy affecting lower extremity Lumbar disc disease Lyme disease OCD (obsessive compulsive disorder) Scoliosis Ulnar neuropathy of both upper extremities Vulvar fissure Entered 2019 Surgical History H/O myringotomy Right ear tube H/O wisdom tooth extraction History of adenoidectomy History of colonoscopy x2 History of esophageal dilatation History of esophagogastroduodenoscopy (EGD) x2 History of lymph node biopsy benign History of open reduction and internal fixation (ORIF) procedure left tibia History of tonsillectomy Hx of cervical biopsy per pt she had HPV (with local anesthesia) Hx of oral surgery S/P hardware removal left tibia S/P left knee arthroscopy S/P skin biopsy local anesthesia Family History Grandfather (Maternal) Family history of diabetes mellitus Deep vein thrombosis Stroke Grandmother (Paternal) Hypertension Other Kidney stone No family history of adverse response to anesthesia Denies family history of Ovarian cancer Coronary heart disease Breast cancer Colorectal cancer Asthma Social History Smoking Status: Unknown if ever smoked Cigarettes Per Day: unable to finish assessment per pt's state of distress/pain; Do You Dip or Chew Tobacco: No; Hx Alcohol Use: No Hx Substance Use: No Preferred Language: Albanian Communication Ability: Effective Visual Impairment: No Limitations Hearing Ability: Normal [employer] Required: No Beliefs That Will Affect Care: None Current Living Situation: Alone Current Living Situation Comment: roommates--2 Feels Safe at Home: Yes Gender Identity: Female Assistive Devices: None Assistive Devices Comment: unable to finish assessment per pt's state of distress/pain Physical Exam Physical Exam: General: A&Ox3, anxious appearing. NAD. Cooperative. HEENT: Atraumatic, normocephalic. No facial asymmetry, vision/hearing grossly intact. Pulm: Symmetrical chest rise. No increased work of breathing. No respiratory distress. Cardiac: Mildly tachycardic, regular Abdomen: Appropriately tender without rebound/guarding. Lap sites intact clean and dry. No dehiscence discharge or bleeding. Surgical glue overlying is intact. Moves all extremities equally. Results & Data Results & Data Vital Signs (Past 12 Hours) Vital Signs Temp Pulse Pulse Resp BP Pulse Ox O2 Del Method 12/24/24 17:59 107 H 22 126/84 97 Room Air 12/24/24 17:20 92 H 18 126/85 96 Room Air 12/24/24 16:25 89 24 145/89 H 98 Room Air 12/24/24 16:10 36.3 C L 88 24 148/88 H 98 Room Air 12/24/24 16:00 87 21 155/57 H 98 Room Air 12/24/24 15:50 90 22 141/96 H 100 Room Air 12/24/24 15:40 95 H 20 145/90 H 100 Room Air 12/24/24 15:30 89 21 139/97 100 Room Air 12/24/24 15:20 90 26 H 139/97 100 Room Air 12/24/24 15:10 98 H 26 H 168/95 H 100 Room Air 12/24/24 15:00 108 H 24 150/99 H 99 Room Air 12/24/24 14:50 36.0 C L 107 H 13 131/86 95 Oxymask 12/24/24 11:52 36.4 C L 87 20 137/77 99 Room Air O2 Flow Rate 12/24/24 17:59 12/24/24 17:20 12/24/24 16:25 12/24/24 16:10 12/24/24 16:00 12/24/24 15:50 12/24/24 15:40 12/24/24 15:30 12/24/24 15:20 12/24/24 15:10 12/24/24 15:00 12/24/24 14:50 4 12/24/24 11:52 PG Care Time/CCT Total # of Minutes Spent Total Time Spent with Patient: Total time spent is greater than 50% in coordination of care (as documented) at patient's floor/unit and/or counseling patient: Coding Diagnoses Acute cholecystitis K81.0 Lumbar back pain with radiculopathy affecting lower extremity M54.16 OCD (obsessive compulsive disorder) F42.9 Fibromyalgia M79.7
--- NOTE | 2024-12-24 19:06 | Hospitalist Consultation ---
Date of Consultation December 24, 2024 Assessment & Plan (1) Acute cholecystitis: Deepthi is a 34-year-old female with a complicated and complex medical history including OCD, KTW syndrome, anemia, hypertension, IgG deficiency, tardive dyskinesia, borderline personality disorder, somatic symptom disorder, GERD, anxiety, panic attacks, back pain, L4-5 herniated nucleus pulposus, migraines, fibromyalgia who presents for scheduled robot-assisted lap cholecystectomy. We are consulted for assistance with postoperative medication management. Cholecystitis S/p robot-assisted lap cholecystectomy At bedside lap sites are clean dry and without dehiscence. Abdomen is appropriately tender without rebound/guarding. Dermabond is intact overlying lap sites No leukocytosis preop. Afebrile. Normotensive. Slightly tachycardic but anxious at bedside. She is not toxic She completed a course of Augmentin and has received perioperative cefazolin Social needs Complicated social history. Has previous followed with [facility] and [facility] practices. Most recently had been following with [facility] however per patient was recently dismissed as a patient there and now does not have a PCP for follow-up. Given she was last seen by [facility] Trejo while hospitalized and was most recently at [facility] patient will follow on our services, and case management has also been consulted to help facilitate a new PCP for her. [facility] records pending Chronic Stable: - Mental health: Clonazepam prn. May take up to 2 mg total daily dose, and may take 0.5-1 mg per dose throughout the day. - GERD: Pepcid, PPI - Constipation: Linzess, Miralax HS - Fibromyalgia: Lyrica. Requires brand which she brought from home for verification - HTN: Spironolactone held. has not been taking this recently and is normotensive on assessment. - Qrdxiaz-Hfnzqjlzq-Dkrbt Syndrome: noted DVT prophylaxis: Per Primary Team Code status: Full Code Surrogate Decision Maker: She reports her emergency contact is her friend Katja Díaz. She has living family/parents but who she reports she is legally estranged from and is not to make medications for her under any circumstances. [phone] (2) Lumbar back pain with radiculopathy affecting lower extremity: (3) OCD (obsessive compulsive disorder): (4) Fibromyalgia: History of Present Illness Attending Physician: Shelly Tatum, History of Present Illness Deepthi is seen at the bedside postop. She is tearful on discussion of PCP. Reports she had been dismissed from [facility] practice int he past, and was recently dismissed from her PCP at [facility] office. She used to follow with [facility] but has not recently and was last seeing Dr. Amos until being dismissed this past week by that practice. Below missing at the bedside postoperatively. Reviewed her medical history over approximately 40 minutes in room. Patient expresses significant distress as was recently followed with [facility] family medicine clinic but after filing a complaint reports that she had been fired from the clinic this past week and no longer has a PCP. In the past had followed with [facility] in [facility] and has not been able to follow with them recently. She reports that she has been treated for about gallbladder and does have some spasms and feeling of gurgling after her surgery. No fever/chills/sweats. She is not short of breath at time of assessment and has good oxygenation, does endorse feeling anxious and gets panic attacks. Medications reviewed with her at bedside and she endorses current medications as below: omeprazole 20mg PO BID Famotidine Linzess 72mcg with 145mcg daily Lyrica 200mg PO TID brand necessary. Brought in from home for verification to use. Spironolactone 50mg PO qAM for bp and leg swelling per pt. has not taken in 2 weeks. Multiple Vitamins. Vit D, Vit B comp, Potassium supplement. Outpatient gets iron transfusion for anemia. Mg supplementation outpt. CLonazepam 0.5mg PO QID may adjust dosing per her psychiatrist as needed, but only up to 2mg max total daily dose. Last dose 8:40am this morning. Miralax HS Not currently taking metformin, pending review of this as an outpatient in the future. Denies DM. Irina POSADAS She is tearful regarding her medical course and complex social needs. Expresses significant anxiety over not knowing who she will follow-up as an outpatient. Reassured her that we will be admitted and followed within the hospital by our services and will consult case management to facilitate an outpatient PCP appointment. Patient was very anxious to know whether she could follow-up female with a new man and a provider given her past history. Given that she was most recently a [facility] patient discussed that we will follow her in consultation on our hospitalist service, and reassured her that will have a case coordinator meet with her tomorrow to help figure out potential options for long- term follow-up. Patient reports that she is slightly anxious and prefers provide he is wearing a mask due to her history of immune deficiency. Happy to do so, and placed a communication to place on droplet precautions to ensure masking. Discussed with patient that she does not require droplet isolation however can place this on the door to help make masking more consistent. She was not neutropenic on last CBC Medical History: Reviewed Medications: Reviewed Surgical History: Reviewed Family history: Reviewed Allergies: Reviewed Social History: Reviewed. Currently living in [facility]. Not sure where she will be moving after this. Code Status:Full Allergies Allergy/AdvReac Type Severity Reaction Status Date / Time adhesive Allergy Severe contact Verified 12/24/24 11:25 dermatitis divalproex sodium Allergy Severe Anaphylaxis Verified 12/24/24 11:25 [From Depakote] Gadolinium-Containing Allergy Severe Anaphylaxis Verified 12/24/24 11:25 Contrast Medi (MRI contrast) bupropion Allergy Intermediate HIVES Verified 12/24/24 11:25 cat dander Allergy Intermediate allergy Verified 12/24/24 11:25 tested positivie cobalt Allergy Intermediate contact Verified 12/24/24 11:25 dermatitis Iodinated Contrast Media Allergy Intermediate ARM Verified 12/24/24 11:25 NUMBNESS & vomiting nickel Allergy Intermediate contact Verified 12/24/24 11:25 dermatitis pollen extracts Allergy Intermediate asthma sx Verified 12/24/24 11:25 sertraline Allergy Intermediate Hives Verified 12/24/24 11:25 silver Allergy Intermediate contact Verified 12/24/24 11:25 dermatitis fluoxetine Allergy Mild HIVES Verified 12/24/24 11:25 buprenorphine AdvReac Intermediate nausea/vomi Verified 12/24/24 11:25 ting fluvoxamine AdvReac Intermediate COLD SORES Verified 12/24/24 11:25 haloperidol [From Haldol] AdvReac Intermediate TARDIVE Verified 12/24/24 11:25 DYSKINESIA PER [facility].dystonic & "severe muscle spasms" hydrocodone AdvReac Intermediate NAUSEA/VOMI Verified 12/24/24 11:25 TING alcohol AdvReac Mild GI Verified 12/24/24 11:25 symptoms, reflux ascorbic acid AdvReac Mild GI Verified 12/24/24 11:25 symptoms & reflux black pepper AdvReac Mild Reflux/GI Verified 12/24/24 11:25 symptoms caffeine AdvReac Mild GI symptoms Verified 12/24/24 11:25 chocolate flavor AdvReac Mild GI symptoms Verified 12/24/24 11:25 [place] And Derivatives AdvReac Mild Reflux - Verified 12/24/24 11:25 citrus fruits garlic AdvReac Mild gi Verified 12/24/24 11:25 symptoms/reflux milk AdvReac Mild GI Verified 12/24/24 11:25 symptoms. monosodium glutamate AdvReac Mild GI symtpoms Verified 12/24/24 11:25 onion AdvReac Mild reflux Verified 12/24/24 11:25 peanut AdvReac Mild GI symptoms Verified 12/24/24 11:25 peppermint AdvReac Mild Mint - Verified 12/24/24 11:25 reflux tomato AdvReac Mild Reflux/GI Verified 12/24/24 11:25 Symptoms Yeast AdvReac Mild GI symptoms Verified 12/24/24 11:25 loratadine AdvReac Unknown anxiety Verified 12/24/24 11:25 metoclopramide AdvReac Unknown anxiety Verified 12/24/24 11:25 banana AdvReac Verified 12/24/24 11:25 Home Medications Medication Instructions Recorded Confirmed Type albuterol sulfate 90 mcg/actuation 2 puff inhalation Q4 PRN Shortness 08/10/18 12/24/24 History aerosol inhaler Of Breath omeprazole 20 mg capsule,delayed 20 mg PO BID 08/10/18 12/24/24 History release famotidine 20 mg tablet 20 mg PO HS Acid Reflux 08/03/19 12/24/24 History albuterol sulfate 2.5 mg/3 mL 2.5 mg inhalation Q4H PRN 04/22/20 12/24/24 History (0.083 %) solution for nebulization Shortness Of Breath Or Wheezing linaclotide 145 mcg capsule 145 mcg PO DAILYBB PRN NEEDED 04/22/20 12/24/24 History (Linzess) PER PT diphenhydramine HCl 25 mg capsule 25 mg PO Q6H PRN TARDIVE DYSKINESIA 05/02/20 12/24/24 History (Benadryl) fluticasone propionate 50 2 sprays intranasal DAILY PRN 05/02/20 12/24/24 History mcg/actuation nasal Congestion spray,suspension pregabalin 200 mg capsule (Lyrica) 200 mg PO TID 06/10/20 12/24/24 History polyethylene glycol 3350 17 17 g PO DIRECTED Constipation 05/10/21 12/24/24 History gram/dose oral powder (Miralax) lidocaine 5 % topical patch 1 patch topical DAILY PRN Pain 05/18/21 12/24/24 History linaclotide 72 mcg capsule 72 mcg PO QAM severe constipation 05/18/21 12/24/24 History (Linzess) spironolactone 50 mg tablet 50 mg PO QAM 05/18/21 12/24/24 History docusate sodium 100 mg capsule 200 mg PO DAILY 06/11/21 12/24/24 History (Stool Softener) triamcinolone acetonide 0.5 % 1 applic topical BID PRN contact 06/11/21 12/24/24 History topical cream dermatitis carboxymethylcellulose sodium 0.5 1 drp ophthalmic (eye) QID PRN Dry 09/03/23 12/24/24 History % eye drops Eyes simethicone 125 mg capsule 125 mg PO TID PRN GAS RELIEF 09/03/23 12/24/24 History acetaminophen 500 mg tablet 500 mg PO Q6H PRN Pain 12/15/24 12/24/24 History clonazepam 0.5 mg tablet 0.5 mg PO QID PRN Anxiety 12/15/24 12/24/24 History ibuprofen 200 mg tablet 200 mg PO Q6H PRN Pain 12/15/24 12/24/24 History amoxicillin 875 mg-potassium 1 tab PO Q12H #9 tabs 12/17/24 12/24/24 Rx clavulanate 125 mg tablet hydromorphone 2 mg tablet 2 mg PO Q12H PRN pain #4 tabs 12/17/24 12/24/24 Rx (Dilaudid) ondansetron 4 mg disintegrating 4 mg PO Q4H PRN nausea and 12/17/24 12/24/24 Rx tablet vomiting #7 tabs amoxicillin 875 mg-potassium 1 tab PO BID 7 days #14 tabs 12/21/24 12/24/24 Rx clavulanate 125 mg tablet ondansetron HCl 4 mg tablet 4 mg PO Q8H PRN nausea and 12/21/24 12/24/24 Rx vomiting 5 days #15 tabs Patient History Medical History Anxiety Asthma Cervical strain Cholecystitis Chronic maxillary sinusitis Chronic shoulder pain Depression Fatty liver Fibromyalgia GERD (gastroesophageal reflux disease) Hiatal hernia History of anemia History of facial nerve disorder hx facial nerve palsy History of IBS Hordeolum of left eye 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 Hx of gastritis Hx of migraines Hx of renal calculi Hypertension hx Insomnia Xxtbxjo-Liezrfxky-Wyopm syndrome Low grade squamous intraepithelial lesion (LGSIL) on cervical Pap smear Lumbar back pain with radiculopathy affecting lower extremity Lumbar disc disease Lyme disease OCD (obsessive compulsive disorder) Scoliosis Ulnar neuropathy of both upper extremities Vulvar fissure Entered 2018 Surgical History H/O myringotomy Right ear tube H/O wisdom tooth extraction History of adenoidectomy History of colonoscopy x2 History of esophageal dilatation History of esophagogastroduodenoscopy (EGD) x2 History of lymph node biopsy benign History of open reduction and internal fixation (ORIF) procedure left tibia History of tonsillectomy Hx of cervical biopsy per pt she had HPV (with local anesthesia) Hx of oral surgery S/P hardware removal left tibia S/P left knee arthroscopy S/P skin biopsy local anesthesia Family History Grandfather (Maternal) Family history of diabetes mellitus Deep vein thrombosis Stroke Grandmother (Paternal) Hypertension Other Kidney stone No family history of adverse response to anesthesia Denies family history of Ovarian cancer Coronary heart disease Breast cancer Colorectal cancer Asthma Social History Smoking Status: Unknown if ever smoked Cigarettes Per Day: unable to finish assessment per pt's state of distress /pain; Do You Dip or Chew Tobacco: No; Hx Alcohol Use: No Hx Substance Use: No Preferred Language: Citizen Of [place] Communication Ability: Effective Visual Impairment: No Limitations Hearing Ability: Normal Security Vehicle Patrol Officer Required: No Beliefs That Will Affect Care: None Current Living Situation: Alone Current Living Situation Comment: roommates--2 Feels Safe at Home: Yes Gender Identity: Female Assistive Devices: None Assistive Devices Comment: unable to finish assessment per pt's state of distress/pain Physical Exam Physical Exam: General: A&Ox3, anxious appearing. NAD. Cooperative. HEENT: Atraumatic, normocephalic. No facial asymmetry, vision/hearing grossly intact. Pulm: Symmetrical chest rise. No increased work of breathing. No respiratory distress. Cardiac: Mildly tachycardic, regular Abdomen: Appropriately tender without rebound/guarding. Lap sites intact clean and dry. No dehiscence discharge or bleeding. Surgical glue overlying is intact. Moves all extremities equally. Results & Data Results & Data Vital Signs (Past 12 Hours) Vital Signs Temp Pulse Pulse Resp BP Pulse Ox O2 Del Method 12/24/24 17:59 107 H 22 126/84 97 Room Air 12/24/24 17:20 92 H 18 126/85 96 Room Air 12/24/24 16:45 36.4 C L 104 H 20 132/84 98 Room Air 12/24/24 16:25 89 24 145/89 H 98 Room Air 12/24/24 16:10 36.3 C L 88 24 148/88 H 98 Room Air 12/24/24 16:00 87 21 155/57 H 98 Room Air 12/24/24 15:50 90 22 141/96 H 100 Room Air 12/24/24 15:40 95 H 20 145/90 H 100 Room Air 12/24/24 15:30 89 21 139/97 100 Room Air 12/24/24 15:20 90 26 H 139/97 100 Room Air 12/24/24 15:10 98 H 26 H 168/95 H 100 Room Air 12/24/24 15:00 108 H 24 150/99 H 99 Room Air 12/24/24 14:50 36.0 C L 107 H 13 131/86 95 Oxymask 12/24/24 11:52 36.4 C L 87 20 137/77 99 Room Air O2 Flow Rate 12/24/24 17:59 12/24/24 17:20 12/24/24 16:45 12/24/24 16:25 12/24/24 16:10 12/24/24 16:00 12/24/24 15:50 12/24/24 15:40 12/24/24 15:30 12/24/24 15:20 12/24/24 15:10 12/24/24 15:00 12/24/24 14:50 4 12/24/24 11:52 PG Care Time/CCT Total # of Minutes Spent Total Time Spent with Patient: Total time spent is greater than 50% in coordination of care (as documented) at patient's floor/unit and/or counseling patient: Coding Level of Care Code 91368 IN/OBS CONSULT LVL 5,80M Diagnoses Acute cholecystitis K81.0 Lumbar back pain with radiculopathy affecting lower extremity M54.16 OCD (obsessive compulsive disorder) F42.9 Fibromyalgia M79.7
--- OUTSIDE RECORDS SUMMARY | 2024-12-24 19:17 | External Medical Summary | Continuity of Care Document ---
Author Name Unknown Organization [place] [id number] [address] [place] [id number] Care Team Providers Care Finger Waver Name Role Phone Starla Brooks Primary Care Physician [phone] [id number] Date(s): 12/21/24 - 12/21/[address] [facility] [place] [id number] [address] [address] [phone] Discharge Disposition: Home or Self Care Attending [...] Status Refusal Reason SARS-CoV-2 (COVID-19) mRNA-vacc - [id number] 06/30/24 Recorded SARS-CoV-2 (COVID-19) mRNA-vacc - [id number] 07/17/23 Recorded SARS-CoV-2 mRNA-[id number] (6y+ bivalent) 08/02/22 [...] Date: 02/05/17 Status: Ordered Repeat number: 1 amoxicillin-clavulanate 875 mg-125 mg oral tablet TAKE 1 TABLET BY MOUTH EVERY 12 HOURS Start Date: 12/21/24 Status: Ordered Repeat number: 1 Augmentin 875 mg-125 mg oral tablet Start: 11/09/24 4:39:00 PM EST, amoxicillin 1 tab, PO, q12h, Disp# 20, Pharmacy: [facility] #[id number] Start Date: 11/09/24 Stop Date: 11/19/24 Status: Ordered Quantity: 20.0 Unit: tab Repeat number: 1 baclofen 10 mg oral tablet Start: 02/01/22 4:21:00 PM EDT, 1 tab, PO, qhs, Disp# 12 tab, PRN: pain, Pharmacy: [facility] Start Date: 02/01/22 Status: Ordered Quantity: 12.0 Unit: tab Repeat number: 1 Indication: Pain in right shoulder Boostrix (Tdap vaccine) intramuscular suspension Start: 09/06/24 3:48:00 PM EST, 0.5 mL, IM, ONCE, Disp# 0.5 mL, Pharmacy: [facility] #[id number] Start Date: 09/06/24 Status: Ordered Quantity: 0.5 Unit: mL Repeat number: 1 clonazePAM 1 mg oral tablet Start: 09/27/21 5:00:00 PM EST, 1 tab, PO, ONCE, Disp# 1 tab, Please take 1 tablet prior to MRI, Pharmacy: [facility] Start Date: 09/27/21 Status: Ordered Quantity: [...] iontophoresis for achilles and patella tendons, Pharmacy: [facility] Start Date: 10/17/21 Status: Ordered Quantity: 120.0 Unit: mL Repeat number: 2 Indication: Pain in right knee diphenhydrAMINE 25 mg oral tablet Start: 11/09/24 4:41:00 PM EST, 1 tab, PO, tid, Disp# 30 tab, PRN: as needed for allergy symptoms, Pharmacy: [facility]/pharmacy #[id number] Start Date: 11/09/24 Status: Ordered Quantity: 30.0 [...] Start: 05/24/21 3:30:00 PM EDT, 1 each, NH, As indicated Start Date: 05/24/21 Status: Ordered Repeat number: 1 Flonase Start: 02/05/17 10:00:00 AM EDT, 2 spray, intranasal, PRN: allergy symptoms Start Date: 02/05/17 Status: Ordered Repeat number: 1 glycerin adult rectal suppository Start: 05/24/21 3:30:00 PM EDT, 1 supp, NH, ONCE, PRN: as needed for constipation Start Date: 05/24/21 Status: Ordered Repeat number: 1 HYDROmorphone 2 mg oral tablet TAKE 1 TABLET BY MOUTH EVERY 12 HOURS NEEDED FOR PAIN Start Date: 12/21/24 Status: Ordered Repeat number: 1 KlonoPIN 1 mg oral tablet Start: 03/12/21 8:47:00 AM EDT, See Instructions, Disp# 2 tab, Refills: 0, 1 tab PO 1 hour prior to procedure/MRI; 1 tab 5 min prior to exam as needed., Pharmacy: [facility] Start Date: 03/12/21 Status: Ordered Quantity: [...] refill., PRN: as needed for inflammation, Pharmacy: [facility]/pharmacy #[id number] Start Date: 11/30/24 Stop Date: 12/07/24 Status: Ordered Quantity: 14.0 Unit: tab Repeat number: 1 Indication: Pain, unspecified omeprazole 20 mg oral delayed release capsule Start: 03/20/18 2:11:00 PM EDT, 1 cap, PO, bid Start Date: 03/20/18 Status: Ordered Repeat number: 1 ondansetron 4 mg oral tablet, disintegrating TAKE 1 TABLET ORALLY EVERY 4 HOURS NEEDED FOR NAUSEA AND VOMITING Start Date: 12/21/24 Status: Ordered Repeat number: 1 Pulmicort Flexhaler [...] qid, Disp# 100 g, Refills: 2, Pharmacy: [facility] [place] [address] Start Date: 06/15/19 Status: Ordered Quantity: 100.0 [...] Weight disorder Confirmed Active 1lower extremity 2Left Procedures Procedure Date Related Diagnosis Body Site [...] 9 03/27/09 Completed Left knee 01/28/08 Completed [place] tooth 2007 Completed Myringotomy 2000 Completed Oral surgery 1999 Completed Adenoidectomy 1998 Completed Electrocardiogram 10 Comp leted EMG - Electromyography Co mpleted Tonsillectomy Completed 1Negative 2No acute intracranial abnormality 3"normal bx" 4"normal bx" 5Normal Ultrasound left lower quadrant. No evidence for collection or abnormallity by ultrasound criteria 6Impression: Slight bladder wall thickening. Otherwise negative pelvic ultrasound. 7[facility] Radiology Dept. Impression: 1 2.2x2.0x1.3 cm [...] Med Member Role: Primary Care Provider Address: [address] [place] [address] Telecom: [phone] Name: DO Powell Amanda Position: Resident Member Role: Lifetime Relationship Address: [address] [place] [address] Telecom: [phone] Name: Cathryn Rollins Keri Position: Pharmacist Member Role: Pharmacy - Lifetime Care Team Related Persons Name: SONYA GALLAGHER Name: SONYA GALLAGHER Insurance Providers Guarantor name: HALI Jesus GALLAGHER Health Plan Information #: 1 Payer: [employer] [facility] Member Number: [id number] Policy Number: NA Group Number: NA Health Plan Information #: 2 Payer: [employer] [facility] Member Number: [id number] Policy Number: NA Group Number: NA
--- OUTSIDE RECORDS SUMMARY | 2024-12-24 19:18 | External Medical Summary | Continuity of Care Document ---
Author Name Unknown Organization [facility] [address] [place] [phone] Care Team Providers Care Carry Out Clerk And Shelf Stocker Name Role Phone Starla Brooks Primary Care Physician [phone] [id number] Date(s): 12/21/24 - 12/21/[address] [address] [phone] Encounter Diagnosis Social problem(Discharge Diagnosis) - 12/21/24 Discharge Disposition: Home or Self Care Attending Physician: DO Escamilla Gretchen Elizabeth Encounter Type: Clinic Allergies, Adverse Reactions, Alerts Substance Criticality Severity [...] and cobalt. Assessment and Plan Extracted from: Title:FCM: Tele hosp f/u Author:DO Powell Am anda Date:12/21/24 1.Social problem As noted in HPI. Gave pt option of go to ER via 911 for transport for immediate treatment or coordinate with surgery. Emphasized treatment for her acute cholecystitis symptoms would be removal of the gallbladder and this is not an issue that will resolve on its own and needs to be treated julio césar, especially given her poor pain control and inability to adequately po at home. Immunizations Given and Recorded Vaccine Date Status Refusal Reason SARS-CoV-2 (COVID-19) mRNA-vacc - [id number] 06/30/24 Recorded SARS-CoV-2 (COVID-19) mRNA-vacc - [id number] 07/17/23 Recorded SARS-CoV-2 mRNA-1273 (6y+ bivalent) 08/02/22 [...] 1 tab, PO, q12h, Disp# 20, [id number] Start Date: 11/09/24 Stop Date: 11/19/24 Status: Ordered Quantity: 20.0 Unit: tab Repeat number: 1 baclofen 10 mg oral tablet Start: 02/01/22 4:21:00 PM EDT, 1 tab, PO, qhs, Disp# 12 tab, PRN: pain, Pharmacy: [facility] Start Date: 02/01/22 Status: Ordered Quantity: 12.0 Unit: tab Repeat number: 1 Indication: Pain in right shoulder Boostrix (Tdap vaccine) intramuscular suspension Start: 09/06/24 3:48:00 PM EST, 0.5 mL, IM, ONCE, Disp# 0.5 mL, [id number] Start Date: 09/06/24 Status: Ordered Quantity: 0.5 Unit: mL Repeat number: 1 clonazePAM 1 mg oral tablet Start: 09/27/21 5:00:00 PM EST, 1 tab, PO, ONCE, Disp# 1 tab, Please take 1 tablet prior to MRI, Pharmacy: [facility] Start Date: 09/27/21 Status: Ordered Quantity: [...] iontophoresis for achilles and patella tendons, Pharmacy: [address] Start Date: 10/17/21 Status: Ordered Quantity: 120.0 Unit: mL Repeat number: 2 Indication: Pain in right knee diphenhydrAMINE 25 mg oral tablet Start: 11/09/24 4:41:00 PM EST, 1 tab, PO, tid, Disp# 30 tab, PRN: as needed for allergy symptoms, [facility]: [id number] Start Date: 11/09/24 Status: Ordered Quantity: 30.0 [...] prior to exam as needed., [facility]: [id number] Start Date: 03/12/21 Status: Ordered Quantity: 2.0 [...] refill., PRN: as needed for inflammation, Pharmacy: [id number] Start Date: 11/30/24 Stop Date: 12/07/24 Status: [...] qid, Disp# 100 g, Refills: 2, Pharmacy: [address] Start Date: 06/15/19 Status: Ordered Quantity: 100.0 Unit: g Repeat number: 3 Zofran 8 mg oral tablet Start: 04/16/21 1:58:00 PM EDT, 1 tab, PO, tid, PRN: as needed for nausea/vomiting Start Date: 04/16/21 Status: Ordered Repeat number: 1 Mental Status 12/21/24 Barriers to Learning one year None evide nt Mandatory Health Literacy Documentation Yes Health Literacy Communication Barriers N ever Primary Language [place] Problem List Condition Confirmation Course Effective Dates [...] Dates Health Status Cl inical Service Informant Social problem Discharge Diagnosis 12/21/24 Non-Specified Procedures Procedure Date Related Diagnosis Body [...] 9 03/27/09 Completed Left knee 01/28/08 Completed [place] tooth 2006 Completed Myringotomy 2000 Completed Oral surgery 1999 Completed Adenoidectomy 1998 Completed Electrocardiogram 10 Comp leted EMG - Electromyography Co mpleted Tonsillectomy Completed 1Negative 2No acute intracranial abnormality 3"normal bx" 4"normal bx" 5Normal Ultrasound left lower quadrant. No evidence for collection or abnormallity by ultrasound criteria 6Impression: Slight bladder wall thickening. Otherwise negative pelvic ultrasound. 7[facility] Radiology Dept. Impression: 1 2.2x2.0x1.3 [...] Female (finding) FCM Outpt Note * DO Escamilla Gretchen Elizabeth: MODIFY DO Escamilla Gretchen Elizabeth: MODIFY, MODIFY Event Display: FCM Outpt Note Authored Date: [id number] TeleHealth Visit Note I have confirmed the patients name and date of . The patient has consented to this service,and I have advised the patient that this is a billable visit for which they may be subject to a copay. Pt initiatedthis visitas atelehealth/remote visitgiven unableto obtaintransportation today.I initiatedthis visitas atelephone visit. I am located at my office. Thisvisit wasstarted as atelephone visit. Visit [id number] minuteswith me. Chief Complaint Discuss medications History of Present Illness Talked with pt today over telephone given change to remote visit right before appointment time today. Pt states that she is very frustrated with our office and the care through our office. Although pt was advised this visit was only to talk about medical concerns other than the hospital stay as she would need an actually hospital f/u appoint prior to me initiating the visit today, pt exclusively talked about the hospitalization and condition related to the hospital stay. Per chart review, pt seen at [facility] last week for acute cholecystitis with discharge on Friday and plan for f/u on Wednesday 12/[address] Andrew Burrell. Pt states she was unable to make it to that appt due to transportationissues and since leaving the hospital on friday she has been in horrible pain and only able to tolerate eating a few saltinecrackers a day or at a time with essentially no other nutrition. I told pt that I am concerned about this and advised her that if her pain is unmanaged at home with the prescribed hydromorphone or OTC pain medications and low fat diet that pt needs to go back to the hospital for immediate management.Pt states she will not do this. She states that it "doesn't matter" because she doesnt have supportfor after the surgery andfeels she is very high risk for surgery given her other medical issues and ear infection in the fall that took weeks to resolve. Pt is on antibiotics given by general surgery. Pt states general surgery offered her surgery on Friday this week or Friday next week but again shewill have no support and states that she will be kicked out of her current housing situation on 12/24 so she will have no where stable to recover and no support through the recovery. Ptasked about if I could but a"hold" on our resident service for her for Friday as she then could get the surgery friday and I could then watch her overnight and help her determine needs. Iadvised pt that this is not appropriate and that I cannot "hold" a spot for our service for her andthat she would be admitted under surgery and not hospitalist anyways and there is nothing more I would do past what surgery would recommend. Pt once again continuously emphasized her displeasure with care through our clinic and my inabilityto provide her service in office and at the hospital when she needs this. She also emphasized her significant social barriers. She notes significant concern over when she stops the antibiotic that surgery would not recommend she take past 2 weeks and that she worries once she stops this she will become septic. I repeatedly offered to call 911 if transportation is an issue to get her back to the hospital today for eval given poor oral intake and unmanaged pain. Pt refuses and states she has not used the hydromorphone because she is rationing it for if her pain continues to get worse. Again, advised her onher options; she can call general surgery and arrange with them for a day and time for surgery thatworks well with them or she can call 911 (or we can call 911 for her) and return to the hospital for surgery. Pt continues to refuse any further help and emphasizes her social barriers again. Advised pt f/u should be made but I would recommend she either call 911 for immediate treatment or coordinate with surgery for outpatient arrangement of this procedure. Physical Exam General: Verbally aggressive, often yelling or cutting off what I am saying, at times sobbing or audibly hyperventilating Assessment/Plan 1.Social problem As noted in HPI. Gave pt option of go to ER via 911 for transport for immediate treatment or coordinate with surgery. Emphasized treatment for her acute cholecystitis symptoms would be removal of thegallbladder and this is not an issue that will resolve on its own and needs to be treated julio césar, especially given her poor pain control and inability to adequately po at home. Attestation Patientevaluated by phone inconcert with , agree with history and documentation above. Total attending time on phone with patient 16 minutes. Advised patient to seek medical attention for worsening pain, fever, or other symptoms suggestive of cholecystitis. Problem List/Past Medical History Ongoing Acute low [...] brain and neck without contrast| Service Date: 07/25/2024T angiography of neck vessels with contrast| Service [...] mg oral tablet), 1 tab, PO, q12h amoxicillin-clavulanate(amoxicillin-clavulanate 875 mg-125 mg oral tablet) baclofen(baclofen 10 mg oral tablet), 10 mg= [...] bid glycerin(glycerin adult rectal suppository), 1 supp, NH, ONCE, PRN HYDROmorphone(HYDROmorphone 2 mg oral tablet) lidocaine topical(lidocaine 5% patch), See Instructions linaclotide(Linzess [...] 8 mg= 1 tab, PO, tid, PRN ondansetron(ondansetron 4 mg oral tablet, disintegrating) polyethylene glycol 3350(MiraLax oral powder for reconstitution), 17 g, PO, Daily pregabalin(Lyrica 200 mg oral capsule), 200 mg= 1 cap, PO, tid, 2 refills simethicone(simethicone 125 mg oral tablet, chewable), 125 mg= 1 tab, PO, pc and hs sodium biphosphate-sodium phosphate(Fleet Enema 7 g-19 g rectal enema), 1 each, NH, As indicated spironolactone(spironolactone 100 mg oral tablet), [...] Tobacco - Denies Tobacco Use Use:Never smoker Intake (IView) Smoking History Cigarette smoker: Never smoked cigarettes Tobacco Product Use: Never used other tobacco products Family History Family history is unknown Immunizations Vaccine Date Status SARS-CoV-2 (COVID-19) mRNA-vacc - [id number] 06/30/2024 Recorded SARS-CoV-2 (COVID-19) mRNA-vacc - [id number] 07/17/2023 Recorded SARS-CoV-2 mRNA-1273 (6y+ bivalent) 08/02/2022 [...] every 1year Due Adult Folic Acid Supplementation due12/21/24and every 3year Adult Social Determinants of Health Screening due12/21/24Unknown Frequency Adult Tdap/Td Vaccine due12/21/24Unknown Frequency Cervical Cancer Screening due12/21/24Unknown Frequency Depression Follow Up Plan due12/21/24Unknown Frequency Hepatitis C Screening due12/21/24One-time only Lipid Screening due12/21/24Unknown Frequency Pneumococcal Vaccine Adults and Adolescents with Chronic Illness due12/21/24One-time only Due In Future Body Mass Index not due until09/07/25and every 366day Satisfied(in the past 1 year) Satisfied Adult COVID-19 Vaccination on06/30/24.Satisfied by DO Brooks Stephanie Marie Body Mass Index on09/06/24.Satisfied by MAURICE Emery Kathryn Depression Follow Up Plan on09/22/24.Satisfied by MAURICE Emery Kathryn Electronic Signature on File Electronically Reviewed/Signed by: Irina Powell DO Author Signature Dt/Tm:12/21/2024 06:31 PM Resident Department of Family Medicine Electronically Reviewed/Signed by: DO Eileen Silveiraigner Signature Dt/Tm: 12/21/2024 07:19 PM Resident Department of Family Medicine Electronically Reviewed/Signed by: Josie Gage Signature Dt/Tm: 12/23/2024 02:19 PM Department of Family Medicine AB Patient Care team information Care Team Personnel Name: DO Brooks Stephanie Marie Position: Physician - Family Med Member Role: Primary Care Provider Address: [address] Telecom: [phone] Name: DO Powell Amanda Position: Resident Member Role: Lifetime Relationship Address: [address] [facility] [address] Telecom: [phone] Name: Cathryn Rollins Keri Position: Pharmacist Member Role: Pharmacy - Lifetime Care Team Related Persons Name: SONYA GALLAGHER Name: SONYA GALLAGHER Insurance Providers Guarantor name: HALI Jesus [facility] Information #: 1 Payer: [employer] [facility] Member Number: [id number] Policy Number: NA Group Number: NA Health Plan Information #: 2 Payer: [employer] [facility] Member Number: [id number] Policy Number: NA Group Number: NA
[2024-12-24] MEDS: LYRICA 200 MG PO SCH (20:23)
[2024-12-24] MEDS: diphenhydrAMINE Capsule 25 MG CAP PO PRN (20:23)
[2024-12-24] MEDS: FAMOTIDINE 20 MG TAB PO SCH (20:23)
[2024-12-24] MEDS: PREGABALIN 200 MG PO SCH (20:26)
[2024-12-24] MEDS: clonazePAM 0.5 MG TAB PO PRN (23:04)
--- NOTE | 2024-12-25 06:27 | Surgery Progress Note ---
<Statement entered by Shelly Tatum, DO - 12/26/24 10:21> I saw and examined this patient in the am. She had a myriad of concerns to do with how she would manage at home which has been her usual ongoing concern since her last visit and why she was holding off on having the surgery. Ultimately she is doing well from a post surgical standpoint with stable vitals, incisions look great and appropriate labs. Will have case management get involved to deal with the social issues. Date of Service December 25, 2024 Assessment & Plan (1) Biliary colic: Plan: Patient is POD#1 s/p robotic assisted cholecystectomy by Dr. Tatum Patient overnight requiring IV pain medication and tells me she has not taken any of the Tylenol or other oral medications that are ordered because "they do not help". VSS and is afebrile AM labs pending at this time Surgical sites are c/d/i without signs of infection Denies N/V and has tolerated clears overnight. Will plan to advance diet today Encourage OOB and ambulate as able and at least to get into the chair today. The patient this morning was upset and tearful regarding multiple social issues regarding her primary care provider, her housing situation, and needing help once discharged. I had a lengthy discussion for over an hour with the patient that we will try to have social work/case management see her today to try to help her get arrangements in place prior to her leaving. The patient also tells me that she may just want to leave with her friend that is here with her for the next few days instead. In the meantime, we will reach out to social work first thing this morning to attempt to talk with patient about potential outpatient options. Admission and Anticipated Discharge Date Admission Date: December 24, 2024 Subjective States she is having severe pain and requiring IV Dilaudid every 3 hours however during exam this morning she is distractible. Patient this morning is mostly upset about what the next steps will be once she is discharged from the hospital regarding her care, living situation, and pain management. She was able to tolerate clear liquids overnight without any reported issue of N/V VSS and she has been afebrile Physical Exam Constitutional: WD/WN, vitals as above Respiratory: normal respiratory effort, lungs clear to auscultation Cardiovascular: RRR, no murmur, no edema Gastrointestinal (Abdomen): Abdomen soft, nondistended, +appropriate TTP around surgical sites. Incisions with Dermabond in place and are c/d/i without any signs of infection Skin: no rashes, warm and dry Psychiatric: Speech: + pressured speech Affect: + anxious affect and + tearful affect Results & Data Vital Signs (Past 12 Hours) Vital Signs Temp Pulse Pulse Resp BP Pulse Ox O2 Del Method 12/25/24 04:55 36.6 C 106 H 18 109/73 95 Room Air 12/25/24 00:45 36.6 C 102 H 18 107/72 95 Room Air 12/24/24 20:49 36.4 C L 110 H 18 113/77 96 Room Air 12/24/24 19:48 36.5 C 105 H 18 118/81 96 Room Air PG Care Time/CCT Total # of Minutes Spent Total Time Spent with Patient: Total time spent is greater than 50% in coordination of care (as documented) at patient's floor/unit and/or counseling patient: Coding Level of Care Code 97509 Post Operative Follow-Up Diagnoses Biliary colic K80.50
[2024-12-25 06:35] LABS: Hematocrit (blood only) 38.5 % (37.0-47.0); Mean Corpuscular Hemoglobin 28.2 pg (25.0-34.0); Mean Corpuscular Hgb Conc 33.8 g/dL (32.0-36.0); Mean Corpuscular Volume 83.5 fL (80.0-100.0); Platelet Count 282 K/uL (130-400); RDW Coefficient of Variation 12.8 % (11.5-14.5); RDW Standard Deviation 38.6 fL (36.4-46.3); Red Blood Count 4.61 M/uL (4.20-5.40); White Blood Count 8.71 K/ul (4.8-10.8)
[2024-12-25 06:48] LABS: Albumin Globulin Ratio 1.6 (0.9-2); Albumin Level 3.9 gm/dl (3.4-5.0); BUN Creatinine Ratio 10.9 (10-20); Bilirubin,Total 0.6 mg/dl (0.2-1.0); Calcium 8.7 mg/dl (8.6-10.3); Creatinine Clr Calc Pharmacy 149.9 ml/min; Globulin 2.5 gm/dl (2.5-4.0); Total Protein 6.4 gm/dl (6.0-8.3)
[2024-12-25 07:05] LABS: Immature Granulocytes # (auto) 0.04 K/uL (0.01-0.20); Immature Granulocytes % (auto) 0.5 %; Lymphocytes # (auto) 0.49 K/uL (1.20-3.40); Lymphocytes % (auto) 5.6 %; Monocytes # (auto) 0.23 K/uL (0.11-0.59); Monocytes % (auto) 2.6 %; Neutrophils # (auto) 7.95 K/uL (1.40-6.50); Neutrophils % (auto) 91.3 %
[2024-12-25] MEDS: SPIRONOLACTONE 25 MG TAB PO SCH (08:04)
[2024-12-25] MEDS: PANTOprazole 40 MG TAB PO SCH (09:22)
[2024-12-25] MEDS: DOCUSATE SODIUM 100 MG CAP PO SCH (09:58)
[2024-12-25] MEDS: POLYETHYLENE (MIRALAX) 17 GM PACK PO SCH (09:58)
[2024-12-25] MEDS: oxyCODONE/ACETAMINOPHEN 5mg/325mg TAB PO PRN (10:58)
[2024-12-25] MEDS: clonazePAM 0.5 MG TAB PO PRN (12:55)
--- NOTE | 2024-12-25 13:56 | Hospitalist Progress Note ---
Date of Service December 25, 2024 Assessment & Plan (1) Acute cholecystitis: (2) Lumbar back pain with radiculopathy affecting lower extremity: (3) OCD (obsessive compulsive disorder): (4) Fibromyalgia: Plan Deepthi is a 34-year-old female with a complicated and complex medical history including OCD, KTW syndrome, anemia, hypertension, IgG deficiency, tardive dyskinesia, borderline personality disorder, somatic symptom disorder, GERD, anxiety, panic attacks, back pain, L4-5 herniated nucleus pulposus, migraines, fibromyalgia who presents for scheduled robot-assisted lap cholecystectomy. We are consulted for assistance with postoperative medication management. Cholecystitis S/p robot-assisted lap cholecystectomy with Dr. Andrew Burrell 12/24 Pain control, DVT prophylaxis, antibiotics, discharge planning per primary team - Mental health: Clonazepam prn. May take up to 2 mg total daily dose, and may take 0.5-1 mg per dose throughout the day. - order changed to calendar day instead of every 24 hours. - GERD: Pepcid, PPI - Constipation: Linzess, Miralax HS - Fibromyalgia: Lyrica. Requires brand which she brought from home for verification - HTN: Spironolactone held. has not been taking this recently and is normotensive on assessment. - Sgsnotk-Zlhhifaro-Cxxmv Syndrome: noted Social needs Complicated social history. Has previous followed with [facility] and [facility] practices. Most recently had been following with [facility] however per patient was recently dismissed as a patient there and now does not have a PCP for follow-up. Case management consulted will attempt to help patient establish PCP appointment on Friday Surrogate Decision Maker: She reports her emergency contact is her friend Katja Díaz. She has living family/parents but who she reports she is legally estranged from and is not to make medications for her under any circumstances. [phone] Thank you for allowing us to participate in the care of this patient, medicine will follow peripherally. please reach out with any questions or concerns. Need for PCP appointment should not hold up discharge. Admission and Anticipated Discharge Date Admission Date: December 24, 2024 Supervising Physician Co-Signing Physician Notes Attending Attestation - Chart reviewed, care plan d/w JAMES Raymond. I agree w/ the ruiz components of her documentation. George Henry MD Subjective upon entering patient's room, case management was in there discussing options with her. Patient is very fixated that she needs a PCP appointment as she is recently admitted discharge from her PCP at [facility]. However patient persistently counting events of the past and agencies that she is talk to and traumas that she has gone through. Myself and the caser shoe parts attempted to redirect the conversation multiple times to focus on her acute needs during this hospitalization. Unfortunately will not be able to solve all of her chronic issues or the system barriers that she deals with on a frequent basis. She does have a support person at bedside who the patient is also dismissive to and is not able to provide much insight. Patient also has concerns about her clonazepam dosing as her prescriber has allowed her to take the 2 mg daily dose flexibly. I am okay with this as well, patient agreed before leaving the room that she had taken 0.5 mg this morning and she has 1.5 mg left for her daily allowance. I spoke with pharmacy and we changed the order for 2 mg per calendar day (the previous order was 2 mg every 24 hours.) Patient intermittently complains about how intense the pain is, I encouraged her to focus on her anxiety control at this time as she is very tearful and very difficult to redirect. I suspect that her anxiety control will help with her pain control. Review of Systems Review of Systems: All systems reviewed & are unremarkable except as noted in Subjective Physical Exam Physical Exam: sitting up in bed, breathing is unlabored but does get tachypneic when she gets more anxious. Anxious appearing with occasional crying. moves all extremities Results & Data Results & Data Vital Signs (Past 12 Hours) Vital Signs Temp Pulse Resp BP Pulse Ox O2 Del Method 12/25/24 11:25 97.9 F 100 H 18 136/82 100 Room Air 12/25/24 07:45 98.1 F 102 H 18 121/81 96 Room Air 12/25/24 04:55 97.9 F 106 H 18 109/73 95 Room Air Laboratory Results CBC and chemistry reviewed PG Care Time/CCT Total # of Minutes Spent Total Time Spent with Patient: Total time spent is greater than 50% in coordination of care (as documented) at patient's floor/unit and/or counseling patient: 65 > 40 minutes spent in patient room discussing her medical hx and current plan of care. 25 minutes spent documentation reviewed, discussion with manager sales support, CM and documenting. Coding Level of Care Code 34199 SUB INP/OBS CARE MIN Diagnoses Acute cholecystitis K81.0 Lumbar back pain with radiculopathy affecting lower extremity M54.16 OCD (obsessive compulsive disorder) F42.9 Fibromyalgia M79.7
[2024-12-25 19:07] VITALS: BP 117/77; PULSE 72; RESP 12; TEMP 98.6; O2SAT 97
[2024-12-25] MEDS: SIMETHICONE 80 MG CHEW PO PRN (19:32)
--- NOTE | 2024-12-26 05:43 | Surgery Progress Note ---
<Statement entered by Shelly Tatum, DO - 12/26/24 11:13> I have seen and examined this patient. Incision sites still intact, with Dermabond. No bruising, she seems to be doing better. Complains that she is unsure as to whether or not Percocet is upsetting her stomach although she is unable to clearly admit to any nausea and continues to eat with no issues. Removed Percocet and added oral Dilaudid as per patient's request. If she feels this feels better to her than Percocet, she states she will be ready to be discharged this evening with an order for oral Dilaudid to her pharmacy. Recommended alteranating the narcotic with an OTC pain medication to start reducing the need for the narcotic by POD 3. I have made her aware that post surgical pain for this type of surgery should not require a narcotic formation testing operator and that it should be able to start being weaned off by post operative day 3. Advised not to wait until the pain is severe to medicate. Advised using ice packs over incisions. Advised use her stomach muscles as little as possible for her to avoid irritating the muscles more. This all has been discussed yesterday and today. She expressed understanding both days. Case management on board aided in connecting her with a PCP as she has had issues at some offices in the past. Also reportedly confirmed she does have good living arrangements in place. She should follow up with me in the office in 2-3 weeks. Date of Service December 26, 2024 Assessment & Plan (1) Biliary colic: Plan: Patient is POD#2 s/p robotic assisted cholecystectomy by Dr. Tatum -Patient appears to be doing better this morning compared to yesterday. However she does not feel the oral Percocet is working and is requesting PO Dilaudid, will discuss with attending surgeon about possible medication adjustment. -VSS and is afebrile -AM labs pending at this time -Surgical sites are c/d/i without signs of infection -Denies N/V and has tolerated diet without issues -Again explained the importance about OOB during the day, will also add an abdominal binder to potentially help. -Appreciate hospitalist input and recommendations -Appreciate social work/case management input and recommendations for complex social needs. Admission and Anticipated Discharge Date Admission Date: December 24, 2024 Subjective -Patient seen and evaluated early this morning, she states she is still having significant pain mostly in her most lateral incision site however she was able to ambulate yesterday with assistance and was OOB a few times. -Patient still requiring IV pain medication quite frequently -Tolerating diet without any issues of N/V -VSS and afebrile -Patient has spoken with social work/case management yesterday and is hopeful they can help with finding PCP prior to her being discharged. Physical Exam Constitutional: WD/WN, vitals as above Respiratory: normal respiratory effort, lungs clear to auscultation Cardiovascular: RRR, no murmur, no edema Gastrointestinal (Abdomen): Abdomen soft, nondistended, appropriate TTP over surgical site especially the most lateral port site. Incisions with Dermabond in place, c/d/i without signs of infection. Skin: no rashes, warm and dry Psychiatric: Speech: + pressured speech Affect: + anxious affect Results & Data Vital Signs (Past 12 Hours) Vital Signs Temp Pulse Resp BP Pulse Ox O2 Del Method 12/25/24 19:06 37.0 C 72 12 117/77 97 Room Air PG Care Time/CCT Total # of Minutes Spent Total Time Spent with Patient: Total time spent is greater than 50% in coordination of care (as documented) at patient's floor/unit and/or counseling patient: Coding Level of Care Code 06856 Post Operative Follow-Up Diagnoses Biliary colic K80.50
[2024-12-26] MEDS: INFLUENZA VACC TS2024-25(6m+)/PF (IIV3) 0.5mL Syr IM ONE (09:10)
[2024-12-26] MEDS: HYDROmorphone HCL 2 MG TAB PO PRN (10:03)
--- OUTSIDE RECORDS SUMMARY | 2024-12-26 14:45 | External Medical Summary | Summary of Care ---
Author Name Unknown Organization [facility] Address [address] [place] [facility] [address] Phone [phone] Support Name Relationship Address Phone Katja King Unrelated friend [address] [place] [address] Elvis Mon Father [address] [place] [address] Francoise Omalley'Mea Unrelated friend [address] [place] [address] Destiny Barger Unrelated friend [address] [place] [address] Care Team Providers Care User Experience Team Lead Name Role Phone Juan Luis Greene Primary Care Provider [phone] Reason for Visit * Reason Onset Date Comments Advice 12/21/2024 Pt called to see if she can speak with Dr Oneal in regards to her medication Lyrica, she is really worried about her next refill and wants to try tp get ahead of it, and her insurance is changing to Medicare D. Please call her at [phone]. She is due for upcoming surgery. Encounter Details Date Type Department Care Team (Late st Contact Info) Description 12/21/2024 Telephone Rheumatology [facility] [place] [address] [place] [address] Jamil Oneal MD [address] [place] [id number] Advice (Pt called to see if she can speak ... Allergies Active Allergy Reactions Criticality Noted Date Comments Aluminum 05/13/2013 Lubiprostone Nausea/vomiting 06/03/2024 Chrome Alum 05/13/2013 [place] 05/13/2013 Valproic Acid Anaphylaxis High 05/16/2020 Gold-Containing [...] as of this encounter (statuses as of 12/24/2024) Medications Simethicone 125 MG CAPSIndications:LPR D (laryngopharyngeal reflux disease),Gastroesop hageal reflux disease, esophagitis presence not specified Take 125 mg by mouth three times a day before meals. 90 Cap 1 04/13/20 18 Active Nebulizers (COMPRESSOR/NEBULIZ ER) [facility] Please dispense with cannister, mouthpiece and tubing. [...] 24 Active Additional Information Patient taking differently:2 Louise Each Nostril Daily(AM),As needed, Reported on 08/26/2024 [...] as of this encounter (statuses as of 12/24/2024) Active Problems Problem Noted Date Diagnosed Date [...] split tear on R. Dr. Mckeon at [place] offered surgery, would need do allergy testing for hardware. Tardive dyskinesia 08/03/2020 Sacroiliac pain 11/08/2019 Greater trochanteric bursitis of right hip 11/01 Somatic symptom disorder 09/30/2019 Panic attacks 09/07/2019 Well adult exam 08/31/2019 Overview (01/09/2021): Hx multiple psych hospitalizations. 04/15 [facility] clonazepam overdose. 2018 [facility] x2. 08/14 [facility]. 2015 hospital. 01/14 normal small bowel follow through [facility] 2016 outpatient [facility] psych clinic intermittent attendance, 04/2019 started but did not complete intake. Discharged from [facility]. Dr Villafana declined. Consider [facility] 2018 CAPS in fall, intermittent. 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 10/07/2022 Recurrent infections 01/28/2017 019 Allergic rhinitis due to dust mite 01/28/2017 09/07/2023 Keratitis sicca, bilateral 05/21/2016 0 12/06/2022 ADVANCE DIRECTIVE INFORMATION 08/08/2005 01/28/2019 Overview (08/08/2005): Not applicable (under age of 18) Asthma 04/20/2019 LPRD (laryngopharyngeal reflux disease) 09/07/2023 Never smoked any substance 1 documented as of this encounter (statuses as of 12/24/2024) Immunizations Name Administration Dates Next Due COVID-19 mRNA, LNP-s, No Pre serve, 2-Dose Series (Moderna) 12/20/2020,11/29/2020 COVID-19, LNP-s, No Preserve , Ángel-sucrose, Ages 12+ (Biztag) 09/22/2021 COVID-19, MRNA-LNP, PF, 50 M CG/0.5 [...] file Not on file Not on file [employer] grad Not on file Not on file Not on file documented as of this encounter Miscellaneous Notes * Telephone Encounter - Jamil Oneal MD - 12/24/2024 12:03 PM EST I called again today and left a voicemail. Also asked her to respond to the [employer] message. * Telephone Encounter - Jamil Oneal MD - 12/22/2024 2:05 PM EST I called and left a voicemail to call back or reply to who the [employer] message * Telephone Encounter - Radha Torres OSA - 12/21/2024 4:02 PM EST Pt called to see if she can speak with Dr Oneal in regards to her medication Lyrica, she is really worried about her next refill and wants to try tp get ahead of it, and her insurance is changingto Medicare D. Please call her at [phone]. She is due for upcoming surgery. Thank-you! Radha documented in this encounter Plan of Treatment Upcoming Encounters Date Type Department Care Team (Late st Contact Info) Description 02/22/2025 11:40 AM EDT Telemedicine Gastroenterology, [facility] [address] [address] Aniceto Chavez MD [address] [address] 03/01/2025 3:00 PM EDT Office Visit Cardiology, [facility] [address] [address] Yuliet Egan PA-C [address] [place] [address] 07/13/2025 1:00 PM EDT Office Visit Rheumat[facility] [address] [place] [phone] Jamil Oneal MD [address] [facility] [place], [place] [address] Health Maintenance Due Date Last Done Comments [...] on patient's age to complete this topic Meningitis B Vaccine (Bexsero/Trumemba) Aged Out No longer eligible based on patient's age to complete this topic documented as of this encounter Medical Devices Not on filedocumented as of this encounter Care Teams User Experience Team Lead Relationship Specialty Start Date End Date Juan Luis Greene CRNP [address] [place] [address] PCP - General Nurse Practitioner 12/08/24 documented as of this encounter
--- NOTE | 2024-12-28 08:57 | Discharge Summary ---
Date of Service December 26, 2024 Principal Diagnosis biliary colic Discharge Exam Constitutional: WD/WN, vitals as above Respiratory: normal respiratory effort, lungs clear to auscultation Cardiovascular: RRR, no murmur, no edema Gastrointestinal (Abdomen): Abdomen soft, nondistended, appropriate TTP over surgical site especially the most lateral port site. Incisions with Dermabond in place, c/d/i without signs of infection. Skin: no rashes, warm and dry Psychiatric: Speech: + pressured speech Affect: + anxious affect Discharge Data Allergies Allergy/AdvReac Type Severity Reaction Status Date / Time adhesive Allergy Severe contact Verified 12/24/24 11:25 dermatitis divalproex sodium Allergy Severe Anaphylaxis Verified 12/24/24 11:25 [From Depakote] Gadolinium-Containing Allergy Severe Anaphylaxis Verified 12/24/24 11:25 Contrast Medi (MRI contrast) bupropion Allergy Intermediate HIVES Verified 12/24/24 11:25 cat dander Allergy Intermediate allergy Verified 12/24/24 11:25 tested positivie cobalt Allergy Intermediate contact Verified 12/24/24 11:25 dermatitis Iodinated Contrast Media Allergy Intermediate ARM Verified 12/24/24 11:25 NUMBNESS & vomiting nickel Allergy Intermediate contact Verified 12/24/24 11:25 dermatitis pollen extracts Allergy Intermediate asthma sx Verified 12/24/24 11:25 sertraline Allergy Intermediate Hives Verified 12/24/24 11:25 silver Allergy Intermediate contact Verified 12/24/24 11:25 dermatitis fluoxetine Allergy Mild HIVES Verified 12/24/24 11:25 buprenorphine AdvReac Intermediate nausea/vomi Verified 12/24/24 11:25 ting fluvoxamine AdvReac Intermediate COLD SORES Verified 12/24/24 11:25 haloperidol [From Haldol] AdvReac Intermediate TARDIVE Verified 12/24/24 11:25 DYSKINESIA PER [facility].dystonic & "severe muscle spasms" hydrocodone AdvReac Intermediate NAUSEA/VOMI Verified 12/24/24 11:25 TING alcohol AdvReac Mild GI Verified 12/24/24 11:25 symptoms, reflux ascorbic acid AdvReac Mild GI Verified 12/24/24 11:25 symptoms & reflux black pepper AdvReac Mild Reflux/GI Verified 12/24/24 11:25 symptoms caffeine AdvReac Mild GI symptoms Verified 12/24/24 11:25 chocolate flavor AdvReac Mild GI symptoms Verified 12/24/24 11:25 [place] And Derivatives AdvReac Mild Reflux - Verified 12/24/24 11:25 citrus fruits garlic AdvReac Mild gi Verified 12/24/24 11:25 symptoms/reflux milk AdvReac Mild GI Verified 12/24/24 11:25 symptoms. monosodium glutamate AdvReac Mild GI symtpoms Verified 12/24/24 11:25 onion AdvReac Mild reflux Verified 12/24/24 11:25 peanut AdvReac Mild GI symptoms Verified 12/24/24 11:25 peppermint AdvReac Mild Mint - Verified 12/24/24 11:25 reflux tomato AdvReac Mild Reflux/GI Verified 12/24/24 11:25 Symptoms Yeast AdvReac Mild GI symptoms Verified 12/24/24 11:25 loratadine AdvReac Unknown anxiety Verified 12/24/24 11:25 metoclopramide AdvReac Unknown anxiety Verified 12/24/24 11:25 banana AdvReac Verified 12/24/24 11:25 Consultations 12/24/24 15:16 Consult Hospitalist Routine Procedures Performed Operation Date: 12/24/24 09:35 Actual Procedures p Robotic Assisted Laparoscopic Cholecystectomy(Not Applicable) - Shelly Tatum, DO Hospital Course (1) Biliary colic: This is a 34 yo female who presented to the [facility] on 12/24/24 for a robotic laparoscopic cholecystectomy with Dr Tatum. The patient tolerated the procedure well, see operative report for full details. Post operatively the patient was admitted to the hospital for care and observation. The hospitalist team and case management were consulted to assist with care. Her diet was adv anced, pain managed on prn meds, and incisions clean/dry/intact. On POD#2 the patient was deemed stable for discharge to home. A close friend was present to take the patient home at discharge. The patient was given discharge instructions, follow up recommendations, return precautions and a prescription for narcotic pain medication. Case management had also been involved and was able to secure the patient connection with a new PCP and an appointment. Total Time Total Time Spent Total Time Spent (In Minutes): 10 Discharge Plan Discharge Items Patient Disposition: Home - Self-Care Reason For Visit: Acute Cholecystitis Discharge Diagnosis: laparoscopic cholecystectomy Activity: Resume your previous activity Activity Comment: without lifting more than 25 pounds Lifting: No more than 25 pounds Lifting Comment: minimize use of your stomach muscles Bathing Comment: Do not sit in water, you may shower. Do not rub incisions Sexual Activity: When tolerated Exercise/Sports: Gradually increase as tolerated Exercise Comment: Do not lift more than 25 pounds Driving/Machine Use: wait until no longer needing pain medication for the surgical pain Weightbearing: Full weightbearing Non-emergency contact: Surgeon Call non-emergency contact if: your temperature is above 101 and your wound pain has increased Follow-up/Referrals: Shelly Tatum DO [Physician] - (call office for follow up 1-2 weeks ) PCP,NO [Primary Care Provider] - Diet: Regular Addtl Attending Provider Instructions: SPECIAL CARE INSTRUCTIONS: * Dressing: dermabond * You may shower tomorrow . NO soaking in pools or baths for 2 weeks * No lifting greater than 10lbs. No exercise until cleared by surgeon. Light walking is accepted. * No driving while taking narcotic pain medication * No drinking alcohol while taking narcotic pain medication * May use Ibuprofen/Tylenol over the counter for pain as tolerated. Do not exceed 3grams of Tylenol per 24 hours * Expect some swelling and bruising. * Diet Regular Call your doctor if: * Temperature above 101 degrees, nausea/vomiting, fever/chills * Pain not relieved by pain medicine ordered * There is increased drainage or redness from any incision * You have any unanswered questions or concerns [phone]. FOLLOW UP VISIT: If not already scheduled, please call the office for a follow-up visit. Office Pending Studies at Discharge: Yes Studies:: surgical pathology Stand-Alone Forms: My [facility] Medications and DC Order Prescriptions: New ondansetron 8 mg tablet,disintegrating 8 mg PO Q8H PRN (Reason: nausea and vomiting) 5 Days Qty: 15 0RF hydromorphone [Dilaudid] 2 mg tablet 2 mg PO Q4H PRN (Reason: pain) Qty: 15 0RF hydromorphone [Dilaudid] 2 mg tablet 2 mg PO Q4H PRN (Reason: pain) Qty: 15 0RF Continued diphenhydramine HCl [Benadryl] 25 mg capsule 25 mg PO Q6H PRN (Reason: TARDIVE DYSKINESIA) fluticasone propionate 50 mcg/actuation spray,suspension 2 sprays INTNAS DAILY PRN (Reason: Congestion) polyethylene glycol 3350 [Miralax] 17 gram/dose powder 17 g PO DIRECTED Rx Instructions: PER PT "USE 1 TO 1/2 DOSE IF NEEDED DAILY". famotidine 20 mg Tablet 20 mg PO HS omeprazole 20 mg capsule,delayed release(DR/EC) 20 mg PO BID albuterol sulfate 90 mcg/actuation HFA aerosol inhaler 2 puff Inhalation Q4 PRN (Reason: Shortness Of Breath) albuterol sulfate 2.5 mg /3 mL (0.083 %) Solution For Nebulization 2.5 mg INHALATION Q4H PRN (Reason: Shortness Of Breath Or Wheezing) Linzess 145 mcg capsule 145 mcg PO DAILYBB PRN (Reason: NEEDED PER PT) Rx Instructions: PER PT "WILL USE IF NEED MORE THAN 72 MG TABS". pregabalin [Lyrica] 200 mg capsule 200 mg PO TID Rx Instructions: Must be brand name, GI upset with generic. triamcinolone acetonide 0.5 % Cream 1 applic TOPICAL BID PRN (Reason: contact dermatitis) docusate sodium [Stool Softener] 100 mg Capsule 200 mg PO DAILY simethicone 125 mg Capsule 125 mg PO TID PRN (Reason: GAS RELIEF) carboxymethylcellulose sodium 0.5 % Drops 1 drp OPHTHALMIC (EYE) QID PRN (Reason: Dry Eyes) spironolactone 50 mg tablet 50 mg PO QAM Linzess 72 mcg capsule 72 mcg PO QAM Rx Instructions: PER PT "WILL TAKE A SECOND DOSE IF NEEDED" lidocaine 5 % adhesive patch,medicated 1 patch topical DAILY PRN (Reason: Pain) Rx Instructions: leave on most painful area for up to 12 hrs. Per pt this does cause contact dermatitis, but when the pain is rough she still uses it. clonazepam 0.5 mg tablet 0.5 mg PO QID PRN (Reason: Anxiety) ibuprofen 200 mg Tablet 200 mg PO Q6H PRN (Reason: Pain) acetaminophen 500 mg Tablet 500 mg PO Q6H PRN (Reason: Pain) ondansetron 4 mg tablet,disintegrating 4 mg PO Q4H PRN (Reason: nausea and vomiting) Qty: 7 0RF hydromorphone [Dilaudid] 2 mg tablet 2 mg PO Q12H PRN (Reason: pain) Qty: 4 0RF Discontinued amoxicillin-pot clavulanate 875-125 mg tablet 1 tab PO BID 7 Days Qty: 14 0RF amoxicillin-pot clavulanate 875-125 mg tablet 1 tab PO Q12H Qty: 9 0RF Discharge Orders: Discharge Order (Routine); Ordered 12/26/24 Ordered By: Shelly Tatum Admission Data Admit Date/Time: 12/24/24 14:56 Attending Provider: Shelly Tatum Admit Provider: Shelly Tatum Primary Care Provider: PCP,NO Other Providers: Pardeep Prieto Other Interventions: Discharge Summary Assessment (RN) Last Done: 12/26/24 14:08 Coding Level of Care Code 63607 IN/OBS DISCH 30 MIN/LESS Diagnoses Biliary colic K80.50
== END 2024-12-26 17:30 | disposition home or self-care (01) ==
LOC: ASU 10:44 → PACUINP 10:44 → 3E 17:00